=== PATIENT | female | born 1950 | race African-American/Black ===

== ENCOUNTER 2018-05-08 03:41 | Emergency (ER) | payer OTHER ==
[2018-05-08 04:02] LABS: Absolute Lymphocytes (CBC) 1.8 K/uL (0.7-4.9); Absolute Monocytes 0.5 K/uL (0.1-1.3); Absolute Neutrophil 5.2 K/uL (1.8-8.0); Basophils % 0.6 % (0-1.3); Hematocrit 42.3 % (36.0-45.0); Lymphocytes % 23.6 % (15.3-44.8); MCH 28.6 pg (27.0-35.0); MCV 87.6 fL (80-100); MPV 9.1 fL (7.6-11.3); Monocytes % 6.5 % (3.3-12.3); RBC Red Blood Cell Count 4.83 M/uL (3.86-4.86)
[2018-05-08] MEDS ORDERED: NA CHLORIDE 0.9% 1,000 ML ONE ×2 (04:03→06:20)
[2018-05-08 04:05] LABS: Protime INR 0.9
[2018-05-08] MEDS ORDERED: LORazepam 2 MG/ML VIAL ONE (04:23)
[2018-05-08 04:25] LABS: Potassium 3.9 mmol/L (3.5-5.1)
[2018-05-08] MEDS ORDERED: LEVETIRACETAM 500 MG/5 ML VIAL IV ONE (04:34)
[2018-05-08] MEDS ORDERED: NA CHLORIDE 0.9% 100 ML IV ONE ×3 (04:34→04:59)
[2018-05-08] MEDS ORDERED: INSULIN -REGULAR HUMAN 50 UNIT/0.5 ML ML ONE ×2 (04:54→04:59)
--- NOTE | 2018-05-08 04:54 | ER ---
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 Transition of care: patient was not received from another setting of care. Onset of symptoms was May 08, 2018 at 03:00. Risk Assessment: Do you want to hurt yourself or someone else? Unable to obtain. Care prior to arrival: Glucose check: HIGH. 03:40 Method Of Arrival: EMS: [facility] lp1 03:40 Acuity: JODI 2 lp1 03:40 An acute neurological deficit is present. The patients blood glucose was checked prior lp1 to arriving to the hospital and was found to be hyperglycemic. 05:03 Initial Sepsis Screen: Does the patient meet any 2 criteria? No. Patient's initial lp1 sepsis screen is negative. Does the patient have a suspected source of infection? No. Patient's initial sepsis screen is negative. Triage Assessment: 05:11 The onset of the patients symptoms was May 08, 2018 at 03:00. lp1 Stroke Activation: Symptom onset < 3 hours Physician: Stroke Attending; Name: ; Notified At: ; Arrived At: Physician: Chief Stroke Resident; Name: ; Notified At: ; Arrived At: Physician: Stroke Resident; Name: ; Notified At: ; Arrived At: Physician: ED Attending; Name: Dr. Rivera; Notified At: 03:43; Arrived At: 03:43 Physician: ED Resident; Name: ; Notified At: ; Arrived At: Historical: - Allergies: 04:27 No Known Allergies; lp1 - Home Meds: 04:27 metformin 1,000 mg oral tab 2 times per day [Active]; atorvastatin 20 mg oral tab 1 tab lp1 once daily [Active]; metoprolol tartrate 50 mg oral tab 2 times per day [Active]; potassium chloride 10 mEq Oral TbER 1 tab 2 times per day [Active]; clonidine HCl 0.2 mg oral tab 2 times per day [Active]; 04:30 hydrochlorothiazide 25 mg oral tab once daily [Active]; amlodipine 10 mg oral tab once lp1 daily [Active]; aspirin 81 mg Oral TbEC 1 tab once daily [Active]; glipizide 10 mg oral tab 2 times per day [Active]; Invokana 300 mg oral tab 1 tab once daily [Active]; levamir 20 units twice a day [Active]; - PMHx: 04:27 CVA; Deaf; Diabetes - IDDM; Hypertension; lp1 - PSHx: 04:27 Eye surgery; lp1 - Immunization history:: Adult Immunizations unknown. - Social history:: Smoking status: Patient/guardian denies using tobacco. - Ebola Screening: : No symptoms or risks identified at this time. Screenin:30 Abuse screen: Denies threats or abuse. Denies injuries from another. Nutritional lp1 screening: No deficits noted. Tuberculosis screening: No symptoms or risk factors identified. Fall Risk Total Argueta Fall Scale indicates High Risk Score (45 or more points). Fall prevention measures have been instituted. Side Rails Up X 2 Placed Close to Nursing Station Frequent Obs/Assessments Occuring Family Present and informed to notify staff if the need to leave the bedside As available patient and family educated on Fall Prevention Program and Strategies. Assessment: 03:45 General: Appears in no apparent distress. Behavior is listless. Pain: Unable to use aa1 pain scale. FLACC scale score is 0 out of 10. Neuro: Level of Consciousness is awake, listless, Oriented to unable to obtain; pt is deaf/mute. Polish Maker are equal bilaterally Moves all extremities. Pupils are PERRLA. Neuro: Seizure activity reported prior to arrival. Cardiovascular: Heart tones S1 S2 present Rhythm is regular. Respiratory: Airway is patent Respiratory effort is even, unlabored, Respiratory pattern is regular, symmetrical. GI: No signs and/or symptoms were reported involving the gastrointestinal system. : pt urinated \T\ defecated on self. EENT: No signs and/or symptoms were reported regarding the EENT system. Derm: Skin is intact, is healthy with good turgor, Skin is pink, warm \T\ dry. Musculoskeletal: Circulation, motion, and sensation intact. Capillary refill < 3 seconds. 04:15 Patient has been NPO before screening. The patient is not alert and/or unable to follow lp1 commands. Patient is deaf, mute Patient is mute The patient is exhibiting difficulty understanding words. The patient is unable to swallow own secretions without drooling or the need for suction. Bedside swallow screening discontinued. Patient kept NPO until cleared by Speech Therapy or Physician. 04:15 The patient failed the bedside swallow screening. The patient will be kept NPO until lp1 cleared by Speech Therapy or Physician. Provider notified of bedside swallow screening results: Regis Rivera MD. 04:16 Neuro: Seizure activity noted at this time. Seizure lasted approximately 2 minutes. lp1 04:16 Reassessment: MD at bedside while pt seizing. Oral suctioning performed. Pt urinated on aa1 herself. Respiratory: Airway is patent. 04:42 Reassessment: Patient appears in no apparent distress at this time. Patient and/or aa1 family updated on plan of care and expected duration. Pain level reassessed. Reassessment: Pt resting quietly at this time. No additional seizure activity observed. Family at bedside. Respiratory: Airway is patent Respiratory effort is even, unlabored, Respiratory pattern is regular, symmetrical. Derm: Skin is pink, warm \T\ dry. 05:19 Reassessment: Patient appears in no apparent distress at this time. No changes from aa1 previously documented assessment. Patient and/or family updated on plan of care and expected duration. Pain level reassessed. RT at bedside for ABG. 05:35 Reassessment: Report given to Chris Burris RN at [facility]. aa1 06:21 Reassessment: Patient appears in no apparent distress at this time. No changes from aa1 previously documented assessment. Patient and/or family updated on plan of care and expected duration. Pain level reassessed. Family remains at bedside. [facility] present for pt transfer to [facility]. Recheck FSBS taken just prior to transfer. BGL >500 however labs not drawn and sent bc pt is being loaded onto EMS stretcher for transfer. Vital Signs: 03:42 BP 166 / 148; Pulse 131; Resp 32; Temp 97.4(TE); Pulse Ox 94% 2 lpm ; Weight 74.84 kg; lp1 04:04 BP 185 / 127; Pulse 127; Resp 18; Pulse Ox 93% on 2 lpm NC; lp1 04:33 BP 169 / 105; Pulse 119; Resp 18; Pulse Ox 96% on 2 lpm NC; Pain 0/10; aa1 05:30 BP 167 / 108; Pulse 114; Resp 16; Pulse Ox 95% on 2 lpm NC; aa1 06:23 BP 142 / 101; Pulse 116; Resp 18; Pulse Ox 96% on 2 lpm NC; Pain 0/10; aa1 ED Course: 03:43 Patient arrived in ED. am2 03:44 Inserted saline lock: 18 gauge in left antecubital area, using aseptic technique. Blood lp1 collected. By JOHANA Calderon. 03:45 Patient has correct armband on for positive identification. Placed in gown. Bed in low lp1 position. Call light in reach. Side rails up X2. Seizure precautions initiated. monitoring analyst on. Pulse ox on. NIBP on. 03:46 Regis Rivera MD is Attending Physician. gs 04:02 CT Stroke Brain w/o Contrast In Process Unspecified. EDMS 04:14 Triage completed. lp1 04:14 Jomar Lei MD is Private Physician. am2 04:17 Arm band placed on right wrist. lp1 04:33 Yumiko Ponce, JOHANA is Primary Nurse. aa1 04:35 Cleaned of incontinence. Linen changed. aa1 06:00 Stroke CXR 1 View In Process Unspecified. EDMS 06:37 No provider procedures requiring assistance completed. Patient transferred, IV remains aa1 in place. Administered Medications: 04:17 Drug: Ativan 2 mg Route: IVP; Site: left antecubital; lp1 05:11 Follow up: Response: No adverse reaction; Marked relief of symptoms aa1 04:30 Drug: NS 0.9% 1000 ml Route: IV; Rate: 1 bolus; Site: left antecubital; lp1 05:07 Follow up: IV Status: Completed infusion aa1 04:30 Drug: Keppra 1000 mg Route: IV; Rate: calculated rate; Site: left antecubital; lp1 05:00 Follow up: IV Status: Completed infusion aa1 05:00 Drug: Insulin Drip - (Insulin Regular Human 100 units, NS 0.9% 100 ml) {Co-Signature: aa1 carmelo1 (Betty Celis RN).} Route: IV; Rate: calculated rate; Site: left antecubital; 05:45 Follow up: IV Status: Infusion continued upon transfer aa1 06:20 Drug: NS 0.9% 1000 ml Route: IV; Rate: 125 ml/hr; Site: left antecubital; aa1 06:20 Follow up: IV Status: Infusion continued upon transfer aa1 Point of Care Testing: Blood Glucose: 03:44 Blood Glucose: High (>450 mg/dL); lp1 06:23 Blood Glucose: High (>450 mg/dL); aa1 Ranges: Outcome: 04:53 ER care complete, transfer ordered by MD. 06:37 Transferred by ground EMS Transfer form completed. aa1 06:37 Condition: stable 06:37 Discharge instructions given to family, Instructed on the need for transfer, Demonstrated understanding of instructions. 06:38 Patient left the ED. aa1 Signatures: Dispatcher [employer] EDYumiko Zhou RN RN aa1 Betty Celis RN RN [email or web address] Brittany Loaiza Gregory, MD MD Betty Celis RN, lp1 Corrections: (The following items were deleted from the chart) 04:16 04:09 Presenting complaint: EMS states: Per family, heard a loud noise, found patient lp1 on floor seizing; Hx of seizures, mute, deaf, HTN; BP of 228/159, blood glucose reading as HIGH; Patient post ictal on scene, unable to follow commands on arrival to ER [facility] 04:16 04:09 Transition of care: patient was not received from another setting of care. 1 1 04:16 04:09 Onset of symptoms was May 08, 2018 at 03:00 1 1 04:16 04:09 Risk Assessment: Do you want to hurt yourself or someone else? Unable to obtain 1 1 04:16 04:09 Care prior to arrival: Glucose check: HIGH 1 1 04:16 04:09 Method Of Arrival: EMS: [facility] 1 1 04:16 04:09 Acuity: JODI 2 lp1 1 04:31 03:40 Presenting complaint: EMS states: Per family, heard a loud noise, found patient lp1 on floor seizing; Hx of seizures, mute, deaf, HTN; BP of 228/159, blood glucose reading as HIGH; Patient post ictal on scene, unable to follow commands on arrival to ER 1 04:32 03:40 Presenting complaint: EMS states: Per family, heard a loud noise, found patient lp1 on floor seizing; No hx of seizures; Patient is deaf; BP of 228/159, blood glucose reading as HIGH; Patient post ictal on scene, unable to follow commands on arrival to ER [facility] 04:32 04:19 Social history: Smoking status: unknown [place] [id number]
--- NOTE | 2018-05-08 04:54 | EDPHYS ---
Physician Documentation [facility] Name: Génesis Manzano Age: 67 yrs Sex: Female : 1950 Arrival Date: 05/08/2018 Time: 03:43 Bed 3 Private MD: Jomar Lei E ED Physician Regis Rivera HPI: 05/08 04:41 This 67 yrs old Black Female presents to ER via EMS with complaints of Probable Seizure.gs 04:41 The patient presents with a history of multiple seizures, a total of 2. Character of gs seizure(s): Loss of consciousness: the patient experienced loss of consciousness, Motor activity: generalized, Incontinence: incontinent of bladder. Seizure onset: today. Seizure Hx: the patient has no previous seizure history. Associated injury: The patient did not suffer any apparent associated injury. Unable to obtain HPI due to comatose state. The patient has not experienced similar symptoms in the past. Historical: - Allergies: 04:27 No Known Allergies; lp1 - Home Meds: 04:27 metformin 1,000 mg oral tab 2 times per day [Active]; atorvastatin 20 mg oral tab 1 tab lp1 once daily [Active]; metoprolol tartrate 50 mg oral tab 2 times per day [Active]; potassium chloride 10 mEq Oral TbER 1 tab 2 times per day [Active]; clonidine HCl 0.2 mg oral tab 2 times per day [Active]; 04:30 hydrochlorothiazide 25 mg oral tab once daily [Active]; amlodipine 10 mg oral tab once lp1 daily [Active]; aspirin 81 mg Oral TbEC 1 tab once daily [Active]; glipizide 10 mg oral tab 2 times per day [Active]; Invokana 300 mg oral tab 1 tab once daily [Active]; levamir 20 units twice a day [Active]; - PMHx: 04:27 CVA; Deaf; Diabetes - IDDM; Hypertension; lp1 - PSHx: 04:27 Eye surgery; lp1 - Immunization history:: Adult Immunizations unknown. - Social history:: Smoking status: Patient/guardian denies using tobacco. - Ebola Screening: : No symptoms or risks identified at this time. ROS: 04:41 Unable to obtain ROS due to comatose state. gs Exam: 04:41 Head/Face: Normocephalic, atraumatic. Eyes: Pupils equal round and reactive to light, gs extra-ocular motions intact. Lids and lashes normal. Conjunctiva and sclera are non-icteric and not injected. Cornea within normal limits. Periorbital areas with no swelling, redness, or edema. ENT: Nares patent. No nasal discharge, no septal abnormalities noted. Tympanic membranes are normal and external auditory canals are clear. Oropharynx with no redness, swelling, or masses, exudates, or evidence of obstruction, uvula midline. Mucous membranes moist. Neck: Trachea midline, no thyromegaly or masses palpated, and no cervical lymphadenopathy. Supple, full range of motion without nuchal rigidity, or vertebral point tenderness. No Meningismus. Chest/axilla: Normal chest wall appearance and motion. Nontender with no deformity. No lesions are appreciated. 04:41 Respiratory: Lungs have equal breath sounds bilaterally, clear to auscultation and percussion. No rales, rhonchi or wheezes noted. No increased work of breathing, no retractions or nasal flaring. Abdomen/GI: Soft, non-tender, with normal bowel sounds. No distension or tympany. No guarding or rebound. No evidence of tenderness throughout. Back: No spinal tenderness. No costovertebral tenderness. Full range of motion. Skin: Warm, dry with normal turgor. Normal color with no rashes, no lesions, and no evidence of cellulitis. MS/ Extremity: Pulses equal, no cyanosis. Neurovascular intact. Full, normal range of motion. 04:41 Constitutional: The patient appears lethargic. 04:41 Cardiovascular: Rate: tachycardic, Rhythm: regular, Pulses: no pulse deficits are appreciated. 04:41 ECG was reviewed by the Attending Physician. 04:41 Neuro: Motor: moves all fours, strength is 4/5 in the right arm, left arm, right leg gs and left leg, Sensation: withdraws to pain. Vital Signs: 03:42 BP 166 / 148; Pulse 131; Resp 32; Temp 97.4(TE); Pulse Ox 94% 2 lpm ; Weight 74.84 kg; lp1 04:04 BP 185 / 127; Pulse 127; Resp 18; Pulse Ox 93% on 2 lpm NC; lp1 04:33 BP 169 / 105; Pulse 119; Resp 18; Pulse Ox 96% on 2 lpm NC; Pain 0/10; aa1 05:30 BP 167 / 108; Pulse 114; Resp 16; Pulse Ox 95% on 2 lpm NC; aa1 06:23 BP 142 / 101; Pulse 116; Resp 18; Pulse Ox 96% on 2 lpm NC; Pain 0/10; aa1 MDM: 03:52 Patient medically screened. gs 04:41 Differential diagnosis: cerebral vascular accident, cardiac arrhythmia, seizure, dka, gs HONK. Data reviewed: vital signs, nurses notes. Response to treatment: the patient's symptoms have mildly improved after treatment. 05/08 03:47 Order name: Basic Metabolic Panel; Complete Time: 04:34 05/08 03:47 Order name: CBC with Diff; Complete Time: 04:19 05/08 03:47 Order name: Protime (+inr); Complete Time: 04:19 05/08 03:47 Order name: CT Stroke Brain w/o Contrast 05/08 04:25 Order name: Osmolality, Serum; Complete Time: 05:56 05/08 04:28 Order name: ABG; Complete Time: 05:56 05/08 03:47 Order name: Stroke CXR 1 View 05/08 03:47 Order name: EKG; Complete Time: 03:48 05/08 03:47 Order name: Accucheck; Complete Time: 03:52 05/08 03:47 Order name: Cardiac monitoring; Complete Time: 03:51 05/08 03:47 Order name: EKG - Nurse/Tech; Complete Time: 04:36 05/08 03:47 Order name: IV Saline Lock; Complete Time: 03:52 05/08 03:47 Order name: Labs collected and sent; Complete Time: 03:52 05/08 03:47 Order name: NPO; Complete Time: 03:53 05/08 03:47 Order name: O2 Per Protocol; Complete Time: 03:53 05/08 03:47 Order name: O2 Sat Monitoring; Complete Time: 03:54 05/08 03:47 Order name: Stroke Swallow Screen; Complete Time: 05:47 gs EC:41 Rate is 134 beats/min. Rhythm is regular. KS interval is normal. QRS interval is gs prolonged. T waves are Flattened. Clinical impression: NSR w/ Non-specific ST/T Changes and Sinus tachycardia. Interpreted by me. Administered Medications: 04:17 Drug: Ativan 2 mg Route: IVP; Site: left antecubital; lp1 05:11 Follow up: Response: No adverse reaction; Marked relief of symptoms aa1 04:30 Drug: NS 0.9% 1000 ml Route: IV; Rate: 1 bolus; Site: left antecubital; lp1 05:07 Follow up: IV Status: Completed infusion aa1 04:30 Drug: Keppra 1000 mg Route: IV; Rate: calculated rate; Site: left antecubital; lp1 05:00 Follow up: IV Status: Completed infusion aa1 05:00 Drug: Insulin Drip - (Insulin Regular Human 100 units, NS 0.9% 100 ml) {Co-Signature: ruma castellon (Betty Celis RN).} Route: IV; Rate: calculated rate; Site: left antecubital; 05:45 Follow up: IV Status: Infusion continued upon transfer aa1 06:20 Drug: NS 0.9% 1000 ml Route: IV; Rate: 125 ml/hr; Site: left antecubital; aa1 06:20 Follow up: IV Status: Infusion continued upon transfer aa1 Point of Care Testing: Blood Glucose: 03:44 Blood Glucose: High (>450 mg/dL); lp1 06:23 Blood Glucose: High (>450 mg/dL); aa1 Ranges: Critical Glucose Levels:Adult <50 mg/dl or >400 mg/dl <40 mg/dl or >180 mg/dl Disposition: 05/08/18 04:53 Transfer ordered to [facility]. 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 - Reason for transfer: Higher level of care. - Accepting physician is lopez. - Condition is Stable. - Problem is new. - Symptoms have improved. Critical care time excluding procedures: 04:41 Critical care time: Bedside Care: 10 minutes, Consultation: 10 minutes, Family gs Intervention: 10 minutes. Total time: 30 minutes Signatures: Dispatcher [employer] EDYumiko Zhou RN RN aa1 Betty Celis RN RN lp1 Regis Rivera MD MD gs Laura Pena RN lp1 Corrections: (The following items were deleted from the chart) 04:32 04:19 Social history: Smoking status: unknown lp1 lp1 04:50 04:41 Respiratory: Lungs have equal breath sounds bilaterally, clear to auscultation gs and percussion. No rales, rhonchi or wheezes noted. No increased work of breathing, no retractions or nasal flaring. Abdomen/GI: Soft, non-tender, with normal bowel sounds. No distension or tympany. No guarding or rebound. No evidence of tenderness throughout. Back: No spinal tenderness. No costovertebral tenderness. Full range of motion. Skin: Warm, dry with normal turgor. Normal color with no rashes, no lesions, and no evidence of cellulitis. MS/ Extremity: Pulses equal, no cyanosis. Neurovascular intact. Full, normal range of motion. Neuro: Awake and alert, GCS 15, oriented to person, place, time, and situation. Cranial nerves II-XII grossly intact. Motor strength 5/5 in all extremities. Sensory grossly intact. Cerebellar exam normal. Normal gait. 04:54 04:53 05/08/2018 04:53 Transfer ordered to [facility]. 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 Reason for transfer: Higher level of care. Accepting physician is jessica. Condition is Stable. Problem is new. Symptoms have improved. 06:38 04:54 05/08/2018 04:53 Transfer ordered to [facility]. 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 Reason for transfer: Higher level of care. Accepting physician is jessica. Condition is Stable. Problem is new. Symptoms have improved.
[2018-05-08 05:25] LABS: Arterial Blood Carboxyhemoglob 0.8 % (0-1.5); Blood Gas Oxyhemoglobin 75.8 % (94-97); Blood O2 Saturation 77.3 % (92-98.5)
--- NOTE | 2018-05-08 08:02 | RAD REPORT ---
EXAM DESCRIPTION: RAD - Chest Single View - 05/08/2018 6:00 am CLINICAL HISTORY: Stroke protocol chest film COMPARISON: October 01, 2015 TECHNIQUE: AP portable chest image was obtained 0404 hours . FINDINGS: No peripheral mass, consolidation or pulmonary edema. Lung markings are accentuated by sha llow inspiration imaging. No significant failure or volume overload. Heart and vasculature are normal. No measurable pleural effusion and no pneumothorax. No acute bony abnormality seen. No acute aortic findings suspected. IMPRESSION: No acute cardiopulmonary process. No significant change from comparison.
--- NOTE | 2018-05-08 09:35 | RAD REPORT ---
EXAM DESCRIPTION: CT - Ct Stroke Brain Wo Cont - 05/08/2018 9:15 am CLINICAL HISTORY: Acute onset altered mental status, memory loss, transient alteration of awareness, seizure history A preliminary report was provided at the time of the study and reviewed prior to final report. COMPARISON: CT head March 2014 TECHNIQUE: Axial 5 millimeter thick images of the head were obtained without IV contrast. All CT scans are performed using dose optimization technique as appropriate and may include automated exposure control or mA/KV adjustment according to patient size. FINDINGS: No intracranial hemorrhage, mass, or cerebral edema. No acute cortical based infarction. N o cortical edema or sulcal effacement. There is patchy chronic ischemic change scattered in the cereb ral white matter. Subtle diminished attenuation is seen near the right head of the caudate. Patient h as moderate area of encephalomalacia in the medial right parieto-occipital junction. Mariscal matter-whit e matter differentiation is preserved. Visualized portions of the mastoid air cells, paranasal sinuses, and orbits are unremarkable. IMPRESSION: No intracranial hemorrhage and no acute cortical based infarction identified. Atrophy and chronic ischemic changes are present progressive from 2013. There is subtle decreased att enuation near the right head of the caudate that could be a nonhemorrhagic infarction. As clinical findings warrant, followup MR imaging could be performed.
--- NOTE | 2018-05-08 10:02 | EKG ---
Test Date: 2018-05-08 Test Time: 04:22:02 Reporting Specialist: RACQUEL MEASUREMENT RESULTS: Intervals: Rate: 134 NH: 156 QRSD: 100 QT: 284 QTc: 424 [place]: P: 58 NH: 156 QRS: 33 T: 13 INTERPRETIVE STATEMENTS: Sinus tachycardia with occasional premature ventricular complexes Biatrial enlargement Nonspecific ST and T wave abnormality Abnormal ECG Compared to ECG 08/18/2017 13:54:41 Ventricular premature complex(es) now present Atrial abnormality now present ST (T wave) deviation now present Sinus rhythm no longer present T-wave abnormality no longer present Prolonged QT interval no longer present Electronically Signed On 05-08-18 10:01:46 CDT by Pipo Vera
[2018-05-09 14:25] VITALS: BP 142/101; TEMP 97.4; O2SAT 96
== END 2018-05-08 06:38 | disposition short-term general hospital (02) ==
LOC: ER 03:41
DX: E11.00 Type 2 diabetes mellitus with hyperosmolarity without nonketotic hyperglycemic-hyperosmolar coma (NKHHC) (principal); G40.509 Epileptic seizures related to external causes, not intractable, without status epilepticus; I10 Essential (primary) hypertension; Z79.82 Long term (current) use of aspirin; Z79.4 Long term (current) use of insulin; Z86.73 Personal history of transient ischemic attack (TIA), and cerebral infarction without residual deficits
CPT/HCPCS: 36415; 70450; 71045; 80048; 82805; 82962; 83930; 85025; 85610; 93005; 96365; 96367; 96375; 99285; J1953; J7030 ×2

== ENCOUNTER 2018-06-10 14:35 | Emergency (ER) | payer OTHER ==
--- OUTSIDE RECORDS SUMMARY | 2018-06-10 14:37 | XMS REPORT | Clinical Summary ---
:1950 Author Organization [facility] Address [address] [place] [address] Care Team Providers Name Role Phone Unavailable Primary Care Provider Unavailable Allergies No Known Allergies Medications Medication Sig Dispensed Refills Start Date End Date Status amLODIPine (NORVASC) 10 Take 1 tablet 30 tablet 2 05/11/2018 Active MG tablet (10 mg total) 9 by mouth daily for 90 days. apixaban (ELIQUIS) 2.5 mg Take 1 tablet 60 tablet 2 05/10/2018 Active Tab tablet (2.5 mg total) 9 by mouth 2 (two) times daily for 90 days. aspirin 81 MG chewable Take 1 tablet 30 tablet 2 05/11/2018 Active tablet (81 mg total) 9 by mouth daily for 90 days. atorvastatin (LIPITOR) 20 Take 1 tablet 30 tablet 2 05/10/2018 Active MG tablet (20 mg total) 9 by mouth nightly for 90 days. hydroCHLOROthiazide Take 1 tablet 30 tablet 2 05/11/2018 Active (HYDRODIURIL) 25 MG (25 mg total) 9 tablet by mouth daily for 90 days. metoprolol (LOPRESSOR) 50 Take 1 tablet 60 tablet 2 05/10/2018 Active MG tablet (50 mg total) 9 by mouth 2 (two) times daily for 90 days. insulin glargine (LANTUS) 40 units SC 10 mL 2 05/10/2018 Active 100 unit/mL syringe daily AM. 9 glipiZIDE (GLUCOTROL) 10 Take 1 tablet 30 tablet 2 05/10/2018 Active MG tablet (10 mg total) 9 by mouth daily for 90 days. metFORMIN (GLUCOPHAGE) Take 1 tablet 60 tablet 2 05/10/2018 Active 1000 MG tablet (1,000 mg 9 total) by mouth 2 (two) times daily with breakfast and dinner for 90 days. Active Problems Problem Noted Date Acute deep vein thrombosis (DVT) of right lower extremity 05/10/2018 Acute encephalopathy 05/08/2018 Hyperglycemic hyperosmolar nonketotic coma 05/08/2018 Provoked seizure 05/08/2018 Acute Metabolic encephalopathy 05/08/2018 Encounters Date Type Specialty Care Team Description 05/08/2018 - [facility] Internal [facility], Acute encephalopathy (Primary Dx); 05/10/2018 Encounter Medicine Ernestina Provoked seizure (HCC); MD Jaun Hyperglycemic hyperosmolar nonketotic coma (HCC) Tavares Arambula MD after 06/09/2017 Social History Tobacco Use Types Packs/Day Years Used Date Never Smoker Smokeless Tobacco: Never Used Sex Assigned at Date Recorded Not on file Job Start Date Occupation Industry Not on file Not on file Not on file Travel History Travel Start Travel End No recent travel history available. Last Filed Vital Signs Vital Sign Reading Time Taken Blood Pressure 136/78 05/10/2018 3:05 PM CDT Pulse 99 05/10/2018 3:05 PM CDT Temperature 36.6 C (97.8 F) 05/10/2018 3:05 PM CDT Respiratory Rate 17 05/10/2018 3:05 PM CDT Oxygen Saturation 96% 05/10/2018 3:05 PM CDT Inhaled Oxygen Concentration - - Weight 65 kg (143 lb 4.8 oz) 05/09/2018 12:12 AM CDT Height 162.6 cm (5' 4") 05/08/2018 1:00 PM CDT Body Mass Index 24.6 05/09/2018 12:12 AM CDT Plan of Treatment Not on file Procedures Procedure Name Priority Date/Time Associated Comments Diagnosis RHYTHM STRIP - SCAN 05/12/2018 10:41 AM CDT POCT-GLUCOSE METER Routine 05/10/2018 5:07 Results for this PM CDT procedure are in the results section. ISLET CELL AB SCR Routine 05/10/2018 12:30 Results for this PM CDT procedure are in the results section. JOCELYNN-65 Routine 05/10/2018 12:30 Results for this PM CDT procedure are in the results section. POCT-GLUCOSE METER Routine 05/10/2018 11:49 Results for this AM CDT procedure are in the results section. VENOUS DOPPLER LEGS Routine 05/10/2018 8:43 Results for this BILATERAL AM CDT procedure are in the results section. POCT-GLUCOSE METER Routine 05/10/2018 7:58 Results for this AM CDT procedure are in the results section. CBC W/PLT COUNT & AUTO Routine 05/10/2018 4:50 Results for this DIFFERENTIAL AM CDT procedure are in the results section. BASIC METABOLIC PANEL Routine 05/10/2018 4:50 Results for this (7) AM CDT procedure are in the results section. CBC W/PLT COUNT & AUTO Routine 05/10/2018 4:50 Results for this DIFFERENTIAL AM CDT procedure are in the results section. POCT-GLUCOSE METER Routine 05/10/2018 12:20 Results for this AM CDT procedure are in the results section. POCT-GLUCOSE METER Routine 05/09/2018 9:43 Results for this PM CDT procedure are in the results section. POCT-GLUCOSE METER Routine 05/09/2018 5:06 Results for this PM CDT procedure are in the results section. POCT-GLUCOSE METER Routine 05/09/2018 11:13 Results for this AM CDT procedure are in the results section. BASIC METABOLIC PANEL Routine 05/09/2018 9:35 Results for this (7) AM CDT procedure are in the results section. POCT-GLUCOSE METER Routine 05/09/2018 5:58 Results for this AM CDT procedure are in the results section. CBC W/PLT COUNT & AUTO Routine 05/09/2018 3:39 Results for this DIFFERENTIAL AM CDT procedure are in the results section. CBC W/PLT COUNT & AUTO Routine 05/09/2018 3:39 Results for this DIFFERENTIAL AM CDT procedure are in the results section. BASIC METABOLIC PANEL Routine 05/09/2018 12:34 Results for this (7) AM CDT procedure are in the results section. POCT-GLUCOSE METER Routine 05/09/2018 12:04 Results for this AM CDT procedure are in the results section. POCT-GLUCOSE METER Routine 05/08/2018 8:17 Results for this PM CDT procedure are in the results section. PHOSPHORUS Routine 05/08/2018 7:58 Results for this PM CDT procedure are in the results section. BASIC METABOLIC PANEL Routine 05/08/2018 7:58 Results for this (7) PM CDT procedure are in the results section. POCT-GLUCOSE METER Routine 05/08/2018 5:12 Results for this PM CDT procedure are in the results section. XR ABDOMEN 1 VIEW Routine 05/08/2018 2:57 Results for this PM CDT procedure are in the results section. BASIC METABOLIC PANEL Routine 05/08/2018 2:55 Results for this (7) PM CDT procedure are in the results section. POCT-GLUCOSE METER Routine 05/08/2018 2:20 Results for this PM CDT procedure are in the results section. POCT-GLUCOSE METER Routine 05/08/2018 1:13 Results for this PM CDT procedure are in the results section. BASIC METABOLIC PANEL Routine 05/08/2018 12:58 Results for this (7) PM CDT procedure are in the results section. POCT-GLUCOSE METER Routine 05/08/2018 12:12 Results for this PM CDT procedure are in the results section. POCT-GLUCOSE METER Routine 05/08/2018 11:04 Results for this AM CDT procedure are in the results section. BLOOD CULTURE Routine 05/08/2018 10:19 Results for this AM CDT procedure are in the results section. URINALYSIS W/ Routine 05/08/2018 9:43 Results for this MICROSCOPIC AM CDT procedure are in the results section. BLOOD CULTURE Routine 05/08/2018 9:43 Results for this AM CDT procedure are in the results section. LACTIC ACID, VENOUS, Routine 05/08/2018 9:42 Results for this WHOLE BLOOD AM CDT procedure are in the results section. POTASSIUM STAT 05/08/2018 9:42 Results for this AM CDT procedure are in the results section. GLUCOSE STAT 05/08/2018 9:42 Results for this AM CDT procedure are in the results section. CBC (HEMOGRAM ONLY) STAT 05/08/2018 9:42 Results for this AM CDT procedure are in the results section. HEMOGLOBIN A1C Routine 05/08/2018 9:42 Results for this AM CDT procedure are in the results section. PHOSPHORUS Routine 05/08/2018 9:42 Results for this AM CDT procedure are in the results section. MAGNESIUM Routine 05/08/2018 9:42 Results for this AM CDT procedure are in the results section. COMPREHENSIVE Routine 05/08/2018 9:42 Results for this METABOLIC PANEL AM CDT procedure are in the results section. APTT STAT 05/08/2018 9:42 Results for this AM CDT procedure are in the results section. PROTHROMBIN TIME/INR STAT 05/08/2018 9:42 Results for this AM CDT procedure are in the results section. TROPONIN I STAT 05/08/2018 9:42 Results for this AM CDT procedure are in the results section. POCT-GLUCOSE METER Routine 05/08/2018 9:24 Results for this AM CDT procedure are in the results section. POCT-GLUCOSE METER Routine 05/08/2018 8:09 Results for this AM CDT procedure are in the results section. after 06/09/2017 Results RHYTHM STRIP - SCAN (05/12/2018 10:41 AM CDT) Narrative Performed At POC-Glucose meter (05/10/2018 5:07 PM CDT)Only the most recent of17 resultswithin the time period is included. POC-Glucose Meter 184 (H)Comment: TESTED AT 70 - 110 mg/dL [facility] [address] [facility] [address] Specimen Blood Performing Organization Address [facility]/[place] [address] CENTER JOCELYNN-65 (05/10/2018 12:30 PM CDT) JOCELYNN-65 <5 <5 IU/mL [facility] Comment: This test was performed using the GAD65 POLLY method. New method, POLLY, is standardized against the International reference preparation 97/550, is reported in International Units/mL (IU/mL) and a new reference range was implemented. Specimen Blood Narrative Performed At Performing Lab [facility] [employer] [place] [address] [place] [address] Tai Domingo MD, PhD, GENEVIEVE Performing Organization Address City/[facility]/Zipcode Phone [place] [address] [facility] [phone] [facility] Islet Cell AB Screen (05/10/2018 12:30 PM CDT) Islet Cell Ab Profile Refer to individual [facility]let [facility] Cell Ab and/or [facility] Ab Titer results. Specimen Blood Narrative Performed At Performing Organization Address City/State/Zipcode Phone Number MADDI Rider, [place] [address] [facility] [address] [facility] Venous doppler legs bilateral (05/10/2018 8:43 AM CDT) Ejection Fraction [facility] CPACS Impressions Performed At Right Impression [facility] CPACS 1. There is a small partial deep vein thrombosis of the common femoral vein. 2. There is no deep venous obstruction in the profunda femoral, femoral, popliteal, posterior tibial or peroneal veins. 3. There is no superficial venous obstruction in the great saphenous vein. Left Impression 1. There is no deep venous obstruction in the common femoral, profunda femoral, femoral, popliteal, posterior tibial or peroneal veins. 2. There is no superficial venous obstruction in the great saphenous vein. Conclusions Summary Venous duplex imaging and compression of the bilateral lower extremities were performed. The veins were adequately visualized. The right deep venous system was positive with PARTIAL acute thrombus. The right superficial venous system was patent and compressible with no evidence of thrombus. The left deep and superficial venous systems were patent and compressible with no evidence of thrombus. Signature Velocities are measured in cm/s ; Diameters are measured in cm Narrative Performed At PV LAB - Lower Extremities DVT Study [facility] CP[facility] Demographics Patient Name GÉNESIS MANZANO Date of Study 05/10/2018 [id number] Age 67 Visit Number [id number] Female [id number] Date of 1950 [facility] ServicesRoom Number 2263 Geeta Zamorano SonographerGary Gemma Mcbride. RVT,InterpretingJ. ZHENG ErwinAnne-Marie Physician , RPVI Procedure Type of Study: Veins: Lower Extremities DVT Study, VENOUS DOPPLER LEG, BILATERAL. Indications for Study:Evaluate for DVT. Patient Status:Routine. Study Location:Vascular Lab. Technical Quality:Adequate visualization. - Results were reported to:floor nurse notified at 8:32 on 05/10/2018.. Risk Factors History of Disease +---------+----+ + !Diagnosis!Date!Comments ! +---------+----+ + !Other!!Seizues, htn, dm, H/o cva. ! +---------+----+ + Procedure Note Interface, External Ris In - 05/10/2018 11:45 AM CDT PV LAB - Lower Extremities DVT Study Demographics Patient Name GÉNESIS MANZANO Date of Study 05/10/2018 Age 67 Visit Number [id number] Gender Female Date of 1950 Number Referring [facility] Room Number 2263 Physician Ernestina Zamorano Histology Aide Timothy Mcbride. RVT, Interpreting ZHENG BlackmonAnne-Marie Physician , RPVI Procedure Type of Study: Veins: Lower Extremities DVT Study, VENOUS DOPPLER LEG, BILATERAL. Indications for Study:Evaluate for DVT. Patient Status:Routine. Study Location:Vascular Lab. Technical Quality:Adequate visualization. - Results were reported to:floor nurse notified at 8:32 on 05/10/2018.. Risk Factors History of Disease +---------+----+ + !Diagnosis!Date!Comments ! +---------+----+ + !Other ! !Seizues, htn, dm, H/o cva. ! +---------+----+ + Impressions Right Impression 1. There is a small partial deep vein thrombosis of the common femoral vein. 2. There is no deep venous obstruction in the profunda femoral, femoral, popliteal, posterior tibial or peroneal veins. 3. There is no superficial venous obstruction in the great saphenous vein. Left Impression 1. There is no deep venous obstruction in the common femoral, profunda femoral, femoral, popliteal, posterior tibial or peroneal veins. 2. There is no superficial venous obstruction in the great saphenous vein. Conclusions Summary Venous duplex imaging and compression of the bilateral lower extremities were performed. The veins were adequately visualized. The right deep venous system was positive with PARTIAL acute thrombus. The right superficial venous system was patent and compressible with no evidence of thrombus. The left deep and superficial venous systems were patent and compressible with no evidence of thrombus. Signature Velocities are measured in cm/s ; Diameters are measured in cm Performing Organization Address City/State/Zipcode Phone Number [facility] CBC with platelet count + automated diff (05/10/2018 4:50 AM CDT)Only the most recent of2 resultswithin the time period is included. WBC 7.8 3.5 - 10.5 K/L [facility] RBC 4.85 3.93 - 5.22 M/L [facility] Hemoglobin 13.3 11.2 - 15.7 GM/DL [facility] Hematocrit 42.1 34.1 - 44.9 % [facility] MCV 86.8 79.4 - 94.8 fL [facility] MCH 27.4 25.6 - 32.2 pg [facility] MCHC 31.6 (L) 32.2 - 35.5 GM/DL [facility] RDW 13.7 11.7 - 14.4 % [facility] Platelets 221 150 - 450 K/CU MM [facility] MPV 10.2 9.4 - 12.3 fL [facility] nRBC 0 0 - 0 /100 WBC [facility] % Neutros 55 % [facility] % Lymphs 35 % [facility] % Monos 7 % [facility] % Eos 2 % [facility] % Baso 0 % [facility] # Neutros 4.33 1.56 - 6.13 K/L [facility] # Lymphs 2.76 1.18 - 3.74 K/L [facility] # Monos 0.53 (H) 0.24 - 0.36 K/L [facility] # Eos 0.14 0.04 - 0.36 K/L [facility] # Baso 0.03 0.01 - 0.08 K/L [facility] Immature Granulocytes-Relative 0 0 - 1 % [facility] Specimen Blood Performing Organization Address City/State/Zipcode Phone Number [facility] [address] [place] [address] CENTER Basic Metabolic Panel (05/10/2018 4:50 AM CDT)Only the most recent of6 resultswithin the time period is included. Sodium 136 136 - 145 meq/L [facility] Potassium 3.5 3.5 - 5.1 meq/L [facility] Chloride 104 98 - 107 meq/L [facility] CO2 24 22 - 29 meq/L [facility] BUN 18 7 - 21 mg/dL [facility] Creatinine 1.00 0.57 - 1.25 mg/dL [facility] Glucose 107 (H) 70 - 105 mg/dL [facility] Calcium 9.4 8.4 - 10.2 mg/dL [facility] EGFR 67Comment: ESTIMATED GFR IS mL/min/1.73 sq m [facility] NOT ACCURATE [facility] CLEARANCE IN PREDICTING GLOMERULAR FILTRATION RATE. ESTIMATED GFR IS NOT APPLICABLE FOR DIALYSIS PATIENTS. Specimen Blood Performing Organization Address City/State/Zipcode Phone Number [address] [phone] CENTER Phosphorus (05/08/2018 7:58 PM CDT)Only the most recent of2 resultswithin the time period is included. Phosphorus 2.5 2.3 - 4.7 mg/dL [facility] Specimen Blood Performing Organization Address [facility] Phone Number [address] [phone] CENTER XR abdomen / KUB 1 view (05/08/2018 2:57 PM CDT) Narrative Performed At FINAL REPORT [employer] CLINICAL HISTORY: corpak placement TECHNIQUE: Supine abdomen IMPRESSION: The tip of the feeding tube is in the distal duodenum. The partially visualized bowel gas pattern is nonspecific with moderate stool in the visualized colon. Signed: Shana Parekh MD Report Verified Date/Time:05/08/2018 15:38:04 Reading Location: [facility] C0[facility] Consult Reading Room Procedure Note Interface, External Ris In - 05/08/2018 3:40 PM CDT FINAL REPORT CLINICAL HISTORY: corpak placement TECHNIQUE: Supine abdomen IMPRESSION: The tip of the feeding tube is in the distal duodenum. The partially visualized bowel gas pattern is nonspecific with moderate stool in the visualized colon. Signed: Shana Parekh MD Report Verified Date/Time: 05/08/2018 15:38:04 Reading Location: [facility] [id number] Consult Reading Room Performing Organization Address City/[facility] Mex[facility]ode Phone Number GE RIS Blood culture (05/08/2018 10:19 AM CDT)Only the most recent of2 resultswithin the time period is included. Result No growth in 5 days [facility] Specimen Blood - Arm, Right Performing Organization Address [facility]/Zipcode Phone Number [facility] [address] [place] [phone] [place] Urinalysis w/ Microscopic (05/08/2018 9:43 AM CDT) Color, UA Light Yellow [facility] Clarity, UA Clear [facility] Specific Olden, UA 1.025 1.001 - 1.035 [facility] pH, UA 7.0 5.0 - 8.0 [facility] Protein, UA 30 mg/dL (A) Negative [facility] Glucose, UA >1000 mg/dL (A) Negative [facility] Ketones, UA Trace (A) Negative [facility] Bilirubin, UA Negative Negative [facility] Blood, UA Negative Negative [facility] Nitrite, UA Negative Negative [facility] Leukocytes, UA Negative Negative [facility] Urobilinogen, UA 0.2 0.2 - 1.0 mg/dL [facility] RBC, UA <1 /HPF [facility] WBC, UA 0 /HPF [facility] Bacteria, UA Rare [facility] Squam Epithel, UA <1 /HPF [facility] Specimen Source Urine, Jason [facility] Specimen Urine - Urine, Jason Performing Organization Address [facility]/Zipcode Phone Number [address] [address] CENTER Troponin I (05/08/2018 9:42 AM CDT) Troponin I <0.01 0.00 - 0.03 ng/mL [facility] Specimen Blood Narrative Performed At [facility] Troponin I (TnI) levels must be interpreted in the context of the presenting symptoms and the clinical findings. Elevated TnI levels indicate myocardial damage, but are not specific for ischemic heart disease. Elevated TnI levels are seen in patients with other cardiac conditions (including myocarditis and congestive heart failure), and slight TnI elevations occur in patients with other conditions, including sepsis, renal failure, acidosis, acute neurological disease, and persistent tachyarrhythmia. Performing Organization Address [facility] Mexic[facility]ode Phone Number [address] [address] [place] Lactic acid, venous, whole blood (05/08/2018 9:42 AM CDT) Lactate, Venous 3.3 (H)Comment: Specimen 0.5 - 2.2 mmol/L [facility] moderately hemolyzed [facility] Specimen Blood Narrative Performed At [facility] Effective 11/26/2015: Units/Reference Range Change New: 0.5-2.2 mmol/LPrevious: 5-20 mg/dL Performing Organization Address [facility] Mex[facility]oid Phone Number [address] [address] [phone] CENTER aPTT (05/08/2018 9:42 AM CDT) PTT 22.6 22.5 - 36.0 seconds [facility] Specimen Blood Performing Organization Address [facility] Mex[facility]ode Phone Number [address] [address] [phone] CENTER Prothrombin time/INR (05/08/2018 9:42 AM CDT) Protime 13.2 11.7 - 14.7 seconds [facility] INR 1.0 <=5.9 [facility] Specimen Blood Narrative Performed At [facility] RECOMMENDED COUMADIN/WARFARIN INR THERAPY RANGES STANDARD DOSE: 2.0 - 3.0 Includes: PROPHYLAXIS for venous thrombosis, systemic embolization; TREATMENT for venous thrombosis and/or pulmonary embolus. HIGH RISK: Target INR is 2.5-3.5 for patients with mechanical heart valves. Performing Organization Address City/State/[facility] Mexicocode Phone Number [address] [address] CENTER CBC (Hemogram only) (05/08/2018 9:42 AM CDT) WBC 8.6 3.5 - 10.5 K/L [facility] RBC 5.01 3.93 - 5.22 M/L [facility] Hemoglobin 14.1 11.2 - 15.7 GM/DL [facility] Hematocrit 43.3 34.1 - 44.9 % [facility] MCV 86.4 79.4 - 94.8 fL [facility] MCH 28.1 25.6 - 32.2 pg [facility] MCHC 32.6 32.2 - 35.5 GM/DL [facility] RDW 13.1 11.7 - 14.4 % [facility] Platelets 224 150 - 450 K/CU MM [facility] MPV 10.2 9.4 - 12.3 fL [facility] nRBC 0 0 - 0 /100 WBC [facility] Specimen Blood Performing Organization Address City/[facility] Mexicocode Phone Number [address] [address] CENTER Potassium-STAT (05/08/2018 9:42 AM CDT) Potassium 3.7 3.5 - 5.1 meq/L [facility] Specimen Blood Performing Organization Address [facility]/Zipcode Phone Number [address] [address] CENTER Magnesium (05/08/2018 9:42 AM CDT) Magnesium 2.7 (H) 1.6 - 2.6 mg/dL [facility] Specimen Blood Performing Organization Address City/[facility] Mexic[facility]ode Phone Number [address] [address] [place] Hemoglobin A1c (05/08/2018 9:42 AM CDT) Hemoglobin A1C 17.1 (H) 4.3 - 6.1 % [facility] Specimen Blood Performing Organization Address City/[facility] Mexicocode Phone Number [address] [address] [place] Glucose-STAT (05/08/2018 9:42 AM CDT) Glucose 325 (H) 70 - 105 mg/dL [facility] [facility] Specimen Blood Performing Organization Address [facility] Phone Number [address] [address] [place] Comprehensive metabolic panel (05/08/2018 9:42 AM CDT) Protein, Total 9.0 (H) 6.0 - 8.3 gm/dL [facility] Albumin 4.3 3.5 - 5.0 g/dL [facility] Alkaline Phosphatase 90 40 - 150 U/L [facility] Total Bilirubin 0.3 0.2 - 1.2 mg/dL [facility] Sodium 147 (H) 136 - 145 meq/L [facility] Potassium 3.7 3.5 - 5.1 meq/L [facility] Chloride 106 98 - 107 meq/L [facility] CO2 30 (H) 22 - 29 meq/L [facility] BUN 19 7 - 21 mg/dL [facility] Creatinine 1.20 0.57 - 1.25 mg/dL [facility] Glucose 325 (H) 70 - 105 mg/dL [facility] Calcium 10.2 8.4 - 10.2 mg/dL [facility] AST 14 5 - 34 U/L [facility] ALT 11 6 - 55 U/L [facility] EGFR 55Comment: ESTIMATED GFR mL/min/1.73 sq m [facility] IS NOT ACCURATE [facility] CREATININE CLEARANCE IN PREDICTING GLOMERULAR FILTRATION RATE. ESTIMATED GFR IS NOT APPLICABLE FOR DIALYSIS PATIENTS. Specimen Blood Performing Organization Address City/State/Zipcode Phone Number [facility] [address] [place] [address] CENTER after 06/09/2017 Insurance Payer Benefit Plan / Group Subscriber ID Type Phone Address MEDICARE MEDICARE A B xxxxxxxxxx Medicare MEDICAID MEDICAID OF [place] xxxxxxxxx Medicaid
--- OUTSIDE RECORDS SUMMARY | 2018-06-10 14:38 | XMS REPORT ---
:1950 Author Organization [facility] Address [address] [place] [address] Dr. Leigh [address] [place] [id number] Care Team Providers Name Role Phone ROBBIEVICKIE WILDEJOCELYNREYNA RAHMAN Unavailable Unavailable Problems This patient has no known problems. Allergies, Adverse Reactions, Alerts This patient has no known allergies or adverse reactions. Medications This patient has no known medications. Results Test Description Test Time Test Comments Text Results Atomic Results Result Comments ISLET CELL AB SCR 2018-05-15 10:41:00 Test Item Value Reference Range Comments ISLET CELL AB AUTOVERIFICATION (test Refer to individual Islet Cell Ab rzpc=9902) and/or Islet Cell Ab Titer results. BLOOD [id number] 18:00:00 Test Item Value Reference Range Comments CULTURE (BEAKER) (test lqxw=1642) No growth in 5 days BLOOD [id number] 18:00:00 Test Item Value Reference Range Comments CULTURE (BEAKER) (test bhcu=3117) No growth in 5 days POCT-GLUCOSE [id number] 17:18:00 Test Item Value Reference Range Comments POC-GLUCOSE METER (BEAKER) 184 mg/dL 70-110 TESTED AT [address] (test fomc=0127) [facility] [address] POCT-GLUCOSE [id number] 11:53:00 Test Item Value Reference Range Comments POC-GLUCOSE METER (BEAKER) 430 mg/dL 70-110 Notified JOHANA IBRAHIM/TESTED AT [facility] (test awmx=3576) [address] [place] [address] POCT-GLUCOSE [id number] 08:12:00 Test Item Value Reference Range Comments POC-GLUCOSE METER (BEAKER) 125 mg/dL 70-110 TESTED AT [address] (test pjvi=9191) [facility] [address] BASIC METABOLIC [id number] 05:51:00 Test Item Value Reference Range Comments SODIUM (BEAKER) (test 136 meq/L 136-145 typs=169) POTASSIUM (BEAKER) (test 3.5 meq/L 3.5-5.1 qbon=545) CHLORIDE (BEAKER) (test 104 meq/L 98-107 tgea=628) CO2 (BEAKER) (test 24 meq/L 22-29 ocjz=652) BLOOD UREA NITROGEN 18 mg/dL 7-21 (BEAKER) (test qkuy=928) CREATININE (BEAKER) (test 1.00 mg/dL 0.57-1.25 lkmf=361) GLUCOSE RANDOM (BEAKER) 107 mg/dL 70-105 (test cjiz=385) CALCIUM (BEAKER) (test 9.4 mg/dL 8.4-10.2 zogi=943) EGFR (BEAKER) (test 67 mL/min/1.73 sq m ESTIMATED GFR IS NOT ugrq=4483) ACCURATE CREATININE CLEARANCE IN PREDICTING GLOMERULAR FILTRATION RATE. ESTIMATED GFR IS NOT APPLICABLE FOR DIALYSIS PATIENTS. CBC W/PLT COUNT & AUTO [id number] 05:18:00 Test Item Value Reference Range Comments WHITE BLOOD CELL COUNT (BEAKER) (test lnbd=061) 7.8 K/ L 3.5-10.5 RED BLOOD CELL COUNT (BEAKER) (test amzj=752) 4.85 M/ L 3.93-5.22 HEMOGLOBIN (BEAKER) (test zwlt=157) 13.3 GM/DL 11.2-15.7 HEMATOCRIT (BEAKER) (test xzye=494) 42.1 % 34.1-44.9 MEAN CORPUSCULAR VOLUME (BEAKER) (test ffrt=914) 86.8 fL 79.4-94.8 MEAN CORPUSCULAR HEMOGLOBIN (BEAKER) (test 27.4 pg 25.6-32.2 xksq=699) MEAN CORPUSCULAR HEMOGLOBIN CONC (BEAKER) (test 31.6 GM/DL 32.2-35.5 fpfx=104) RED CELL DISTRIBUTION WIDTH (BEAKER) (test 13.7 % 11.7-14.4 dhvp=957) PLATELET COUNT (BEAKER) (test fywq=075) 221 K/CU MM 150-450 MEAN PLATELET VOLUME (BEAKER) (test kckt=909) 10.2 fL 9.4-12.3 NUCLEATED RED BLOOD CELLS (BEAKER) (test 0 /100 WBC 0-0 giqe=869) NEUTROPHILS RELATIVE PERCENT (BEAKER) (test 55 % jtwe=374) LYMPHOCYTES RELATIVE PERCENT (BEAKER) (test 35 % qvrh=636) MONOCYTES RELATIVE PERCENT (BEAKER) (test 7 % otiz=339) EOSINOPHILS RELATIVE PERCENT (BEAKER) (test 2 % vwpc=969) BASOPHILS RELATIVE PERCENT (BEAKER) (test 0 % ousq=181) NEUTROPHILS ABSOLUTE COUNT (BEAKER) (test 4.33 K/ L 1.56-6.13 qjms=069) LYMPHOCYTES ABSOLUTE COUNT (BEAKER) (test 2.76 K/ L 1.18-3.74 yzux=781) MONOCYTES ABSOLUTE COUNT (BEAKER) (test 0.53 K/ L 0.24-0.36 zfvp=091) EOSINOPHILS ABSOLUTE COUNT (BEAKER) (test 0.14 K/ L 0.04-0.36 vgvx=457) BASOPHILS ABSOLUTE COUNT (BEAKER) (test 0.03 K/ L 0.01-0.08 pung=499) IMMATURE GRANULOCYTES-RELATIVE PERCENT (BEAKER) 0 % 0-1 (test iqdf=2740) POCT-GLUCOSE [id number] 00:22:00 Test Item Value Reference Range Comments POC-GLUCOSE METER (BEAKER) 123 mg/dL 70-110 TESTED AT [address] (test yaat=2176) [place] [address] POCT-GLUCOSE [id number] 21:46:00 Test Item Value Reference Range Comments POC-GLUCOSE METER (BEAKER) 107 mg/dL 70-110 TESTED AT [address] (test eijt=4052) [place] [address] POCT-GLUCOSE [id number] 17:12:00 Test Item Value Reference Range Comments POC-GLUCOSE METER (BEAKER) 218 mg/dL 70-110 TESTED AT [address] (test xxks=4507) [place] [address] POCT-GLUCOSE [id number] 11:24:00 Test Item Value Reference Range Comments POC-GLUCOSE METER (BEAKER) 268 mg/dL 70-110 TESTED AT [address] (test geww=7168) [place] [address] BASIC METABOLIC [id number] 10:12:00 Test Item Value Reference Range Comments SODIUM (BEAKER) (test 140 meq/L 136-145 mvcj=030) POTASSIUM (BEAKER) (test 3.4 meq/L 3.5-5.1 ycpk=526) CHLORIDE (BEAKER) (test 108 meq/L 98-107 ubhu=742) CO2 (BEAKER) (test 28 meq/L 22-29 bpkb=058) BLOOD UREA NITROGEN 15 mg/dL 7-21 (BEAKER) (test ljfv=275) CREATININE (BEAKER) (test 0.92 mg/dL 0.57-1.25 glbq=302) GLUCOSE RANDOM (BEAKER) 228 mg/dL 70-105 (test nqyi=966) CALCIUM (BEAKER) (test 9.2 mg/dL 8.4-10.2 oxra=558) EGFR (BEAKER) (test 74 mL/min/1.73 sq m ESTIMATED GFR IS NOT gfpo=1360) ACCURATE CREATININE CLEARANCE IN PREDICTING GLOMERULAR FILTRATION RATE. ESTIMATED GFR IS NOT APPLICABLE FOR DIALYSIS PATIENTS. POCT-GLUCOSE [id number] 06:21:00 Test Item Value Reference Range Comments POC-GLUCOSE METER (BEAKER) 282 mg/dL 70-110 TESTED AT [facility] [address] [facility] (test nwda=9402) [facility] [address] CBC W/PLT COUNT & AUTO [id number] 04:01:00 Test Item Value Reference Range Comments WHITE BLOOD CELL COUNT (BEAKER) (test vnfh=891) 8.1 K/ L 3.5-10.5 RED BLOOD CELL COUNT (BEAKER) (test hpcx=164) 4.41 M/ L 3.93-5.22 HEMOGLOBIN (BEAKER) (test esrm=119) 12.2 GM/DL 11.2-15.7 HEMATOCRIT (BEAKER) (test ouwh=197) 38.7 % 34.1-44.9 MEAN CORPUSCULAR VOLUME (BEAKER) (test jhfz=909) 87.8 fL 79.4-94.8 MEAN CORPUSCULAR HEMOGLOBIN (BEAKER) (test 27.7 pg 25.6-32.2 phof=265) MEAN CORPUSCULAR HEMOGLOBIN CONC (BEAKER) (test 31.5 GM/DL 32.2-35.5 wuvl=288) RED CELL DISTRIBUTION WIDTH (BEAKER) (test 13.4 % 11.7-14.4 dbit=337) PLATELET COUNT (BEAKER) (test zjgk=417) 207 K/CU MM 150-450 MEAN PLATELET VOLUME (BEAKER) (test qmfl=941) 10.2 fL 9.4-12.3 NUCLEATED RED BLOOD CELLS (BEAKER) (test 0 /100 WBC 0-0 wipi=114) NEUTROPHILS RELATIVE PERCENT (BEAKER) (test 68 % wlcb=025) LYMPHOCYTES RELATIVE PERCENT (BEAKER) (test 21 % mxqg=328) MONOCYTES RELATIVE PERCENT (BEAKER) (test 9 % xruu=792) EOSINOPHILS RELATIVE PERCENT (BEAKER) (test 1 % nndh=970) BASOPHILS RELATIVE PERCENT (BEAKER) (test 1 % sbxs=871) NEUTROPHILS ABSOLUTE COUNT (BEAKER) (test 5.56 K/ L 1.56-6.13 avjb=077) LYMPHOCYTES ABSOLUTE COUNT (BEAKER) (test 1.74 K/ L 1.18-3.74 cgvj=478) MONOCYTES ABSOLUTE COUNT (BEAKER) (test 0.71 K/ L 0.24-0.36 lmaq=161) EOSINOPHILS ABSOLUTE COUNT (BEAKER) (test 0.05 K/ L 0.04-0.36 uhtk=019) BASOPHILS ABSOLUTE COUNT (BEAKER) (test 0.04 K/ L 0.01-0.08 ddhw=660) IMMATURE GRANULOCYTES-RELATIVE PERCENT (BEAKER) 0 % 0-1 (test ihcm=8317) BASIC METABOLIC [id number] 01:15:00 Test Item Value Reference Range Comments SODIUM (BEAKER) (test 144 meq/L 136-145 duef=141) POTASSIUM (BEAKER) (test 3.4 meq/L 3.5-5.1 ogjd=886) CHLORIDE (BEAKER) (test 109 meq/L 98-107 dcgj=655) CO2 (BEAKER) (test 28 meq/L 22-29 chnu=798) BLOOD UREA NITROGEN 13 mg/dL 7-21 (BEAKER) (test kojs=469) CREATININE (BEAKER) (test 0.97 mg/dL 0.57-1.25 lscl=162) GLUCOSE RANDOM (BEAKER) 148 mg/dL 70-105 (test kazi=076) CALCIUM (BEAKER) (test 9.3 mg/dL 8.4-10.2 kduw=029) EGFR (BEAKER) (test 70 mL/min/1.73 sq m ESTIMATED GFR IS NOT vcrd=5171) ACCURATE CREATININE CLEARANCE IN PREDICTING GLOMERULAR FILTRATION RATE. ESTIMATED GFR IS NOT APPLICABLE FOR DIALYSIS PATIENTS. POCT-GLUCOSE [id number] 00:17:00 Test Item Value Reference Range Comments POC-GLUCOSE METER (BEAKER) 148 mg/dL 70-110 TESTED AT [facility] [address] [facility] (test fjex=5861) [place] [address] [id number] 20:22:00 Test Item Value Reference Range Comments PHOSPHORUS (BEAKER) (test smkb=105) 2.5 mg/dL 2.3-4.7 BASIC METABOLIC [id number] 20:22:00 Test Item Value Reference Range Comments SODIUM (BEAKER) (test 147 meq/L 136-145 bfxj=740) POTASSIUM (BEAKER) (test 3.8 meq/L 3.5-5.1 jbov=464) CHLORIDE (BEAKER) (test 112 meq/L 98-107 jqhs=222) CO2 (BEAKER) (test 29 meq/L 22-29 jvzp=659) BLOOD UREA NITROGEN 14 mg/dL 7-21 (BEAKER) (test isza=039) CREATININE (BEAKER) (test 0.99 mg/dL 0.57-1.25 ijkt=627) GLUCOSE RANDOM (BEAKER) 184 mg/dL 70-105 (test wajp=325) CALCIUM (BEAKER) (test 9.2 mg/dL 8.4-10.2 hqhk=215) EGFR (BEAKER) (test 68 mL/min/1.73 sq m ESTIMATED GFR IS NOT gpez=4509) ACCURATE CREATININE CLEARANCE IN PREDICTING GLOMERULAR FILTRATION RATE. ESTIMATED GFR IS NOT APPLICABLE FOR DIALYSIS PATIENTS. POCT-GLUCOSE [id number] 20:20:00 Test Item Value Reference Range Comments POC-GLUCOSE METER (BEAKER) 187 mg/dL 70-110 TESTED AT [place] [id number] [facility] (test bxtx=9224) [place] [id number] POCT-GLUCOSE [id number] 17:13:00 Test Item Value Reference Range Comments POC-GLUCOSE METER (BEAKER) 201 mg/dL 70-110 TESTED AT [address] (test acmd=2324) [place] [address] RAD, ABDOMEN/KUB, 1 VIEW [id number] 15:38:00Reason for exam:->corpak placementFINAL REPORT CLINICAL HISTORY: corpak placement TECHNIQUE: Supine abdomen IMPRESSION: The tip of the feeding tube is in the distal duodenum. The partially visualized bowel gas pattern is nonspecific with moderate stool in the visualized colon. Signed: Shana Parekh MDReport Verified Date/Time: 05/08/2018 15:38:04 Reading Location: [address] Consult Reading Room BASI METABOLIC [id number] 15:17:00 Test Item Value Reference Range Comments SODIUM (BEAKER) (test 145 meq/L 136-145 ksll=373) POTASSIUM (BEAKER) (test 3.2 meq/L 3.5-5.1 dogp=617) CHLORIDE (BEAKER) (test 111 meq/L 98-107 vkeo=327) CO2 (BEAKER) (test 25 meq/L 22-29 bhhm=761) BLOOD UREA NITROGEN 19 mg/dL 7-21 (BEAKER) (test baxy=819) CREATININE (BEAKER) (test 0.96 mg/dL 0.57-1.25 zctx=165) GLUCOSE RANDOM (BEAKER) 90 mg/dL 70-105 (test xoup=897) CALCIUM (BEAKER) (test 9.4 mg/dL 8.4-10.2 fxhj=768) EGFR (BEAKER) (test 71 mL/min/1.73 sq m ESTIMATED GFR IS NOT qmds=0709) ACCURATE CREATININE CLEARANCE IN PREDICTING GLOMERULAR FILTRATION RATE. ESTIMATED GFR IS NOT APPLICABLE FOR DIALYSIS PATIENTS. POCT-GLUCOSE [id number] 14:23:00 Test Item Value Reference Range Comments POC-GLUCOSE METER (BEAKER) 86 mg/dL 70-110 TESTED AT [facility] [address] [facility] (test ehuf=8068) [facility] [address] BASIC METABOLIC [id number] 13:23:00 Test Item Value Reference Range Comments SODIUM (BEAKER) (test 145 meq/L 136-145 apvz=315) POTASSIUM (BEAKER) (test 3.7 meq/L 3.5-5.1 Specimen slightly hhiv=583) hemolyzed CHLORIDE (BEAKER) (test 109 meq/L 98-107 vbui=399) CO2 (BEAKER) (test 25 meq/L 22-29 lopw=993) BLOOD UREA NITROGEN 18 mg/dL 7-21 (BEAKER) (test ingf=531) CREATININE (BEAKER) (test 0.97 mg/dL 0.57-1.25 Specimen slightly rkhk=234) hemolyzed GLUCOSE RANDOM (BEAKER) 107 mg/dL 70-105 (test vwlc=637) CALCIUM (BEAKER) (test 9.8 mg/dL 8.4-10.2 owuq=785) EGFR (BEAKER) (test 70 mL/min/1.73 sq m ESTIMATED GFR IS NOT fzmd=3835) ACCURATE CREATININE CLEARANCE IN PREDICTING GLOMERULAR FILTRATION RATE. ESTIMATED GFR IS NOT APPLICABLE FOR DIALYSIS PATIENTS. POCT-GLUCOSE [id number] 13:15:00 Test Item Value Reference Range Comments POC-GLUCOSE METER (BEAKER) 140 mg/dL 70-110 TESTED AT [address] (test oygr=5704) [place] [address] HEMOGLOBIN [id number] 13:13:00 Test Item Value Reference Range Comments HEMOGLOBIN A1C (BEAKER) (test jrqr=641) 17.1 % 4.3-6.1 POCT-GLUCOSE [id number] 12:14:00 Test Item Value Reference Range Comments POC-GLUCOSE METER (BEAKER) 159 mg/dL 70-110 TESTED AT [address] (test hplx=3231) [facility] [address] URINALYSIS W/ [id number] 12:10:00 Test Item Value Reference Range Comments COLOR (BEAKER) (test ucqf=841) Light Yellow CLARITY (BEAKER) (test ziag=463) Clear SPECIFIC GRAVITY UA (BEAKER) (test dtoq=294) 1.025 1.001-1.035 PH UA (BEAKER) (test jsby=544) 7.0 5.0-8.0 PROTEIN UA (BEAKER) (test asry=782) 30 mg/dL Negative GLUCOSE UA (BEAKER) (test nkbk=725) >1000 mg/dL Negative KETONES UA (BEAKER) (test sldx=400) Trace Negative BILIRUBIN UA (BEAKER) (test idmw=306) Negative Negative BLOOD UA (BEAKER) (test hdda=749) Negative Negative NITRITE UA (BEAKER) (test wmzo=467) Negative Negative LEUKOCYTE ESTERASE UA (BEAKER) (test kxvh=009) Negative Negative UROBILINOGEN UA (BEAKER) (test yfjz=203) 0.2 mg/dL 0.2-1.0 RBC UA (BEAKER) (test uiug=968) < /HPF WBC UA (BEAKER) (test qkem=726) 0 /HPF BACTERIA (BEAKER) (test jnoe=746) Rare SQUAMOUS EPITHELIAL (BEAKER) (test ygdu=697) < /HPF SOURCE(BEAKER) (test gjxh=7189) Urine, Gomez TROPONIN [id number] 11:07:00 Test Item Value Reference Range Comments TROPONIN I (BEAKER) (test akgb=601) < ng/mL 0.00-0.03 Troponin I (TnI) levels must be interpreted [...] failure, acidosis, acute neurological disease, and persistent tachyarrhythmia.LACTIC ACID, VENOUS, WHOLE [id number] 11:07:00 Test Item Value Reference Range Comments LACTATE BLOOD VENOUS (2) 3.3 mmol/L 0.5-2.2 Specimen moderately hemolyzed (BEAKER) (test zcdt=7588) Effective 11/26/2015: Units/Reference Range ChangeNew: 0.5-2.2 mmol/L Previous: 5 -20 mg/dLPOCT-GLUCOSE [id number] 11:05:00 Test Item Value Reference Range Comments POC-GLUCOSE METER (BEAKER) 249 mg/dL 70-110 TESTED AT [facility] [address] [facility] (test cidf=4052) [facility] [address] [id number] 11:00:00 Test Item Value Reference Range Comments POTASSIUM (BEAKER) (test liij=709) 3.7 meq/L 3.5-5.1 [id number] 11:00:00 Test Item Value Reference Range Comments MAGNESIUM (BEAKER) (test gozt=211) 2.7 mg/dL 1.6-2.6 [id number] 11:00:00 Test Item Value Reference Range Comments PHOSPHORUS (BEAKER) (test xqzi=246) 1.6 mg/dL 2.3-4.7 [id number] 11:00:00 Test Item Value Reference Range Comments GLUCOSE RANDOM (BEAKER) (test qsqy=217) 325 mg/dL 70-105 COMPREHENSIVE METABOLIC [id number] 11:00:00 Test Item Value Reference Range Comments TOTAL PROTEIN (BEAKER) 9.0 gm/dL 6.0-8.3 (test jrnb=503) ALBUMIN (BEAKER) (test 4.3 g/dL 3.5-5.0 kuit=2414) ALKALINE PHOSPHATASE 90 U/L 40-150 (BEAKER) (test sfgz=277) BILIRUBIN TOTAL (BEAKER) 0.3 mg/dL 0.2-1.2 (test yuij=888) SODIUM (BEAKER) (test 147 meq/L 136-145 poce=614) POTASSIUM (BEAKER) (test 3.7 meq/L 3.5-5.1 phqk=210) CHLORIDE (BEAKER) (test 106 meq/L 98-107 cfwn=227) CO2 (BEAKER) (test 30 meq/L 22-29 scan=707) BLOOD UREA NITROGEN 19 mg/dL 7-21 (BEAKER) (test xwlw=346) CREATININE (BEAKER) (test 1.20 mg/dL 0.57-1.25 oquz=261) GLUCOSE RANDOM (BEAKER) 325 mg/dL 70-105 (test lcrg=106) CALCIUM (BEAKER) (test 10.2 mg/dL 8.4-10.2 vyxh=578) AST (SGOT) (BEAKER) (test 14 U/L 5-34 biva=449) ALT (SGPT) (BEAKER) (test 11 U/L 6-55 kfiv=383) EGFR (BEAKER) (test 55 mL/min/1.73 sq m ESTIMATED GFR IS NOT qlfc=2397) ACCURATE CREATININE CLEARANCE IN PREDICTING GLOMERULAR FILTRATION RATE. ESTIMATED GFR IS NOT APPLICABLE FOR DIALYSIS PATIENTS. [id number] 10:46:00 Test Item Value Reference Range Comments PARTIAL THROMBOPLASTIN TIME (BEAKER) (test 22.6 seconds 22.5-36.0 rfuy=153) PROTHROMBIN [id number] 10:45:00 Test Item Value Reference Range Comments PROTIME (BEAKER) (test rkck=314) 13.2 seconds 11.7-14.7 INR (BEAKER) (test hcpg=552) 1.0 <=5.9 RECOMMENDED COUMADIN/WARFARIN INR THERAPY RANGESSTANDARD DOSE: 2.0 - 3.0 Includes: PROPHYLAXIS forvenous thrombosis, systemic embolization; TREATMENT for venous thrombosis and/or pulmonary embolus.HIGH RISK: Target INR is 2.5-3.5 for patients with mechanical heart valves.CBC (HEMOGRAM ONLY)2018-05-08 10:35:00 Test Item Value Reference Range Comments WHITE BLOOD CELL COUNT (BEAKER) (test nwnp=075) 8.6 K/ L 3.5-10.5 RED BLOOD CELL COUNT (BEAKER) (test hjyq=403) 5.01 M/ L 3.93-5.22 HEMOGLOBIN (BEAKER) (test cpgn=443) 14.1 GM/DL 11.2-15.7 HEMATOCRIT (BEAKER) (test qtuz=303) 43.3 % 34.1-44.9 MEAN CORPUSCULAR VOLUME (BEAKER) (test phaw=627) 86.4 fL 79.4-94.8 MEAN CORPUSCULAR HEMOGLOBIN (BEAKER) (test 28.1 pg 25.6-32.2 jjni=398) MEAN CORPUSCULAR HEMOGLOBIN CONC (BEAKER) (test 32.6 GM/DL 32.2-35.5 lsog=591) RED CELL DISTRIBUTION WIDTH (BEAKER) (test 13.1 % 11.7-14.4 uodm=624) PLATELET COUNT (BEAKER) (test gzaa=122) 224 K/CU MM 150-450 MEAN PLATELET VOLUME (BEAKER) (test qvce=222) 10.2 fL 9.4-12.3 NUCLEATED RED BLOOD CELLS (BEAKER) (test 0 /100 WBC 0-0 jpwy=770) POCT-GLUCOSE [id number] 09:26:00 Test Item Value Reference Range Comments POC-GLUCOSE METER (BEAKER) 389 mg/dL 70-110 Patient on insulin Drip/TESTED (test vjaw=2562) AT [facility] [address] [facility] [address] POCT-GLUCOSE [id number] 08:12:00 Test Item Value Reference Range Comments POC-GLUCOSE METER (BEAKER) 384 mg/dL 70-110 Patient on insulin Drip/TESTED (test eoot=0620) AT [address] [address]
[2018-06-10 15:05] LABS: Absolute Monocytes 0.6 K/uL (0.1-1.3); Absolute Neutrophil 5.6 K/uL (1.8-8.0); Basophils % 0.5 % (0-1.3); Eosinophils % 0.8 % (0-4.4); Hematocrit 38.1 % (36.0-45.0); Lymphocytes % 24.2 % (15.3-44.8); MCH 28.3 pg (27.0-35.0); MPV 7.5 fL (7.6-11.3); RBC Red Blood Cell Count 4.43 M/uL (3.86-4.86)
[2018-06-10 15:24] LABS: ALT/SGPT 15 U/L (12-78); AST/SGOT 18 U/L (15-37); Albumin 3.6 g/dL (3.4-5.0); Alkaline Phosphatase 66 U/L (45-117); BUN Blood Urea Nitrogen 29 mg/dL (7-18); Bicarbonate 28 mmol/L (21-32); Bilirubin Direct < 0.1 mg/dL (0-0.2); Bilirubin Total 0.2 mg/dL (0.2-1.0); Glucose Level 117 mg/dL (74-106); Lipase 274 U/L (73-393); Potassium 3.7 mmol/L (3.5-5.1); Protein, Total 8.7 g/dL (6.4-8.2); Sodium Level 139 mmol/L (136-145)
[2018-06-10] MEDS ORDERED: NA CHLORIDE 0.9% 1,000 ML ONE (15:40)
--- NOTE | 2018-06-10 15:57 | RAD REPORT ---
EXAM DESCRIPTION: CT - Stone Protocol - 06/10/2018 3:49 pm CLINICAL HISTORY: Flank pain. ABD PAIN COMPARISON: Abdomen Pelvis Wo Contrast dated 08/18/2017; Abdomen Pelvis Wo Contrast dated 016; CT ABDOMEN PELVIS WO CONTRAST dated 09/30/2015 TECHNIQUE: Axial images were obtained without oral or IV contrast. Lack of contrast limits solid org an and vascular assessment. The kpuyo-[id number] spans the entirety of the system partially obscuring uppermost abdomen and lung bases. Coronal reformatted images were obtained and reviewed. All CT scans are performed using dose optimization technique as appropriate and may include automated exposure control or mA/KV adjustment according to patient size. FINDINGS: Small juxtapleural nodules are present in both lung bases, likely benign intrapulmonary ly mph nodes. No suspicious lung base finding. Imaged portions of the liver and spleen show no suspicious findings on non-contrast imaging. The panc reas and adrenal glands are normal. No pathologic lymphadenopathy in the abdomen or pelvis. No urinary tract stones or obstructive uropathy. No bowel obstruction, free air, free fluid or abscess. Normal appendix noted. No significant bony abnormality. Calcified uterine fibroids are present. IMPRESSION: No urinary tract stones or obstructive uropathy. Multiple calcified uterine fibroids noted.
[2018-06-10 17:36] LABS: Urine Blood NEGATIVE (NEG); Urine Glucose NEGATIVE (NEG); Urine Protein NEGATIVE (NEG); Urine Specific Gravity 1.015 (1.005-1.030)
[2018-06-10 17:44] LABS: Urine RBC <5 /HPF (NONE SEEN)
[2018-06-10 17:45] LABS: Urine Amorphous Sediment 1+ /HPF (NONE SEEN); Urine Bacteria 20-50 /HPF (<20); Urine Culture Reflex Order REFLEXED
--- NOTE | 2018-06-10 17:56 | EDPHYS ---
Physician Documentation [facility] Name: Génesis Manzano Age: 67 yrs Sex: Female : 1950 Arrival Date: 06/10/2018 Time: 14:39 Bed 5 Private MD: ED Physician Regis Rivera HPI: 06/10 17:52 This 67 yrs old Black Female presents to ER via EMS with complaints of gs Nausea/Vomiting/Diarrhea. 17:52 The patient presents to the emergency department with nausea, vomiting, diarrhea, gs abdominal pain. Onset: The symptoms/episode began/occurred 1 week(s) ago. Possible causes: flare up of bowel problem. The symptoms are aggravated by nothing. The symptoms are alleviated by nothing. Associated signs and symptoms: Pertinent negatives: fever. Severity of symptoms: At their worst the symptoms were moderate in the emergency department the symptoms have improved markedly. The patient has experienced similar episodes in the past, chronically, since 02/08. Historical: - Allergies: 14:49 No Known Allergies; ph - Home Meds: 14:49 clonidine HCl 0.2 mg Oral tab 2 times per day [Active]; metformin 1,000 mg Oral tab 2 ph times per day [Active]; atorvastatin 20 mg Oral tab 1 tab once daily [Active]; potassium chloride 10 mEq Oral TbER 1 tab 2 times per day [Active]; amlodipine 10 mg tab once daily [Active]; metoprolol tartrate 50 mg Oral tab 1 tab 2 times per day [Active]; glipizide 10 mg Oral tab 2 times per day [Active]; aspirin 81 mg Oral TbEC 1 tab once daily [Active]; Invokana 300 mg Oral tab 1 tab once daily [Active]; hydrochlorothiazide 25 mg Oral tab once daily [Active]; levamir 20 units twice a day [Active]; - PMHx: 14:49 CVA; Deaf; Diabetes - IDDM; Hypertension; ph - PSHx: 14:49 Eye surgery; ph - Immunization history:: Flu vaccine status is unknown. - Social history:: Smoking status: unknown. - Ebola Screening: : No symptoms or risks identified at this time. ROS: 17:52 All other systems are negative. gs Exam: 17:52 Head/Face: Normocephalic, atraumatic. Eyes: Pupils equal round and reactive to light, gs extra-ocular motions intact. Lids and lashes normal. Conjunctiva and sclera are non-icteric and not injected. Cornea within normal limits. Periorbital areas with no swelling, redness, or edema. ENT: Nares patent. No nasal discharge, no septal abnormalities noted. Tympanic membranes are normal and external auditory canals are clear. Oropharynx with no redness, swelling, or masses, exudates, or evidence of obstruction, uvula midline. Mucous membranes moist. Neck: Trachea midline, no thyromegaly or masses palpated, and no cervical lymphadenopathy. Supple, full range of motion without nuchal rigidity, or vertebral point tenderness. No Meningismus. Chest/axilla: Normal chest wall appearance and motion. Nontender with no deformity. No lesions are appreciated. Cardiovascular: Regular rate and rhythm with a normal S1 and S2. No gallops, murmurs, or rubs. Normal PMI, no JVD. No pulse deficits. Respiratory: Lungs have equal breath sounds bilaterally, clear to auscultation and percussion. No rales, rhonchi or wheezes noted. No increased work of breathing, no retractions or nasal flaring. Back: No spinal tenderness. No costovertebral tenderness. Full range of motion. Skin: Warm, dry with normal turgor. Normal color with no rashes, no lesions, and no evidence of cellulitis. MS/ Extremity: Pulses equal, no cyanosis. Neurovascular intact. Full, normal range of motion. Neuro: Awake and alert, GCS 15, oriented to person, place, time, and situation. Cranial nerves II-XII grossly intact. Motor strength 5/5 in all extremities. Sensory grossly intact. Cerebellar exam normal. Normal gait. 17:52 Constitutional: The patient appears alert, awake. 17:52 Abdomen/GI: Palpation: mild abdominal tenderness, in the suprapubic area, right lower quadrant and left lower quadrant. Vital Signs: 14:43 BP 108 / 73; Pulse 84; Resp 18; Temp 97.5; Pulse Ox 98% on R/A; ph 15:36 BP 129 / 82; Pulse 79; Resp 18; Pulse Ox 97% on R/A; Pain 3/10; mg2 16:31 BP 130 / 79; Pulse 81; Resp 18; Pulse Ox 97% on R/A; Pain 2/10; mg2 18:06 BP 131 / 80; Pulse 80; Resp 18; Pulse Ox 100% on R/A; Pain 0/10; mg2 MDM: 14:47 Patient medically screened. gs 17:52 Differential diagnosis: Nonspecific abd pain, viral gastroenteritis, uti. Data gs reviewed: vital signs, nurses notes. Counseling: I had a detailed discussion with the patient and/or guardian regarding: the historical points, exam findings, and any diagnostic results supporting the discharge/admit diagnosis, lab results, radiology results, the need for outpatient follow up. Response to treatment: the patient's symptoms have resolved after treatment, and as a result, I will discharge patient. 06/10 14:48 Order name: Basic Metabolic Panel; Complete Time: 15:28 06/10 14:48 Order name: CBC with Diff; Complete Time: 15:28 06/10 14:48 Order name: Hepatic Function; Complete Time: 15:28 06/10 14:48 Order name: Lipase; Complete Time: 15:28 06/10 15:29 Order name: Urine Microscopic Only; Complete Time: 17:51 06/10 17:13 Order name: Urine Dipstick--Ancillary (enter results); Complete Time: 17:51 06/10 14:48 Order name: IV Saline Lock; Complete Time: 15:03 06/10 14:48 Order name: Labs collected and sent; Complete Time: 15:03 06/10 14:48 Order name: CT Stone Protocol; Complete Time: 16:02 06/10 15:29 Order name: Urine Dipstick-Ancillary (obtain specimen); Complete Time: 18:01 06/10 17:46 Order name: Urine Culture EDMS Administered Medications: 15:36 Drug: NS 0.9% 1000 ml Route: IV; Rate: 1 bolus; Site: right antecubital; mg2 18:08 Follow up: Response: No adverse reaction; IV Status: Completed infusion mg2 Point of Care Testing: Blood Glucose: 15:19 Blood Glucose: 122 mg/dL; mg2 Ranges: Critical Glucose Levels:Adult <50 mg/dl or >400 mg/dl <40 mg/dl or >180 mg/dl Disposition: 06/10/18 17:54 Discharged to Home. Impression: Lower abdominal pain, unspecified, Cystitis. - Condition is Stable. - Discharge Instructions: Abdominal Pain, Adult, Urinary Tract Infection, Adult. - Prescriptions for Keflex 500 mg Oral Capsule - take 1 capsule by ORAL route every 12 hours for 7 days; 14 capsule. - Medication Reconciliation Form, Thank You Letter, Antibiotic Education, Prescription Opioid Use form. - Follow up: Private Physician; When: 2 - 3 days; Reason: Re-evaluation by your physician. Follow up: Jomar Soriano MD; When: 2 - 3 days; Reason: Re-evaluation by your physician. Signatures: Dispatcher [employer] [facility] Lu Caldera RN RN ph Regis Rivera MD MD Aravind Delaney RN RN mg2 Corrections: (The following items were deleted from the chart) 17:55 17:54 06/10/2018 17:54 Discharged to Home. Impression: Lower abdominal pain, gs unspecified; Cystitis. Condition is Stable. Forms are Medication Reconciliation Form, Thank You Letter, Antibiotic Education, Prescription Opioid Use. Follow up: Private Physician; When: 2 - 3 days; Reason: Re-evaluation by your physician. 18:08 17:55 06/10/2018 17:54 Discharged to Home. Impression: Lower abdominal pain, mg2 unspecified; Cystitis. Condition is Stable. Discharge Instructions: Abdominal Pain, Adult, Urinary Tract Infection, Adult. Prescriptions for Keflex 500 mg Oral Capsule - take 1 capsule by ORAL route every 12 hours for 7 days; 14 capsule. and Forms are Medication Reconciliation Form, Thank You Letter, Antibiotic Education, Prescription Opioid Use. Follow up: Private Physician; When: 2 - 3 days; Reason: Re-evaluation by your physician. Follow up: Jomar Soriano; When: 2 - 3 days; Reason: Re-evaluation by your physician.
--- NOTE | 2018-06-10 17:56 | ER ---
Nurse's Notes [facility] Name: Génesis Manzano Age: 67 yrs Sex: Female : 1950 Arrival Date: 06/10/2018 Time: 14:39 Bed 5 Private MD: Diagnosis: Lower abdominal pain, unspecified;Cystitis Presentation: 06/10 14:39 Presenting complaint: EMS states: Reports diarrhea x 2-3 days, nausea, and upper ph abdominal pain, family reports that pt became diaphoretic and dizzy when on toilet and had near syncopal episode. Transition of care: patient was not received from another setting of care. Onset of symptoms was June 10, 2018. Risk Assessment: Do you want to hurt yourself or someone else? Patient reports no desire to harm self or others. Initial Sepsis Screen: Does the patient meet any 2 criteria? No. Patient's initial sepsis screen is negative. Does the patient have a suspected source of infection? No. Patient's initial sepsis screen is negative. Care prior to arrival: Glucose check: 153. 14:39 Method Of Arrival: EMS: [facility] ph 14:39 Acuity: JODI 3 ph Historical: - Allergies: 14:49 No Known Allergies; ph - Home Meds: 14:49 clonidine HCl 0.2 mg Oral tab 2 times per day [Active]; metformin 1,000 mg Oral tab 2 ph times per day [Active]; atorvastatin 20 mg Oral tab 1 tab once daily [Active]; potassium chloride 10 mEq Oral TbER 1 tab 2 times per day [Active]; amlodipine 10 mg tab once daily [Active]; metoprolol tartrate 50 mg Oral tab 1 tab 2 times per day [Active]; glipizide 10 mg Oral tab 2 times per day [Active]; aspirin 81 mg Oral TbEC 1 tab once daily [Active]; Invokana 300 mg Oral tab 1 tab once daily [Active]; hydrochlorothiazide 25 mg Oral tab once daily [Active]; levamir 20 units twice a day [Active]; - PMHx: 14:49 CVA; Deaf; Diabetes - IDDM; Hypertension; ph - PSHx: 14:49 Eye surgery; ph - Immunization history:: Flu vaccine status is unknown. - Social history:: Smoking status: unknown. - Ebola Screening: : No symptoms or risks identified at this time. Screenin:00 Abuse screen: Denies threats or abuse. Denies injuries from another. Nutritional mg2 screening: No deficits noted. Tuberculosis screening: No symptoms or risk factors identified. Fall Risk IV access (20 points). Assessment: 15:01 General: Appears in no apparent distress. comfortable, Behavior is calm, cooperative. mg2 Pain: Denies pain. Neuro: Level of Consciousness is awake, alert, obeys commands, Oriented to person, place, time, situation. Cardiovascular: Capillary refill < 3 seconds Patient's skin is warm and dry. Respiratory: Airway is patent Respiratory effort is even, unlabored, Respiratory pattern is regular, symmetrical. GI: Abdomen is flat, non-distended, Reports diarrhea, nausea. : Reports pain in suprapubic area. EENT: No signs and/or symptoms were reported regarding the EENT system. Derm: Skin is intact, is healthy with good turgor, Skin is pink, warm \T\ dry. normal. Musculoskeletal: No signs and/or symptoms reported regarding the musculoskeletal system. 16:31 Reassessment: patient still on iv fluid. no complaints noted. still waiting for her to mg2 give urine sample. Vital Signs: 14:43 BP 108 / 73; Pulse 84; Resp 18; Temp 97.5; Pulse Ox 98% on R/A; ph 15:36 BP 129 / 82; Pulse 79; Resp 18; Pulse Ox 97% on R/A; Pain 3/10; mg2 16:31 BP 130 / 79; Pulse 81; Resp 18; Pulse Ox 97% on R/A; Pain 2/10; mg2 18:06 BP 131 / 80; Pulse 80; Resp 18; Pulse Ox 100% on R/A; Pain 0/10; mg2 ED Course: 14:39 Patient arrived in ED. ph 14:39 Regis Rivera MD is Attending Physician. gs 14:43 Triage completed. ph 14:51 Aravind Delaney RN is Primary Nurse. mg2 14:59 No provider procedures requiring assistance completed. Inserted saline lock: 20 gauge mg2 in right antecubital area, using aseptic technique. Blood collected. 15:00 Patient has correct armband on for positive identification. Pulse ox on. NIBP on. Door mg2 closed. Warm blanket given. 15:03 Arm band placed on. mg2 15:49 CT completed. Patient tolerated procedure well. Patient moved back from CT. vr 15:49 CT Stone Protocol In Process Unspecified. EDMS 17:55 Jomar Soriano MD is Referral Physician. gs 18:07 IV discontinued, intact, bleeding controlled, No redness/swelling at site. Pressure mg2 dressing applied. Administered Medications: 15:36 Drug: NS 0.9% 1000 ml Route: IV; Rate: 1 bolus; Site: right antecubital; mg2 18:08 Follow up: Response: No adverse reaction; IV Status: Completed infusion mg2 Point of Care Testing: Blood Glucose: 15:19 Blood Glucose: 122 mg/dL; mg2 Ranges: Outcome: 17:54 Discharge ordered by MD. gs 18:07 Discharged to home ambulatory, with family. mg2 18:07 Condition: good 18:07 Discharge instructions given to patient, family, Instructed on discharge instructions, follow up and referral plans. medication usage, Demonstrated understanding of instructions, follow-up care, medications, Prescriptions given X 1. 18:08 Patient left the ED. mg2 Signatures: Dispatcher [employer] Cheyenne Berger Lu Caldera RN RN Regis Rivera MD MD Aravind Delaney RN RN mg2
[2018-06-10 18:30] VITALS: TEMP 97.5
[2018-06-10 18:34] VITALS: BP 131/80; O2SAT 100
== END 2018-06-10 18:08 | disposition home or self-care (01) ==
LOC: ER 14:35
DX: N30.90 Cystitis, unspecified without hematuria (principal); I10 Essential (primary) hypertension; E11.9 Type 2 diabetes mellitus without complications; Z79.82 Long term (current) use of aspirin; Z86.73 Personal history of transient ischemic attack (TIA), and cerebral infarction without residual deficits
CPT/HCPCS: 36415; 74176; 76377; 80048; 80076; 82962; 83690; 85025; 87086; 87088; 96360; 96361; 99285; J7030; 81003; 81015

== ENCOUNTER 2018-08-14 21:57 | Emergency (ER) | payer OTHER ==
--- OUTSIDE RECORDS SUMMARY | 2018-08-14 22:00 | XMS REPORT ---
:1950 Author Organization [facility] Address [address] [place] [address] Dr. Leigh [address] [place] [id number] Care Team Providers Name Role Phone ROBBIEVICKIE [...] (test Refer to individual Islet Cell Ab okfw=8500) and/or Islet Cell Ab Titer results. BLOOD [id number] 18:00:00 Test Item Value Reference Range Comments CULTURE (BEAKER) (test rggl=2887) No growth in 5 days BLOOD [id number] 18:00:00 Test Item Value Reference Range Comments CULTURE (BEAKER) (test lhlq=5338) No growth in 5 days POCT-GLUCOSE [id number] 17:18:00 Test Item Value Reference Range Comments POC-GLUCOSE METER (BEAKER) 184 mg/dL 70-110 TESTED AT [address] (test ymfp=5654) [facility] [address] POCT-GLUCOSE [id number] 11:53:00 Test Item Value Reference Range Comments POC-GLUCOSE METER (BEAKER) 430 mg/dL 70-110 Notified JOHANA IBRAHIM/TESTED AT [facility] (test gfrt=9273) [address] [place] [address] POCT-GLUCOSE [id number] 08:12:00 Test Item Value Reference Range Comments POC-GLUCOSE METER (BEAKER) 125 mg/dL 70-110 TESTED AT [address] (test vqit=9932) [facility] [address] BASIC METABOLIC [id number] 05:51:00 Test Item Value Reference Range Comments SODIUM (BEAKER) (test 136 meq/L 136-145 ugpb=808) POTASSIUM (BEAKER) (test 3.5 meq/L 3.5-5.1 zoyn=845) CHLORIDE (BEAKER) (test 104 meq/L 98-107 kpif=866) CO2 (BEAKER) (test 24 meq/L 22-29 rfoj=261) BLOOD UREA NITROGEN 18 mg/dL 7-21 (BEAKER) (test iaoj=303) CREATININE (BEAKER) (test 1.00 mg/dL 0.57-1.25 icla=818) GLUCOSE RANDOM (BEAKER) 107 mg/dL 70-105 (test rxcm=543) CALCIUM (BEAKER) (test 9.4 mg/dL 8.4-10.2 xmmq=530) EGFR (BEAKER) (test 67 mL/min/1.73 sq m ESTIMATED GFR IS NOT edtx=9826) ACCURATE CREATININE CLEARANCE IN PREDICTING GLOMERULAR FILTRATION RATE. ESTIMATED GFR IS NOT APPLICABLE FOR DIALYSIS PATIENTS. CBC W/PLT COUNT & AUTO [id number] 05:18:00 Test Item Value Reference Range Comments WHITE BLOOD CELL COUNT (BEAKER) (test apes=766) 7.8 K/ L 3.5-10.5 RED BLOOD CELL COUNT (BEAKER) (test txbi=238) 4.85 M/ L 3.93-5.22 HEMOGLOBIN (BEAKER) (test wqpe=012) 13.3 GM/DL 11.2-15.7 HEMATOCRIT (BEAKER) (test hbvg=027) 42.1 % 34.1-44.9 MEAN CORPUSCULAR VOLUME (BEAKER) (test bwdp=121) 86.8 fL 79.4-94.8 MEAN CORPUSCULAR HEMOGLOBIN (BEAKER) (test 27.4 pg 25.6-32.2 cyum=659) MEAN CORPUSCULAR HEMOGLOBIN CONC (BEAKER) (test 31.6 GM/DL 32.2-35.5 aesa=399) RED CELL DISTRIBUTION WIDTH (BEAKER) (test 13.7 % 11.7-14.4 ycxb=543) PLATELET COUNT (BEAKER) (test lyvl=646) 221 K/CU MM 150-450 MEAN PLATELET VOLUME (BEAKER) (test wpzy=236) 10.2 fL 9.4-12.3 NUCLEATED RED BLOOD CELLS (BEAKER) (test 0 /100 WBC 0-0 gesd=095) NEUTROPHILS RELATIVE PERCENT (BEAKER) (test 55 % zswp=015) LYMPHOCYTES RELATIVE PERCENT (BEAKER) (test 35 % efil=964) MONOCYTES RELATIVE PERCENT (BEAKER) (test 7 % qani=717) EOSINOPHILS RELATIVE PERCENT (BEAKER) (test 2 % biww=606) BASOPHILS RELATIVE PERCENT (BEAKER) (test 0 % cfke=089) NEUTROPHILS ABSOLUTE COUNT (BEAKER) (test 4.33 K/ L 1.56-6.13 dgbm=494) LYMPHOCYTES ABSOLUTE COUNT (BEAKER) (test 2.76 K/ L 1.18-3.74 qmzk=106) MONOCYTES ABSOLUTE COUNT (BEAKER) (test 0.53 K/ L 0.24-0.36 ersm=350) EOSINOPHILS ABSOLUTE COUNT (BEAKER) (test 0.14 K/ L 0.04-0.36 ddid=768) BASOPHILS ABSOLUTE COUNT (BEAKER) (test 0.03 K/ L 0.01-0.08 neor=729) IMMATURE GRANULOCYTES-RELATIVE PERCENT (BEAKER) 0 % 0-1 (test vhio=2117) POCT-GLUCOSE [id number] 00:22:00 Test Item Value Reference Range Comments POC-GLUCOSE METER (BEAKER) 123 mg/dL 70-110 TESTED AT [address] (test ihhl=9525) [place] [address] POCT-GLUCOSE [id number] 21:46:00 Test Item Value Reference Range Comments POC-GLUCOSE METER (BEAKER) 107 mg/dL 70-110 TESTED AT [address] (test udly=2132) [place] [address] POCT-GLUCOSE [id number] 17:12:00 Test Item Value Reference Range Comments POC-GLUCOSE METER (BEAKER) 218 mg/dL 70-110 TESTED AT [address] (test aloy=9088) [place] [address] POCT-GLUCOSE [id number] 11:24:00 Test Item Value Reference Range Comments POC-GLUCOSE METER (BEAKER) 268 mg/dL 70-110 TESTED AT [address] (test tcap=0459) [place] [address] BASIC METABOLIC [id number] 10:12:00 Test Item Value Reference Range Comments SODIUM (BEAKER) (test 140 meq/L 136-145 milx=696) POTASSIUM (BEAKER) (test 3.4 meq/L 3.5-5.1 djrq=753) CHLORIDE (BEAKER) (test 108 meq/L 98-107 rumc=221) CO2 (BEAKER) (test 28 meq/L 22-29 tejt=627) BLOOD UREA NITROGEN 15 mg/dL 7-21 (BEAKER) (test obfu=958) CREATININE (BEAKER) (test 0.92 mg/dL 0.57-1.25 mtpi=869) GLUCOSE RANDOM (BEAKER) 228 mg/dL 70-105 (test nknu=208) CALCIUM (BEAKER) (test 9.2 mg/dL 8.4-10.2 qnfe=981) EGFR (BEAKER) (test 74 mL/min/1.73 sq m ESTIMATED GFR IS NOT yemz=7067) ACCURATE CREATININE CLEARANCE IN PREDICTING GLOMERULAR FILTRATION RATE. ESTIMATED GFR IS NOT APPLICABLE FOR DIALYSIS PATIENTS. POCT-GLUCOSE [id number] 06:21:00 Test Item Value Reference Range Comments POC-GLUCOSE METER (BEAKER) 282 mg/dL 70-[address] [facility] [address] [facility] (test luxx=6524) [facility] [address] CBC W/PLT COUNT & AUTO [id number] 04:01:00 Test Item Value Reference Range Comments WHITE BLOOD CELL COUNT (BEAKER) (test ilwk=976) 8.1 K/ L 3.5-10.5 RED BLOOD CELL COUNT (BEAKER) (test apge=527) 4.41 M/ L 3.93-5.22 HEMOGLOBIN (BEAKER) (test upxu=747) 12.2 GM/DL 11.2-15.7 HEMATOCRIT (BEAKER) (test xdkw=694) 38.7 % 34.1-44.9 MEAN CORPUSCULAR VOLUME (BEAKER) (test mlyz=201) 87.8 fL 79.4-94.8 MEAN CORPUSCULAR HEMOGLOBIN (BEAKER) (test 27.7 pg 25.6-32.2 okme=361) MEAN CORPUSCULAR HEMOGLOBIN CONC (BEAKER) (test 31.5 GM/DL 32.2-35.5 jekm=823) RED CELL DISTRIBUTION WIDTH (BEAKER) (test 13.4 % 11.7-14.4 lmgh=092) PLATELET COUNT (BEAKER) (test ruff=249) 207 K/CU MM 150-450 MEAN PLATELET VOLUME (BEAKER) (test qyyl=280) 10.2 fL 9.4-12.3 NUCLEATED RED BLOOD CELLS (BEAKER) (test 0 /100 WBC 0-0 gevs=899) NEUTROPHILS RELATIVE PERCENT (BEAKER) (test 68 % gndn=290) LYMPHOCYTES RELATIVE PERCENT (BEAKER) (test 21 % lmyn=074) MONOCYTES RELATIVE PERCENT (BEAKER) (test 9 % vtnt=534) EOSINOPHILS RELATIVE PERCENT (BEAKER) (test 1 % wqmt=115) BASOPHILS RELATIVE PERCENT (BEAKER) (test 1 % xezl=884) NEUTROPHILS ABSOLUTE COUNT (BEAKER) (test 5.56 K/ L 1.56-6.13 odkw=388) LYMPHOCYTES ABSOLUTE COUNT (BEAKER) (test 1.74 K/ L 1.18-3.74 ypvu=482) MONOCYTES ABSOLUTE COUNT (BEAKER) (test 0.71 K/ L 0.24-0.36 jiyo=845) EOSINOPHILS ABSOLUTE COUNT (BEAKER) (test 0.05 K/ L 0.04-0.36 csys=100) BASOPHILS ABSOLUTE COUNT (BEAKER) (test 0.04 K/ L 0.01-0.08 uojp=029) IMMATURE GRANULOCYTES-RELATIVE PERCENT (BEAKER) 0 % 0-1 (test mftf=0710) BASIC METABOLIC [id number] 01:15:00 Test Item Value Reference Range Comments SODIUM (BEAKER) (test 144 meq/L 136-145 vsii=480) POTASSIUM (BEAKER) (test 3.4 meq/L 3.5-5.1 apeh=360) CHLORIDE (BEAKER) (test 109 meq/L 98-107 qjls=291) CO2 (BEAKER) (test 28 meq/L 22-29 xkaw=163) BLOOD UREA NITROGEN 13 mg/dL 7-21 (BEAKER) (test nfxk=228) CREATININE (BEAKER) (test 0.97 mg/dL 0.57-1.25 deda=977) GLUCOSE RANDOM (BEAKER) 148 mg/dL 70-105 (test dqbg=410) CALCIUM (BEAKER) (test 9.3 mg/dL 8.4-10.2 jecg=732) EGFR (BEAKER) (test 70 mL/min/1.73 sq m ESTIMATED GFR IS NOT dulw=0458) ACCURATE CREATININE CLEARANCE IN PREDICTING GLOMERULAR FILTRATION RATE. ESTIMATED GFR IS NOT APPLICABLE FOR DIALYSIS PATIENTS. POCT-GLUCOSE [id number] 00:17:00 Test Item Value Reference Range Comments POC-GLUCOSE METER (BEAKER) 148 mg/dL 70-[address] [facility] [address] [facility] (test jsop=9326) [place] [address] [id number] 20:22:00 Test Item Value Reference Range Comments PHOSPHORUS (BEAKER) (test sypb=631) 2.5 mg/dL 2.3-4.7 BASIC METABOLIC [id number] 20:22:00 Test Item Value Reference Range Comments SODIUM (BEAKER) (test 147 meq/L 136-145 hvql=909) POTASSIUM (BEAKER) (test 3.8 meq/L 3.5-5.1 qeno=814) CHLORIDE (BEAKER) (test 112 meq/L 98-107 phfk=728) CO2 (BEAKER) (test 29 meq/L 22-29 eywj=039) BLOOD UREA NITROGEN 14 mg/dL 7-21 (BEAKER) (test osec=348) CREATININE (BEAKER) (test 0.99 mg/dL 0.57-1.25 yuhc=370) GLUCOSE RANDOM (BEAKER) 184 mg/dL 70-105 (test letg=781) CALCIUM (BEAKER) (test 9.2 mg/dL 8.4-10.2 aaht=925) EGFR (BEAKER) (test 68 mL/min/1.73 sq m ESTIMATED GFR IS NOT stxe=7460) ACCURATE CREATININE CLEARANCE IN PREDICTING GLOMERULAR FILTRATION RATE. ESTIMATED GFR IS NOT APPLICABLE FOR DIALYSIS PATIENTS. POCT-GLUCOSE [id number] 20:20:00 Test Item Value Reference Range Comments POC-GLUCOSE METER (BEAKER) 187 mg/dL 70-110 TESTED AT [place] [id number] [facility] (test lamb=0972) [place] [id number] POCT-GLUCOSE [id number] 17:13:00 Test Item Value Reference Range Comments POC-GLUCOSE METER (BEAKER) 201 mg/dL 70-110 TESTED AT [address] (test uinu=6016) [place] [address] RAD, ABDOMEN/KUB, 1 VIEW [id number] 15:38:00Reason for exam:->corpak placementFINAL REPORT CLINICAL HISTORY: corpak placement TECHNIQUE: Supine abdomen IMPRESSION: The tip of the feeding tube is in the distal duodenum. The partially visualized bowel gas pattern is nonspecific with moderate stool in the visualized colon. Signed: Shana Parekh MDReport Verified Date/Time: 05/08/2018 15:38:04 Reading Location: [address] Consult Reading Room BASI METABOLIC [id number] 15:17:00 Test Item Value Reference Range Comments SODIUM (BEAKER) (test 145 meq/L 136-145 dsor=245) POTASSIUM (BEAKER) (test 3.2 meq/L 3.5-5.1 jtci=261) CHLORIDE (BEAKER) (test 111 meq/L 98-107 egjk=575) CO2 (BEAKER) (test 25 meq/L 22-29 eiww=225) BLOOD UREA NITROGEN 19 mg/dL 7-21 (BEAKER) (test kipo=636) CREATININE (BEAKER) (test 0.96 mg/dL 0.57-1.25 bjaq=591) GLUCOSE RANDOM (BEAKER) 90 mg/dL 70-105 (test wbwg=150) CALCIUM (BEAKER) (test 9.4 mg/dL 8.4-10.2 ythi=110) EGFR (BEAKER) (test 71 mL/min/1.73 sq m ESTIMATED GFR IS NOT brmg=3056) ACCURATE CREATININE CLEARANCE IN PREDICTING GLOMERULAR FILTRATION RATE. ESTIMATED GFR IS NOT APPLICABLE FOR DIALYSIS PATIENTS. POCT-GLUCOSE [id number] 14:23:00 Test Item Value Reference Range Comments POC-GLUCOSE METER (BEAKER) 86 mg/dL 70-[address] [facility] [address] [facility] (test aotf=4125) [facility] [address] BASIC METABOLIC [id number] 13:23:00 Test Item Value Reference Range Comments SODIUM (BEAKER) (test 145 meq/L 136-145 pnch=902) POTASSIUM (BEAKER) (test 3.7 meq/L 3.5-5.1 Specimen slightly cgfb=108) hemolyzed CHLORIDE (BEAKER) (test 109 meq/L 98-107 xtdg=028) CO2 (BEAKER) (test 25 meq/L 22-29 twhi=225) BLOOD UREA NITROGEN 18 mg/dL 7-21 (BEAKER) (test rgku=747) CREATININE (BEAKER) (test 0.97 mg/dL 0.57-1.25 Specimen slightly wktd=067) hemolyzed GLUCOSE RANDOM (BEAKER) 107 mg/dL 70-105 (test zaes=153) CALCIUM (BEAKER) (test 9.8 mg/dL 8.4-10.2 vdod=827) EGFR (BEAKER) (test 70 mL/min/1.73 sq m ESTIMATED GFR IS NOT qycw=3387) ACCURATE CREATININE CLEARANCE IN PREDICTING GLOMERULAR FILTRATION RATE. ESTIMATED GFR IS NOT APPLICABLE FOR DIALYSIS PATIENTS. POCT-GLUCOSE [id number] 13:15:00 Test Item Value Reference Range Comments POC-GLUCOSE METER (BEAKER) 140 mg/dL 70-110 TESTED AT [address] (test ujop=3755) [place] [address] HEMOGLOBIN [id number] 13:13:00 Test Item Value Reference Range Comments HEMOGLOBIN A1C (BEAKER) (test egvz=097) 17.1 % 4.3-6.1 POCT-GLUCOSE [id number] 12:14:00 Test Item Value Reference Range Comments POC-GLUCOSE METER (BEAKER) 159 mg/dL 70-110 TESTED AT [address] (test hsop=3324) [facility] [address] URINALYSIS W/ [id number] 12:10:00 Test Item Value Reference Range Comments COLOR (BEAKER) (test holc=886) Light Yellow CLARITY (BEAKER) (test kijm=561) Clear SPECIFIC GRAVITY UA (BEAKER) (test tczk=067) 1.025 1.001-1.035 PH UA (BEAKER) (test gkzf=354) 7.0 5.0-8.0 PROTEIN UA (BEAKER) (test epnt=489) 30 mg/dL Negative GLUCOSE UA (BEAKER) (test nfka=443) >1000 mg/dL Negative KETONES UA (BEAKER) (test smll=579) Trace Negative BILIRUBIN UA (BEAKER) (test svsg=676) Negative Negative BLOOD UA (BEAKER) (test ruhz=582) Negative Negative NITRITE UA (BEAKER) (test uobc=706) Negative Negative LEUKOCYTE ESTERASE UA (BEAKER) (test bire=988) Negative Negative UROBILINOGEN UA (BEAKER) (test wyxn=561) 0.2 mg/dL 0.2-1.0 RBC UA (BEAKER) (test zzrg=071) < /HPF WBC UA (BEAKER) (test sbch=389) 0 /HPF BACTERIA (BEAKER) (test xbgk=520) Rare SQUAMOUS EPITHELIAL (BEAKER) (test xexl=917) < /HPF SOURCE(BEAKER) (test ouxf=8649) Urine, Gomez TROPONIN [id number] 11:07:00 Test Item Value Reference Range Comments TROPONIN I (BEAKER) (test dtyj=295) < ng/mL 0.00-0.03 Troponin I (TnI) levels [...] disease, and persistent tachyarrhythmia.LACTIC ACID, VENOUS, WHOLE [id number] 11:07:00 Test Item Value Reference Range Comments LACTATE BLOOD VENOUS (2) 3.3 mmol/L 0.5-2.2 Specimen moderately hemolyzed (BEAKER) (test agrm=0646) Effective 11/26/2015: Units/Reference Range ChangeNew: 0.5-2.2 mmol/L Previous: 5 -20 mg/dLPOCT-GLUCOSE [id number] 11:05:00 Test Item Value Reference Range Comments POC-GLUCOSE METER (BEAKER) 249 mg/dL 70-[address] [facility] [address] [facility] (test ktwl=9679) [facility] [address] [id number] 11:00:00 Test Item Value Reference Range Comments POTASSIUM (BEAKER) (test tjms=057) 3.7 meq/L 3.5-5.1 [id number] 11:00:00 Test Item Value Reference Range Comments MAGNESIUM (BEAKER) (test nwgn=820) 2.7 mg/dL 1.6-2.6 [id number] 11:00:00 Test Item Value Reference Range Comments PHOSPHORUS (BEAKER) (test blzw=124) 1.6 mg/dL 2.3-4.7 [id number] 11:00:00 Test Item Value Reference Range Comments GLUCOSE RANDOM (BEAKER) (test gpfv=478) 325 mg/dL 70-105 COMPREHENSIVE METABOLIC [id number] 11:00:00 Test Item Value Reference Range Comments TOTAL PROTEIN (BEAKER) 9.0 gm/dL 6.0-8.3 (test emno=922) ALBUMIN (BEAKER) (test 4.3 g/dL 3.5-5.0 bqrw=7733) ALKALINE PHOSPHATASE 90 U/L 40-150 (BEAKER) (test bhxg=316) BILIRUBIN TOTAL (BEAKER) 0.3 mg/dL 0.2-1.2 (test gafp=722) SODIUM (BEAKER) (test 147 meq/L 136-145 iiyd=597) POTASSIUM (BEAKER) (test 3.7 meq/L 3.5-5.1 sgev=347) CHLORIDE (BEAKER) (test 106 meq/L 98-107 zecz=658) CO2 (BEAKER) (test 30 meq/L 22-29 gpzm=151) BLOOD UREA NITROGEN 19 mg/dL 7-21 (BEAKER) (test lumi=722) CREATININE (BEAKER) (test 1.20 mg/dL 0.57-1.25 uxxw=058) GLUCOSE RANDOM (BEAKER) 325 mg/dL 70-105 (test olmw=309) CALCIUM (BEAKER) (test 10.2 mg/dL 8.4-10.2 nxve=023) AST (SGOT) (BEAKER) (test 14 U/L 5-34 iqxd=785) ALT (SGPT) (BEAKER) (test 11 U/L 6-55 ahaj=339) EGFR (BEAKER) (test 55 mL/min/1.73 sq m ESTIMATED GFR IS NOT bqpn=8097) ACCURATE CREATININE CLEARANCE IN PREDICTING GLOMERULAR FILTRATION RATE. ESTIMATED GFR IS NOT APPLICABLE FOR DIALYSIS PATIENTS. [id number] 10:46:00 Test Item Value Reference Range Comments PARTIAL THROMBOPLASTIN TIME (BEAKER) (test 22.6 seconds 22.5-36.0 hcdz=303) PROTHROMBIN [id number] 10:45:00 Test Item Value Reference Range Comments PROTIME (BEAKER) (test jmif=070) 13.2 seconds 11.7-14.7 INR (BEAKER) (test nmpt=566) 1.0 <=5.9 RECOMMENDED COUMADIN/WARFARIN INR THERAPY RANGESSTANDARD DOSE: 2.0 - 3.0 Includes: PROPHYLAXIS forvenous thrombosis, systemic embolization; TREATMENT for venous thrombosis and/or pulmonary embolus.HIGH RISK: Target INR is 2.5-3.5 for patients with mechanical heart valves.CBC (HEMOGRAM ONLY)2018-05-08 10:35:00 Test Item Value Reference Range Comments WHITE BLOOD CELL COUNT (BEAKER) (test edmh=845) 8.6 K/ L 3.5-10.5 RED BLOOD CELL COUNT (BEAKER) (test tzey=934) 5.01 M/ L 3.93-5.22 HEMOGLOBIN (BEAKER) (test jrtu=949) 14.1 GM/DL 11.2-15.7 HEMATOCRIT (BEAKER) (test geae=527) 43.3 % 34.1-44.9 MEAN CORPUSCULAR VOLUME (BEAKER) (test aaxj=240) 86.4 fL 79.4-94.8 MEAN CORPUSCULAR HEMOGLOBIN (BEAKER) (test 28.1 pg 25.6-32.2 hvnu=389) MEAN CORPUSCULAR HEMOGLOBIN CONC (BEAKER) (test 32.6 GM/DL 32.2-35.5 ogja=633) RED CELL DISTRIBUTION WIDTH (BEAKER) (test 13.1 % 11.7-14.4 xeen=407) PLATELET COUNT (BEAKER) (test itvs=332) 224 K/CU MM 150-450 MEAN PLATELET VOLUME (BEAKER) (test fvfl=462) 10.2 fL 9.4-12.3 NUCLEATED RED BLOOD CELLS (BEAKER) (test 0 /100 WBC 0-0 ipzn=108) POCT-GLUCOSE [id number] 09:26:00 Test Item Value Reference Range Comments POC-GLUCOSE METER (BEAKER) 389 mg/dL 70-110 Patient on insulin Drip/TESTED (test aljm=9979) AT [facility] [address] [facility] [address] POCT-GLUCOSE [id number] 08:12:00 Test Item Value Reference Range Comments POC-GLUCOSE METER (BEAKER) 384 mg/dL 70-110 Patient on insulin Drip/TESTED (test smab=8839) AT [address] [address]
--- OUTSIDE RECORDS SUMMARY | 2018-08-14 22:00 | XMS REPORT | Clinical Summary ---
:[address] [facility] Address [address] [place] [address] Care Team Providers Name Role Phone Unavailable Primary Care Provider Unavailable Allergies No Known Allergies Medications Medication Sig Dispensed Refills Start Date End Date Status insulin glargine (LANTUS) 40 units SC 10 mL 2 05/10/2018 Active 100 unit/mL syringe daily AM. 9 amLODIPine (NORVASC) 10 Take 1 tablet 30 tablet 2 05/11/2018 MG tablet (10 mg total) 9 by mouth daily for 90 days. apixaban (ELIQUIS) 2.5 mg Take 1 tablet 60 tablet 2 05/10/2018 Tab tablet (2.5 mg total) 9 by mouth 2 (two) times daily for 90 days. aspirin 81 MG chewable Take 1 tablet 30 tablet 2 05/11/2018 tablet (81 mg total) 9 by mouth daily for 90 days. atorvastatin (LIPITOR) 20 Take 1 tablet 30 tablet 2 05/10/2018 MG tablet (20 mg total) 9 by mouth nightly for 90 days. hydroCHLOROthiazide Take 1 tablet 30 tablet 2 05/11/2018 (HYDRODIURIL) 25 MG (25 mg total) 9 tablet by mouth daily for 90 days. metoprolol (LOPRESSOR) 50 Take 1 tablet 60 tablet 2 05/10/2018 MG tablet (50 mg total) 9 by mouth 2 (two) times daily for 90 days. glipiZIDE (GLUCOTROL) 10 Take 1 tablet 30 tablet 2 05/10/2018 MG tablet (10 mg total) 9 by mouth daily for 90 days. metFORMIN (GLUCOPHAGE) Take 1 tablet 60 tablet 2 05/10/2018 1000 MG tablet (1,000 mg 9 total) by mouth 2 (two) times daily with breakfast and dinner for 90 days. Active Problems Problem Noted Date Acute deep vein thrombosis (DVT) of right lower extremity 05/10/2018 Acute encephalopathy 05/08/2018 Hyperglycemic hyperosmolar nonketotic coma 05/08/2018 Provoked seizure 05/08/2018 Acute Metabolic encephalopathy 05/08/2018 Encounters Date Type Specialty Care Team Description 05/08/2018 - [facility] Internal [facility], Acute encephalopathy (Primary Dx); 05/10/2018 Encounter Medicine Ernestina Provoked seizure (HCC); MD Jaun Hyperglycemic hyperosmolar nonketotic coma (HCC) Tavares Arambula MD after 08/13/2017 Social History Tobacco Use Types Packs/Day Years [...] procedure are in the results section. after 08/13/2017 Results RHYTHM STRIP - SCAN (05/12/2018 10:41 AM CDT) Narrative Performed At POC-Glucose meter (05/10/2018 5:07 PM CDT)Only the most recent of17 resultswithin the time period is included. POC-Glucose Meter 184 (H)Comment: TESTED AT 70 - 110 mg/dL [facility] [address] [facility] [address] Specimen Blood Performing Organization Address [facility] Phone Number [facility] [address] [place] [address] [phone] CENTER JOCELYNN-65 (05/10/2018 12:30 PM CDT) JOCELYNN-65 <5 <5 IU/mL [facility] Comment: This test was performed using the GAD65 POLLY method. New method, POLLY, is standardized against the International reference preparation 97/550, is reported in International Units/mL (IU/mL) and a new reference range was implemented. Specimen Blood Narrative Performed At Performing Lab [facility] [place] [address] [place] [address] Tai Domingo MD, PhD, GENEVIEVE Performing Organization Address City/[facility]/Zipcode [place] [address] INCORPORATED [id number] [facility] Islet Cell AB Screen (05/10/2018 12:30 PM CDT) Islet Cell Ab Profile Refer to individual Islet [facility] Cell Ab and/or [facility] Ab Titer results. Specimen Blood Narrative Performed At Performing Organization Address City/State/Zipcode Phone Number [facility], [place] [address] INCORPORATED [id number] [facility] Venous doppler legs bilateral (05/10/2018 8:43 AM CDT) Ejection Fraction [facility] CPACS Impressions Performed At Right Impression [facility] CP[facility] 1. There is [...] PV LAB - Lower Extremities DVT Study [facility] Demographics Patient Name GÉNESIS MANZANO Date of Study 05/10/2018 [id number] Age 67 Visit Number [id number] Female [id number] Date of 1950 Number [facility] CenterRoom [facility] 9323 Geeta Zamorano SonographBen Mcbride. RVT,InterpretingJ. 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 RVT, Interpreting TAMANNA Blackmon Physician , EDITH Procedure Type of Study: Veins: Lower Extremities [...] included. WBC 7.8 3.5 - 10.5 K/L [facility] RBC 4.85 3.93 - 5.22 M/L [facility] Hemoglobin 13.3 11.2 - 15.7 GM/DL [facility] Hematocrit 42.1 34.1 - 44.9 % [facility] MCV 86.8 79.4 - 94.8 fL [facility] MCH 27.4 25.6 - 32.2 pg [facility] MCHC 31.6 (L) 32.2 - 35.5 GM/DL [facility] RDW 13.7 11.7 - 14.4 % [facility] Platelets 221 150 - 450 K/CU MM [facility] MPV 10.2 9.4 - 12.3 fL [facility] nRBC 0 0 - 0 /100 WBC [facility] % Neutros 55 % [facility] % Lymphs 35 % [facility] % Monos 7 % [facility] % Eos 2 % [facility] % Baso 0 % [facility] # Neutros 4.33 1.56 - 6.13 K/L [facility] # Lymphs 2.76 1.18 - 3.74 K/L [facility] # Monos 0.53 (H) 0.24 - 0.36 K/L [facility] # Eos 0.14 0.04 - 0.36 K/L [facility] # Baso 0.03 0.01 - 0.08 K/L [facility] Immature Granulocytes-Relative 0 0 - 1 % [facility] Specimen Blood Performing Organization Address City/State/Zipcode Phone Number [facility] [address] [place] [address] CENTER Basic Metabolic Panel (05/10/2018 4:50 AM CDT)Only the most recent of6 resultswithin the time period is included. Sodium 136 136 - 145 meq/L [facility] Potassium 3.5 3.5 - 5.1 meq/L [facility] Chloride 104 98 - 107 meq/L [facility] CO2 24 22 - 29 meq/L [facility] BUN 18 7 - 21 mg/dL [facility] Creatinine 1.00 0.57 - 1.25 mg/dL [facility] Glucose 107 (H) 70 - 105 mg/dL [facility] Calcium 9.4 8.4 - 10.2 mg/dL [facility] EGFR 67Comment: ESTIMATED GFR IS mL/min/1.73 sq m [facility] NOT ACCURATE CREATININE [facility] CLEARANCE IN PREDICTING GLOMERULAR FILTRATION RATE. ESTIMATED GFR IS NOT APPLICABLE FOR DIALYSIS PATIENTS. Specimen Blood Performing Organization Address City/[facility]/Zipcode Phone Number [address] [address] [phone] CENTER Phosphorus (05/08/2018 7:58 PM CDT)Only the most recent of2 resultswithin the time period is included. Phosphorus 2.5 2.3 - 4.7 mg/dL [facility] Specimen Blood Performing Organization Address [facility] Hospitalcond Phone Number [address] [address] [phone] CENTER XR abdomen / KUB 1 view (05/08/2018 2:57 PM CDT) Narrative Performed At FINAL REPORT [facility] CLINICAL HISTORY: corpak placement TECHNIQUE: Supine abdomen IMPRESSION: The tip of the feeding tube is in the distal duodenum. The partially visualized bowel gas pattern is nonspecific with moderate stool in the visualized colon. Signed: Shana Parekh MD Report Verified Date/Time:05/08/2018 15:38:04 Reading Location: [facility] Consult Reading Room Procedure Note Interface, External Ris In - 05/08/2018 3:40 PM CDT FINAL REPORT CLINICAL HISTORY: corpak placement TECHNIQUE: Supine abdomen IMPRESSION: The tip of the feeding tube is in the distal duodenum. The partially visualized bowel gas pattern is nonspecific with moderate stool in the visualized colon. Signed: Shana Parekh MD Report Verified Date/Time: 05/08/2018 15:38:04 Reading Location: [facility] C013 Consult Reading Room Performing Organization Address City/[facility] Phone Number GE RIS Blood culture (05/08/2018 10:19 AM CDT)Only the most recent of2 resultswithin the time period is included. Result No growth in 5 days [facility] Specimen Blood - Arm, Right Performing Organization Address [facility]/Zipcode Phone Number [facility] [address] [place] [phone] [place] Urinalysis w/ Microscopic (05/08/2018 9:43 AM CDT) Color, UA Light Yellow [facility] Clarity, UA Clear [facility] Specific [place], UA 1.025 1.001 - 1.035 [facility] pH, UA 7.0 5.0 - 8.0 [facility] Protein, UA 30 mg/dL (A) Negative [facility] Glucose, UA >1000 mg/dL (A) Negative [facility] Ketones, UA Trace (A) Negative [facility] Bilirubin, UA Negative Negative [facility] Blood, UA Negative Negative [facility] Nitrite, UA Negative Negative [facility] Leukocytes, UA Negative Negative [facility] Urobilinogen, UA 0.2 0.2 - 1.0 mg/dL [facility] RBC, UA <1 /HPF [facility] WBC, UA 0 /HPF [facility] Bacteria, UA Rare [facility] Squam Epithel, UA <1 /HPF [facility] Specimen Source Urine, Jason [facility] Specimen Urine - Urine, Jason Performing Organization Address [facility]/Zipcode Phone Number [facility] [address] [place] [phone] CENTER Troponin I (05/08/2018 9:42 AM CDT) Troponin I <0.01 0.00 - 0.03 ng/mL [facility] Specimen Blood Narrative Performed At [facility] Troponin I (TnI) levels must be interpreted [...] disease, and persistent tachyarrhythmia. Performing Organization Address [facility] Phone Number [address] [address] [place] Lactic acid, venous, whole blood (05/08/2018 9:42 AM CDT) Lactate, Venous 3.3 (H)Comment: Specimen 0.5 - 2.2 mmol/L [facility] moderately hemolyzed [facility] Specimen Blood Narrative Performed At [facility] Effective 11/26/2015: Units/Reference Range Change New: 0.5-2.2 mmol/LPrevious: 5-20 mg/dL Performing Organization Address [facility] Phone Number [address] [address] CENTER aPTT (05/08/2018 9:42 AM CDT) PTT 22.6 22.5 - 36.0 seconds [facility] Specimen Blood Performing Organization Address [facility] Phone Number [address] [address] CENTER Prothrombin time/INR (05/08/2018 9:42 AM CDT) Protime 13.2 11.7 - 14.7 seconds [facility] INR 1.0 <=5.9 [facility] Specimen Blood Narrative Performed At [facility] RECOMMENDED COUMADIN/WARFARIN INR THERAPY RANGES STANDARD DOSE: 2.0 - 3.0 Includes: PROPHYLAXIS for venous thrombosis, systemic embolization; TREATMENT for venous thrombosis and/or pulmonary embolus. HIGH RISK: Target INR is 2.5-3.5 for patients with mechanical heart valves. Performing Organization Address City/[facility]code Phone Number [address] [address] CENTER CBC (Hemogram only) (05/08/2018 9:42 AM CDT) WBC 8.6 3.5 - 10.5 K/L [facility] RBC 5.01 3.93 - 5.22 M/L [facility] Hemoglobin 14.1 11.2 - 15.7 GM/DL [facility] Hematocrit 43.3 34.1 - 44.9 % [facility] MCV 86.4 79.4 - 94.8 fL [facility] MCH 28.1 25.6 - 32.2 pg [facility] MCHC 32.6 32.2 - 35.5 GM/DL [facility] RDW 13.1 11.7 - 14.4 % [facility] Platelets 224 150 - 450 K/CU MM [facility] MPV 10.2 9.4 - 12.3 fL [facility] nRBC 0 0 - 0 /100 WBC [facility] Specimen Blood Performing Organization Address City/[facility] Phone Number [address] [address] CENTER Potassium-STAT (05/08/2018 9:42 AM CDT) Potassium 3.7 3.5 - 5.1 meq/L [facility] Specimen Blood Performing Organization Address [facility]/Zipcode Phone Number [address] [address] CENTER Magnesium (05/08/2018 9:42 AM CDT) Magnesium 2.7 (H) 1.6 - 2.6 mg/dL [facility] Specimen Blood Performing Organization Address City/[facility]/Zipcode Phone Number [address] [address] [phone] [place] Hemoglobin A1c (05/08/2018 9:42 AM CDT) Hemoglobin A1C 17.1 (H) 4.3 - 6.1 % [facility] Specimen Blood Performing Organization Address City/[facility]/Zipcode Phone Number [address] [address] [place] Glucose-STAT (05/08/2018 9:42 AM CDT) Glucose 325 (H) 70 - 105 mg/dL [facility] Specimen Blood Performing Organization Address City/[facility]code Phone Number [address] [address] [phone] [place] Comprehensive metabolic panel (05/08/2018 9:42 AM CDT) Protein, Total 9.0 (H) 6.0 - 8.3 gm/dL [facility] Albumin 4.3 3.5 - 5.0 g/dL [facility] Alkaline Phosphatase 90 40 - 150 U/L [facility] Total Bilirubin 0.3 0.2 - 1.2 mg/dL [facility] Sodium 147 (H) 136 - 145 meq/L [facility] Potassium 3.7 3.5 - 5.1 meq/L [facility] Chloride 106 98 - 107 meq/L [facility] CO2 30 (H) 22 - 29 meq/L [facility] BUN 19 7 - 21 mg/dL [facility] Creatinine 1.20 0.57 - 1.25 mg/dL [facility] Glucose 325 (H) 70 - 105 mg/dL [facility] Calcium 10.2 8.4 - 10.2 mg/dL [facility] AST 14 5 - 34 U/L [facility] ALT 11 6 - 55 U/L [facility] EGFR 55Comment: ESTIMATED GFR mL/min/1.73 sq m [facility] IS NOT ACCURATE [facility] CREATININE CLEARANCE IN PREDICTING GLOMERULAR FILTRATION RATE. ESTIMATED GFR IS NOT APPLICABLE FOR DIALYSIS PATIENTS. Specimen Blood Performing Organization Address City/State/Zipcode Phone Number [facility] [address] [place] [address] CENTER after 08/13/2017 Insurance Payer Benefit Plan / Group Subscriber ID Type Phone Address MEDICARE MEDICARE A B xxxxxxxxxxx Medicare [place] xxxxxxxxx Medicaid
[2018-08-14 23:15] LABS: Absolute Lymphocytes (CBC) 1.3 K/uL (0.7-4.9); Absolute Monocytes 0.5 K/uL (0.1-1.3); Absolute Neutrophil 5.3 K/uL (1.8-8.0); Basophils % 0.5 % (0-1.3); Eosinophils % 1.4 % (0-4.4); Hematocrit 37.1 % (36.0-45.0); Lymphocytes % 17.9 % (15.3-44.8); MPV 8.5 fL (7.6-11.3); RBC Red Blood Cell Count 4.34 M/uL (3.86-4.86)
[2018-08-14 23:40] LABS: Potassium 3.8 mmol/L (3.5-5.1)
[2018-08-15] MEDS ORDERED: NA CHLORIDE 0.9% 1,000 ML ONE (01:16)
--- NOTE | 2018-08-15 04:19 | EDPHYS ---
Physician Documentation [facility] Name: Génesis Manzano Age: 68 yrs Sex: Female : 1950 Arrival Date: 08/14/2018 Time: 21:59 Bed 7 Private MD: ED Physician Jason Valdes HPI: 08/15 03:29 This 68 yrs old Black Female presents to ER via EMS with complaints of abdominla pain tw4 and vaginal bleeding . 03:29 The patient presents with abdominal pain that is diffuse. Onset: The symptoms/episode tw4 began/occurred today. The symptoms do not radiate. The symptoms are described as dull. Modifying factors: Pertinent positives: vaginal bleeding, The symptoms are alleviated by nothing, the symptoms are aggravated by nothing. Severity of pain: At its worst the pain was moderate in the emergency department the pain has improved. The patient has not experienced similar symptoms in the past. Historical: - Allergies: 08/14 22:29 No Known Allergies; lp1 - Home Meds: 22:29 aspirin 81 mg Oral TbEC 1 tab once daily [Active]; metformin 1,000 mg Oral tab 2 times lp1 per day [Active]; clonidine HCl 0.2 mg Oral tab 2 times per day [Active]; rosuvastatin 20 mg oral tab 1 tab once daily [Active]; glipizide 10 mg Oral tab 1 tab 2 times per day [Active]; hydrochlorothiazide 25 mg Oral tab once daily [Active]; metoprolol tartrate 50 mg Oral tab 1 tab 2 times per day [Active]; amlodipine 10 mg tab once daily [Active]; potassium chloride 10 mEq Oral TbER 1 tab once daily [Active]; Levemir 100 unit/mL subcutaneous soln 40 unit twice a day [Active]; - PMHx: 22:29 CVA; Deaf; Diabetes - IDDM; Hypertension; Hyperlipidemia; lp1 - PSHx: 22:29 cataracts; lp1 23:38 Hysterectomy; jd3 - Immunization history:: Adult Immunizations up to date. - Social history:: Smoking status: Patient/guardian denies using tobacco. - Ebola Screening: : No symptoms or risks identified at this time. ROS: 08/15 03:29 Constitutional: Negative for fever, chills, and weight loss, Eyes: Negative for injury, tw4 pain, redness, and discharge, Cardiovascular: Negative for chest pain, palpitations, and edema, Respiratory: Negative for shortness of breath, cough, wheezing, and pleuritic chest pain. Back: Negative for injury and pain, MS/Extremity: Negative for injury and deformity, Skin: Negative for injury, rash, and discoloration, Neuro: Negative for headache, weakness, numbness, tingling, and seizure. Abdomen/GI: Positive for abdominal pain. Exam: 03:29 Constitutional: This is a well developed, well nourished patient who is awake, alert, tw4 and in no acute distress. Head/Face: Normocephalic, atraumatic. Chest/axilla: Normal chest wall appearance and motion. Nontender with no deformity. No lesions are appreciated. Cardiovascular: Regular rate and rhythm with a normal S1 and S2. No gallops, murmurs, or rubs. Normal PMI, no JVD. No pulse deficits. Respiratory: Lungs have equal breath sounds bilaterally, clear to auscultation and percussion. No rales, rhonchi or wheezes noted. No increased work of breathing, no retractions or nasal flaring. Back: No spinal tenderness. No costovertebral tenderness. Full range of motion. MS/ Extremity: Pulses equal, no cyanosis. Neurovascular intact. Full, normal range of motion. Neuro: Awake and alert, GCS 15, oriented to person, place, time, and situation. Cranial nerves II-XII grossly intact. Motor strength 5/5 in all extremities. Sensory grossly intact. Cerebellar exam normal. Normal gait. Psych: Awake, alert, with orientation to person, place and time. Behavior, mood, and affect are within normal limits. 03:29 Abdomen/GI: Inspection: abdomen appears normal, Palpation: mild abdominal tenderness, in the suprapubic area, right lower quadrant and left lower quadrant. Vital Signs: 08/14 22:00 BP 105 / 77; Pulse 78; Resp 16; Temp 97.8(O); Pulse Ox 98% on R/A; Weight 79.38 kg (R); lp1 23:05 BP 124 / 76; Pulse 76; Resp 17 S; Pulse Ox 99% on R/A; lp1 08/15 00:11 BP 95 / 62; Pulse 64; Resp 17 S; Pulse Ox 95% on R/A; jd3 01:03 BP 105 / 56; Pulse 66; Resp 17 S; Pulse Ox 96% on R/A; jd3 02:03 BP 119 / 56; Pulse 71; Resp 16 S; Pulse Ox 96% on R/A; jd3 03:05 BP 105 / 56; Pulse 65; Resp 17 S; Pulse Ox 96% on R/A; jd3 04:19 BP 128 / 86; Pulse 86; Resp 16 S; Pulse Ox 100% on R/A; jd3 MDM: 08/14 22:01 Patient medically screened. tw4 08/15 03:32 Data reviewed: vital signs, nurses notes. Data interpreted: Pulse oximetry: tw4 Interpretation: normal. Counseling: I had a detailed discussion with the patient and/or guardian regarding: the historical points, exam findings, and any diagnostic results supporting the discharge/admit diagnosis. 08/14 22:02 Order name: Abo/rh Typing [facility] 08/14 22:02 Order name: Basic Metabolic Panel [facility] 08/14 22:02 Order name: CBC with Diff; Complete Time: 23:43 [facility] 08/14 23:43 Interpretation: Normal except: HGB 11.9. [facility] 08/14 22:26 Order name: Glucose, Ancillary Testing; Complete Time: 23:43 [facility] 08/14 23:43 Interpretation: Normal except: GLUC,ANCIL 175. [facility] 08/15 03:56 Order name: Urine Dipstick--Ancillary (enter results) [facility] 08/15 04:31 Order name: Urine Dipstick-Ancillary [facility] 08/14 22:02 Order name: IV Saline Lock; Complete Time: 23:06 [facility] 08/14 22:02 Order name: Labs collected and sent; Complete Time: 23:05 [facility] 08/14 22:02 Order name: US Pelvis Complete [facility] 08/15 01:03 Order name: CT Abd/Pelvis - W/Contrast [facility] 08/15 04:33 Order name: ABO/RH no charge [facility] 08/15 04:35 Order name: Abdomen EDIL 08/14 22:02 Order name: NPO; Complete Time: 22:49 [facility] 08/14 22:02 Order name: Urine Dipstick-Ancillary (obtain specimen); Complete Time: 03:58 4 Administered Medications: 01:45 Drug: NS 0.9% 1000 ml Route: IV; Rate: 1 bolus; Site: left forearm; jd3 03:36 Follow up: Response: No adverse reaction; IV Status: Completed infusion jd3 04:19 Drug: Rocephin 1 grams Route: IV; Rate: calculated rate; Site: left forearm; jd3 04:23 Follow up: Response: No adverse reaction; IV Status: Completed infusion jd3 Point of Care Testing: Blood Glucose: 08/14 22:21 Blood Glucose: 175 mg/dL; oe Ranges: Critical Glucose Levels:Adult <50 mg/dl or >400 mg/dl <40 mg/dl or >180 mg/dl Disposition: 08/15/18 04:13 Discharged to Home. Impression: Urinary tract infection, site not specified, Leiomyoma of uterus, unspecified. - Condition is Stable. - Discharge Instructions: Urinary Tract Infection, Adult, Uterine Fibroids, [id number]. - Prescriptions for Pyridium 200 mg Oral Tablet - take 1 tablet by ORAL route every 8 hours for 3 days; 9 tablet. Macrobid 100 mg Oral Capsule - take 1 capsule by ORAL route every 12 hours for 10 days; 20 capsule. Tramadol 50 mg Oral Tablet - take 1 tablet by ORAL route every 8 hours as needed; 12 tablet. - Medication Reconciliation Form, Thank You Letter, Antibiotic Education, Prescription Opioid Use form. - Follow up: Private Physician; When: Upon discharge from the Emergency Department; Reason: Recheck today's complaints, Continuance of care. - Problem is new. - Symptoms have improved. Signatures: Dispatcher [employer] EDBetty Ugarte RN RN lp1 Nehemias Porter RN RN jd3 Jason Valdes MD MD tw4 Corrections: (The following items were deleted from the chart) 08/15 01:03 01:01 08/15/2018 01:01 Discharged to Home. Impression: Other and unspecified ovarian tw4 cysts; Adnexal mass right. Condition is Stable. Forms are Medication Reconciliation Form, Thank You Letter, Antibiotic Education, Prescription Opioid Use. Follow up: Private Physician; When: Upon discharge from the Emergency Department; Reason: Recheck today's complaints, Continuance of care. Problem is new. Symptoms have improved. tw4 04:41 04:13 08/15/2018 04:13 Discharged to Home. Impression: Urinary tract infection, site jd3 not specified; Leiomyoma of uterus, unspecified. Condition is Stable. Forms are Medication Reconciliation Form, Thank You Letter, Antibiotic Education, Prescription Opioid Use. Follow up: Private Physician; When: Upon discharge from the Emergency Department; Reason: Recheck today's complaints, Continuance of care. Problem is new. Symptoms have improved. tw4
--- NOTE | 2018-08-15 04:19 | ER ---
Nurse's Notes [facility] Name: Génesis Manzano Age: 68 yrs Sex: Female : 1950 Arrival Date: 08/14/2018 Time: 21:59 Bed 7 Private MD: Diagnosis: Urinary tract infection, site not specified;Leiomyoma of uterus, unspecified Presentation: 08/14 22:00 Presenting complaint: EMS states: Patient complaint of abdominal pain, vaginal bleeding lp1 since Tuesday; Bleeding stopped at this time but pain continued; Denies any diarrhea, nausea, fever. 22:00 Transition of care: patient was not received from another setting of care. Onset of lp1 symptoms was August 14, 2018. Risk Assessment: Do you want to hurt yourself or someone else? Patient reports no desire to harm self or others. Initial Sepsis Screen: Does the patient meet any 2 criteria? No. Patient's initial sepsis screen is negative. Does the patient have a suspected source of infection? No. Patient's initial sepsis screen is negative. Care prior to arrival: None. 22:00 Method Of Arrival: EMS: [facility] lp1 22:00 Acuity: JODI 3 lp1 Historical: - Allergies: 22:29 No Known Allergies; lp1 - Home Meds: 22:29 aspirin 81 mg Oral TbEC 1 tab once daily [Active]; metformin 1,000 mg Oral tab 2 times lp1 per day [Active]; clonidine HCl 0.2 mg Oral tab 2 times per day [Active]; rosuvastatin 20 mg oral tab 1 tab once daily [Active]; glipizide 10 mg Oral tab 1 tab 2 times per day [Active]; hydrochlorothiazide 25 mg Oral tab once daily [Active]; metoprolol tartrate 50 mg Oral tab 1 tab 2 times per day [Active]; amlodipine 10 mg tab once daily [Active]; potassium chloride 10 mEq Oral TbER 1 tab once daily [Active]; Levemir 100 unit/mL subcutaneous soln 40 unit twice a day [Active]; - PMHx: 22:29 CVA; Deaf; Diabetes - IDDM; Hypertension; Hyperlipidemia; lp1 - PSHx: 22:29 cataracts; lp1 23:38 Hysterectomy; jd3 - Immunization history:: Adult Immunizations up to date. - Social history:: Smoking status: Patient/guardian denies using tobacco. - Ebola Screening: : No symptoms or risks identified at this time. Screenin:10 Abuse screen: Denies threats or abuse. Nutritional screening: No deficits noted. jd3 Tuberculosis screening: No symptoms or risk factors identified. Fall Risk Ambulatory Aid- None/Bed Rest/Nurse Assist (0 pts). Gait- Normal/Bed Rest/Wheelchair (0 pts) Mental Status- Oriented to own ability (0 pts). Total [place] Fall Scale indicates No Risk (0-24 pts). Assessment: 22:08 General: Appears in no apparent distress. uncomfortable, Behavior is calm, cooperative, jd3 appropriate for age. Pain: Complains of pain in right lower quadrant and left lower quadrant Quality of pain is described as aching. Neuro: Level of Consciousness is awake, alert, obeys commands, Oriented to person, place, time, situation, Appropriate for age pt reports deafness.. Cardiovascular: Capillary refill < 3 seconds Patient's skin is warm and dry. Respiratory: Airway is patent Respiratory effort is even, unlabored, Respiratory pattern is regular, symmetrical. GI: Abdomen is round non-distended, Bowel sounds present X 4 quads. Reports lower abdominal pain. : Reports vaginal bleeding that is. EENT: No signs and/or symptoms were reported regarding the EENT system. Derm: Skin is intact, Skin is dry, Skin is normal, Skin temperature is warm. Musculoskeletal: Circulation, motion, and sensation intact. Range of motion: intact in all extremities. 23:04 Reassessment: Patient appears in no apparent distress at this time. No changes from lp1 previously documented assessment. Patient and/or family updated on plan of care and expected duration. Pain level reassessed. Patient is alert, oriented x 3, equal unlabored respirations, skin warm/dry/pink. 08/15 00:11 Reassessment: Patient appears in no apparent distress at this time. No changes from jd3 previously documented assessment. Patient and/or family updated on plan of care and expected duration. Pain level reassessed. Patient is alert, oriented x 3, equal unlabored respirations, skin warm/dry/pink. 01:03 Reassessment: Patient appears in no apparent distress at this time. Patient and/or jd3 family updated on plan of care and expected duration. Pain level reassessed. Patient is alert, oriented x 3, equal unlabored respirations, skin warm/dry/pink. 02:00 Reassessment: Patient appears in no apparent distress at this time. Patient and/or jd3 family updated on plan of care and expected duration. Pain level reassessed. Patient is alert, oriented x 3, equal unlabored respirations, skin warm/dry/pink. resting in bed with eyes closed, even and unlabored respirations, no distress noted at this time. 03:08 Reassessment: Patient appears in no apparent distress at this time. Patient and/or jd3 family updated on plan of care and expected duration. Pain level reassessed. Patient is alert, oriented x 3, equal unlabored respirations, skin warm/dry/pink. 04:08 Reassessment: Patient appears in no apparent distress at this time. No changes from jd3 previously documented assessment. Patient and/or family updated on plan of care and expected duration. Pain level reassessed. Patient is alert, oriented x 3, equal unlabored respirations, skin warm/dry/pink. 04:37 Reassessment: Patient appears in no apparent distress at this time. Patient and/or jd3 family updated on plan of care and expected duration. Pain level reassessed. Patient is alert, oriented x 3, equal unlabored respirations, skin warm/dry/pink. Vital Signs: 08/14 22:00 BP 105 / 77; Pulse 78; Resp 16; Temp 97.8(O); Pulse Ox 98% on R/A; Weight 79.38 kg (R); lp1 23:05 BP 124 / 76; Pulse 76; Resp 17 S; Pulse Ox 99% on R/A; lp1 08/15 00:11 BP 95 / 62; Pulse 64; Resp 17 S; Pulse Ox 95% on R/A; jd3 01:03 BP 105 / 56; Pulse 66; Resp 17 S; Pulse Ox 96% on R/A; jd3 02:03 BP 119 / 56; Pulse 71; Resp 16 S; Pulse Ox 96% on R/A; jd3 03:05 BP 105 / 56; Pulse 65; Resp 17 S; Pulse Ox 96% on R/A; jd3 04:19 BP 128 / 86; Pulse 86; Resp 16 S; Pulse Ox 100% on R/A; jd3 ED Course: 08/14 21:59 Patient arrived in ED. al2 22:01 Jason Valdes MD is Attending Physician. tw4 22:08 Nehemias Porter RN is Primary Nurse. jd3 22:10 Patient has correct armband on for positive identification. Placed in gown. Bed in low jd3 position. Call light in reach. Side rails up X 1. 22:23 Triage completed. lp1 22:30 Arm band placed on right wrist. lp1 22:46 US Pelvis Complete In Process Unspecified. EDMS 23:04 Inserted saline lock: 20 gauge in left antecubital area, using aseptic technique. Blood lp1 collected. placed by [facility]. 08/15 01:04 No provider procedures requiring assistance completed. jd3 01:45 Inserted saline lock: 22 gauge in left forearm, using aseptic technique. placed by edison Hernández RN. 03:[address] via stretcher. kw1 03:22 CT completed. Patient is deaf. Unable to hear breathing instructions during exam. kw1 Patient moved back from CT. 04:35 Abdomen In Process Unspecified. EDMS 04:40 IV discontinued, intact, bleeding controlled, No redness/swelling at site. Pressure jd3 dressing applied. Administered Medications: 01:45 Drug: NS 0.9% 1000 ml Route: IV; Rate: 1 bolus; Site: left forearm; jd3 03:36 Follow up: Response: No adverse reaction; IV Status: Completed infusion jd3 04:19 Drug: Rocephin 1 grams Route: IV; Rate: calculated rate; Site: left forearm; jd3 04:23 Follow up: Response: No adverse reaction; IV Status: Completed infusion jd3 Point of Care Testing: Blood Glucose: 08/14 22:21 Blood Glucose: 175 mg/dL; oe Ranges: Outcome: 08/15 01:01 Discharge ordered by . tw4 04:13 Discharge ordered by . tw4 04:38 Discharged to home ambulatory, with family. jd3 04:38 Condition: stable 04:38 Discharge instructions given to patient, family, Instructed on discharge instructions, follow up and referral plans. medication usage, Demonstrated understanding of instructions, follow-up care, medications, Prescriptions given X 3. 04:41 Patient left the ED. jd3 Signatures: Dispatcher [employer] EDMS Betty Celis, RN RN lp1 Saucedo, LachoNehemias Monroe, JOHANA RN jd3 Roberta Guevara1 Cristiana Christianson al2 Jason Valdes MD MD tw4
[2018-08-15] MEDS ORDERED: CEFTRIAXONE/SWI 1gm 1 GM/10 ML SYR ONE (04:24)
[2018-08-15 04:30] LABS: Urine Blood 1+ (NEG); Urine Glucose NEGATIVE (NEG); Urine Protein TRACE (NEG); Urine Specific Gravity 1.015 (1.005-1.030)
[2018-08-15 04:53] VITALS: TEMP 97.8
[2018-08-15 05:00] VITALS: BP 128/86; O2SAT 100
--- NOTE | 2018-08-15 08:30 | RAD REPORT ---
EXAM DESCRIPTION: CTAbdomen Pelvis W Contrast - 08/15/2018 6:57 am CLINICAL HISTORY: Abdominal pain. IV only COMPARISON: [facility] Protocol dated 06/10/2018; Abdomen Pelvis Wo Contrast dated 06/04/2016; Abdomen Pelvis Wo Contrast dated 08/18/2017; CT ABDOMEN PELVIS WO CONTRAST dated 09/30/2015 TECHNIQUE: Biphasic CT imaging of the abdomen and pelvis was performed with 100 ml non-ionic IV cont rast. All CT scans are performed using dose optimization technique as appropriate and may include automated exposure control or mA/KV adjustment according to patient size. FINDINGS: The lung bases are clear. The liver, pancreas, adrenal glands and kidneys are within normal limits. Small low-density lesions a re seen scattered throughout the spleen. No bowel obstruction, free air, free fluid or abscess. The appendix is normal. No evidence of signi ficant lymphadenopathy. Multiple calcified uterine fibroids are present. Moderate lumbosacral degenerative changes. IMPRESSION: Numerous calcified uterine fibroids are present. Multiple small low-density splenic lesions are nonspecific. Follow-up splenic sonography may be consi dered in 3-6 months for surveillance purposes.
--- NOTE | 2018-08-15 08:30 | RAD REPORT ---
EXAM DESCRIPTION: US - Pelvis Complete - 08/14/2018 10:46 pm CLINICAL HISTORY: VAGINAL BLEEDING Pelvic pain. COMPARISON: No comparisons FINDINGS: Innumerable calcified uterine fibroids are suspected. One large fibroid is seen extending into the right adnexa measuring 5 cm. The uterus itself is thus poorly visualized due to anatomic dis tortion. Endometrial stripe is not seen. Neither ovary is well identified and largely obscured by bow el gas. No pelvic ascites. IMPRESSION: Extensive calcified uterine fibroids.
== END 2018-08-15 04:41 | disposition home or self-care (01) ==
LOC: ER 21:57
DX: D25.9 Leiomyoma of uterus, unspecified (principal); N39.0 Urinary tract infection, site not specified; E11.9 Type 2 diabetes mellitus without complications; E78.5 Hyperlipidemia, unspecified; I10 Essential (primary) hypertension; Z79.82 Long term (current) use of aspirin; Z79.4 Long term (current) use of insulin; Z79.899 Other long term (current) drug therapy
CPT/HCPCS: 36415; 74177; 76856; 80048; 81003; 82962; 85025; 86900; 86901; 96361; 96374; 99284; J0696; J7030; Q9967

== ENCOUNTER 2018-09-13 14:45 | Emergency (ER) | payer OTHER ==
--- OUTSIDE RECORDS SUMMARY | 2018-09-13 14:50 | XMS REPORT | Clinical Summary ---
:1950 Author Organization [facility] Address [address] [place] [address] Care Team Providers Name Role Phone Unavailable [...] Type Specialty Care Team Description 05/08/2018 - [facility] Internal [facility], Acute encephalopathy (Primary Dx); 05/10/2018 Encounter Medicine Ernestina Provoked seizure (HCC); MD Jaun Hyperglycemic hyperosmolar nonketotic coma (HCC) Tavares Arambula MD after 09/12/2017 Social History Tobacco Use Types Packs/Day Years [...] procedure are in the results section. after 09/12/2017 Results RHYTHM STRIP - SCAN (05/12/2018 10:41 AM CDT) Narrative Performed At POC-Glucose meter (05/10/2018 5:07 PM CDT)Only the most recent of17 resultswithin the time period is included. POC-Glucose Meter 184 (H)Comment: TESTED AT 70 - 110 mg/dL [facility] [address] [facility] [address] Specimen Blood Performing Organization Address [facility] Centercode Phone Number [facility] [address] [place] [address] [id number] [phone] CENTER JOCELYNN-65 (05/10/2018 12:30 PM CDT) JOCELYNN-65 <5 <5 IU/mL [facility] Comment: This test was performed using the GAD65 POLLY method. New method, POLLY, is standardized against the International reference preparation 97/550, is reported in International Units/mL (IU/mL) and a new reference range was implemented. Specimen Blood Narrative Performed At Performing Lab [facility] [employer] [employer] [place] [address] [place] [address] Tai Domingo MD, PhD, GENEVIEVE Performing Organization Address City/[facility]/Zipcode Phone [place] [address] [facility] Islet Cell AB Screen (05/10/2018 12:30 PM CDT) Islet Cell Ab Profile Refer to individual Islet [facility] Cell Ab and/or [facility] Ab Titer results. Specimen Blood Narrative Performed At Performing Organization Address City/State/Zipcode Phone Number [facility], [place] [address] [address] [facility] Venous doppler legs bilateral (05/10/2018 8:43 AM CDT) Ejection Fraction [facility] Impressions Performed At Right Impression [facility] 1. There [...] PV LAB - Lower Extremities DVT Study [facility] Demographics Patient Name GÉNESIS MANZANO Date of Study 05/10/2018 [id number] Age 67 Visit Number [id number] Female [id number] Date of 1950 [facility] Hollywood[facility] HospitalRoom Number [id number] Geeta Zamorano SonographBen Mcbride. RVT,InterpretingJ. TAMANNA Erwin [...] of Study 05/10/2018 Age 67 Visit Number [id number] Gender Female Date of 1950 Number Referring [facility] Room Number 0228 Physician Ernestina Zamorano Redye Hand Timothy Mcbride. RVT, Interpreting TAMANNA Blackmon Physician [...] included. WBC 7.8 3.5 - 10.5 K/L [facility] RBC 4.85 3.93 - 5.22 M/L [facility] Hemoglobin 13.3 11.2 - 15.7 GM/DL [facility] Hematocrit 42.1 34.1 - 44.9 % [facility] MCV 86.8 79.4 - 94.8 fL [facility] MCH 27.4 25.6 - 32.2 pg [facility] MCHC 31.6 (L) 32.2 - 35.5 GM/DL [facility] RDW 13.7 11.7 - 14.4 % [facility] Platelets 221 150 - 450 K/CU MM [facility] MPV 10.2 9.4 - 12.3 fL [facility] nRBC 0 0 - 0 /100 WBC [facility] % Neutros 55 % [facility] % Lymphs 35 % [facility] % Monos 7 % [facility] % Eos 2 % [facility] % Baso 0 % [facility] # Neutros 4.33 1.56 - 6.13 K/L [facility] # Lymphs 2.76 1.18 - 3.74 K/L [facility] # Monos 0.53 (H) 0.24 - 0.36 K/L [facility] # Eos 0.14 0.04 - 0.36 K/L [facility] # Baso 0.03 0.01 - 0.08 K/L [facility] Immature Granulocytes-Relative 0 0 - 1 % [facility] Specimen Blood Performing Organization Address City/State/Zipcode Phone Number [facility] [address] [place] [address] [phone] CENTER Basic Metabolic Panel (05/10/2018 4:50 AM CDT)Only the most recent of6 resultswithin the time period is included. Sodium 136 136 - 145 meq/L [facility] Potassium 3.5 3.5 - 5.1 meq/L [facility] Chloride 104 98 - 107 meq/L [facility] CO2 24 22 - 29 meq/L [facility] BUN 18 7 - 21 mg/dL [facility] Creatinine 1.00 0.57 - 1.25 mg/dL [facility] Glucose 107 (H) 70 - 105 mg/dL [facility] Calcium 9.4 8.4 - 10.2 mg/dL [facility] EGFR 67Comment: ESTIMATED GFR IS mL/min/1.73 sq m [facility] NOT ACCURATE CREATININE [facility] CENTER CLEARANCE IN PREDICTING GLOMERULAR FILTRATION RATE. ESTIMATED GFR IS NOT APPLICABLE FOR DIALYSIS PATIENTS. Specimen Blood Performing Organization Address City/[facility]/Zipcode Phone Number [address] [address] CENTER Phosphorus (05/08/2018 7:58 PM CDT)Only the most recent of2 resultswithin the time period is included. Phosphorus 2.5 2.3 - 4.7 mg/dL [facility] Specimen Blood Performing Organization Address [facility] Centercoct Phone Number [address] [address] CENTER XR abdomen / KUB 1 view (05/08/2018 2:57 PM CDT) Narrative Performed At FINAL REPORT [facility] CLINICAL HISTORY: corpak placement TECHNIQUE: Supine abdomen IMPRESSION: The tip of the feeding tube is in the distal duodenum. The partially visualized bowel gas pattern is nonspecific with moderate stool in the visualized colon. Signed: Shana Parekh MD Report Verified Date/Time:05/08/2018 15:38:04 Reading Location: [facility] C0[facility] Consult Reading Room Procedure Note Interface, External Ris In - 05/08/2018 3:40 PM CDT FINAL REPORT CLINICAL HISTORY: corpak placement TECHNIQUE: Supine abdomen IMPRESSION: The tip of the feeding tube is in the distal duodenum. The partially visualized bowel gas pattern is nonspecific with moderate stool in the visualized colon. Signed: Shana Parekh MD Report Verified Date/Time: 05/08/2018 15:38:04 Reading Location: [facility] C013 Consult Reading Room Performing Organization Address City/[facility] Centercode Phone Number GE RIS Blood culture (05/08/2018 10:19 AM CDT)Only the most recent of2 resultswithin the time period is included. Result No growth in 5 days [facility] Specimen Blood - Arm, Right Performing Organization Address [facility]/Zipcode Phone Number [facility] [address] [place] [phone] [place] Urinalysis w/ Microscopic (05/08/2018 9:43 AM CDT) Color, UA Light Yellow [facility] Clarity, UA Clear [facility] Specific [place], UA 1.025 1.001 - 1.035 [facility] pH, UA 7.0 5.0 - 8.0 [facility] Protein, UA 30 mg/dL (A) Negative [facility] Glucose, UA >1000 mg/dL (A) Negative [facility] Ketones, UA Trace (A) Negative [facility] Bilirubin, UA Negative Negative [facility] Blood, UA Negative Negative [facility] Nitrite, UA Negative Negative [facility] Leukocytes, UA Negative Negative [facility] Urobilinogen, UA 0.2 0.2 - 1.0 mg/dL [facility] RBC, UA <1 /HPF [facility] WBC, UA 0 /HPF [facility] Bacteria, UA Rare [facility] Squam Epithel, UA <1 /HPF [facility] Specimen Source Urine, Jason [facility] Specimen Urine - Urine, Jason Performing Organization Address [facility]/Zipcode Phone Number [facility] [address] [place] [address] CENTER Troponin I (05/08/2018 9:42 AM CDT) Troponin I <0.01 0.00 - 0.03 ng/mL [facility] Specimen Blood Narrative Performed At [facility] Troponin I (TnI) levels must be interpreted [...] disease, and persistent tachyarrhythmia. Performing Organization Address [facility] Cancer Centercode Phone Number [address] [address] [place] Lactic acid, venous, whole blood (05/08/2018 9:42 AM CDT) Lactate, Venous 3.3 (H)Comment: Specimen 0.5 - 2.2 mmol/L [facility] moderately hemolyzed [facility] Specimen Blood Narrative Performed At [facility] Effective 11/26/2015: Units/Reference Range Change New: 0.5-2.2 mmol/LPrevious: 5-20 mg/dL Performing Organization Address [facility] Centercoct Phone Number [address] [address] CENTER aPTT (05/08/2018 9:42 AM CDT) PTT 22.6 22.5 - 36.0 seconds [facility] Specimen Blood Performing Organization Address [facility] Cancer Centercode Phone Number [address] [address] CENTER Prothrombin time/INR (05/08/2018 9:42 AM CDT) Protime 13.2 11.7 - 14.7 seconds [facility] INR 1.0 <=5.9 [facility] Specimen Blood Narrative Performed At [facility] RECOMMENDED COUMADIN/WARFARIN INR THERAPY RANGES STANDARD DOSE: 2.0 - 3.0 Includes: PROPHYLAXIS for venous thrombosis, systemic embolization; TREATMENT for venous thrombosis and/or pulmonary embolus. HIGH RISK: Target INR is 2.5-3.5 for patients with mechanical heart valves. Performing Organization Address City/[facility] Cancer Centercode Phone Number [address] [address] CENTER CBC (Hemogram only) (05/08/2018 9:42 AM CDT) WBC 8.6 3.5 - 10.5 K/L [facility] RBC 5.01 3.93 - 5.22 M/L [facility] Hemoglobin 14.1 11.2 - 15.7 GM/DL [facility] Hematocrit 43.3 34.1 - 44.9 % [facility] MCV 86.4 79.4 - 94.8 fL [facility] MCH 28.1 25.6 - 32.2 pg [facility] MCHC 32.6 32.2 - 35.5 GM/DL [facility] RDW 13.1 11.7 - 14.4 % [facility] Platelets 224 150 - 450 K/CU MM [facility] MPV 10.2 9.4 - 12.3 fL [facility] nRBC 0 0 - 0 /100 WBC [facility] Specimen Blood Performing Organization Address City/[facility] Centercode Phone Number [address] [address] CENTER Potassium-STAT (05/08/2018 9:42 AM CDT) Potassium 3.7 3.5 - 5.1 meq/L [facility] Specimen Blood Performing Organization Address [facility]/Zipcode Phone Number [address] [address] [phone] CENTER Magnesium (05/08/2018 9:42 AM CDT) Magnesium 2.7 (H) 1.6 - 2.6 mg/dL [facility] Specimen Blood Performing Organization Address City/[facility]/Zipcode Phone Number [address] [address] [phone] [place] Hemoglobin A1c (05/08/2018 9:42 AM CDT) Hemoglobin A1C 17.1 (H) 4.3 - 6.1 % [facility] Specimen Blood Performing Organization Address City/[facility]/Zipcode Phone Number [address] [address] [place] Glucose-STAT (05/08/2018 9:42 AM CDT) Glucose 325 (H) 70 - 105 mg/dL [facility] Specimen Blood Performing Organization Address City/[facility] Centercode Phone Number [address] [address] [phone] [place] Comprehensive metabolic panel (05/08/2018 9:42 AM CDT) Protein, Total 9.0 (H) 6.0 - 8.3 gm/dL [facility] Albumin 4.3 3.5 - 5.0 g/dL [facility] Alkaline Phosphatase 90 40 - 150 U/L [facility] Total Bilirubin 0.3 0.2 - 1.2 mg/dL [facility] Sodium 147 (H) 136 - 145 meq/L [facility] Potassium 3.7 3.5 - 5.1 meq/L [facility] Chloride 106 98 - 107 meq/L [facility] CO2 30 (H) 22 - 29 meq/L [facility] BUN 19 7 - 21 mg/dL [facility] Creatinine 1.20 0.57 - 1.25 mg/dL [facility] Glucose 325 (H) 70 - 105 mg/dL [facility] Calcium 10.2 8.4 - 10.2 mg/dL [facility] AST 14 5 - 34 U/L [facility] ALT 11 6 - 55 U/L [facility] EGFR 55Comment: ESTIMATED GFR mL/min/1.73 sq m [facility] IS NOT ACCURATE [facility] CREATININE CLEARANCE IN PREDICTING GLOMERULAR FILTRATION RATE. ESTIMATED GFR IS NOT APPLICABLE FOR DIALYSIS PATIENTS. Specimen Blood Performing Organization Address City/State/Zipcode Phone Number [facility] [address] [place] [address] CENTER after 09/12/2017 Insurance Payer Benefit Plan / Group Subscriber ID Type Phone Address MEDICARE MEDICARE A B xxxxxxxxxxx Medicare MEDICAID MEDICAID OF [place] xxxxxxxxx Medicaid
--- OUTSIDE RECORDS SUMMARY | 2018-09-13 14:50 | XMS REPORT ---
:1950 Author Organization [facility] Address [address] [place] [address] Dr. Leigh [address] [place] [id number] Care Team Providers Name Role Phone ROBBIEVICKIE [...] (test Refer to individual Islet Cell Ab krra=1237) and/or Islet Cell Ab Titer results. BLOOD [id number] 18:00:00 Test Item Value Reference Range Comments CULTURE (BEAKER) (test irix=8391) No growth in 5 days BLOOD [id number] 18:00:00 Test Item Value Reference Range Comments CULTURE (BEAKER) (test qdye=3899) No growth in 5 days POCT-GLUCOSE [id number] 17:18:00 Test Item Value Reference Range Comments POC-GLUCOSE METER (BEAKER) 184 mg/dL 70-110 TESTED AT [address] (test ssri=2124) [facility] [address] POCT-GLUCOSE [id number] 11:53:00 Test Item Value Reference Range Comments POC-GLUCOSE METER (BEAKER) 430 mg/dL 70-110 Notified JOHANA IBRAHIM/TESTED AT [facility] (test yzob=4599) [address] [place] [address] POCT-GLUCOSE [id number] 08:12:00 Test Item Value Reference Range Comments POC-GLUCOSE METER (BEAKER) 125 mg/dL 70-110 TESTED AT [address] (test kdwr=9074) [facility] [address] BASIC METABOLIC [id number] 05:51:00 Test Item Value Reference Range Comments SODIUM (BEAKER) (test 136 meq/L 136-145 kzed=774) POTASSIUM (BEAKER) (test 3.5 meq/L 3.5-5.1 btbv=899) CHLORIDE (BEAKER) (test 104 meq/L 98-107 qzrn=298) CO2 (BEAKER) (test 24 meq/L 22-29 pzco=609) BLOOD UREA NITROGEN 18 mg/dL 7-21 (BEAKER) (test upsk=701) CREATININE (BEAKER) (test 1.00 mg/dL 0.57-1.25 kauv=724) GLUCOSE RANDOM (BEAKER) 107 mg/dL 70-105 (test hbax=855) CALCIUM (BEAKER) (test 9.4 mg/dL 8.4-10.2 tdrx=444) EGFR (BEAKER) (test 67 mL/min/1.73 sq m ESTIMATED GFR IS NOT ajdg=9370) ACCURATE CREATININE CLEARANCE IN PREDICTING GLOMERULAR FILTRATION RATE. ESTIMATED GFR IS NOT APPLICABLE FOR DIALYSIS PATIENTS. CBC W/PLT COUNT & AUTO [id number] 05:18:00 Test Item Value Reference Range Comments WHITE BLOOD CELL COUNT (BEAKER) (test sziu=930) 7.8 K/ L 3.5-10.5 RED BLOOD CELL COUNT (BEAKER) (test tror=283) 4.85 M/ L 3.93-5.22 HEMOGLOBIN (BEAKER) (test rngj=919) 13.3 GM/DL 11.2-15.7 HEMATOCRIT (BEAKER) (test vunc=529) 42.1 % 34.1-44.9 MEAN CORPUSCULAR VOLUME (BEAKER) (test nvhk=247) 86.8 fL 79.4-94.8 MEAN CORPUSCULAR HEMOGLOBIN (BEAKER) (test 27.4 pg 25.6-32.2 fqqe=822) MEAN CORPUSCULAR HEMOGLOBIN CONC (BEAKER) (test 31.6 GM/DL 32.2-35.5 tcmp=153) RED CELL DISTRIBUTION WIDTH (BEAKER) (test 13.7 % 11.7-14.4 ucsr=919) PLATELET COUNT (BEAKER) (test opvn=494) 221 K/CU MM 150-450 MEAN PLATELET VOLUME (BEAKER) (test ujzj=255) 10.2 fL 9.4-12.3 NUCLEATED RED BLOOD CELLS (BEAKER) (test 0 /100 WBC 0-0 tnyo=590) NEUTROPHILS RELATIVE PERCENT (BEAKER) (test 55 % atnl=071) LYMPHOCYTES RELATIVE PERCENT (BEAKER) (test 35 % lwfj=657) MONOCYTES RELATIVE PERCENT (BEAKER) (test 7 % hdpe=449) EOSINOPHILS RELATIVE PERCENT (BEAKER) (test 2 % vhki=643) BASOPHILS RELATIVE PERCENT (BEAKER) (test 0 % inob=340) NEUTROPHILS ABSOLUTE COUNT (BEAKER) (test 4.33 K/ L 1.56-6.13 snds=097) LYMPHOCYTES ABSOLUTE COUNT (BEAKER) (test 2.76 K/ L 1.18-3.74 djsk=087) MONOCYTES ABSOLUTE COUNT (BEAKER) (test 0.53 K/ L 0.24-0.36 vxhr=010) EOSINOPHILS ABSOLUTE COUNT (BEAKER) (test 0.14 K/ L 0.04-0.36 sbkq=398) BASOPHILS ABSOLUTE COUNT (BEAKER) (test 0.03 K/ L 0.01-0.08 jfuq=380) IMMATURE GRANULOCYTES-RELATIVE PERCENT (BEAKER) 0 % 0-1 (test gqjx=2373) POCT-GLUCOSE [id number] 00:22:00 Test Item Value Reference Range Comments POC-GLUCOSE METER (BEAKER) 123 mg/dL 70-110 TESTED AT [address] (test pqrl=3531) [place] [address] POCT-GLUCOSE [id number] 21:46:00 Test Item Value Reference Range Comments POC-GLUCOSE METER (BEAKER) 107 mg/dL 70-110 TESTED AT [address] (test nuvk=4248) [place] [address] POCT-GLUCOSE [id number] 17:12:00 Test Item Value Reference Range Comments POC-GLUCOSE METER (BEAKER) 218 mg/dL 70-110 TESTED AT [address] (test wrbf=6652) [place] [address] POCT-GLUCOSE [id number] 11:24:00 Test Item Value Reference Range Comments POC-GLUCOSE METER (BEAKER) 268 mg/dL 70-110 TESTED AT [address] (test cveg=0420) [place] [address] BASIC METABOLIC [id number] 10:12:00 Test Item Value Reference Range Comments SODIUM (BEAKER) (test 140 meq/L 136-145 qqwl=113) POTASSIUM (BEAKER) (test 3.4 meq/L 3.5-5.1 cwtw=204) CHLORIDE (BEAKER) (test 108 meq/L 98-107 ekgq=965) CO2 (BEAKER) (test 28 meq/L 22-29 uwwu=691) BLOOD UREA NITROGEN 15 mg/dL 7-21 (BEAKER) (test xchg=683) CREATININE (BEAKER) (test 0.92 mg/dL 0.57-1.25 tezk=320) GLUCOSE RANDOM (BEAKER) 228 mg/dL 70-105 (test gtya=746) CALCIUM (BEAKER) (test 9.2 mg/dL 8.4-10.2 vbah=455) EGFR (BEAKER) (test 74 mL/min/1.73 sq m ESTIMATED GFR IS NOT zzbc=1068) ACCURATE CREATININE CLEARANCE IN PREDICTING GLOMERULAR FILTRATION RATE. ESTIMATED GFR IS NOT APPLICABLE FOR DIALYSIS PATIENTS. POCT-GLUCOSE [id number] 06:21:00 Test Item Value Reference Range Comments POC-GLUCOSE METER (BEAKER) 282 mg/dL 70-110 TESTED AT [facility] [address] [facility] (test cjih=4116) [facility] [address] CBC W/PLT COUNT & AUTO [id number] 04:01:00 Test Item Value Reference Range Comments WHITE BLOOD CELL COUNT (BEAKER) (test znoe=574) 8.1 K/ L 3.5-10.5 RED BLOOD CELL COUNT (BEAKER) (test tsun=408) 4.41 M/ L 3.93-5.22 HEMOGLOBIN (BEAKER) (test xqzi=840) 12.2 GM/DL 11.2-15.7 HEMATOCRIT (BEAKER) (test tixy=745) 38.7 % 34.1-44.9 MEAN CORPUSCULAR VOLUME (BEAKER) (test cdfi=657) 87.8 fL 79.4-94.8 MEAN CORPUSCULAR HEMOGLOBIN (BEAKER) (test 27.7 pg 25.6-32.2 opno=738) MEAN CORPUSCULAR HEMOGLOBIN CONC (BEAKER) (test 31.5 GM/DL 32.2-35.5 ntcw=670) RED CELL DISTRIBUTION WIDTH (BEAKER) (test 13.4 % 11.7-14.4 ekmu=145) PLATELET COUNT (BEAKER) (test cdma=806) 207 K/CU MM 150-450 MEAN PLATELET VOLUME (BEAKER) (test aprc=758) 10.2 fL 9.4-12.3 NUCLEATED RED BLOOD CELLS (BEAKER) (test 0 /100 WBC 0-0 lzij=666) NEUTROPHILS RELATIVE PERCENT (BEAKER) (test 68 % fcpe=576) LYMPHOCYTES RELATIVE PERCENT (BEAKER) (test 21 % iymb=679) MONOCYTES RELATIVE PERCENT (BEAKER) (test 9 % cgmi=417) EOSINOPHILS RELATIVE PERCENT (BEAKER) (test 1 % mngg=160) BASOPHILS RELATIVE PERCENT (BEAKER) (test 1 % trvo=657) NEUTROPHILS ABSOLUTE COUNT (BEAKER) (test 5.56 K/ L 1.56-6.13 xxfl=116) LYMPHOCYTES ABSOLUTE COUNT (BEAKER) (test 1.74 K/ L 1.18-3.74 hzbo=541) MONOCYTES ABSOLUTE COUNT (BEAKER) (test 0.71 K/ L 0.24-0.36 zklm=839) EOSINOPHILS ABSOLUTE COUNT (BEAKER) (test 0.05 K/ L 0.04-0.36 ejpn=097) BASOPHILS ABSOLUTE COUNT (BEAKER) (test 0.04 K/ L 0.01-0.08 zphy=167) IMMATURE GRANULOCYTES-RELATIVE PERCENT (BEAKER) 0 % 0-1 (test cgzz=2341) BASIC METABOLIC [id number] 01:15:00 Test Item Value Reference Range Comments SODIUM (BEAKER) (test 144 meq/L 136-145 gvkm=272) POTASSIUM (BEAKER) (test 3.4 meq/L 3.5-5.1 wclz=012) CHLORIDE (BEAKER) (test 109 meq/L 98-107 glct=169) CO2 (BEAKER) (test 28 meq/L 22-29 fxqt=447) BLOOD UREA NITROGEN 13 mg/dL 7-21 (BEAKER) (test pxwm=958) CREATININE (BEAKER) (test 0.97 mg/dL 0.57-1.25 qnnk=038) GLUCOSE RANDOM (BEAKER) 148 mg/dL 70-105 (test olcj=870) CALCIUM (BEAKER) (test 9.3 mg/dL 8.4-10.2 xzct=505) EGFR (BEAKER) (test 70 mL/min/1.73 sq m ESTIMATED GFR IS NOT iczs=1901) ACCURATE CREATININE CLEARANCE IN PREDICTING GLOMERULAR FILTRATION RATE. ESTIMATED GFR IS NOT APPLICABLE FOR DIALYSIS PATIENTS. POCT-GLUCOSE [id number] 00:17:00 Test Item Value Reference Range Comments POC-GLUCOSE METER (BEAKER) 148 mg/dL 70-110 TESTED AT [facility] [address] [facility] (test xynu=1168) [place] [address] [id number] 20:22:00 Test Item Value Reference Range Comments PHOSPHORUS (BEAKER) (test diet=967) 2.5 mg/dL 2.3-4.7 BASIC METABOLIC [id number] 20:22:00 Test Item Value Reference Range Comments SODIUM (BEAKER) (test 147 meq/L 136-145 ylft=004) POTASSIUM (BEAKER) (test 3.8 meq/L 3.5-5.1 bfui=340) CHLORIDE (BEAKER) (test 112 meq/L 98-107 lnji=065) CO2 (BEAKER) (test 29 meq/L 22-29 wvlo=212) BLOOD UREA NITROGEN 14 mg/dL 7-21 (BEAKER) (test pknv=899) CREATININE (BEAKER) (test 0.99 mg/dL 0.57-1.25 mkxu=686) GLUCOSE RANDOM (BEAKER) 184 mg/dL 70-105 (test nmrq=251) CALCIUM (BEAKER) (test 9.2 mg/dL 8.4-10.2 uatd=519) EGFR (BEAKER) (test 68 mL/min/1.73 sq m ESTIMATED GFR IS NOT jtvi=2675) ACCURATE CREATININE CLEARANCE IN PREDICTING GLOMERULAR FILTRATION RATE. ESTIMATED GFR IS NOT APPLICABLE FOR DIALYSIS PATIENTS. POCT-GLUCOSE [id number] 20:20:00 Test Item Value Reference Range Comments POC-GLUCOSE METER (BEAKER) 187 mg/dL 70-110 TESTED AT [place] [id number] [facility] (test gulm=3782) [place] [id number] POCT-GLUCOSE [id number] 17:13:00 Test Item Value Reference Range Comments POC-GLUCOSE METER (BEAKER) 201 mg/dL 70-110 TESTED AT [place] [id number] [facility] (test bjll=5628) [place] [id number] RAD, ABDOMEN/KUB, 1 VIEW [id number] 15:38:00Reason for exam:->corpak placementFINAL REPORT CLINICAL HISTORY: corpak placement TECHNIQUE: Supine abdomen IMPRESSION: The tip of the feeding tube is in the distal duodenum. The partially visualized bowel gas pattern is nonspecific with moderate stool in the visualized colon. Signed: Shana Parekh MDReport Verified Date/Time: 05/08/2018 15:38:04 Reading Location: [address] Consult Reading Room [facility] METABOLIC [id number] 15:17:00 Test Item Value Reference Range Comments SODIUM (BEAKER) (test 145 meq/L 136-145 xcqc=842) POTASSIUM (BEAKER) (test 3.2 meq/L 3.5-5.1 ybrr=695) CHLORIDE (BEAKER) (test 111 meq/L 98-107 uwje=823) CO2 (BEAKER) (test 25 meq/L 22-29 glht=752) BLOOD UREA NITROGEN 19 mg/dL 7-21 (BEAKER) (test nise=014) CREATININE (BEAKER) (test 0.96 mg/dL 0.57-1.25 yind=384) GLUCOSE RANDOM (BEAKER) 90 mg/dL 70-105 (test ktxa=196) CALCIUM (BEAKER) (test 9.4 mg/dL 8.4-10.2 wbtk=178) EGFR (BEAKER) (test 71 mL/min/1.73 sq m ESTIMATED GFR IS NOT wkdp=3284) ACCURATE CREATININE CLEARANCE IN PREDICTING GLOMERULAR FILTRATION RATE. ESTIMATED GFR IS NOT APPLICABLE FOR DIALYSIS PATIENTS. POCT-GLUCOSE [id number] 14:23:00 Test Item Value Reference Range Comments POC-GLUCOSE METER (BEAKER) 86 mg/dL 70-110 TESTED AT [facility] [address] [facility] (test esat=4921) [facility] [address] BASIC METABOLIC [id number] 13:23:00 Test Item Value Reference Range Comments SODIUM (BEAKER) (test 145 meq/L 136-145 rcab=907) POTASSIUM (BEAKER) (test 3.7 meq/L 3.5-5.1 Specimen slightly esed=972) hemolyzed CHLORIDE (BEAKER) (test 109 meq/L 98-107 avrk=288) CO2 (BEAKER) (test 25 meq/L 22-29 ithg=000) BLOOD UREA NITROGEN 18 mg/dL 7-21 (BEAKER) (test kwrt=990) CREATININE (BEAKER) (test 0.97 mg/dL 0.57-1.25 Specimen slightly layn=765) hemolyzed GLUCOSE RANDOM (BEAKER) 107 mg/dL 70-105 (test baxw=629) CALCIUM (BEAKER) (test 9.8 mg/dL 8.4-10.2 olsj=159) EGFR (BEAKER) (test 70 mL/min/1.73 sq m ESTIMATED GFR IS NOT ncec=5788) ACCURATE CREATININE CLEARANCE IN PREDICTING GLOMERULAR FILTRATION RATE. ESTIMATED GFR IS NOT APPLICABLE FOR DIALYSIS PATIENTS. POCT-GLUCOSE [id number] 13:15:00 Test Item Value Reference Range Comments POC-GLUCOSE METER (BEAKER) 140 mg/dL 70-110 TESTED AT [address] (test aggl=3376) [place] [address] HEMOGLOBIN [id number] 13:13:00 Test Item Value Reference Range Comments HEMOGLOBIN A1C (BEAKER) (test ssyp=806) 17.1 % 4.3-6.1 POCT-GLUCOSE [id number] 12:14:00 Test Item Value Reference Range Comments POC-GLUCOSE METER (BEAKER) 159 mg/dL 70-110 TESTED AT [address] (test fnie=9824) [facility] [address] URINALYSIS W/ [id number] 12:10:00 Test Item Value Reference Range Comments COLOR (BEAKER) (test fdrr=973) Light Yellow CLARITY (BEAKER) (test qcjk=641) Clear SPECIFIC GRAVITY UA (BEAKER) (test quwf=059) 1.025 1.001-1.035 PH UA (BEAKER) (test khcd=047) 7.0 5.0-8.0 PROTEIN UA (BEAKER) (test rtyz=801) 30 mg/dL Negative GLUCOSE UA (BEAKER) (test qawr=865) >1000 mg/dL Negative KETONES UA (BEAKER) (test isdf=032) Trace Negative BILIRUBIN UA (BEAKER) (test zpoz=284) Negative Negative BLOOD UA (BEAKER) (test wulb=772) Negative Negative NITRITE UA (BEAKER) (test cztq=428) Negative Negative LEUKOCYTE ESTERASE UA (BEAKER) (test wlck=277) Negative Negative UROBILINOGEN UA (BEAKER) (test kqhw=470) 0.2 mg/dL 0.2-1.0 RBC UA (BEAKER) (test uiks=023) < /HPF WBC UA (BEAKER) (test pqfx=980) 0 /HPF BACTERIA (BEAKER) (test jhkq=653) Rare SQUAMOUS EPITHELIAL (BEAKER) (test ktke=446) < /HPF SOURCE(BEAKER) (test wttb=3926) Urine, Gomez TROPONIN [id number] 11:07:00 Test Item Value Reference Range Comments TROPONIN I (BEAKER) (test nygc=813) < ng/mL 0.00-0.03 Troponin I (TnI) levels [...] disease, and persistent tachyarrhythmia.LACTIC ACID, VENOUS, WHOLE [id number] 11:07:00 Test Item Value Reference Range Comments LACTATE BLOOD VENOUS (2) 3.3 mmol/L 0.5-2.2 Specimen moderately hemolyzed (BEAKER) (test uazs=4340) Effective 11/26/2015: Units/Reference Range ChangeNew: 0.5-2.2 mmol/L Previous: 5 -20 mg/dLPOCT-GLUCOSE [id number] 11:05:00 Test Item Value Reference Range Comments POC-GLUCOSE METER (BEAKER) 249 mg/dL 70-110 TESTED AT [facility] [address] [facility] (test jsis=2114) [facility] [address] [id number] 11:00:00 Test Item Value Reference Range Comments POTASSIUM (BEAKER) (test kmxj=825) 3.7 meq/L 3.5-5.1 [id number] 11:00:00 Test Item Value Reference Range Comments MAGNESIUM (BEAKER) (test cidz=676) 2.7 mg/dL 1.6-2.6 [id number] 11:00:00 Test Item Value Reference Range Comments PHOSPHORUS (BEAKER) (test gcrp=620) 1.6 mg/dL 2.3-4.7 [id number] 11:00:00 Test Item Value Reference Range Comments GLUCOSE RANDOM (BEAKER) (test zguh=105) 325 mg/dL 70-105 COMPREHENSIVE METABOLIC [id number] 11:00:00 Test Item Value Reference Range Comments TOTAL PROTEIN (BEAKER) 9.0 gm/dL 6.0-8.3 (test obvp=840) ALBUMIN (BEAKER) (test 4.3 g/dL 3.5-5.0 afge=6353) ALKALINE PHOSPHATASE 90 U/L 40-150 (BEAKER) (test yors=530) BILIRUBIN TOTAL (BEAKER) 0.3 mg/dL 0.2-1.2 (test klds=168) SODIUM (BEAKER) (test 147 meq/L 136-145 pltl=786) POTASSIUM (BEAKER) (test 3.7 meq/L 3.5-5.1 byve=129) CHLORIDE (BEAKER) (test 106 meq/L 98-107 jihi=655) CO2 (BEAKER) (test 30 meq/L 22-29 zabd=991) BLOOD UREA NITROGEN 19 mg/dL 7-21 (BEAKER) (test xith=272) CREATININE (BEAKER) (test 1.20 mg/dL 0.57-1.25 zrif=921) GLUCOSE RANDOM (BEAKER) 325 mg/dL 70-105 (test nibe=278) CALCIUM (BEAKER) (test 10.2 mg/dL 8.4-10.2 epym=687) AST (SGOT) (BEAKER) (test 14 U/L 5-34 nylp=506) ALT (SGPT) (BEAKER) (test 11 U/L 6-55 vujz=996) EGFR (BEAKER) (test 55 mL/min/1.73 sq m ESTIMATED GFR IS NOT lnae=2995) ACCURATE CREATININE CLEARANCE IN PREDICTING GLOMERULAR FILTRATION RATE. ESTIMATED GFR IS NOT APPLICABLE FOR DIALYSIS PATIENTS. [id number] 10:46:00 Test Item Value Reference Range Comments PARTIAL THROMBOPLASTIN TIME (BEAKER) (test 22.6 seconds 22.5-36.0 ljku=308) PROTHROMBIN [id number] 10:45:00 Test Item Value Reference Range Comments PROTIME (BEAKER) (test upzl=538) 13.2 seconds 11.7-14.7 INR (BEAKER) (test wxyz=431) 1.0 <=5.9 RECOMMENDED COUMADIN/WARFARIN INR THERAPY RANGESSTANDARD DOSE: 2.0 - 3.0 Includes: PROPHYLAXIS forvenous thrombosis, systemic embolization; TREATMENT for venous thrombosis and/or pulmonary embolus.HIGH RISK: Target INR is 2.5-3.5 for patients with mechanical heart valves.CBC (HEMOGRAM ONLY)2018-05-08 10:35:00 Test Item Value Reference Range Comments WHITE BLOOD CELL COUNT (BEAKER) (test ucyc=494) 8.6 K/ L 3.5-10.5 RED BLOOD CELL COUNT (BEAKER) (test unqh=139) 5.01 M/ L 3.93-5.22 HEMOGLOBIN (BEAKER) (test igbv=202) 14.1 GM/DL 11.2-15.7 HEMATOCRIT (BEAKER) (test breq=216) 43.3 % 34.1-44.9 MEAN CORPUSCULAR VOLUME (BEAKER) (test ccsh=422) 86.4 fL 79.4-94.8 MEAN CORPUSCULAR HEMOGLOBIN (BEAKER) (test 28.1 pg 25.6-32.2 rwoz=574) MEAN CORPUSCULAR HEMOGLOBIN CONC (BEAKER) (test 32.6 GM/DL 32.2-35.5 wauz=747) RED CELL DISTRIBUTION WIDTH (BEAKER) (test 13.1 % 11.7-14.4 dwiw=136) PLATELET COUNT (BEAKER) (test fums=128) 224 K/CU MM 150-450 MEAN PLATELET VOLUME (BEAKER) (test xvus=364) 10.2 fL 9.4-12.3 NUCLEATED RED BLOOD CELLS (BEAKER) (test 0 /100 WBC 0-0 jjyt=808) POCT-GLUCOSE [id number] 09:26:00 Test Item Value Reference Range Comments POC-GLUCOSE METER (BEAKER) 389 mg/dL 70-110 Patient on insulin Drip/TESTED (test ghzd=8833) AT [facility] [address] [facility] [address] POCT-GLUCOSE [id number] 08:12:00 Test Item Value Reference Range Comments POC-GLUCOSE METER (DAMIAN) 384 mg/dL 70-110 Patient on insulin Drip/TESTED (test lmbs=8580) AT [address] [address]
--- NOTE | 2018-09-13 16:23 | RAD REPORT ---
EXAM DESCRIPTION: RAD - Chest Single View - 09/13/2018 4:14 pm CLINICAL HISTORY: hypertension Chest pain. COMPARISON: Chest Single View dated 05/08/2018; CHEST SINGLE VIEW dated 10/01/2015; CHEST SINGLE VIEW dated 09/30/2015; CHEST SINGLE VIEW dated 04/19/2014 FINDINGS: Portable technique limits examination quality. The lungs are grossly clear. The heart is normal in size. No displaced fractures. IMPRESSION: No acute intrathoracic process suspected.
[2018-09-13 16:57] LABS: Absolute Lymphocytes (CBC) 1.6 K/uL (0.7-4.9); Absolute Monocytes 0.5 K/uL (0.1-1.3); Absolute Neutrophil 5.8 K/uL (1.8-8.0); Basophils % 0.7 % (0-1.3); Eosinophils % 0.6 % (0-4.4); Hematocrit 40.8 % (36.0-45.0); Lymphocytes % 20.4 % (15.3-44.8); MPV 8.2 fL (7.6-11.3); Monocytes % 6.3 % (3.3-12.3); RBC Red Blood Cell Count 4.93 M/uL (3.86-4.86)
[2018-09-13 17:33] LABS: ALT/SGPT 17 U/L (12-78); AST/SGOT 19 U/L (15-37); Albumin 3.8 g/dL (3.4-5.0); Alkaline Phosphatase 79 U/L (45-117); BUN Blood Urea Nitrogen 13 mg/dL (7-18); Bicarbonate 27 mmol/L (21-32); Bilirubin Direct 0.2 mg/dL (0-0.2); Bilirubin Total 0.5 mg/dL (0.2-1.0); Glucose Level 211 mg/dL (74-106); Magnesium 1.9 mg/dL (1.8-2.4); NT PRO-BNP 117 pg/mL (<125); Protein, Total 8.7 g/dL (6.4-8.2); Sodium Level 135 mmol/L (136-145); Troponin (Emerg Dept Use Only) < 0.02 ng/mL (0.0-0.045)
[2018-09-13 17:35] LABS: Potassium 2.9 mmol/L (3.5-5.1)
[2018-09-13] MEDS ORDERED: NA CHLORIDE 0.9% 1,000 ML ONE (17:39)
[2018-09-13 18:27] LABS: Urine Blood TRACE (NEG); Urine Glucose 1+ (NEG); Urine Protein NEGATIVE (NEG); Urine Specific Gravity <1.005 (1.005-1.030); Urine pH 5.5 (5.0-7.0)
[2018-09-13] MEDS ORDERED: POTASSIUM 25 MEQ EFFERV TAB ONE (18:34)
[2018-09-13] MEDS ORDERED: KCL 20 MEQ/100 mL IVPB 20 MEQ/100 ML BAG IV ONE (18:34)
[2018-09-13 19:11] LABS: Urine Bacteria <20 /HPF (<20); Urine Culture Reflex Order REFLEXED; Urine Mucus 1+ /HPF (NONE SEEN); Urine RBC <5 /HPF (NONE SEEN)
--- NOTE | 2018-09-13 21:47 | ER ---
Nurse's Notes [facility] Name: Génesis Manzano Age: 68 yrs Sex: Female : 1950 Arrival Date: 09/13/2018 Time: 14:49 Bed 5 Private MD: Jomar Lei E Diagnosis: Hypertensive heart disease;Hypokalemia Presentation: 09/13 14:51 Presenting complaint: this is my aunt, we went to her auditing specialist appt and it was high tw2 so they told us to come to here. Transition of care: patient was not received from another setting of care. Onset of symptoms was September 13, 2018. Risk Assessment: Do you want to hurt yourself or someone else? Patient reports no desire to harm self or others. Initial Sepsis Screen: Does the patient meet any 2 criteria? No. Patient's initial sepsis screen is negative. Does the patient have a suspected source of infection? No. Patient's initial sepsis screen is negative. Care prior to arrival: None. 14:51 Method Of Arrival: Ambulatory tw2 14:51 Acuity: JODI 3 tw2 14:53 Presenting complaint: she says she is coughing and has congested and runny nose. tw2 Triage Assessment: 14:55 General: Appears in no apparent distress. Behavior is calm, cooperative, appropriate tw2 for age. Pain: Denies pain. Historical: - Allergies: 14:55 No Known Allergies; tw2 - Home Meds: 14:55 aspirin 81 mg Oral TbEC 1 tab once daily [Active]; amlodipine 10 mg tab once daily tw2 [Active]; clonidine HCl 0.2 mg Oral tab 2 times per day [Active]; metformin 1,000 mg Oral tab 2 times per day [Active]; glipizide 10 mg Oral tab 1 tab 2 times per day [Active]; hydrochlorothiazide 25 mg Oral tab once daily [Active]; Levemir 100 unit/mL subcutaneous soln 40 unit twice a day [Active]; metoprolol tartrate 50 mg Oral tab 1 tab 2 times per day [Active]; potassium chloride 10 mEq Oral TbER 1 tab once daily [Active]; rosuvastatin 20 mg Oral tab 1 tab once daily [Active]; - PMHx: 14:55 CVA; Deaf; Diabetes - IDDM; Hyperlipidemia; Hypertension; tw2 - PSHx: 14:55 cataracts; Hysterectomy; tw2 - Immunization history:: Adult Immunizations. - Social history:: Smoking status: . - Ebola Screening: : Patient denies travel to an Ebola-affected area in the 21 days before illness onset. Screenin:15 Abuse screen: Denies threats or abuse. Denies injuries from another. Nutritional aj1 screening: No deficits noted. Tuberculosis screening: No symptoms or risk factors identified. 22:32 Fall Risk None identified. ak1 Assessment: 15:15 General: Appears in no apparent distress. comfortable, Behavior is calm, cooperative, aj1 appropriate for age. Pain: Denies pain. Neuro: Level of Consciousness is awake, alert, obeys commands. Cardiovascular: Patient's skin is warm and dry. Rhythm is sinus rhythm. Respiratory: Airway is patent Respiratory effort is even, unlabored, Respiratory pattern is regular, symmetrical. GI: No signs and/or symptoms were reported involving the gastrointestinal system. : No signs and/or symptoms were reported regarding the genitourinary system. EENT: No signs and/or symptoms were reported regarding the EENT system. Derm: No signs and/or symptoms reported regarding the dermatologic system. Skin is pink, warm \T\ dry. normal. Musculoskeletal: No signs and/or symptoms reported regarding the musculoskeletal system. Circulation, motion, and sensation intact. 16:30 Reassessment: Patient appears in no apparent distress at this time. No changes from aj1 previously documented assessment. Patient and/or family updated on plan of care and expected duration. Pain level reassessed. Patient is alert, oriented x 3, equal unlabored respirations, skin warm/dry/pink. 17:30 Reassessment: Patient appears in no apparent distress at this time. No changes from aj1 previously documented assessment. Patient and/or family updated on plan of care and expected duration. Pain level reassessed. Patient is alert, oriented x 3, equal unlabored respirations, skin warm/dry/pink. 18:33 Reassessment: Patient and/or family updated on plan of care and expected duration. Pain aj1 level reassessed. General: Appears in no apparent distress. comfortable, Behavior is calm, cooperative, appropriate for age. Neuro: Level of Consciousness is awake, alert, obeys commands. Cardiovascular: Patient's skin is warm and dry. Rhythm is sinus rhythm. Respiratory: Airway is patent Respiratory effort is even, unlabored, Respiratory pattern is regular, symmetrical. Derm: No signs and/or symptoms reported regarding the dermatologic system. Skin is pink, warm \T\ dry. normal. Musculoskeletal: No signs and/or symptoms reported regarding the musculoskeletal system. Circulation, motion, and sensation intact. 18:50 Reassessment: unable to recollect PT-INR, Maxwell Page notified, verbal order given to iw cancel lab order, cancelled in [place]. 19:30 Reassessment: Patient appears in no apparent distress at this time. No changes from aj1 previously documented assessment. Patient and/or family updated on plan of care and expected duration. Pain level reassessed. Patient is alert, oriented x 3, equal unlabored respirations, skin warm/dry/pink. 20:18 Reassessment: Patient appears in no apparent distress at this time. No changes from aj1 previously documented assessment. Patient and/or family updated on plan of care and expected duration. Pain level reassessed. Patient is alert, oriented x 3, equal unlabored respirations, skin warm/dry/pink. 21:24 Reassessment: Patient appears in no apparent distress at this time. No changes from aj1 previously documented assessment. Patient and/or family updated on plan of care and expected duration. Pain level reassessed. Patient is alert, oriented x 3, equal unlabored respirations, skin warm/dry/pink. Vital Signs: 14:52 BP 165 / 114; Pulse 115; Resp 19; Temp 98(O); Pulse Ox 100% on R/A; Weight 74.84 kg tw2 (R); Pain 0/10; 15:15 BP 155 / 98; Pulse 100; Resp 18; Pulse Ox 95% on R/A; aj1 16:30 BP 175 / 108; Pulse 100; Resp 18; Pulse Ox 97% ; aj1 17:30 BP 174 / 95; Pulse 96; Resp 18; Pulse Ox 97% on R/A; aj1 18:34 BP 161 / 99; Pulse 92; Resp 18; Pulse Ox 97% on R/A; aj1 19:30 BP 153 / 96; Pulse 98; Resp 18; Pulse Ox 97% on R/A; aj1 20:17 BP 166 / 93; Pulse 91; Resp 18; Pulse Ox 98% on R/A; aj1 21:25 BP 175 / 99; Pulse 93; Resp 18; Pulse Ox 95% on R/A; aj1 ED Course: 14:49 Patient arrived in ED. mr 14:49 Jomar Lei MD is Private Physician. mr 14:52 Triage completed. tw2 14:52 Arm band placed on. tw2 15:02 Poornima Mead, RN is Primary Nurse. aj1 15:15 Patient has correct armband on for positive identification. Bed in low position. Call aj1 light in reach. Side rails up X 1. school lunch monitor on. Pulse ox on. NIBP on. 15:15 No provider procedures requiring assistance completed. aj1 15:33 Maxwell Owens PA is PHCP. cp 15:33 Sarkis Shukla MD is Attending Physician. cp 16:00 EKG done, by biometric fingerprinting technician. reviewed by Maxwell SALAZAR. 3 16:14 Missed attempt(s): 24 gauge in left hand. Bleeding controlled, band aid applied, dh3 catheter tip intact. 16:15 XRAY Chest (1 view) In Process Unspecified. EDMS 17:36 Inserted saline lock: 24 gauge in left antecubital area, using aseptic technique. Blood iw collected. 21:46 Jomar Lei MD is Referral Physician. cp 22:33 IV discontinued, intact, bleeding controlled, No redness/swelling at site. Pressure ak1 dressing applied. Administered Medications: 16:06 CANCELLED (Physician Discretion): Lisinopril 20 mg PO once cp 16:06 CANCELLED (Physician Discretion): Metoprolol 50 mg PO once cp 16:28 CANCELLED (Physician Discretion): NS 0.9% 500 ml IV at bolus once cp 17:37 Drug: NS 0.9% 1000 ml Route: IV; Rate: 1 bolus; Site: right antecubital; aj1 18:35 Drug: Potassium Chloride 20 mEq Route: IV; Rate: calculated rate; Site: right aj1 antecubital; 18:35 Drug: Potassium Effervescent Tablet 50 mEq Route: PO; aj1 Point of Care Testing: Blood Glucose: 16:24 Blood Glucose: 198 mg/dL; dh3 Ranges: Outcome: 21:46 Discharge ordered by . cp 22:32 Discharged to home ambulatory, with family. ak1 22:32 Condition: good 22:32 Discharge instructions given to family, Instructed on discharge instructions, follow up and referral plans. no drinking with medication, no driving heavy equipment, medication usage, Demonstrated understanding of instructions, follow-up care, medications, Prescriptions given X 1. 22:33 Patient left the ED. ak1 Signatures: Dispatcher [employer] EDMS Poornima Mead, RN RN aj1 Kat Mahajan mr Eve Roman RN JOHANA iw Apoorva Ortiz RN RN ak1 Maxwell Owens PA PA cp Wise, Tara, RN RN 2 Sydnee Mcdaniel 3 Vivien Allan 3
--- NOTE | 2018-09-13 21:47 | EDPHYS ---
Physician Documentation [facility] Name: Génesis Manzano Age: 68 yrs Sex: Female : 1950 Arrival Date: 09/13/2018 Time: 14:49 Bed 5 Private MD: Jomar Lei E ED Physician Sarkis Shukla HPI: 09/13 15:39 This 68 yrs old Black Female presents to ER via Ambulatory with complaints of High cp Blood Pressure. 15:39 The patient has elevated blood pressure and discovered this at a physician's office, cp and sent to the emergency department for evaluation. 15:39 Onset: The symptoms/episode began/occurred today. cp 15:39 Associated signs and symptoms: Pertinent negatives: chest pain, dizziness, headache, cp lightheadedness, visual changes, weakness. Severity of symptoms: in the emergency department the blood pressure is systolic pressure of 175. Historical: - Allergies: 14:55 No Known Allergies; tw2 - Home Meds: 14:55 aspirin 81 mg Oral TbEC 1 tab once daily [Active]; amlodipine 10 mg tab once daily tw2 [Active]; clonidine HCl 0.2 mg Oral tab 2 times per day [Active]; metformin 1,000 mg Oral tab 2 times per day [Active]; glipizide 10 mg Oral tab 1 tab 2 times per day [Active]; hydrochlorothiazide 25 mg Oral tab once daily [Active]; Levemir 100 unit/mL subcutaneous soln 40 unit twice a day [Active]; metoprolol tartrate 50 mg Oral tab 1 tab 2 times per day [Active]; potassium chloride 10 mEq Oral TbER 1 tab once daily [Active]; rosuvastatin 20 mg Oral tab 1 tab once daily [Active]; - PMHx: 14:55 CVA; Deaf; Diabetes - IDDM; Hyperlipidemia; Hypertension; tw2 - PSHx: 14:55 cataracts; Hysterectomy; tw2 - Immunization history:: Adult Immunizations. - Social history:: Smoking status: . - Ebola Screening: : Patient denies travel to an Ebola-affected area in the 21 days before illness onset. ROS: 15:45 Cardiovascular: Positive for hypertension, Negative for chest pain, edema, palpitations.cp 15:45 Constitutional: Negative for body aches, chills, fever, poor PO intake. cp 15:45 Respiratory: Negative for cough, shortness of breath, wheezing. 15:45 Abdomen/GI: Negative for abdominal pain, nausea, vomiting, and diarrhea. 15:45 Neuro: Negative for altered mental status, headache, weakness. 15:45 All other systems are negative. Exam: 15:50 Constitutional: The patient appears in no acute distress, alert, awake, cp non-diaphoretic, non-toxic, well developed, well nourished. 15:50 Head/Face: Normocephalic, atraumatic. cp 15:50 Eyes: Periorbital structures: appear normal, Pupils: equal, round, and reactive to light and accomodation, Extraocular movements: intact throughout, Conjunctiva: normal, no exudate, no injection, Sclera: no appreciated abnormality, Lids and lashes: appear normal, bilaterally. 15:50 ENT: External ear(s): are unremarkable, Ear canal(s): are normal, clear, TM's: bulging, is not appreciated, bilaterally, dullness, bilaterally, erythema, is not appreciated, bilaterally, Nose: is normal, Mouth: Lips: moist, Oral mucosa: pink and intact, moist, Posterior pharynx: is normal, airway is patent, no erythema, no exudate. 15:50 Neck: ROM/movement: is normal, is supple, without pain, no range of motions limitations, no nuchal rigidity. 15:50 Chest/axilla: Inspection: normal, Palpation: is normal, no crepitus, no tenderness. 15:50 Cardiovascular: Rate: tachycardic, Rhythm: regular, Heart sounds: murmur, not appreciated, Edema: is not appreciated, JVD: is not appreciated. 15:50 Respiratory: the patient does not display signs of respiratory distress, Respirations: normal, no use of accessory muscles, no retractions, no splinting, no tachypnea, labored breathing, is not present, Breath sounds: are clear throughout, no decreased breath sounds, no stridor, no wheezing. 15:50 Abdomen/GI: Inspection: abdomen appears normal, Bowel sounds: active, all quadrants, Palpation: abdomen is soft and non-tender, in all quadrants. 15:50 Back: pain, is absent, ROM is normal. 15:50 Skin: cellulitis, is not appreciated, no rash present. 15:50 Neuro: Orientation: to person, place \T\ time. Mentation: is normal, Cerebellar function: is grossly normal, Motor: moves all fours, strength is normal, Sensation: is normal, Gait: is steady. 15:55 ECG was reviewed by the Attending Physician. cp 21:25 ECG was reviewed by the Attending Physician. Vital Signs: 14:52 BP 165 / 114; Pulse 115; Resp 19; Temp 98(O); Pulse Ox 100% on R/A; Weight 74.84 kg tw2 (R); Pain 0/10; 15:15 BP 155 / 98; Pulse 100; Resp 18; Pulse Ox 95% on R/A; aj1 16:30 BP 175 / 108; Pulse 100; Resp 18; Pulse Ox 97% ; aj1 17:30 BP 174 / 95; Pulse 96; Resp 18; Pulse Ox 97% on R/A; aj1 18:34 BP 161 / 99; Pulse 92; Resp 18; Pulse Ox 97% on R/A; aj1 19:30 BP 153 / 96; Pulse 98; Resp 18; Pulse Ox 97% on R/A; aj1 20:17 BP 166 / 93; Pulse 91; Resp 18; Pulse Ox 98% on R/A; aj1 21:25 BP 175 / 99; Pulse 93; Resp 18; Pulse Ox 95% on R/A; aj1 MDM: 15:33 Patient medically screened. 21:44 Data reviewed: vital signs, nurses notes, lab test result(s), EKG, radiologic studies, cp plain films, and as a result, I will discharge patient. 21:44 Counseling: I had a detailed discussion with the patient and/or guardian regarding: the cp historical points, exam findings, and any diagnostic results supporting the discharge/admit diagnosis, the presence of at least one elevated blood pressure reading (>120/80) during this emergency department visit, lab results, radiology results, the need for outpatient follow up, a family practitioner, to return to the emergency department if symptoms worsen or persist or if there are any questions or concerns that arise at home. Response to treatment: the patient's symptoms have markedly improved after treatment, and as a result, I will discharge patient. ED course: VSS. Blood pressure improved and patient with no complaints. Will discharge to home for continued monitoring. 09/13 15:45 Order name: Basic Metabolic Panel; Complete Time: 18:20 cp 09/13 18:20 Interpretation: Normal except: NA 135; K 2.9; CL 96; GLUC 211; GFR 81. cp 09/13 15:45 Order name: CBC with Diff; Complete Time: 17:17 cp / 17:17 Interpretation: Normal except: RBC 4.93. cp 09/13 15:45 Order name: LFT's; Complete Time: 18:20 cp 09/13 18:43 Interpretation: Normal except: TP 8.7; GLOB 4.9; A/G 0.8. cp 09/13 15:45 Order name: Magnesium; Complete Time: 18:20 cp 09/13 15:45 Order name: NT PRO-BNP; Complete Time: 18:20 cp 09/13 15:45 Order name: Troponin (emerg Dept Use Only); Complete Time: 18:20 cp 09/13 15:45 Order name: XRAY Chest (1 view); Complete Time: 16:27 cp 09/13 15:45 Order name: Urine Microscopic Only; Complete Time: 21:18 cp 09/13 21:18 Interpretation: UWBC 5-10; SQEPI 10-20. cp 09/13 17:05 Order name: Urine Dipstick--Ancillary (enter results); Complete Time: 18:42 bd 09/13 18:43 Interpretation: Normal except: UGLUC 1+; UKET 1+; UBLD TRACE. cp 09/13 19:14 Order name: Urine Culture EDMS 09/13 19:54 Order name: Potassium: repeat after IV potassium finishes; Complete Time: 21:41 cp 09/13 21:42 Interpretation: Within normal limits: K 3.6. cp 09/13 21:19 Order name: Glucose, Ancillary Testing; Complete Time: 21:41 EDMS 09/13 21:41 Interpretation: GLUC,ANCIL 198; Reviewed. cp 09/13 15:45 Order name: EKG; Complete Time: 15:46 cp 09/13 15:45 Order name: Cardiac monitoring; Complete Time: 16:27 cp 09/13 15:45 Order name: EKG - Nurse/Tech; Complete Time: 16:25 cp 09/13 15:45 Order name: IV Saline Lock; Complete Time: 16:28 cp 09/13 15:45 Order name: Labs collected and sent; Complete Time: 17:54 cp 09/13 15:45 Order name: O2 Per Protocol; Complete Time: 16:28 09/13 15:45 Order name: O2 Sat Monitoring; Complete Time: 16:28 09/13 15:45 Order name: Urine Dipstick-Ancillary (obtain specimen); Complete Time: 17:54 09/13 15:45 Order name: Accucheck Blood Glucose; Complete Time: 16:25 09/13 19:54 Order name: EKG - Nurse/Tech: repeat after IV potassium is finished; Complete Time: cp 21:23 EC:55 Rate is 102 beats/min. Rhythm is regular. QRS interval is normal. QT interval is cp prolonged at 518 msec. Interpreted by me. Reviewed by me. 21:25 Rate is 88 beats/min. Rhythm is regular. WI interval is normal at 170 msec. QRS cp interval is normal at 86 msec. QT interval is prolonged at 418 msec. Interpreted by me. Reviewed by me. Administered Medications: 16:06 CANCELLED (Physician Discretion): Lisinopril 20 mg PO once cp 16:06 CANCELLED (Physician Discretion): Metoprolol 50 mg PO once cp 16:28 CANCELLED (Physician Discretion): NS 0.9% 500 ml IV at bolus once cp 17:37 Drug: NS 0.9% 1000 ml Route: IV; Rate: 1 bolus; Site: right antecubital; aj1 18:35 Drug: Potassium Chloride 20 mEq Route: IV; Rate: calculated rate; Site: right aj1 antecubital; 18:35 Drug: Potassium Effervescent Tablet 50 mEq Route: PO; aj1 Point of Care Testing: Blood Glucose: 16:24 Blood Glucose: 198 mg/dL; dh3 Ranges: Critical Glucose Levels:Adult <50 mg/dl or >400 mg/dl <40 mg/dl or >180 mg/dl Disposition: 22:45 Chart complete. 09/14 07:22 Co-signature as Attending Physician, Sarkis Shukla MD Available for consultation at ps1 all times. . Disposition: 09/13/18 21:46 Discharged to Home. Impression: Hypertensive heart disease, Hypokalemia. - Condition is Stable. - Discharge Instructions: Basic Carbohydrate Counting for Diabetes Mellitus, Potassium Content of Foods, Hypertension, Diabetes Mellitus and Food, Hypokalemia, Managing Your Hypertension. - Prescriptions for Potassium Chloride 20 meq Oral Packet - take 1 packet by ORAL route once daily for 5 days 1 packet in 6 (six) ounces of water or juice; Take after meal; 5 packet. - Medication Reconciliation Form, Thank You Letter, Antibiotic Education, Prescription Opioid Use form. - Follow up: Jomar Lei MD; When: 2 - 3 days; Reason: Recheck today's complaints. - Problem is new. - Symptoms have improved. Signatures: Dispatcher [employer] EDOK KitMiriam hancock bd Poornima Mead RN RN aj1 Apoorva Ortiz RN RN ak1 Maxwell Owens PA PA cp Edith Head, RN RN tw2 Sarkis Shukla MD MD ps1 Corrections: (The following items were deleted from the chart) 09/13 16:06 15:45 Lisinopril 20 mg PO once ordered. cp cp 16:06 15:45 Metoprolol 50 mg PO once ordered. cp cp 16:28 15:45 NS 0.9% 500 ml IV at bolus once ordered. cp cp 18:49 18:15 Labs - recollect needed ordered. bd iw 18:50 15:46 PROTIME (+INR)+COAG.LAB.BRZ ordered. EDOK EDMS 22:33 21:46 09/13/2018 21:46 Discharged to Home. Impression: Hypertensive heart disease; ak1 Hypokalemia. Condition is Stable. Forms are Medication Reconciliation Form, Thank You Letter, Antibiotic Education, Prescription Opioid Use. Follow up: Jomar Lei; When: 2 - 3 days; Reason: Recheck today's complaints. Problem is new. Symptoms have improved. cp
[2018-09-13 22:45] VITALS: TEMP 98
[2018-09-13 22:53] VITALS: BP 175/99; O2SAT 95
--- NOTE | 2018-09-14 07:03 | EKG ---
Test Date: 2018-09-13 Test Time: 15:51:49 Corner Trimmer Operator: JAZMYNE MEASUREMENT RESULTS: Intervals: Rate: 102 LA: QRSD: 96 QT: 518 QTc: 675 [place]: P: LA: QRS: 62 T: 24 INTERPRETIVE STATEMENTS: Sinus tachycardia Abnormal ECG Compared to ECG 05/08/2018 04:22:02 Ventricular premature complex(es) no longer present Atrial abnormality no longer present ST (T wave) deviation no longer present Electronically Signed On 09-14-18 07:02:40 MANAGER INSTRUMENTATION by Pipo Vera
--- NOTE | 2018-09-14 08:44 | EKG ---
Test Date: 2018-09-13 Test Time: 21:19:23 Bag Shaker: VICTORINA MEASUREMENT RESULTS: Intervals: Rate: 88 AL: 170 QRSD: 86 QT: 418 QTc: 505 [place]: P: 48 AL: 170 QRS: 24 T: 43 INTERPRETIVE STATEMENTS: Normal sinus rhythm Possible Left atrial enlargement Nonspecific T wave abnormality Prolonged QT Abnormal ECG Compared to ECG 09/13/2018 15:51:49 T-wave abnormality now present Prolonged QT interval now present Sinus tachycardia no longer present Electronically Signed On 09-14-18 08:43:22 REWINDER by Albaro Holley
== END 2018-09-13 22:33 | disposition home or self-care (01) ==
LOC: ER 14:45
DX: I11.9 Hypertensive heart disease without heart failure (principal); E87.6 Hypokalemia; E11.9 Type 2 diabetes mellitus without complications; E78.5 Hyperlipidemia, unspecified; Z79.4 Long term (current) use of insulin; Z79.82 Long term (current) use of aspirin; Z86.73 Personal history of transient ischemic attack (TIA), and cerebral infarction without residual deficits
CPT/HCPCS: 36415; 71045; 80048; 80076; 82962; 83735; 83880; 84132; 84484; 85025; 87086; 87088; 93005 ×2; 96374; 99285; J7030; 81003; 81015

== ENCOUNTER 2019-03-20 11:39 | Emergency (ER) | payer OTHER ==
--- OUTSIDE RECORDS SUMMARY | 2019-03-20 12:20 | XMS REPORT | Clinical Summary ---
:1950 Author Organization [facility] Address [address] [place] [address] Care Team Providers Name Role Phone Unavailable [...] Type Specialty Care Team Description 05/08/2018 - [facility] Internal [facility], Acute encephalopathy (Primary Dx); 05/10/2018 Encounter Medicine Ernestina Provoked seizure (HCC); MD Jaun Hyperglycemic hyperosmolar nonketotic coma (HCC) Tavares Arambula MD after 03/19/2018 Social History Tobacco Use Types Packs/Day Years [...] are in the results section. LACTIC ACID, VENOUS Routine 05/08/2018 9:42 Results for this AM [...] procedure are in the results section. after 03/19/2018 Results RHYTHM STRIP - SCAN (05/12/2018 10:41 AM CDT) Narrative Performed At POC-Glucose meter (05/10/2018 5:07 PM CDT)Only the most recent of17 resultswithin the time period is included. POC-Glucose Meter 184 (H)Comment: TESTED AT 70 - 110 mg/dL [facility] [address] [facility] [address] Specimen Blood Performing Organization Address [facility] Phone Number [facility] MEDICAL [address] [place] [address] [phone] CENTER JOCELYNN-65 (05/10/2018 12:30 PM CDT) JOCELYNN-65 <5 <5 IU/mL [facility] Comment: This test was performed using the GAD65 POLLY method. New method, POLLY, is standardized against the International reference preparation 97/550, is reported in International Units/mL (IU/mL) and a new reference range was implemented. Specimen Blood Narrative Performed At Performing Lab [email or web address] [address] [place] [address] [place] [address] Tai Domingo MD, PhD, GENEVIEVE Performing Organization Address City/[facility]/Zipcode Phone Number [phone] [address] [facility]OR[facility] [address] [facility] Islet Cell AB Screen (05/10/2018 12:30 PM CDT) Islet Cell Ab Profile Refer to individual Islet [facility] Cell Ab and/or [facility] Ab Titer results. Specimen Blood Narrative Performed At Performing Organization Address City/State/Zipcode Phone Number [facility], [place] [address] [facility] [address] [facility] Venous doppler legs bilateral (05/10/2018 8:43 AM CDT) Ejection Fraction [facility] MKCKESSON CPACS Specimen Impressions Performed At Right Impression [facility] CPACS 1. There [...] PV LAB - Lower Extremities DVT Study [facility] MorningstarCK[facility] Demographics Patient Name GÉNESIS MANZANO Date of Study 05/10/2018 [id number] Age 67 Visit Number [id number] Female [id number] Date of 1950 Number Referring[facility] Hospitaljared [facility] 2263 Geeta Zamorano SonographerGgail Mcbride. RVT,InterpretingJ. TAMANNA Erwin Physician , RPVI [...] of Study 05/10/2018 Age 67 Visit Number [id number] Gender Female Date of 1950 Number Referring [facility] Room Number 2263 Physician Ernestina Zamorano Box Sealing Machine Catcher Timothy Mcbride. RVT, Interpreting TAMANNA Blackmon Physician , RPVI Procedure Type of Study: [...] cm Performing Organization Address City/State/Zipcode Phone Number [facility] KngrooON CPACS CBC with platelet count + automated diff (05/10/2018 4:50 AM CDT)Only the most recent of2 resultswithin the time period is included. WBC 7.8 3.5 - 10.5 K/L [facility] RBC 4.85 3.93 - 5.22 M/L [facility] Hemoglobin 13.3 11.2 - 15.7 GM/DL [facility] Hematocrit 42.1 34.1 - 44.9 % [facility] MCV 86.8 79.4 - 94.8 fL [facility] MCH 27.4 25.6 - 32.2 pg [facility] MCHC 31.6 (L) 32.2 - 35.5 GM/DL [facility] RDW 13.7 11.7 - 14.4 % [facility] Platelets 221 150 - 450 K/CU MM [facility] MPV 10.2 9.4 - 12.3 fL [facility] nRBC 0 0 - 0 /100 WBC [facility] % Neutros 55 % [facility] % Lymphs 35 % [facility] % Monos 7 % [facility] % Eos 2 % [facility] % Baso 0 % [facility] # Neutros 4.33 1.56 - 6.13 K/L [facility] # Lymphs 2.76 1.18 - 3.74 K/L [facility] # Monos 0.53 (H) 0.24 - 0.36 K/L [facility] # Eos 0.14 0.04 - 0.36 K/L [facility] # Baso 0.03 0.01 - 0.08 K/L [facility] Immature Granulocytes-Relative 0 0 - 1 % [facility] Specimen Blood Performing Organization Address City/State/Zipcode Phone Number [facility] [address] [place] [address] CENTER Basic Metabolic Panel (05/10/2018 4:50 AM CDT)Only the most recent of6 resultswithin the time period is included. Sodium 136 136 - 145 meq/L [facility] Potassium 3.5 3.5 - 5.1 meq/L [facility] Chloride 104 98 - 107 meq/L [facility] CO2 24 22 - 29 meq/L [facility] BUN 18 7 - 21 mg/dL [facility] Creatinine 1.00 0.57 - 1.25 mg/dL [facility] Glucose 107 (H) 70 - 105 mg/dL [facility] Calcium 9.4 8.4 - 10.2 mg/dL [facility] EGFR 67Comment: ESTIMATED GFR IS mL/min/1.73 sq m [facility] NOT ACCURATE [facility] CLEARANCE IN PREDICTING GLOMERULAR FILTRATION RATE. ESTIMATED GFR IS NOT APPLICABLE FOR DIALYSIS PATIENTS. Specimen Blood Performing Organization Address City/[facility]/Zipcode Phone Number [address] [address] [phone] CENTER Phosphorus (05/08/2018 7:58 PM CDT)Only the most recent of2 resultswithin the time period is included. Phosphorus 2.5 2.3 - 4.7 mg/dL [facility] Specimen Blood Performing Organization Address [facility] Hospitalcowv Phone Number [address] [phone] CENTER XR abdomen / KUB 1 view (05/08/2018 2:57 PM CDT) Specimen Narrative Performed At FINAL REPORT [facility] CLINICAL HISTORY: corpak placement TECHNIQUE: Supine abdomen IMPRESSION: The tip of the feeding tube is in the distal duodenum. The partially visualized bowel gas pattern is nonspecific with moderate stool in the visualized colon. Signed: Shana Parekh MD Report Verified Date/Time:05/08/2018 15:38:04 Reading Location: [facility] C0[facility] Consult Reading Room Procedure Note Interface, External Ris In - 05/08/2018 3:40 PM CDT FINAL REPORT CLINICAL HISTORY: corpak placement TECHNIQUE: Supine abdomen IMPRESSION: The tip of the feeding tube is in the distal duodenum. The partially visualized bowel gas pattern is nonspecific with moderate stool in the visualized colon. Signed: Shana Parekh MD Report Verified Date/Time: 05/08/2018 15:38:04 Reading Location: [facility] C013 Consult Reading Room Performing Organization Address City/[facility]code Phone Number [facility] Blood culture (05/08/2018 10:19 AM CDT)Only the most recent of2 resultswithin the time period is included. Result No growth in 5 days [facility] Specimen Blood Performing Organization Address City/[facility]/Zipcode Phone Number [facility] [address] [place] [address] [place] Urinalysis w/ Microscopic (05/08/2018 9:43 AM CDT) Color, UA Light Yellow [facility] Clarity, UA Clear [facility] Specific [place], UA 1.025 1.001 - 1.035 [facility] pH, UA 7.0 5.0 - 8.0 [facility] Protein, UA 30 mg/dL (A) Negative [facility] Glucose, UA >1000 mg/dL (A) Negative [facility] Ketones, UA Trace (A) Negative [facility] Bilirubin, UA Negative Negative [facility] Blood, UA Negative Negative [facility] Nitrite, UA Negative Negative [facility] Leukocytes, UA Negative Negative [facility] Urobilinogen, UA 0.2 0.2 - 1.0 mg/dL [facility] RBC, UA <1 /HPF [facility] WBC, UA 0 /HPF [facility] Bacteria, UA Rare [facility] Squam Epithel, UA <1 /HPF [facility] Specimen Source Urine, Gomez [facility] Specimen Urine Performing Organization Address City/[facility]/Zipcode Phone Number [address] [address] CENTER Troponin I (05/08/2018 9:42 AM CDT) Troponin I <0.01 0.00 - 0.03 ng/mL [facility] Specimen Blood Narrative Performed At [facility] Troponin I (TnI) levels must be interpreted [...] disease, and persistent tachyarrhythmia. Performing Organization Address [facility]code Phone Number [address] [address] [phone] [place] Lactic acid, venous, whole blood (05/08/2018 9:42 AM CDT) Lactate, Venous 3.3 (H)Comment: Specimen 0.5 - 2.2 mmol/L [facility] moderately hemolyzed [facility] Specimen Blood Narrative Performed At [facility] Effective 11/26/2015: Units/Reference Range Change New: 0.5-2.2 mmol/LPrevious: 5-20 mg/dL Performing Organization Address [facility] Hospitalcowv Phone Number [address] [address] CENTER aPTT (05/08/2018 9:42 AM CDT) PTT 22.6 22.5 - 36.0 seconds [facility] Specimen Blood Performing Organization Address City/[facility] Phone Number [address] [address] CENTER Prothrombin time/INR (05/08/2018 9:42 AM CDT) Protime 13.2 11.7 - 14.7 seconds [facility] INR 1.0 <=5.9 [facility] Specimen Blood Narrative Performed At [facility] RECOMMENDED COUMADIN/WARFARIN INR THERAPY RANGES STANDARD DOSE: 2.0 - 3.0 Includes: PROPHYLAXIS for venous thrombosis, systemic embolization; TREATMENT for venous thrombosis and/or pulmonary embolus. HIGH RISK: Target INR is 2.5-3.5 for patients with mechanical heart valves. Performing Organization Address City/[facility]/Zipcode Phone Number [address] [address] CENTER CBC (Hemogram only) (05/08/2018 9:42 AM CDT) WBC 8.6 3.5 - 10.5 K/L [facility] RBC 5.01 3.93 - 5.22 M/L [facility] Hemoglobin 14.1 11.2 - 15.7 GM/DL [facility] Hematocrit 43.3 34.1 - 44.9 % [facility] MCV 86.4 79.4 - 94.8 fL [facility] MCH 28.1 25.6 - 32.2 pg [facility] MCHC 32.6 32.2 - 35.5 GM/DL [facility] RDW 13.1 11.7 - 14.4 % [facility] Platelets 224 150 - 450 K/CU MM [facility] MPV 10.2 9.4 - 12.3 fL [facility] nRBC 0 0 - 0 /100 WBC [facility] Specimen Blood Performing Organization Address City/[facility] Phone Number [address] [address] CENTER Potassium-STAT (05/08/2018 9:42 AM CDT) Potassium 3.7 3.5 - 5.1 meq/L [facility] Specimen Blood Performing Organization Address [facility]/Zipcode Phone Number [address] [address] CENTER Magnesium (05/08/2018 9:42 AM CDT) Magnesium 2.7 (H) 1.6 - 2.6 mg/dL [facility] Specimen Blood Performing Organization Address City/[facility]code Phone Number [address] [address] [place] Hemoglobin A1c (05/08/2018 9:42 AM CDT) Hemoglobin A1C 17.1 (H) 4.3 - 6.1 % [facility] Specimen Blood Performing Organization Address City/[facility] Phone Number [address] [address] [phone] [place] Glucose-STAT (05/08/2018 9:42 AM CDT) Glucose 325 (H) 70 - 105 mg/dL [facility] Specimen Blood Performing Organization Address City/[facility] Phone Number [address] [address] [place] Comprehensive metabolic panel (05/08/2018 9:42 AM CDT) Protein, Total 9.0 (H) 6.0 - 8.3 gm/dL [facility] Albumin 4.3 3.5 - 5.0 g/dL [facility] Alkaline Phosphatase 90 40 - 150 U/L [facility] Total Bilirubin 0.3 0.2 - 1.2 mg/dL [facility] Sodium 147 (H) 136 - 145 meq/L [facility] Potassium 3.7 3.5 - 5.1 meq/L [facility] Chloride 106 98 - 107 meq/L [facility] CO2 30 (H) 22 - 29 meq/L [facility] BUN 19 7 - 21 mg/dL [facility] Creatinine 1.20 0.57 - 1.25 mg/dL [facility] Glucose 325 (H) 70 - 105 mg/dL [facility] Calcium 10.2 8.4 - 10.2 mg/dL [facility] AST 14 5 - 34 U/L [facility] ALT 11 6 - 55 U/L [facility] EGFR 55Comment: ESTIMATED GFR mL/min/1.[address] [facility] IS NOT ACCURATE [facility] CREATININE CLEARANCE IN PREDICTING GLOMERULAR FILTRATION RATE. ESTIMATED GFR IS NOT APPLICABLE FOR DIALYSIS PATIENTS. Specimen Blood Performing Organization Address City/State/Zipcode Phone Number [facility] [address] [place] [address] [phone] CENTER after 03/19/2018 Insurance Payer Benefit Plan / Group Subscriber ID Type Phone Address MEDICARE MEDICARE A B xxxxxxxxxxx Medicare MEDICAID MEDICAID [place] xxxxxxxxx Medicaid
--- OUTSIDE RECORDS SUMMARY | 2019-03-20 12:21 | XMS REPORT ---
:1950 [facility] Address [address] [place] [address] [address]. [address] [place] [address] Care Team Providers Name Role Phone KINGSTONCESARALPA WILDE JOCELYNREYNA RAHMAN Unavailable Unavailable Problems This patient has [...] (test Refer to individual Islet Cell Ab lqof=0262) and/or Islet Cell Ab Titer results. BLOOD [id number] 18:00:00 Test Item Value Reference Range Comments CULTURE (BEAKER) (test stkc=9650) No growth in 5 days BLOOD [id number] 18:00:00 Test Item Value Reference Range Comments CULTURE (BEAKER) (test kzqq=9474) No growth in 5 days POCT-GLUCOSE [id number] 17:18:00 Test Item Value Reference Range Comments POC-GLUCOSE METER (BEAKER) 184 mg/dL 70-110 TESTED AT [address] (test rhpq=8334) [facility] [address] POCT-GLUCOSE [id number] 11:53:00 Test Item Value Reference Range Comments POC-GLUCOSE METER (BEAKER) 430 mg/dL 70-110 Notified JOHANA IBRAHIM/TESTED AT [facility] (test otwv=6412) [address] [place] [address] POCT-GLUCOSE [id number] 08:12:00 Test Item Value Reference Range Comments POC-GLUCOSE METER (BEAKER) 125 mg/dL 70-110 TESTED AT [address] (test ylyk=8833) [facility] [address] BASIC METABOLIC [id number] 05:51:00 Test Item Value Reference Range Comments SODIUM (BEAKER) (test 136 meq/L 136-145 axkz=349) POTASSIUM (BEAKER) (test 3.5 meq/L 3.5-5.1 tkeq=670) CHLORIDE (BEAKER) (test 104 meq/L 98-107 exun=311) CO2 (BEAKER) (test 24 meq/L 22-29 tqyq=574) BLOOD UREA NITROGEN 18 mg/dL 7-21 (BEAKER) (test ubum=332) CREATININE (BEAKER) (test 1.00 mg/dL 0.57-1.25 atxh=389) GLUCOSE RANDOM (BEAKER) 107 mg/dL 70-105 (test ncrb=592) CALCIUM (BEAKER) (test 9.4 mg/dL 8.4-10.2 tlyo=108) EGFR (BEAKER) (test 67 mL/min/1.73 sq m ESTIMATED GFR IS NOT bojf=6586) ACCURATE CREATININE CLEARANCE IN PREDICTING GLOMERULAR FILTRATION RATE. ESTIMATED GFR IS NOT APPLICABLE FOR DIALYSIS PATIENTS. CBC W/PLT COUNT & AUTO [id number] 05:18:00 Test Item Value Reference Range Comments WHITE BLOOD CELL COUNT (BEAKER) (test qxcl=428) 7.8 K/ L 3.5-10.5 RED BLOOD CELL COUNT (BEAKER) (test hauz=008) 4.85 M/ L 3.93-5.22 HEMOGLOBIN (BEAKER) (test tgfr=115) 13.3 GM/DL 11.2-15.7 HEMATOCRIT (BEAKER) (test qtbr=146) 42.1 % 34.1-44.9 MEAN CORPUSCULAR VOLUME (BEAKER) (test kkfs=354) 86.8 fL 79.4-94.8 MEAN CORPUSCULAR HEMOGLOBIN (BEAKER) (test 27.4 pg 25.6-32.2 qwrq=017) MEAN CORPUSCULAR HEMOGLOBIN CONC (BEAKER) (test 31.6 GM/DL 32.2-35.5 zjpd=043) RED CELL DISTRIBUTION WIDTH (BEAKER) (test 13.7 % 11.7-14.4 syhz=225) PLATELET COUNT (BEAKER) (test siix=015) 221 K/CU MM 150-450 MEAN PLATELET VOLUME (BEAKER) (test mtke=823) 10.2 fL 9.4-12.3 NUCLEATED RED BLOOD CELLS (BEAKER) (test 0 /100 WBC 0-0 mnyg=328) NEUTROPHILS RELATIVE PERCENT (BEAKER) (test 55 % ckqc=884) LYMPHOCYTES RELATIVE PERCENT (BEAKER) (test 35 % fjfx=635) MONOCYTES RELATIVE PERCENT (BEAKER) (test 7 % jpdr=819) EOSINOPHILS RELATIVE PERCENT (BEAKER) (test 2 % iaaz=327) BASOPHILS RELATIVE PERCENT (BEAKER) (test 0 % mops=955) NEUTROPHILS ABSOLUTE COUNT (BEAKER) (test 4.33 K/ L 1.56-6.13 vwhm=170) LYMPHOCYTES ABSOLUTE COUNT (BEAKER) (test 2.76 K/ L 1.18-3.74 ddvl=520) MONOCYTES ABSOLUTE COUNT (BEAKER) (test 0.53 K/ L 0.24-0.36 cxiw=362) EOSINOPHILS ABSOLUTE COUNT (BEAKER) (test 0.14 K/ L 0.04-0.36 crnm=310) BASOPHILS ABSOLUTE COUNT (BEAKER) (test 0.03 K/ L 0.01-0.08 viab=470) IMMATURE GRANULOCYTES-RELATIVE PERCENT (BEAKER) 0 % 0-1 (test blng=3042) POCT-GLUCOSE [id number] 00:22:00 Test Item Value Reference Range Comments POC-GLUCOSE METER (BEAKER) 123 mg/dL 70-110 TESTED AT [address] (test wabm=7447) [place] [address] POCT-GLUCOSE [id number] 21:46:00 Test Item Value Reference Range Comments POC-GLUCOSE METER (BEAKER) 107 mg/dL 70-110 TESTED AT [address] (test fofa=4980) [place] [address] POCT-GLUCOSE [id number] 17:12:00 Test Item Value Reference Range Comments POC-GLUCOSE METER (BEAKER) 218 mg/dL 70-110 TESTED AT [address] (test bgjq=5635) [place] [address] POCT-GLUCOSE [id number] 11:24:00 Test Item Value Reference Range Comments POC-GLUCOSE METER (BEAKER) 268 mg/dL 70-110 TESTED AT [address] (test kodp=2782) [place] [address] BASIC METABOLIC [id number] 10:12:00 Test Item Value Reference Range Comments SODIUM (BEAKER) (test 140 meq/L 136-145 jpwr=164) POTASSIUM (BEAKER) (test 3.4 meq/L 3.5-5.1 shaj=289) CHLORIDE (BEAKER) (test 108 meq/L 98-107 bqxr=162) CO2 (BEAKER) (test 28 meq/L 22-29 ehte=516) BLOOD UREA NITROGEN 15 mg/dL 7-21 (BEAKER) (test kbwv=393) CREATININE (BEAKER) (test 0.92 mg/dL 0.57-1.25 psit=899) GLUCOSE RANDOM (BEAKER) 228 mg/dL 70-105 (test kmxm=550) CALCIUM (BEAKER) (test 9.2 mg/dL 8.4-10.2 pomx=436) EGFR (BEAKER) (test 74 mL/min/1.73 sq m ESTIMATED GFR IS NOT dvxw=0075) ACCURATE CREATININE CLEARANCE IN PREDICTING GLOMERULAR FILTRATION RATE. ESTIMATED GFR IS NOT APPLICABLE FOR DIALYSIS PATIENTS. POCT-GLUCOSE [id number] 06:21:00 Test Item Value Reference Range Comments POC-GLUCOSE METER (BEAKER) 282 mg/dL 70-[address] [facility] [address] [facility] (test jcli=7095) [facility] [address] CBC W/PLT COUNT & AUTO [id number] 04:01:00 Test Item Value Reference Range Comments WHITE BLOOD CELL COUNT (BEAKER) (test bhcl=141) 8.1 K/ L 3.5-10.5 RED BLOOD CELL COUNT (BEAKER) (test rdsg=680) 4.41 M/ L 3.93-5.22 HEMOGLOBIN (BEAKER) (test jduq=727) 12.2 GM/DL 11.2-15.7 HEMATOCRIT (BEAKER) (test vsru=827) 38.7 % 34.1-44.9 MEAN CORPUSCULAR VOLUME (BEAKER) (test msed=776) 87.8 fL 79.4-94.8 MEAN CORPUSCULAR HEMOGLOBIN (BEAKER) (test 27.7 pg 25.6-32.2 pfgl=230) MEAN CORPUSCULAR HEMOGLOBIN CONC (BEAKER) (test 31.5 GM/DL 32.2-35.5 osdr=047) RED CELL DISTRIBUTION WIDTH (BEAKER) (test 13.4 % 11.7-14.4 wjez=185) PLATELET COUNT (BEAKER) (test moqq=840) 207 K/CU MM 150-450 MEAN PLATELET VOLUME (BEAKER) (test sgwy=092) 10.2 fL 9.4-12.3 NUCLEATED RED BLOOD CELLS (BEAKER) (test 0 /100 WBC 0-0 mpiw=201) NEUTROPHILS RELATIVE PERCENT (BEAKER) (test 68 % eqwx=304) LYMPHOCYTES RELATIVE PERCENT (BEAKER) (test 21 % hayz=453) MONOCYTES RELATIVE PERCENT (BEAKER) (test 9 % mcjh=617) EOSINOPHILS RELATIVE PERCENT (BEAKER) (test 1 % iziu=357) BASOPHILS RELATIVE PERCENT (BEAKER) (test 1 % azci=192) NEUTROPHILS ABSOLUTE COUNT (BEAKER) (test 5.56 K/ L 1.56-6.13 ghcw=443) LYMPHOCYTES ABSOLUTE COUNT (BEAKER) (test 1.74 K/ L 1.18-3.74 fzlv=307) MONOCYTES ABSOLUTE COUNT (BEAKER) (test 0.71 K/ L 0.24-0.36 iaib=578) EOSINOPHILS ABSOLUTE COUNT (BEAKER) (test 0.05 K/ L 0.04-0.36 vydx=559) BASOPHILS ABSOLUTE COUNT (BEAKER) (test 0.04 K/ L 0.01-0.08 xedu=036) IMMATURE GRANULOCYTES-RELATIVE PERCENT (BEAKER) 0 % 0-1 (test xomm=0847) BASIC METABOLIC [id number] 01:15:00 Test Item Value Reference Range Comments SODIUM (BEAKER) (test 144 meq/L 136-145 xbag=834) POTASSIUM (BEAKER) (test 3.4 meq/L 3.5-5.1 lffg=636) CHLORIDE (BEAKER) (test 109 meq/L 98-107 iadm=104) CO2 (BEAKER) (test 28 meq/L 22-29 blan=473) BLOOD UREA NITROGEN 13 mg/dL 7-21 (BEAKER) (test oggj=493) CREATININE (BEAKER) (test 0.97 mg/dL 0.57-1.25 aton=427) GLUCOSE RANDOM (BEAKER) 148 mg/dL 70-105 (test tpjs=542) CALCIUM (BEAKER) (test 9.3 mg/dL 8.4-10.2 noim=597) EGFR (BEAKER) (test 70 mL/min/1.73 sq m ESTIMATED GFR IS NOT pnao=1963) ACCURATE CREATININE CLEARANCE IN PREDICTING GLOMERULAR FILTRATION RATE. ESTIMATED GFR IS NOT APPLICABLE FOR DIALYSIS PATIENTS. POCT-GLUCOSE [id number] 00:17:00 Test Item Value Reference Range Comments POC-GLUCOSE METER (BEAKER) 148 mg/dL 70-[address] [facility] [address] [facility] (test tuan=2656) [place] [address] [id number] 20:22:00 Test Item Value Reference Range Comments PHOSPHORUS (BEAKER) (test gbkn=493) 2.5 mg/dL 2.3-4.7 BASIC METABOLIC [id number] 20:22:00 Test Item Value Reference Range Comments SODIUM (BEAKER) (test 147 meq/L 136-145 mmdj=213) POTASSIUM (BEAKER) (test 3.8 meq/L 3.5-5.1 qnyy=585) CHLORIDE (BEAKER) (test 112 meq/L 98-107 juwn=246) CO2 (BEAKER) (test 29 meq/L 22-29 mkza=782) BLOOD UREA NITROGEN 14 mg/dL 7-21 (BEAKER) (test uvil=163) CREATININE (BEAKER) (test 0.99 mg/dL 0.57-1.25 nxye=738) GLUCOSE RANDOM (BEAKER) 184 mg/dL 70-105 (test scwm=867) CALCIUM (BEAKER) (test 9.2 mg/dL 8.4-10.2 udop=748) EGFR (BEAKER) (test 68 mL/min/1.73 sq m ESTIMATED GFR IS NOT bsji=0300) ACCURATE CREATININE CLEARANCE IN PREDICTING GLOMERULAR FILTRATION RATE. ESTIMATED GFR IS NOT APPLICABLE FOR DIALYSIS PATIENTS. POCT-GLUCOSE [id number] 20:20:00 Test Item Value Reference Range Comments POC-GLUCOSE METER (BEAKER) 187 mg/dL 70-110 TESTED AT [place] [id number] [facility] (test fjdq=4466) [place] [id number] POCT-GLUCOSE [id number] 17:13:00 Test Item Value Reference Range Comments POC-GLUCOSE METER (BEAKER) 201 mg/dL 70-110 TESTED AT [address] (test mtrx=9265) [place] [address] RAD, ABDOMEN/KUB, 1 VIEW [id number] 15:38:00Reason for exam:->corpak placementFINAL REPORT CLINICAL HISTORY: corpak placement TECHNIQUE: Supine abdomen IMPRESSION: The tip of the feeding tube is in the distal duodenum. The partially visualized bowel gas pattern is nonspecific with moderate stool in the visualized colon. Signed: Shana Parekh MDReport Verified Date/Time: 05/08/2018 15:38:04 Reading Location: [address] Consult Reading Room BASI METABOLIC [id number] 15:17:00 Test Item Value Reference Range Comments SODIUM (BEAKER) (test 145 meq/L 136-145 fvww=644) POTASSIUM (BEAKER) (test 3.2 meq/L 3.5-5.1 gtgq=122) CHLORIDE (BEAKER) (test 111 meq/L 98-107 mroc=603) CO2 (BEAKER) (test 25 meq/L 22-29 dhax=167) BLOOD UREA NITROGEN 19 mg/dL 7-21 (BEAKER) (test gemv=550) CREATININE (BEAKER) (test 0.96 mg/dL 0.57-1.25 hzxv=535) GLUCOSE RANDOM (BEAKER) 90 mg/dL 70-105 (test xzce=413) CALCIUM (BEAKER) (test 9.4 mg/dL 8.4-10.2 caap=344) EGFR (BEAKER) (test 71 mL/min/1.73 sq m ESTIMATED GFR IS NOT celv=2213) ACCURATE CREATININE CLEARANCE IN PREDICTING GLOMERULAR FILTRATION RATE. ESTIMATED GFR IS NOT APPLICABLE FOR DIALYSIS PATIENTS. POCT-GLUCOSE [id number] 14:23:00 Test Item Value Reference Range Comments POC-GLUCOSE METER (BEAKER) 86 mg/dL 70-[address] [facility] [address] [facility] (test cxha=0791) [facility] [address] BASIC METABOLIC [id number] 13:23:00 Test Item Value Reference Range Comments SODIUM (BEAKER) (test 145 meq/L 136-145 iedm=518) POTASSIUM (BEAKER) (test 3.7 meq/L 3.5-5.1 Specimen slightly dadx=710) hemolyzed CHLORIDE (BEAKER) (test 109 meq/L 98-107 ffbb=755) CO2 (BEAKER) (test 25 meq/L 22-29 vupg=481) BLOOD UREA NITROGEN 18 mg/dL 7-21 (BEAKER) (test vovg=423) CREATININE (BEAKER) (test 0.97 mg/dL 0.57-1.25 Specimen slightly pocg=399) hemolyzed GLUCOSE RANDOM (BEAKER) 107 mg/dL 70-105 (test cmad=662) CALCIUM (BEAKER) (test 9.8 mg/dL 8.4-10.2 lrxm=577) EGFR (BEAKER) (test 70 mL/min/1.73 sq m ESTIMATED GFR IS NOT ffoy=0411) ACCURATE CREATININE CLEARANCE IN PREDICTING GLOMERULAR FILTRATION RATE. ESTIMATED GFR IS NOT APPLICABLE FOR DIALYSIS PATIENTS. POCT-GLUCOSE [id number] 13:15:00 Test Item Value Reference Range Comments POC-GLUCOSE METER (BEAKER) 140 mg/dL 70-110 TESTED AT [address] (test mwkv=4329) [place] [address] HEMOGLOBIN [id number] 13:13:00 Test Item Value Reference Range Comments HEMOGLOBIN A1C (BEAKER) (test xtcf=540) 17.1 % 4.3-6.1 POCT-GLUCOSE [id number] 12:14:00 Test Item Value Reference Range Comments POC-GLUCOSE METER (BEAKER) 159 mg/dL 70-110 TESTED AT [address] (test ligc=6725) [facility] [address] URINALYSIS W/ [id number] 12:10:00 Test Item Value Reference Range Comments COLOR (BEAKER) (test kxmf=431) Light Yellow CLARITY (BEAKER) (test bseb=772) Clear SPECIFIC GRAVITY UA (BEAKER) (test ytqd=515) 1.025 1.001-1.035 PH UA (BEAKER) (test xzdf=499) 7.0 5.0-8.0 PROTEIN UA (BEAKER) (test cygm=023) 30 mg/dL Negative GLUCOSE UA (BEAKER) (test bnbv=574) >1000 mg/dL Negative KETONES UA (BEAKER) (test yepy=554) Trace Negative BILIRUBIN UA (BEAKER) (test pqhs=461) Negative Negative BLOOD UA (BEAKER) (test xxdd=129) Negative Negative NITRITE UA (BEAKER) (test geig=621) Negative Negative LEUKOCYTE ESTERASE UA (BEAKER) (test ykkw=731) Negative Negative UROBILINOGEN UA (BEAKER) (test jsza=215) 0.2 mg/dL 0.2-1.0 RBC UA (BEAKER) (test byxf=932) < /HPF WBC UA (BEAKER) (test bsbc=430) 0 /HPF BACTERIA (BEAKER) (test chff=243) Rare SQUAMOUS EPITHELIAL (BEAKER) (test hkth=880) < /HPF SOURCE(BEAKER) (test nfye=0964) Urine, Gomez TROPONIN [id number] 11:07:00 Test Item Value Reference Range Comments TROPONIN I (BEAKER) (test wcik=606) < ng/mL 0.00-0.03 Troponin I (TnI) levels [...] disease, and persistent tachyarrhythmia.LACTIC ACID, VENOUS, WHOLE [id number] 11:07:00 Test Item Value Reference Range Comments LACTATE BLOOD VENOUS (2) 3.3 mmol/L 0.5-2.2 Specimen moderately hemolyzed (BEAKER) (test huqi=4341) Effective 11/26/2015: Units/Reference Range ChangeNew: 0.5-2.2 mmol/L Previous: 5 -20 mg/dLPOCT-GLUCOSE [id number] 11:05:00 Test Item Value Reference Range Comments POC-GLUCOSE METER (BEAKER) 249 mg/dL 70-[address] [facility] [address] [facility] (test ofsq=4961) [facility] [address] [id number] 11:00:00 Test Item Value Reference Range Comments POTASSIUM (BEAKER) (test xdzo=785) 3.7 meq/L 3.5-5.1 [id number] 11:00:00 Test Item Value Reference Range Comments MAGNESIUM (BEAKER) (test uwyr=003) 2.7 mg/dL 1.6-2.6 [id number] 11:00:00 Test Item Value Reference Range Comments PHOSPHORUS (BEAKER) (test vgfn=072) 1.6 mg/dL 2.3-4.7 [id number] 11:00:00 Test Item Value Reference Range Comments GLUCOSE RANDOM (BEAKER) (test lrug=884) 325 mg/dL 70-105 COMPREHENSIVE METABOLIC [id number] 11:00:00 Test Item Value Reference Range Comments TOTAL PROTEIN (BEAKER) 9.0 gm/dL 6.0-8.3 (test jhtu=624) ALBUMIN (BEAKER) (test 4.3 g/dL 3.5-5.0 hdtn=8205) ALKALINE PHOSPHATASE 90 U/L 40-150 (BEAKER) (test ylob=668) BILIRUBIN TOTAL (BEAKER) 0.3 mg/dL 0.2-1.2 (test qvra=838) SODIUM (BEAKER) (test 147 meq/L 136-145 snet=708) POTASSIUM (BEAKER) (test 3.7 meq/L 3.5-5.1 iyom=727) CHLORIDE (BEAKER) (test 106 meq/L 98-107 rlov=435) CO2 (BEAKER) (test 30 meq/L 22-29 eazt=040) BLOOD UREA NITROGEN 19 mg/dL 7-21 (BEAKER) (test hhcc=262) CREATININE (BEAKER) (test 1.20 mg/dL 0.57-1.25 ixby=263) GLUCOSE RANDOM (BEAKER) 325 mg/dL 70-105 (test izdw=425) CALCIUM (BEAKER) (test 10.2 mg/dL 8.4-10.2 ywre=676) AST (SGOT) (BEAKER) (test 14 U/L 5-34 wcpf=687) ALT (SGPT) (BEAKER) (test 11 U/L 6-55 iwhy=603) EGFR (BEAKER) (test 55 mL/min/1.73 sq m ESTIMATED GFR IS NOT dtdg=3275) ACCURATE CREATININE CLEARANCE IN PREDICTING GLOMERULAR FILTRATION RATE. ESTIMATED GFR IS NOT APPLICABLE FOR DIALYSIS PATIENTS. [id number] 10:46:00 Test Item Value Reference Range Comments PARTIAL THROMBOPLASTIN TIME (BEAKER) (test 22.6 seconds 22.5-36.0 islr=022) PROTHROMBIN [id number] 10:45:00 Test Item Value Reference Range Comments PROTIME (BEAKER) (test gitl=238) 13.2 seconds 11.7-14.7 INR (BEAKER) (test deqc=366) 1.0 <=5.9 RECOMMENDED COUMADIN/WARFARIN INR THERAPY RANGESSTANDARD DOSE: 2.0 - 3.0 Includes: PROPHYLAXIS forvenous thrombosis, systemic embolization; TREATMENT for venous thrombosis and/or pulmonary embolus.HIGH RISK: Target INR is 2.5-3.5 for patients with mechanical heart valves.CBC (HEMOGRAM ONLY)2018-05-08 10:35:00 Test Item Value Reference Range Comments WHITE BLOOD CELL COUNT (BEAKER) (test qvtx=596) 8.6 K/ L 3.5-10.5 RED BLOOD CELL COUNT (BEAKER) (test qbys=084) 5.01 M/ L 3.93-5.22 HEMOGLOBIN (BEAKER) (test igkx=768) 14.1 GM/DL 11.2-15.7 HEMATOCRIT (BEAKER) (test drqq=388) 43.3 % 34.1-44.9 MEAN CORPUSCULAR VOLUME (BEAKER) (test hybh=258) 86.4 fL 79.4-94.8 MEAN CORPUSCULAR HEMOGLOBIN (BEAKER) (test 28.1 pg 25.6-32.2 xykq=289) MEAN CORPUSCULAR HEMOGLOBIN CONC (BEAKER) (test 32.6 GM/DL 32.2-35.5 znav=745) RED CELL DISTRIBUTION WIDTH (BEAKER) (test 13.1 % 11.7-14.4 rnhe=535) PLATELET COUNT (BEAKER) (test fmfn=665) 224 K/CU MM 150-450 MEAN PLATELET VOLUME (BEAKER) (test hmoj=653) 10.2 fL 9.4-12.3 NUCLEATED RED BLOOD CELLS (BEAKER) (test 0 /100 WBC 0-0 ftwh=958) POCT-GLUCOSE [id number] 09:26:00 Test Item Value Reference Range Comments POC-GLUCOSE METER (BEAKER) 389 mg/dL 70-110 Patient on insulin Drip/TESTED (test igcs=4045) AT [facility] [address] [facility] [address] POCT-GLUCOSE [id number] 08:12:00 Test Item Value Reference Range Comments POC-GLUCOSE METER (BEAKER) 384 mg/dL 70-110 Patient on insulin Drip/TESTED (test tukn=3910) AT [address] [address]
[2019-03-20 13:24] LABS: Absolute Lymphocytes (CBC) 1.4 K/uL (0.7-4.9); Basophils % 0.5 % (0-1.3); Hematocrit 39.5 % (36.0-45.0); Lymphocytes % 23.4 % (15.3-44.8); RBC Red Blood Cell Count 4.57 M/uL (3.86-4.86)
--- NOTE | 2019-03-20 13:29 | RAD REPORT ---
EXAM DESCRIPTION: RAD - Chest Single View - 03/20/2019 1:20 pm CLINICAL HISTORY: Cough, hypertension COMPARISON: August 2018 TECHNIQUE: AP portable chest image was obtained 1246 hour . FINDINGS: Lung volumes are low. Hazy opacification retrocardiac left base is not clearly different f rom the prior study when adjusting for inspiratory effort and film technique. Posterior gutter pneumo foreign on the left is unlikely unless there are strong supporting clinical findings. Lung cueva are otherwise clear. No failure or volume overload. Heart and vasculature are normal. No measurable pleural effusion and no pneumothorax. No acute bony abnormality seen. No acute aortic findings suspected. IMPRESSION: Limited shallow inspiration film not substantially different from August comparison. Film technique and shallow inspiration limit retrocardiac base assessment. Acute pneumonia in the lef t base is doubtful without strong supporting clinical findings.
[2019-03-20 13:44] LABS: ALT/SGPT 17 U/L (12-78); AST/SGOT 15 U/L (15-37); Albumin 3.9 g/dL (3.4-5.0); Alkaline Phosphatase 70 U/L (45-117); BUN Blood Urea Nitrogen 20 mg/dL (7-18); Bicarbonate 27 mmol/L (21-32); Bilirubin Direct < 0.1 mg/dL (0-0.2); Bilirubin Total 0.2 mg/dL (0.2-1.0); Glucose Level 98 mg/dL (74-106); Magnesium 1.8 mg/dL (1.8-2.4); NT PRO-BNP 85 pg/mL (<125); Potassium 3.6 mmol/L (3.5-5.1); Protein, Total 9.1 g/dL (6.4-8.2); Sodium Level 141 mmol/L (136-145); Troponin (Emerg Dept Use Only) < 0.02 ng/mL (0.0-0.045)
--- NOTE | 2019-03-20 14:02 | ER ---
Nurse's Notes [facility] Name: Génesis Manzano Age: 68 yrs Sex: Female : 1950 Arrival Date: 03/20/2019 Time: 11:43 Bed 13 Private MD: Sha Sawant Diagnosis: Essential (primary) hypertension;Urinary tract infection, site not specified Presentation: 03/20 11:50 Presenting complaint: Child states: Her BP has been running high for a while. la1 Transition of care: patient was not received from another setting of care. Onset of symptoms was March 20, 2019. Risk Assessment: Do you want to hurt yourself or someone else? Patient reports no desire to harm self or others. Initial Sepsis Screen: Does the patient meet any 2 criteria? No. Patient's initial sepsis screen is negative. Does the patient have a suspected source of infection? No. Patient's initial sepsis screen is negative. Care prior to arrival: None. 11:50 Method Of Arrival: Ambulatory la1 11:50 Acuity: JODI 3 la1 Triage Assessment: 11:56 General: Appears in no apparent distress. uncomfortable, Behavior is calm, cooperative, hj appropriate for age. Pain: Denies pain. Historical: - Allergies: 11:50 No Known Allergies; la1 - Home Meds: 12:00 amlodipine 10 mg tab once daily [Active]; aspirin 81 mg Oral tab 1 tab once daily hj [Active]; clonidine HCl 0.2 mg Oral tab 2 times per day [Active]; glipizide 10 mg Oral tab 1 tab 2 times per day [Active]; hydrochlorothiazide 25 mg Oral tab once daily [Active]; Levemir 100 unit/mL subcutaneous soln 40 unit twice a day [Active]; metformin 1,000 mg Oral tab 2 times per day [Active]; metoprolol tartrate 50 mg Oral tab 1 tab 2 times per day [Active]; potassium chloride 10 mEq Oral cpER 1 tab once daily [Active]; rosuvastatin 20 mg Oral tab 1 tab once daily [Active]; - PMHx: 11:50 CVA; Deaf; Diabetes - IDDM; Hyperlipidemia; Hypertension; la1 - PSHx: 12:00 cataracts; Hysterectomy; hj - Immunization history:: Adult Immunizations up to date. - Social history:: Smoking status: Patient/guardian denies using tobacco. - Ebola Screening: : No symptoms or risks identified at this time. - Family history:: not pertinent. Screenin:56 Abuse screen: Denies threats or abuse. Denies injuries from another. Nutritional hj screening: No deficits noted. Tuberculosis screening: No symptoms or risk factors identified. Fall Risk None identified. Assessment: 11:49 General: Appears in no apparent distress. uncomfortable, Behavior is calm, cooperative, hj appropriate for age, deaf. Pain: Denies pain. Neuro: Level of Consciousness is awake, alert, obeys commands, Oriented to person, place, time, situation, Appropriate for age Speech deaf. Cardiovascular: Capillary refill < 3 seconds Patient's skin is warm and dry. Respiratory: Airway is patent Respiratory effort is even, unlabored, Respiratory pattern is regular, symmetrical. GI: No signs and/or symptoms were reported involving the gastrointestinal system. : No signs and/or symptoms were reported regarding the genitourinary system. EENT: No signs and/or symptoms were reported regarding the EENT system. Derm: No signs and/or symptoms reported regarding the dermatologic system. Musculoskeletal: No signs and/or symptoms reported regarding the musculoskeletal system. 12:50 Reassessment: Patient and/or family updated on plan of care and expected duration. Pain hj level reassessed. Patient is alert, oriented x 3, equal unlabored respirations, skin warm/dry/pink. 13:10 Reassessment: pending blood works and IV';. hj Vital Signs: 11:50 BP 185 / 98; Pulse 90; Resp 16; Temp 99.0(TE); Pulse Ox 99% on R/A; la1 13:11 BP 175 / 95; Pulse 89; Resp 18; Pulse Ox 100% on R/A; hj 14:04 BP 162 / 91; Pulse 88; Resp 18; Pulse Ox 100% on R/A; hj ED Course: 11:43 Patient arrived in ED. mr 11:43 Sha Sawant MD is Private Physician. mr 11:49 Arm band placed on left wrist. la1 11:51 Triage completed. la1 11:55 Feliciano Potter, RN is Primary Nurse. hj 11:57 Patient has correct armband on for positive identification. Placed in gown. Bed in low hj position. Call light in reach. Side rails up X 1. Adult w/ patient. 11:59 Maxwell Mcbride MD is Attending Physician. [facility] 12:18 EKG done, by cardiac technologist. reviewed by Maxwell Mcbride MD. [facility] 13:18 Initial lab(s) drawn, by ca, sent to lab. Inserted saline lock: 22 gauge in right iw antecubital area, using aseptic technique. Blood collected. 13:21 XRAY Chest (1 view) In Process Unspecified. EDIN 14:01 Sha Sawant MD is Referral Physician. [facility] 14:01 Pipo Vera MD is Referral Physician. [facility] 14:14 Urine Culture Sent. [email or web address] Administered Medications: 14:19 Drug: Spironolactone 50 mg Route: PO; 14:19 Follow up: Response: No adverse reaction 14:32 Drug: Rocephin 1 grams Route: IV; Rate: per protocol; Site: right antecubital; hj 14:37 Follow up: IV Status: Completed infusion; IV Intake: 10ml hj Intake: 14:37 IV: 10ml; Total: 10ml. Outcome: 14:01 Discharge ordered by . [facility] 14:41 Patient left the ED. Signatures: Dispatcher [employer] EDIN Maxwell Mcbride MD MD cha Rivera, Mary mr Eve Roman, RN Vladimir Allen RN RN idFeliciano Julio, RN Vivien Enamorado 3 Herminia Devries [email or web address] Corrections: (The following items were deleted from the chart) 14:06 14:04 BP 178 / 92; Pulse 88bpm; Resp 18bpm; Pulse Ox 100% RA; hj hj
--- NOTE | 2019-03-20 14:03 | EDPHYS ---
Physician Documentation [facility] Name: Génesis Manzano Age: 68 yrs Sex: Female : 1950 Arrival Date: 03/20/2019 Time: 11:43 Bed 13 Private MD: Sha Sawant ED Physician Maxwell Mcbride HPI: 03/20 13:29 This 68 yrs old Black Female presents to ER via Ambulatory with complaints of High conrado Blood Pressure. 13:29 The patient has elevated blood pressure and discovered this at home, with a home conrado device. Onset: The symptoms/episode began/occurred 2 day(s) ago. Modifying factors: The symptoms are aggravated by activity, The symptoms are alleviated by remaining still. Associated signs and symptoms: The patient has no apparent associated signs or symptoms. Severity of symptoms: At its worst the blood pressure was mild, moderate, in the emergency department the blood pressure is unchanged. The patient has not experienced similar symptoms in the past. Historical: - Allergies: 11:50 No Known Allergies; la1 - Home Meds: 12:00 amlodipine 10 mg tab once daily [Active]; aspirin 81 mg Oral tab 1 tab once daily [Active]; clonidine HCl 0.2 mg Oral tab 2 times per day [Active]; glipizide 10 mg Oral tab 1 tab 2 times per day [Active]; hydrochlorothiazide 25 mg Oral tab once daily [Active]; Levemir 100 unit/mL subcutaneous soln 40 unit twice a day [Active]; metformin 1,000 mg Oral tab 2 times per day [Active]; metoprolol tartrate 50 mg Oral tab 1 tab 2 times per day [Active]; potassium chloride 10 mEq Oral cpER 1 tab once daily [Active]; rosuvastatin 20 mg Oral tab 1 tab once daily [Active]; - PMHx: 11:50 CVA; Deaf; Diabetes - IDDM; Hyperlipidemia; Hypertension; la1 - PSHx: 12:00 cataracts; Hysterectomy; hj - Immunization history:: Adult Immunizations up to date. - Social history:: Smoking status: Patient/guardian denies using tobacco. - Ebola Screening: : No symptoms or risks identified at this time. - Family history:: not pertinent. ROS: 13:29 Constitutional: Negative for fever, chills, and weight loss, Eyes: Negative for injury, conrado pain, redness, and discharge, ENT: Negative for injury, pain, and discharge, Neck: Negative for injury, pain, and swelling, Cardiovascular: Negative for chest pain, palpitations, and edema, Respiratory: Negative for shortness of breath, cough, wheezing, and pleuritic chest pain, Abdomen/GI: Negative for abdominal pain, nausea, vomiting, diarrhea, and constipation, Back: Negative for injury and pain, : Negative for injury, bleeding, discharge, and swelling, MS/Extremity: Negative for injury and deformity, Skin: Negative for injury, rash, and discoloration, Neuro: Negative for headache, weakness, numbness, tingling, and seizure, Psych: Negative for depression, anxiety, suicide ideation, homicidal ideation, and hallucinations, Allergy/Immunology: Negative for hives, rash, and allergies, Endocrine: Negative for neck swelling, polydipsia, polyuria, polyphagia, and marked weight changes, Hematologic/Lymphatic: Negative for swollen nodes, abnormal bleeding, and unusual bruising. Exam: 13:34 Constitutional: This is a well developed, well nourished patient who is awake, alert, conrado and in no acute distress. Head/Face: Normocephalic, atraumatic. Eyes: Pupils equal round and reactive to light, extra-ocular motions intact. Lids and lashes normal. Conjunctiva and sclera are non-icteric and not injected. Cornea within normal limits. Periorbital areas with no swelling, redness, or edema. ENT: Nares patent. No nasal discharge, no septal abnormalities noted. Tympanic membranes are normal and external auditory canals are clear. Oropharynx with no redness, swelling, or masses, exudates, or evidence of obstruction, uvula midline. Mucous membranes moist. Neck: Trachea midline, no thyromegaly or masses palpated, and no cervical lymphadenopathy. Supple, full range of motion without nuchal rigidity, or vertebral point tenderness. No Meningismus. Chest/axilla: Normal chest wall appearance and motion. Nontender with no deformity. No lesions are appreciated. Cardiovascular: Regular rate and rhythm with a normal S1 and S2. No gallops, murmurs, or rubs. Normal PMI, no JVD. No pulse deficits. Respiratory: Lungs have equal breath sounds bilaterally, clear to auscultation and percussion. No rales, rhonchi or wheezes noted. No increased work of breathing, no retractions or nasal flaring. Abdomen/GI: Soft, non-tender, with normal bowel sounds. No distension or tympany. No guarding or rebound. No evidence of tenderness throughout. Back: No spinal tenderness. No costovertebral tenderness. Full range of motion. Female : Normal external genitalia. Skin: Warm, dry with normal turgor. Normal color with no rashes, no lesions, and no evidence of cellulitis. MS/ Extremity: Pulses equal, no cyanosis. Neurovascular intact. Full, normal range of motion. Neuro: Awake and alert, GCS 15, oriented to person, place, time, and situation. Cranial nerves II-XII grossly intact. Motor strength 5/5 in all extremities. Sensory grossly intact. Cerebellar exam normal. Normal gait. Psych: Awake, alert, with orientation to person, place and time. Behavior, mood, and affect are within normal limits. Vital Signs: 11:50 BP 185 / 98; Pulse 90; Resp 16; Temp 99.0(TE); Pulse Ox 99% on R/A; la1 13:11 BP 175 / 95; Pulse 89; Resp 18; Pulse Ox 100% on R/A; hj 14:04 BP 162 / 91; Pulse 88; Resp 18; Pulse Ox 100% on R/A; hj MDM: 11:59 Patient medically screened. [facility] 13:35 Data reviewed: vital signs, nurses notes, lab test result(s), EKG, radiologic studies, conrado plain films. 03/20 12:00 Order name: Basic Metabolic Panel; Complete Time: 13:57 [facility] 03/20 12:00 Order name: CBC with Diff; Complete Time: 13:27 [facility] 03/20 12:00 Order name: LFT's; Complete Time: 13:57 [facility] 03/20 12:00 Order name: Magnesium; Complete Time: 13:57 [facility] 03/20 12:00 Order name: NT PRO-BNP; Complete Time: 13:57 [facility] 03/20 12:00 Order name: PT-INR; Complete Time: 13:57 [facility] 03/20 12:00 Order name: Troponin (emerg Dept Use Only); Complete Time: 13:57 [facility] 03/20 12:00 Order name: XRAY Chest (1 view); Complete Time: 13:57 [facility] 03/20 12:00 Order name: EKG; Complete Time: 12:02 [facility] 03/20 12:00 Order name: Cardiac monitoring; Complete Time: 12:00 [facility] 03/20 12:00 Order name: Urine Culture [facility] 03/20 14:17 Order name: Urine Dipstick--Ancillary (enter results) 03/20 12:00 Order name: EKG - Nurse/Tech; Complete Time: 14: [facility] 03/20 12:00 Order name: IV Saline Lock; Complete Time: 13: [facility] 03/20 12:00 Order name: Labs collected and sent; Complete Time: 13: [facility] 03/20 12:00 Order name: O2 Per Protocol; Complete Time: 12: [facility] 03/20 12:00 Order name: O2 Sat Monitoring; Complete Time: 12: [facility] 03/20 12:00 Order name: Urine Dipstick-Ancillary (obtain specimen); Complete Time: 14: [facility] 03/20 14:00 Order name: Vital Signs; Complete Time: 14:03 [facility] Administered Medications: 14:19 Drug: Spironolactone 50 mg Route: PO; 14:19 Follow up: Response: No adverse reaction 14:32 Drug: Rocephin 1 grams Route: IV; Rate: per protocol; Site: right antecubital; 14:37 Follow up: IV Status: Completed infusion; IV Intake: 10ml Disposition: 03/20/19 14:01 Discharged to Home. Impression: Essential (primary) hypertension, Urinary tract infection, site not specified. - Condition is Stable. - Discharge Instructions: Hypertension, Urinary Tract Infection, Adult, Sxyh-[id number], Hypertension, Csxw-ah-[id number], How to Take Your Blood Pressure, Qzyb-qk-Qzim, Managing Your Hypertension. - Prescriptions for spironolactone 100 mg Oral tablet - take 1 tablet by ORAL route once daily; 20 tablet. Cipro 250 mg Oral Tablet - take 1 tablet by ORAL route every 12 hours; 14 tablet. - Medication Reconciliation Form, Thank You Letter, Antibiotic Education, Prescription Opioid Use form. - Follow up: Sha Sawant; When: 2 - 3 days; Reason: Recheck today's complaints, Continuance of care, Re-evaluation by your physician. Follow up: Pipo Vera MD; When: 2 - 3 days; Reason: Recheck today's complaints, Re-evaluation by your physician. - Problem is new. - Symptoms have improved. Signatures: Dispatcher [employer] EDCT Maxwell Mcbride MD MD cha Attema, Lee RN RN la1 Feliciano Potter RN RN hj Corrections: (The following items were deleted from the chart) 14:32 14:01 03/20/2019 14:01 Discharged to Home. Impression: Essential (primary) conrado hypertension. Condition is Stable. Discharge Instructions: Hypertension, Hypertension, Rklg-bl-Hvsw, How to Take Your Blood Pressure, Vkdd-rh-Xpkv, Managing Your Hypertension. Prescriptions for spironolactone 100 mg Oral tablet - take 1 tablet by ORAL route once daily; 20 tablet. and Forms are Medication Reconciliation Form, Thank You Letter, Antibiotic Education, Prescription Opioid Use. Follow up: Sha Sawant; When: 2 - 3 days; Reason: Recheck today's complaints, Continuance of care, Re-evaluation by your physician. Follow up: Pipo Vera; When: 2 - 3 days; Reason: Recheck today's complaints, Re-evaluation by your physician. Problem is new. Symptoms have improved. [facility] 14:41 14:32 03/20/2019 14:01 Discharged to Home. Impression: Essential (primary) hj hypertension; Urinary tract infection, site not specified. Condition is Stable. Discharge Instructions: Hypertension, Hypertension, Yrew-ta-Hiwx, How to Take Your Blood Pressure, Weww-wj-Ggxb, Managing Your Hypertension. Prescriptions for spironolactone 100 mg Oral tablet - take 1 tablet by ORAL route once daily; 20 tablet. and Forms are Medication Reconciliation Form, Thank You Letter, Antibiotic Education, Prescription Opioid Use. Follow up: Sha Sawant; When: 2 - 3 days; Reason: Recheck today's complaints, Continuance of care, Re-evaluation by your physician. Follow up: Pipo Vera; When: 2 - 3 days; Reason: Recheck today's complaints, Re-evaluation by your physician. Problem is new. Symptoms have improved. conrado
[2019-03-20] MEDS ORDERED: CEFTRIAXONE/SWI 1gm 1 GM/10 ML SYR ONE (14:34)
[2019-03-20] MEDS ORDERED: SPIRONOLACTONE 25 MG TABLET PO ONE (15:00)
[2019-03-20 16:11] LABS: Urine Glucose TRACE (NEG)
[2019-03-20 16:12] LABS: Urine Blood NEGATIVE (NEG); Urine Protein NEGATIVE (NEG)
[2019-03-20 16:22] VITALS: TEMP 99
[2019-03-20 16:29] VITALS: O2SAT 100
[2019-03-20 16:30] VITALS: BP 162/91
--- NOTE | 2019-03-20 18:26 | EKG ---
Test Date: 2019-03-20 Test Time: 12:12:51 Pellet Post Inspector: JAZMYNE MEASUREMENT RESULTS: Intervals: Rate: 87 DC: 180 QRSD: 88 QT: 366 QTc: 440 [place]: P: 39 DC: 180 QRS: 11 T: 21 INTERPRETIVE STATEMENTS: Normal sinus rhythm Minimal voltage criteria for LVH, may be normal variant Cannot rule out Anterior infarct, age undetermined Abnormal ECG Compared to ECG 09/13/2018 21:19:23 Left ventricular hypertrophy now present Myocardial infarct finding now present T-wave abnormality no longer present Prolonged QT interval no longer present Electronically Signed On 03-20-19 18:23:48 CDT by Albaro Holley
== END 2019-03-20 14:41 | disposition home or self-care (01) ==
LOC: ER 11:39
DX: N39.0 Urinary tract infection, site not specified (principal); E78.5 Hyperlipidemia, unspecified; E11.9 Type 2 diabetes mellitus without complications; Z79.4 Long term (current) use of insulin; Z79.82 Long term (current) use of aspirin; Z86.73 Personal history of transient ischemic attack (TIA), and cerebral infarction without residual deficits
CPT/HCPCS: 93005; 87088; 85025; 87086; 80048; 36415; 83735; 85610; 80076; 81003; 84484; 83880; 71045; J0696; 96374; 99284

== ENCOUNTER 2019-05-21 09:59 | Emergency (ER) | payer OTHER ==
[2019-05-21] MEDS ORDERED: ONDANSETRON 4 MG (ODT) TAB ONE (10:33)
[2019-05-21] MEDS ORDERED: CODEINE 30MG/APAP 300MG TAB ONE (10:33)
--- NOTE | 2019-05-21 10:45 | RAD REPORT ---
EXAM DESCRIPTION: RAD - Ankle Left 3 View -05/21/2019 10:36 am CLINICAL HISTORY: Left ankle pain status post injury FINDINGS: No fracture or dislocation is seen. Soft tissue swelling. . Moderate plantar calcaneal spur
--- NOTE | 2019-05-21 11:49 | EDPHYS ---
Physician Documentation [facility] Name: Génesis Manzano Age: 68 yrs Sex: Female : 1950 Arrival Date: 05/21/2019 Time: 10:02 Bed 14 Private MD: Sha Sawant ED Physician Best Helton HPI: 05/21 10:59 This 68 yrs old Black Female presents to ER via Wheelchair with complaints of Left pm1 Ankle Injury. 10:59 The patient presents with pain, that is acute, swelling. The complaints affect the left pm1 ankle. Onset: The symptoms/episode began/occurred last night. Context: The problem was sustained at home, resulted from rolled ankle, The patient can fully bear weight on the affected extremity. the patient is able to ambulate, with mild difficulty. Associated signs and symptoms: Pertinent positives: swelling, Pertinent negatives: calf tenderness, numbness, tingling. Modifying factors: The symptoms are alleviated by elevation of extremity, the symptoms are aggravated by weight bearing. Severity of symptoms: in the emergency department the symptoms are unchanged. Historical: - Allergies: 10:11 No Known Allergies; tw2 - Home Meds: 10:11 amlodipine 10 mg tab once daily [Active]; aspirin 81 mg Oral tab 1 tab once daily tw2 [Active]; clonidine HCl 0.2 mg Oral tab 2 times per day [Active]; glipizide 10 mg Oral tab 1 tab 2 times per day [Active]; hydrochlorothiazide 25 mg Oral tab once daily [Active]; Levemir 100 unit/mL subcutaneous soln 40 unit twice a day [Active]; metformin 1,000 mg Oral tab 2 times per day [Active]; metoprolol tartrate 50 mg Oral tab 1 tab 2 times per day [Active]; potassium chloride 10 mEq Oral cpER 1 tab once daily [Active]; rosuvastatin 20 mg Oral tab 1 tab once daily [Active]; - PMHx: 10:11 CVA; Deaf; Diabetes - IDDM; Hyperlipidemia; Hypertension; tw2 - PSHx: 10:11 cataracts; Hysterectomy; tw2 - Immunization history:: Adult Immunizations. - Social history:: Smoking status: . - Ebola Screening: : Patient denies travel to an Ebola-affected area in the 21 days before illness onset. ROS: 10:59 Constitutional: Negative for fever, chills, and weight loss, Eyes: Negative for injury, pm1 pain, redness, and discharge, ENT: Negative for injury, pain, and discharge, Neck: Negative for injury, pain, and swelling, Cardiovascular: Negative for chest pain, palpitations, and edema, Respiratory: Negative for shortness of breath, cough, wheezing, and pleuritic chest pain, Abdomen/GI: Negative for abdominal pain, nausea, vomiting, diarrhea, and constipation, Back: Negative for injury and pain. 10:59 Skin: Negative for injury, rash, and discoloration, Neuro: Negative for headache, weakness, numbness, tingling, and seizure. 10:59 MS/extremity: Positive for pain, swelling, of the left lateral ankle, Negative for decreased range of motion, deformity. Exam: 10:59 Constitutional: This is a well developed, well nourished patient who is awake, alert, pm1 and in no acute distress. Head/Face: Normocephalic, atraumatic. Neck: Trachea midline, no thyromegaly or masses palpated, and no cervical lymphadenopathy. Supple, full range of motion without nuchal rigidity, or vertebral point tenderness. No Meningismus. Chest/axilla: Normal chest wall appearance and motion. Nontender with no deformity. No lesions are appreciated. Cardiovascular: Regular rate and rhythm with a normal S1 and S2. No gallops, murmurs, or rubs. Normal PMI, no JVD. No pulse deficits. Respiratory: Lungs have equal breath sounds bilaterally, clear to auscultation and percussion. No rales, rhonchi or wheezes noted. No increased work of breathing, no retractions or nasal flaring. Abdomen/GI: Soft, non-tender, with normal bowel sounds. No distension or tympany. No guarding or rebound. No evidence of tenderness throughout. Back: No spinal tenderness. No costovertebral tenderness. Full range of motion. Skin: Warm, dry with normal turgor. Normal color with no rashes, no lesions, and no evidence of cellulitis. 10:59 Musculoskeletal/extremity: Extremities: grossly normal except: noted in the left lateral ankle: swelling, tenderness, There is no evidence of decreased ROM, deformity. Vital Signs: 10:09 BP 153 / 93; Pulse 108; Resp 18; Temp 99.2(TE); Pulse Ox 99% on R/A; Weight 90.72 kg tw2 (R); Height 5 ft. 4 in. (162.56 cm); Pain 5/10; 12:27 BP 141 / 87; Pulse 87; Resp 18; Temp 98.1; Pulse Ox 99% on R/A; ph 10:09 Body Mass Index 34.33 (90.72 kg, 162.56 cm) tw2 MDM: 10:14 Patient medically screened. pm1 11:46 Data reviewed: vital signs. Data interpreted: Pulse oximetry: on room air is 99 %. pm1 Interpretation: normal. Counseling: I had a detailed discussion with the patient and/or guardian regarding: the historical points, exam findings, and any diagnostic results supporting the discharge/admit diagnosis, radiology results, the need for outpatient follow up, for definitive care, a orthopedic surgeon, to return to the emergency department if symptoms worsen or persist or if there are any questions or concerns that arise at home. 05/21 10:14 Order name: Ankle Left 3 View XRAY; Complete Time: 11:17 pm1 05/21 11:46 Order name: Splint - Ankle: Aircast; Complete Time: 12:03 pm1 05/21 12:15 Order name: Misc. Order: walker; Complete Time: 12:26 pm1 Administered Medications: 10:38 Drug: Zofran 4 mg Route: PO; ph 12:26 Follow up: Response: No adverse reaction ph 10:39 Drug: Tylenol #3 (300 mg-30 mg) 1 tablet Route: PO; ph 12:26 Follow up: Response: No adverse reaction; Pain is decreased; RASS: Alert and Calm (0) ph Disposition: 15:52 Co-signature as Attending Physician, Best Helton MD. rn Disposition: 05/21/19 11:48 Discharged to Home. Impression: Pain in left ankle and joints of left foot. - Condition is Stable. - Discharge Instructions: Cast or Splint Care, Adult, How to Use a Walker, Ankle Pain. - Prescriptions for Tramadol 50 mg Oral Tablet - take 1 tablet by ORAL route every 8 hours as needed; 12 tablet. - Medication Reconciliation Form, Thank You Letter, Antibiotic Education, Prescription Opioid Use form. - Follow up: Emergency Department; When: As needed; Reason: Worsening of condition. Follow up: Private Physician; When: 2 - 3 days; Reason: Recheck today's complaints, Continuance of care, Re-evaluation by your physician. - Problem is new. - Symptoms have improved. Signatures: Dispatcher [employer] EDBest Soler MD MD rn Hall, Patricia RN RN WhitleyZach, ANIMAL SHELTER MANAGER ANIMAL SHELTER MANAGER pm1 Edith Head RN RN tw2 Corrections: (The following items were deleted from the chart) 12:39 11:48 05/21/2019 11:48 Discharged to Home. Impression: Pain in left ankle and joints of ph left foot. Condition is Stable. Forms are Medication Reconciliation Form, Thank You Letter, Antibiotic Education, Prescription Opioid Use. Follow up: Emergency Department; When: As needed; Reason: Worsening of condition. Follow up: Private Physician; When: 2 - 3 days; Reason: Recheck today's complaints, Continuance of care, Re-evaluation by your physician. Problem is new. Symptoms have improved. pm1
--- NOTE | 2019-05-21 11:49 | ER ---
Nurse's Notes [facility] Name: Génesis Manzano Age: 68 yrs Sex: Female : 1950 Arrival Date: 05/21/2019 Time: 10:02 Bed 14 Private MD: Sha Sawant Diagnosis: Pain in left ankle and joints of left foot Presentation: 05/21 10:08 Presenting complaint: Child states: she fell last night and her LEFT ankle is hurting tw2 her, some swelling is there. Transition of care: patient was not received from another setting of care. Onset of symptoms was May 21, 2019. Risk Assessment: Do you want to hurt yourself or someone else? Patient reports no desire to harm self or others. Initial Sepsis Screen: Does the patient meet any 2 criteria? No. Patient's initial sepsis screen is negative. Does the patient have a suspected source of infection? No. Patient's initial sepsis screen is negative. Care prior to arrival: None. 10:08 Method Of Arrival: Wheelchair tw2 10:08 Acuity: JODI 4 tw2 10:10 Presenting complaint: Child states: she is not able to put weight on it. tw2 Triage Assessment: 10:09 General: Appears in no apparent distress. Behavior is calm, cooperative, appropriate tw2 for age. Pain: Complains of pain in LEFT ankle. Historical: - Allergies: 10:11 No Known Allergies; tw2 - Home Meds: 10:11 amlodipine 10 mg tab once daily [Active]; aspirin 81 mg Oral tab 1 tab once daily tw2 [Active]; clonidine HCl 0.2 mg Oral tab 2 times per day [Active]; glipizide 10 mg Oral tab 1 tab 2 times per day [Active]; hydrochlorothiazide 25 mg Oral tab once daily [Active]; Levemir 100 unit/mL subcutaneous soln 40 unit twice a day [Active]; metformin 1,000 mg Oral tab 2 times per day [Active]; metoprolol tartrate 50 mg Oral tab 1 tab 2 times per day [Active]; potassium chloride 10 mEq Oral cpER 1 tab once daily [Active]; rosuvastatin 20 mg Oral tab 1 tab once daily [Active]; - PMHx: 10:11 CVA; Deaf; Diabetes - IDDM; Hyperlipidemia; Hypertension; tw2 - PSHx: 10:11 cataracts; Hysterectomy; tw2 - Immunization history:: Adult Immunizations. - Social history:: Smoking status: . - Ebola Screening: : Patient denies travel to an Ebola-affected area in the 21 days before illness onset. Screenin:50 Abuse screen: Denies threats or abuse. Denies injuries from another. Nutritional ph screening: No deficits noted. Tuberculosis screening: No symptoms or risk factors identified. Fall Risk None identified. Assessment: 10:49 General: Appears in no apparent distress. comfortable, well groomed, Behavior is calm, ph cooperative, appropriate for age. Pain: Complains of pain in left lateral ankle. Neuro: Level of Consciousness is awake, alert, obeys commands, Oriented to person, place, time, situation. Cardiovascular: Capillary refill < 3 seconds in bilateral fingers Patient's skin is warm and dry. Pulses are 2+ in right dorsalis pedis artery and left dorsalis pedis artery. Respiratory: Airway is patent Respiratory effort is even, unlabored, Respiratory pattern is regular, symmetrical. GI: No signs and/or symptoms were reported involving the gastrointestinal system. Derm: Skin is intact, is healthy with good turgor, Skin is pink, warm \T\ dry. Musculoskeletal: Circulation, motion, and sensation intact. Range of motion: intact in all extremities. 12:26 Reassessment: Patient appears in no apparent distress at this time. Patient and/or ph family updated on plan of care and expected duration. Pain level reassessed. Patient is alert, oriented x 3, equal unlabored respirations, skin warm/dry/pink. Vital Signs: 10:09 BP 153 / 93; Pulse 108; Resp 18; Temp 99.2(TE); Pulse Ox 99% on R/A; Weight 90.72 kg tw2 (R); Height 5 ft. 4 in. (162.56 cm); Pain 5/10; 12:27 BP 141 / 87; Pulse 87; Resp 18; Temp 98.1; Pulse Ox 99% on R/A; ph 10:09 Body Mass Index 34.33 (90.72 kg, 162.56 cm) tw2 ED Course: 10:02 Patient arrived in ED. mr 10:02 Sha Sawant MD is Private Physician. mr 10:09 Triage completed. tw2 10:09 Arm band placed on. tw2 10:13 Caldera, Lu, RN is Primary Nurse. ph 10:14 Zach Arreaga NP is PHCP. pm1 10:14 Best Helton MD is Attending Physician. pm1 10:37 Ankle Left 3 View XRAY In Process Unspecified. EDMS 10:51 Patient has correct armband on for positive identification. Bed in low position. Call ph light in reach. Side rails up X 1. Pulse ox on. NIBP on. Door closed. Noise minimized. 10:51 No provider procedures requiring assistance completed. Patient did not have IV access ph during this emergency room visit. 11:42 Seth wrap to left ankle Air stirrup applied to left ankle. dh3 12:38 pt provided w/ walker upon d/c, d/c home w/ family. ph Administered Medications: 10:38 Drug: Zofran 4 mg Route: PO; ph 12:26 Follow up: Response: No adverse reaction ph 10:39 Drug: Tylenol #3 (300 mg-30 mg) 1 tablet Route: PO; ph 12:26 Follow up: Response: No adverse reaction; Pain is decreased; RASS: Alert and Calm (0) ph Outcome: 11:48 Discharge ordered by MD. pm1 12:38 Discharged to home ambulatory, with family. ph 12:38 Condition: good 12:38 Discharge instructions given to patient, family, Instructed on discharge instructions, follow up and referral plans. medication usage, Demonstrated understanding of instructions, follow-up care, medications, Prescriptions given X 1. 12:39 Patient left the ED. ph Signatures: Dispatcher [employer] EDAK Kat Mahajan mr Lu Caldera RN RN Zach Arreaga, ADAM SALESPERSON NECKTIES pm1 Edith Head RN RN 2 Sydnee Mcdaniel 3
[2019-05-21 13:15] VITALS: O2SAT 99
[2019-05-21 13:17] VITALS: BP 141/87; TEMP 98.1
== END 2019-05-21 12:39 | disposition home or self-care (01) ==
LOC: ER 09:59
DX: E78.5 Hyperlipidemia, unspecified (principal); I10 Essential (primary) hypertension; H91.90 Unspecified hearing loss, unspecified ear; Z86.73 Personal history of transient ischemic attack (TIA), and cerebral infarction without residual deficits
CPT/HCPCS: 99284

== ENCOUNTER 2022-08-29 15:46 | Inpatient (IN) | payer OTHER ==
--- OUTSIDE RECORDS SUMMARY | 2022-08-29 15:48 | XMS REPORT | Continuity of Care Document ---
:1950 Author Organization [facility] t Address [address] [place] [address] Care Team Providers Name Role Phone MASOUD NOBLE Attending Clinician Unavailable MASOUD NOBLE Admitting Clinician Unavailable Problems Condition Condition Condition Status Onset Resolution Last Treating Co mments Source Name Details Category Date Date Treatment Clinician Date Acute deep Acute deep Disease Active 2017-[address] [facility]17 [facility] thrombosis [facility]: Me dical (DVT) of (DVT) of 00 Center right right lower lower extremity extremity Acute Acute Disease Active 2017-[address] [facility] encephalop encephalop 0-15 Anya kes athy athy 00:00: Medical 00 [place] Hyperglyce Hyperglyce Disease Active 2017-[address] wanda wanda 0-15 [facility] hyperosmol hyperosmol 00:00: Me dical ar ar 00 Center nonketotic nonketotic coma coma Provoked Provoked Disease Active 2017[facility] Acute Acute Disease Active 2017-[address] Metabolic Metabolic 0-15 [facility] encephalop encephalop 00:00: Me dical athy athy 00 Center Allergies, Adverse Reactions, Alerts Allergy Allergy Status Severity Reaction(s) Onset Inactive Treating Comm ents Source Name Type Date Date Clinician NO KNOWN Allergy Active [facility] Social History Social Habit Start Date Stop Date Quantity Comments Source Tobacco use and 2018-05-08 2018-05-[address] [facility] [address] Anya kes exposure 00:00:00 00:00:00 [facility] Center Sex Assigned At [birth year] DENNIS James 00:00:00 00:00:00 [facility] Center Smoking Status Start Date Stop Date Source Never smoker [facility] Medications This patient has no known medications. Procedures This patient has no known procedures. Results Test Description Test Time Test Comments Results Result Comments Source ISLET CELL AB SCR 2018-05-15 10:41:00 Test Item Value Reference Range Interpretation Comme nts ISLET CELL AB AUTOVERIFICATION (test code = Refer to individual Isl et Cell Ab 2556) and/or Islet Cell Ab Titer results. BLOOD [id number] 18:00:00 Test Item Value Reference Range Interpretation Comments CULTURE (BEAKER) (test No growth in 5 days code = 1095) BLOOD [id number] 18:00:00 Test Item Value Reference Range Interpretation Comments CULTURE (BEAKER) (test No growth in 5 days code = 1095) POCT-GLUCOSE [id number] 17:18:00 Test Item Value Reference Range Interpretation Comments POC-GLUCOSE METER 184 mg/dL 70-110 H TESTED AT [facility] 6720 (BEAKER) (test code = TONO Schultz [place] [id number]) [address] POCT-GLUCOSE [id number] 11:53:00 Test Item Value Reference Range Interpretation Comments POC-GLUCOSE METER 430 mg/dL 70-110 HH Notified R Brenna IBRAHIM/TESTED (BEAKER) (test code = AT [facility] [address] 1538) [facility] 7703 0 POCT-GLUCOSE [id number] 08:12:00 Test Item Value Reference Range Interpretation Comments POC-GLUCOSE METER 125 mg/dL 70-110 H TESTED AT [facility] 6720 (BEAKER) (test code = TONO Schultz [facility] 1538) [address] BASIC METABOLIC [id number] 05:51:00 Test Item Value Reference Range Interpretation Comments SODIUM (BEAKER) 136 meq/L 136-145 (test code = 381) POTASSIUM (BEAKER) 3.5 meq/L 3.5-5.1 (test code = 379) CHLORIDE (BEAKER) 104 meq/L 98-107 (test code = 382) CO2 (BEAKER) (test 24 meq/L 22-29 code = 355) BLOOD UREA NITROGEN 18 mg/dL 7-21 (BEAKER) (test code = 354) CREATININE (BEAKER) 1.00 mg/dL 0.57-1.25 (test code = 358) GLUCOSE RANDOM 107 mg/dL 70-105 H (BEAKER) (test code = 652) CALCIUM (BEAKER) 9.4 mg/dL 8.4-10.2 (test code = 697) EGFR (BEAKER) (test 67 mL/min/1.73 ESTIMA SHERYL GFR IS code = 1092) sq m NOT ACCURATE CREATININE CLEARANCE IN PREDICTING GLOMERULAR FILTRATION RATE . ESTIMATED GFR I S NOT APPLICABLE FOR DIALYSIS PATIEN TS. CBC W/PLT COUNT & AUTO [id number] 05:18:00 Test Item Value Reference Range Interpretation Comments WHITE BLOOD CELL COUNT (BEAKER) 7.8 K/ L 3.5-10.5 (test code = 775) RED BLOOD CELL COUNT (BEAKER) 4.85 M/ L 3.93-5.22 (test code = 761) HEMOGLOBIN (BEAKER) (test code = 13.3 GM/DL 11.2-15.7 410) HEMATOCRIT (BEAKER) (test code = 42.1 % 34.1-44.9 411) MEAN CORPUSCULAR VOLUME (BEAKER) 86.8 fL 79.4-94.8 (test code = 753) MEAN CORPUSCULAR HEMOGLOBIN 27.4 pg 25.6-32.2 (BEAKER) (test code = 751) MEAN CORPUSCULAR HEMOGLOBIN CONC 31.6 GM/DL 32.2-35.5 L (BEAKER) (test code = 752) RED CELL DISTRIBUTION WIDTH 13.7 % 11.7-14.4 (BEAKER) (test code = 412) PLATELET COUNT (BEAKER) (test 221 K/CU MM 150-450 code = 756) MEAN PLATELET VOLUME (BEAKER) 10.2 fL 9.4-12.3 (test code = 754) NUCLEATED RED BLOOD CELLS 0 /100 WBC 0-0 (BEAKER) (test code = 413) NEUTROPHILS RELATIVE PERCENT 55 % (BEAKER) (test code = 429) LYMPHOCYTES RELATIVE PERCENT 35 % (BEAKER) (test code = 430) MONOCYTES RELATIVE PERCENT 7 % (BEAKER) (test code = 431) EOSINOPHILS RELATIVE PERCENT 2 % (BEAKER) (test code = 432) BASOPHILS RELATIVE PERCENT 0 % (BEAKER) (test code = 437) NEUTROPHILS ABSOLUTE COUNT 4.33 K/ L 1.56-6.13 (BEAKER) (test code = 670) LYMPHOCYTES ABSOLUTE COUNT 2.76 K/ L 1.18-3.74 (BEAKER) (test code = 414) MONOCYTES ABSOLUTE COUNT (BEAKER) 0.53 K/ L 0.24-0.36 H (test code = 415) EOSINOPHILS ABSOLUTE COUNT 0.14 K/ L 0.04-0.36 (BEAKER) (test code = 416) BASOPHILS ABSOLUTE COUNT (BEAKER) 0.03 K/ L 0.01-0.08 (test code = 417) IMMATURE GRANULOCYTES-RELATIVE 0 % 0-1 PERCENT (BEAKER) (test code = 2801) POCT-GLUCOSE [id number] 00:22:00 Test Item Value Reference Range Interpretation Comments POC-GLUCOSE METER 123 mg/dL 70-110 H TESTED AT [place] [address] ([facility]) (test code = TONO Schultz [facility] 1538) [address] POCT-GLUCOSE [id number] 21:46:00 Test Item Value Reference Range Interpretation Comments POC-GLUCOSE METER 107 mg/dL 70-110 TESTED AT [place] [address] ([facility]) ([facility] = [facility] 1538) [address] POCT-GLUCOSE [id number] 17:12:00 Test Item Value Reference Range Interpretation Comments POC-GLUCOSE METER 218 mg/dL 70-110 H TESTED AT [place] [address] ([facility]) (test code = TONO Schultz [facility] 1538) [address] POCT-GLUCOSE [id number] 11:24:00 Test Item Value Reference Range Interpretation Comments POC-GLUCOSE METER 268 mg/dL 70-110 H TESTED AT [place] [address] ([facility]) (test code = [facility] Antoine [facility] 1538) [address] BASIC METABOLIC [id number] 10:12:00 Test Item Value Reference Range Interpretation Comments SODIUM (BEAKER) 140 meq/L 136-145 (test code = 381) POTASSIUM (BEAKER) 3.4 meq/L 3.5-5.1 L (test code = 379) CHLORIDE (BEAKER) 108 meq/L 98-107 H (test code = 382) CO2 (BEAKER) (test 28 meq/L 22-29 code = 355) BLOOD UREA NITROGEN 15 mg/dL 7-21 (BEAKER) (test code = 354) CREATININE (BEAKER) 0.92 mg/dL 0.57-1.25 (test code = 358) GLUCOSE RANDOM 228 mg/dL 70-105 H (BEAKER) (test code = 652) CALCIUM (BEAKER) 9.2 mg/dL 8.4-10.2 (test code = 697) EGFR (BEAKER) (test 74 mL/min/1.73 ESTIMA SHERYL GFR IS code = 1092) sq m NOT ACCURATE CREATININE CLEARANCE IN PREDICTING GLOMERULAR FILTRATION RATE . ESTIMATED GFR I S NOT APPLICABLE FOR DIALYSIS PATIEN TS. POCT-GLUCOSE [id number] 06:21:00 Test Item Value Reference Range Interpretation Comments POC-GLUCOSE METER 282 mg/dL 70-110 H TESTED AT [facility] 6720 (BEAKER) (test code = INDER[place]IT[place]ANCIA [place] 1538) [address] CBC W/PLT COUNT & AUTO [id number] 04:01:00 Test Item Value Reference Range Interpretation Comments WHITE BLOOD CELL COUNT (BEAKER) 8.1 K/ L 3.5-10.5 (test code = 775) RED BLOOD CELL COUNT (BEAKER) 4.41 M/ L 3.93-5.22 (test code = 761) HEMOGLOBIN (BEAKER) (test code = 12.2 GM/DL 11.2-15.7 410) HEMATOCRIT (BEAKER) (test code = 38.7 % 34.1-44.9 411) MEAN CORPUSCULAR VOLUME (BEAKER) 87.8 fL 79.4-94.8 (test code = 753) MEAN CORPUSCULAR HEMOGLOBIN 27.7 pg 25.6-32.2 (BEAKER) (test code = 751) MEAN CORPUSCULAR HEMOGLOBIN CONC 31.5 GM/DL 32.2-35.5 L (BEAKER) (test code = 752) RED CELL DISTRIBUTION WIDTH 13.4 % 11.7-14.4 (BEAKER) (test code = 412) PLATELET COUNT (BEAKER) (test 207 K/CU MM 150-450 code = 756) MEAN PLATELET VOLUME (BEAKER) 10.2 fL 9.4-12.3 (test code = 754) NUCLEATED RED BLOOD CELLS 0 /100 WBC 0-0 (BEAKER) (test code = 413) NEUTROPHILS RELATIVE PERCENT 68 % (BEAKER) (test code = 429) LYMPHOCYTES RELATIVE PERCENT 21 % (BEAKER) (test code = 430) MONOCYTES RELATIVE PERCENT 9 % (BEAKER) (test code = 431) EOSINOPHILS RELATIVE PERCENT 1 % (BEAKER) (test code = 432) BASOPHILS RELATIVE PERCENT 1 % (BEAKER) (test code = 437) NEUTROPHILS ABSOLUTE COUNT 5.56 K/ L 1.56-6.13 (BEAKER) (test code = 670) LYMPHOCYTES ABSOLUTE COUNT 1.74 K/ L 1.18-3.74 (BEAKER) (test code = 414) MONOCYTES ABSOLUTE COUNT (BEAKER) 0.71 K/ L 0.24-0.36 H (test code = 415) EOSINOPHILS ABSOLUTE COUNT 0.05 K/ L 0.04-0.36 (BEAKER) (test code = 416) BASOPHILS ABSOLUTE COUNT (BEAKER) 0.04 K/ L 0.01-0.08 (test code = 417) IMMATURE GRANULOCYTES-RELATIVE 0 % 0-1 PERCENT (BEAKER) (test code = 2801) BASIC METABOLIC [id number] 01:15:00 Test Item Value Reference Range Interpretation Comments SODIUM (BEAKER) 144 meq/L 136-145 (test code = 381) POTASSIUM (BEAKER) 3.4 meq/L 3.5-5.1 L (test code = 379) CHLORIDE (BEAKER) 109 meq/L 98-107 H (test code = 382) CO2 (BEAKER) (test 28 meq/L 22-29 code = 355) BLOOD UREA NITROGEN 13 mg/dL 7-21 (BEAKER) (test code = 354) CREATININE (BEAKER) 0.97 mg/dL 0.57-1.25 (test code = 358) GLUCOSE RANDOM 148 mg/dL 70-105 H (BEAKER) (test code = 652) CALCIUM (BEAKER) 9.3 mg/dL 8.4-10.2 (test code = 697) EGFR (BEAKER) (test 70 mL/min/1.73 ESTIMA SHERYL GFR IS code = 1092) sq m NOT ACCURATE CREATININE CLEARANCE IN PREDICTING GLOMERULAR FILTRATION RATE . ESTIMATED GFR I S NOT APPLICABLE FOR DIALYSIS PATIEN TS. POCT-GLUCOSE [id number] 00:17:00 Test Item Value Reference Range Interpretation Comments POC-GLUCOSE METER 148 mg/dL 70-110 H TESTED AT [facility] 67[address] ([facility]) (test code = TONO Schultz [place] 1538) [address] [id number] 20:22:00 Test Item Value Reference Range Interpretation Comments PHOSPHORUS (BEAKER) (test code = 2.5 mg/dL 2.3-4.7 604) BASIC METABOLIC [id number] 20:22:00 Test Item Value Reference Range Interpretation Comments SODIUM (BEAKER) 147 meq/L 136-145 H (test code = 381) POTASSIUM (BEAKER) 3.8 meq/L 3.5-5.1 (test code = 379) CHLORIDE (BEAKER) 112 meq/L 98-107 H (test code = 382) CO2 (BEAKER) (test 29 meq/L 22-29 code = 355) BLOOD UREA NITROGEN 14 mg/dL 7-21 (BEAKER) (test code = 354) CREATININE (BEAKER) 0.99 mg/dL 0.57-1.25 (test code = 358) GLUCOSE RANDOM 184 mg/dL 70-105 H (BEAKER) (test code = 652) CALCIUM (BEAKER) 9.2 mg/dL 8.4-10.2 (test code = 697) EGFR (BEAKER) (test 68 mL/min/1.73 ESTIMA SHERYL GFR IS code = 1092) sq m NOT ACCURATE CREATININE CLEARANCE IN PREDICTING GLOMERULAR FILTRATION RATE . ESTIMATED GFR I S NOT APPLICABLE FOR DIALYSIS PATIEN TS. POCT-GLUCOSE [id number] 20:20:00 Test Item Value Reference Range Interpretation Comments POC-GLUCOSE METER 187 mg/dL 70-110 H TESTED AT [facility] 67[address] ([facility]) (test code = TONO Schultz [place] 1538) [address] POCT-GLUCOSE [id number] 17:13:00 Test Item Value Reference Range Interpretation Comments POC-GLUCOSE METER 201 mg/dL 70-110 H TESTED AT [facility] 6720 ([facility]) (test code = INDERJITWA Antoine [place] 1538) [address] RAD, ABDOMEN/KUB, 1 VIEW [id number] 15:38:00Reason for exam:->corpak placementFINAL REPORT CLINICAL HISTORY: corpak placement TECHNIQUE: Supine abdomen IMPRESSION: The tip of the feeding tube is in the distal duodenum. The partially visualized bowel gas pattern is nonspecific with moderate stool in the visualized colon. Signed: Shana Parekh MDReport Verified Date/Time: 05/08/2018 15:38:04 Reading Location: [address] Consult Reading Room BASIC METABOLIC [id number] 15:17:00 Test Item Value Reference Range Interpretation Comments SODIUM (BEAKER) 145 meq/L 136-145 (test code = 381) POTASSIUM (BEAKER) 3.2 meq/L 3.5-5.1 L (test code = 379) CHLORIDE (BEAKER) 111 meq/L 98-107 H (test code = 382) CO2 (BEAKER) (test 25 meq/L 22-29 code = 355) BLOOD UREA NITROGEN 19 mg/dL 7-21 (BEAKER) (test code = 354) CREATININE (BEAKER) 0.96 mg/dL 0.57-1.25 (test code = 358) GLUCOSE RANDOM 90 mg/dL 70-105 (BEAKER) (test code = 652) CALCIUM (BEAKER) 9.4 mg/dL 8.4-10.2 (test code = 697) EGFR (BEAKER) (test 71 mL/min/1.73 ESTIMA SHERYL GFR IS code = 1092) sq m NOT ACCURATE CREATININE CLEARANCE IN PREDICTING GLOMERULAR FILTRATION RATE . ESTIMATED GFR I S NOT APPLICABLE FOR DIALYSIS PATIEN TS. POCT-GLUCOSE [id number] 14:23:00 Test Item Value Reference Range Interpretation Comments POC-GLUCOSE METER 86 mg/dL 70-110 TESTED AT [facility] 6720 (BEAKER) (test code = TONO Schultz [facility] [address]38) BASIC METABOLIC [id number] 13:23:00 Test Item Value Reference Range Interpretation Comments SODIUM (BEAKER) 145 meq/L 136-145 (test code = 381) POTASSIUM (BEAKER) 3.7 meq/L 3.5-5.1 Specimen slightly (test code = 379) hemolyzed CHLORIDE (BEAKER) 109 meq/L 98-107 H (test code = 382) CO2 (BEAKER) (test 25 meq/L 22-29 code = 355) BLOOD UREA NITROGEN 18 mg/dL 7-21 (BEAKER) (test code = 354) CREATININE (BEAKER) 0.97 mg/dL 0.57-1.25 Specimen slightly (test code = 358) hemolyzed GLUCOSE RANDOM 107 mg/dL 70-105 H (BEAKER) (test code = 652) CALCIUM (BEAKER) 9.8 mg/dL 8.4-10.2 (test code = 697) EGFR (BEAKER) (test 70 mL/min/1.73 ESTIMA SHERYL GFR IS code = 1092) sq m NOT ACCURATE CREATININE CLEARANCE IN PREDICTING GLOMERULAR FILTRATION RATE . ESTIMATED GFR I S NOT APPLICABLE FOR DIALYSIS PATIEN TS. POCT-GLUCOSE [id number] 13:15:00 Test Item Value Reference Range Interpretation Comments POC-GLUCOSE METER 140 mg/dL 70-110 H TESTED AT [place] [address] (BEAKER) (test code = TONO [place] 1538) [address] HEMOGLOBIN [id number] 13:13:00 Test Item Value Reference Range Interpretation Comments HEMOGLOBIN A1C (BEAKER) (test code = 17.1 % 4.3-6.1 H 368) POCT-GLUCOSE [id number] 12:14:00 Test Item Value Reference Range Interpretation Comments POC-GLUCOSE METER 159 mg/dL 70-110 H TESTED AT [place] [address] ([facility]) (test code = INDERJITFRANCIA Antoine [place] 1538) [address] URINALYSIS W/ [id number] 12:10:00 Test Item Value Reference Range Interpretation Comments COLOR (BEAKER) (test code = 470) Light Yellow CLARITY (BEAKER) (test code = Clear 469) SPECIFIC GRAVITY UA (BEAKER) 1.025 1.001-1.035 (test code = 468) PH UA (BEAKER) (test code = 467) 7.0 5.0-8.0 PROTEIN UA (BEAKER) (test code = 30 mg/dL Negative A 464) GLUCOSE UA (BEAKER) (test code = >1000 mg/dL Negative A 365) KETONES UA (BEAKER) (test code = Trace Negative A 371) BILIRUBIN UA (BEAKER) (test code Negative Negative = 462) BLOOD UA (BEAKER) (test code = Negative Negative 461) NITRITE UA (BEAKER) (test code = Negative Negative 465) LEUKOCYTE ESTERASE UA (BEAKER) Negative Negative (test code = 466) UROBILINOGEN UA (BEAKER) (test 0.2 mg/dL 0.2-1.0 code = 463) RBC UA (BEAKER) (test code = < /HPF 519) WBC UA (BEAKER) (test code = 0 /HPF 520) BACTERIA (BEAKER) (test code = Rare 517) SQUAMOUS EPITHELIAL (BEAKER) < /HPF (test code = 516) SOURCE(BEAKER) (test code = Urine, Gomez 1827) TROPONIN [id number] 11:07:00 Test Item Value Reference Range Interpretation Comments TROPONIN I (BEAKER) (test code = 397) < ng/mL 0.00-0.03 Troponin I (TnI) levels [...] disease, and persistent tachyarrhythmia.LACTIC ACID, VENOUS, WHOLE BLOOD 2018-05-08 11:07:00 Test Item Value Reference Range Interpretation Comments LACTATE BLOOD VENOUS 3.3 mmol/L 0.5-2.2 H Specime n moderately (2) (BEAKER) (test hemolyzed code = 2872) Effective 11/26/2015: Units/Reference Range ChangeNew: 0.5-2.2 mmol/L Previous: 5- 20 mg/dLPOCT-GLUCOSE [id number] 11:05:00 Test Item Value Reference Range Interpretation Comments POC-GLUCOSE METER 249 mg/dL 70-110 H TESTED AT [facility] 6720 (BEAKER) (test code = INDERJITFRANCIA [place] 1538) [address] [id number] 11:00:00 Test Item Value Reference Range Interpretation Comments MAGNESIUM (BEAKER) (test code = 2.7 mg/dL 1.6-2.6 H 627) [id number] 11:00:00 Test Item Value Reference Range Interpretation Comments PHOSPHORUS (BEAKER) (test code = 1.6 mg/dL 2.3-4.7 L 604) [id number] 11:00:00 Test Item Value Reference Range Interpretation Comments GLUCOSE RANDOM (BEAKER) (test code 325 mg/dL 70-105 H = 652) COMPREHENSIVE METABOLIC [id number] 11:00:00 Test Item Value Reference Range Interpretation Comments TOTAL PROTEIN 9.0 gm/dL 6.0-8.3 H (BEAKER) (test code = 770) ALBUMIN (BEAKER) 4.3 g/dL 3.5-5.0 (test code = 1145) ALKALINE PHOSPHATASE 90 U/L 40-150 (BEAKER) (test code = 346) BILIRUBIN TOTAL 0.3 mg/dL 0.2-1.2 (BEAKER) (test code = 377) SODIUM (BEAKER) (test 147 meq/L 136-145 H code = 381) POTASSIUM (BEAKER) 3.7 meq/L 3.5-5.1 (test code = 379) CHLORIDE (BEAKER) 106 meq/L 98-107 (test code = 382) CO2 (BEAKER) (test 30 meq/L 22-29 H code = 355) BLOOD UREA NITROGEN 19 mg/dL 7-21 (BEAKER) (test code = 354) CREATININE (BEAKER) 1.20 mg/dL 0.57-1.25 (test code = 358) GLUCOSE RANDOM 325 mg/dL 70-105 H (BEAKER) (test code = 652) CALCIUM (BEAKER) 10.2 mg/dL 8.4-10.2 (test code = 697) AST (SGOT) (BEAKER) 14 U/L 5-34 (test code = 353) ALT (SGPT) (BEAKER) 11 U/L 6-55 (test code = 347) EGFR (BEAKER) (test 55 mL/min/1.73 ESTIMA SHERYL GFR IS code = 1092) sq m NOT ACCURATE CREATININE CLEARANCE IN PREDICTING GLOMERULAR FILTRATION RATE . ESTIMATED GFR I S NOT APPLICABLE FOR DIALYSIS PATIEN TS. [id number] 11:00:00 Test Item Value Reference Range Interpretation Comments POTASSIUM (BEAKER) (test code = 3.7 meq/L 3.5-5.1 379) [id number] 10:46:00 Test Item Value Reference Range Interpretation Comments PARTIAL THROMBOPLASTIN TIME 22.6 seconds 22.5-36.0 (BEAKER) (test code = 760) PROTHROMBIN [id number] 10:45:00 Test Item Value Reference Range Interpretation Comments PROTIME (BEAKER) (test code = 13.2 seconds 11.7-14.7 759) INR (BEAKER) (test code = 370) 1.0 <=5.9 RECOMMENDED COUMADIN/WARFARIN INR THERAPY RANGESSTANDARD DOSE: 2.0 - 3.0 Includes: PROPHYLAXIS for venous thrombosis, systemic embolization; TREATMENT for venous thrombosis and/or pulmonary embolus.HIGH RISK: Target INR is 2.5-3.5 for patients with mechanical heart valves.CBC (HEMOGRAM ONLY)2018-05-08 10:35:00 Test Item Value Reference Range Interpretation Comments WHITE BLOOD CELL COUNT (BEAKER) 8.6 K/ L 3.5-10.5 (test code = 775) RED BLOOD CELL COUNT (BEAKER) 5.01 M/ L 3.93-5.22 (test code = 761) HEMOGLOBIN (BEAKER) (test code = 14.1 GM/DL 11.2-15.7 410) HEMATOCRIT (BEAKER) (test code = 43.3 % 34.1-44.9 411) MEAN CORPUSCULAR VOLUME (BEAKER) 86.4 fL 79.4-94.8 (test code = 753) MEAN CORPUSCULAR HEMOGLOBIN 28.1 pg 25.6-32.2 (BEAKER) (test code = 751) MEAN CORPUSCULAR HEMOGLOBIN CONC 32.6 GM/DL 32.2-35.5 (BEAKER) (test code = 752) RED CELL DISTRIBUTION WIDTH 13.1 % 11.7-14.4 (BEAKER) (test code = 412) PLATELET COUNT (BEAKER) (test 224 K/CU MM 150-450 code = 756) MEAN PLATELET VOLUME (BEAKER) 10.2 fL 9.4-12.3 (test code = 754) NUCLEATED RED BLOOD CELLS 0 /100 WBC 0-0 (BEAKER) (test code = 413) POCT-GLUCOSE [id number] 09:26:00 Test Item Value Reference Range Interpretation Comments POC-GLUCOSE METER 389 mg/dL 70-110 H Patient on insulin (BEAKER) (test code = Drip/T ESTED AT [facility] 1538) [address] [facility] [address] POCT-GLUCOSE [id number] 08:12:00 Test Item Value Reference Range Interpretation Comments POC-GLUCOSE METER 384 mg/dL 70-110 H Patient on insulin (BEAKER) (test code = Drip/T ESTED AT [facility] 1538) [address] [facility] [address]
[2022-08-29 16:20] LABS: Absolute Lymphocytes (CBC) 1.6 K/uL (0.7-4.9); Lymphocytes % 16.4 % (15.3-44.8); MPV 7.8 fL (7.6-11.3); RBC Red Blood Cell Count 5.42 M/uL (3.86-4.86)
[2022-08-29] MEDS ORDERED: ONDANSETRON 4 MG/2 ML VIAL ONE (16:38)
[2022-08-29] MEDS ORDERED: ASPIRIN 81 MG CHEWABLE TABLET ONE (16:38)
[2022-08-29] MEDS ORDERED: METOPROLOL TARTRATE 5 MG/5 ML INJ IV ONE (16:39)
[2022-08-29 16:40] LABS: Albumin 3.7 g/dL (3.4-5.0); Bilirubin Direct 0.2 mg/dL (0-0.2); Bilirubin Total 0.5 mg/dL (0.2-1.0); Protein, Total 8.6 g/dL (6.4-8.2); Troponin High Sensitivity 10.7 pg/mL (<58.9)
[2022-08-29 18:03] LABS: Urine Blood Negative (Negative); Urine Glucose 2+ (Negative); Urine Protein 1+ (Negative)
[2022-08-29 18:16] LABS: Arterial Blood Carboxyhemoglob 0.9 % (0-1.5); Blood Gas Oxyhemoglobin 75.2 % (94-97)
--- NOTE | 2022-08-29 18:30 | RAD REPORT ---
EXAM DESCRIPTION: Matilde Single View08/29/2022 6:11 pm CLINICAL HISTORY: Chest pain COMPARISON: 2018 FINDINGS: The lungs appear clear of acute infiltrate. The heart is normal size IMPRESSION: No acute abnormalities displayed
--- NOTE | 2022-08-29 18:32 | ER ---
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 Coronavirus screen: Client ll1 denies travel out of the [place] in the last 14 days. At this time, the client does not indicate any symptoms associated with coronavirus-19. Ebola Screen: Patient denies travel to an Ebola-affected area in the 21 days before illness onset. Initial Sepsis Screen: Does the patient meet any 2 criteria? HR > 90 bpm. No. Patient's initial sepsis screen is negative. Does the patient have a suspected source of infection? No. Patient's initial sepsis screen is negative. Risk Assessment: Do you want to hurt yourself or someone else? Patient reports no desire to harm self or others. Onset of symptoms was August 29, 2022. 15:52 Method Of Arrival: Ambulatory ll1 15:52 Acuity: JODI 2 ll1 Triage Assessment: 16:00 General: Appears distressed, uncomfortable, Behavior is calm, appropriate for age, bp anxious. Pain: Complains of pain in chest. EENT: PT DEAF AT BASELINE. Neuro: No deficits noted. Cardiovascular: Reports chest pain. Respiratory: Reports shortness of breath. GI: No signs and/or symptoms were reported involving the gastrointestinal system. : No signs and/or symptoms were reported regarding the genitourinary system. Derm: No deficits noted. Musculoskeletal: No deficits noted. Historical: - Allergies: 15:53 No Known Allergies; ll1 - PMHx: 15:53 Diabetes - IDDM; Hyperlipidemia; CVA; Deaf; Hypertension; ll1 - Immunization history:: Client reports receiving the 2nd dose of the Covid vaccine. - Social history:: Smoking status: Patient denies any tobacco usage or history of. Screenin:00 [facility] ED Fall Risk Assessment (Adult) History of falling in the last 3 months, bp including since admission No falls in past 3 months (0 pts). Abuse screen: Denies threats or abuse. Denies injuries from another. Nutritional screening: No deficits noted. Tuberculosis screening: No symptoms or risk factors identified. Assessment: 16:00 General: SEE TRIAGE NOTE. bp 17:00 Reassessment: No changes from previously documented assessment. Patient and/or family bp updated on plan of care and expected duration. Pain level reassessed. 23:09 Pain: Pain began. ke1 Vital Signs: 15:52 BP 208 / 131; Pulse 130; Resp 20; Temp 97.7; Pulse Ox 97% ; Pain 10/10; ll1 16:25 BP 222 / 135; Pulse 123; Resp 20; Pulse Ox 97% ; bp 17:00 BP 182 / 92; Pulse 95; Resp 21; Pulse Ox 94% ; bp 17:30 BP 177 / 108; Pulse 97; Resp 19; Pulse Ox 93% ; bp 19:16 BP 172 / 101; Pulse 101; Resp 15; Temp 97.8; Pulse Ox 95% ; ke1 ED Course: 15:47 Patient arrived in ED. as 15:53 Triage completed. ll1 15:54 Arm band placed on. ll1 16:04 Michelet Ruano MD is Attending Physician. kdr 16:15 Initial lab(s) drawn, by me, sent to lab. EKG done, by ED staff, reviewed by Michelet kjViktor Ruano MD. Inserted saline lock: 20 gauge in right forearm, using aseptic technique. Blood collected. 16:20 You Hermosillo, RN is Primary Nurse. bp 17:00 Patient has correct armband on for positive identification. Bed in low position. Call bp light in reach. Side rails up X2. Adult w/ patient. Client placed on continuous cardiac and pulse oximetry monitoring. NIBP monitoring applied. 18:13 XRAY Chest (1 view) In Process Unspecified. EDMS 18:29 Darío Easton MD is Hospitalizing Provider. kdr 23:09 No provider procedures requiring assistance completed. Patient admitted, IV remains in ke1 place. Patient maintains SpO2 saturation greater than 95% on room air. Administered Medications: 05:30 Drug: Lopressor (metoprolol) 5 mg Route: IVP; Site: right antecubital; bp 16:41 Drug: Lopressor (metoprolol) 5 mg Route: IVP; Site: right antecubital; bp 16:41 Drug: Aspirin 81 mg Route: PO; bp 16:47 Follow up: Response: No adverse reaction bp 16:42 Drug: Zofran (Ondansetron) 4 mg Route: IVP; Site: right antecubital; bp 16:48 Follow up: Response: No adverse reaction bp 18:15 Drug: Potassium Effervescent Tablet 50 mEq Route: PO; bp 18:15 Drug: NS 0.9% 1000 ml Route: IV; Rate: 1 bolus; Site: right antecubital; bp Medication: 17:00 VIS not applicable for this client. bp Outcome: 18:31 Decision to Hospitalize by Provider. jayson 23:09 Admitted to ICU accompanied by tech. cesilia 23:09 Condition: good 23:09 Discharge instructions given to patient. 23:09 Patient left the ED. keViktor Signatures: Dispatcher [employer] EDMS Michelet Ruano MD MD kdr Martinez, Amelia as Peltier, Brian, RN RN Herminia Dickey1 Shannon Cosby RN RN 1 Izzy Stephenson RN RN ke1
--- NOTE | 2022-08-29 18:32 | EDPHYS ---
Physician Documentation [facility] Name: Génesis Manzano Age: 72 yrs Sex: Female : 1950 Arrival Date: 08/29/2022 Time: 15:47 Bed 16 Private MD: ED Physician Michelet Ruano HPI: 08/29 18:31 This 72 yrs old Black Female presents to ER via Ambulatory with complaints of Chest kdr Pain. 18:32 Patient presents complaining of chest pain starting earlier today but worse in the last kdr hour prior to arrival. She denies any other symptoms. Communication was through her daughter who was using sign language. Patient did not appear in any acute distress did not appear to be acidotic or Kussmaul breathing. She had no other focal complaint at the time of initial presentation.. Onset: The symptoms/episode began/occurred today. Severity of symptoms: At their worst the symptoms were mild moderate in the emergency department the symptoms are unchanged. It is unknown whether or not the patient has had similar symptoms in the past. The patient has been recently seen by a physician: the patient's primary care provider, 1 week(s) ago. Historical: - Allergies: 15:53 No Known Allergies; ll1 - PMHx: 15:53 Diabetes - IDDM; Hyperlipidemia; CVA; Deaf; Hypertension; ll1 - Immunization history:: Client reports receiving the 2nd dose of the Covid vaccine. - Social history:: Smoking status: Patient denies any tobacco usage or history of. ROS: 18:32 Constitutional: Negative for fever, chills, and weight loss, Eyes: Negative for injury, kdr pain, redness, and discharge, ENT: Negative for injury, pain, and discharge, Neck: Negative for injury, pain, and swelling, Respiratory: Negative for shortness of breath, cough, wheezing, and pleuritic chest pain, Abdomen/GI: Negative for abdominal pain, nausea, vomiting, diarrhea, and constipation, Back: Negative for injury and pain, : Negative for injury, bleeding, discharge, and swelling, MS/Extremity: Negative for injury and deformity, Skin: Negative for injury, rash, and discoloration, Neuro: Negative for headache, weakness, numbness, tingling, and seizure activity. Psych: Negative for depression, anxiety, suicide ideation, homicidal ideation, and hallucinations, Allergy/Immunology: Negative for hives, rash, and allergies, Endocrine: Negative for neck swelling, polydipsia, polyuria, polyphagia, and marked weight changes, Hematologic/Lymphatic: Negative for swollen nodes, abnormal bleeding, and unusual bruising. 18:32 Cardiovascular: Positive for chest pain, Negative for edema, orthopnea, palpitations, paroxysmal nocturnal dyspnea. Exam: 16:05 ECG was reviewed by the Attending Physician. kdr 18:32 Constitutional: This is a well developed, well nourished patient who is awake, alert, kdr and in no acute distress. Head/Face: Normocephalic, atraumatic. Eyes: Pupils equal round and reactive to light, extra-ocular motions intact. Lids and lashes normal. Conjunctiva and sclera are non-icteric and not injected. Cornea within normal limits. Periorbital areas with no swelling, redness, or edema. Neck: Trachea midline, no thyromegaly or masses palpated, and no cervical lymphadenopathy. Supple, full range of motion without nuchal rigidity, or vertebral point tenderness. No Meningismus. Chest/axilla: Normal chest wall appearance and motion. Nontender with no deformity. No lesions are appreciated. Respiratory: Lungs have equal breath sounds bilaterally, clear to auscultation and percussion. No rales, rhonchi or wheezes noted. No increased work of breathing, no retractions or nasal flaring. Abdomen/GI: Soft, non-tender, with normal bowel sounds. No distension or tympany. No guarding or rebound. No evidence of tenderness throughout. Back: No spinal tenderness. No costovertebral tenderness. Full range of motion. Skin: Warm, dry with normal turgor. Normal color with no rashes, no lesions, and no evidence of cellulitis. MS/ Extremity: Pulses equal, no cyanosis. Neurovascular intact. Full, normal range of motion. Neuro: Awake and alert, GCS 15, oriented to person, place, time, and situation. Cranial nerves II-XII grossly intact. Motor strength 5/5 in all extremities. Sensory grossly intact. Cerebellar exam normal. Normal gait. Psych: Awake, alert, with orientation to person, place and time. Behavior, mood, and affect are within normal limits. 18:32 Cardiovascular: Rate: tachycardic, Rhythm: regular, Edema: 1+ edema to level of left midcalf, left ankle, right midcalf, right ankle and right foot, pedal edema. Vital Signs: 15:52 BP 208 / 131; Pulse 130; Resp 20; Temp 97.7; Pulse Ox 97% ; Pain 10/10; ll1 16:25 BP 222 / 135; Pulse 123; Resp 20; Pulse Ox 97% ; bp 17:00 BP 182 / 92; Pulse 95; Resp 21; Pulse Ox 94% ; bp 17:30 BP 177 / 108; Pulse 97; Resp 19; Pulse Ox 93% ; bp 19:16 BP 172 / 101; Pulse 101; Resp 15; Temp 97.8; Pulse Ox 95% ; ke1 MDM: 18:31 Patient medically screened. kdr 18:34 Data reviewed: vital signs, nurses notes, lab test result(s), radiologic studies. kdr Management of patient was discussed with the following: Primary Care Provider: Dr. Easton. I considered the following discharge prescriptions or medication management in the emergency department Medications were administered in the Emergency Department. See SEP. 08/29 16:05 Order name: Basic Metabolic Panel; Complete Time: 18:19 kdr 08/29 16:05 Order name: CBC with Diff; Complete Time: 18:19 kdr 08/29 16:05 Order name: LFT's; Complete Time: 18:19 kdr 08/29 16:05 Order name: Magnesium; Complete Time: 18:19 kdr 08/29 16:05 Order name: NT PRO-BNP; Complete Time: 18:19 kdr 08/29 16:05 Order name: Troponin HS; Complete Time: 18:19 kdr 08/29 17:57 Order name: ABG: OK for VBG la1 08/29 17:57 Order name: Ketone, Serum la1 08/29 18:03 Order name: Urine Dipstick-Ancillary; Complete Time: 18:08 EDMS 08/29 18:46 Order name: Basic Metabolic Panel EDMS 08/29 18:46 Order name: Basic Metabolic Panel EDMS 08/29 18:46 Order name: CBC with Automated Diff EDMS 08/29 18:46 Order name: CBC with Automated Diff EDMS 08/29 19:13 Order name: Glucose, Ancillary Testing EDMS 08/29 16:05 Order name: XRAY Chest (1 view) kdr 08/29 16:05 Order name: EKG; Complete Time: 16:06 kdr 08/29 18:46 Order name: CONS Physician Consult EDGA 08/29 18:46 Order name: 60g Consistent Carbohydrate (ADA 1800/2000) EDMS 08/29 18:46 Order name: EKG Electrocardiogram EDGA 08/29 18:46 Order name: EKG Electrocardiogram EDGA 08/29 18:46 Order name: EKG Electrocardiogram EDGA 08/29 18:46 Order name: EKG Electrocardiogram EDGA 08/29 19:23 Order name: SARS RAPID bb 08/29 19:50 Order name: SARS-COV-2 Antigen Rapid EDGA 08/29 21:38 Order name: Glucose, Ancillary Testing EDGA 08/29 16:05 Order name: Cardiac monitoring; Complete Time: 16:23 kdr 08/29 16:05 Order name: EKG - Nurse/Tech; Complete Time: 16:23 kdr 08/29 16:05 Order name: IV Saline Lock; Complete Time: 16:23 kdr 08/29 16:05 Order name: Labs collected and sent; Complete Time: 16:23 kdr 08/29 16:05 Order name: O2 Per Protocol; Complete Time: 16:23 kdr 08/29 16:05 Order name: O2 Sat Monitoring; Complete Time: 16:23 kdr 08/29 17:57 Order name: Urine Dipstick-Ancillary (obtain specimen); Complete Time: 18:04 la1 08/29 18:08 Order name: Accucheck; Complete Time: 18:59 la1 EC:05 Rate is 120 beats/min. Rhythm is regular, Sinus tachycardia with No ectopy. QRS [place] is kdr Normal. [place] interval is normal. QRS interval is normal. QT interval is normal. Clinical impression: NSR w/ Non-specific ST/T Changes and Sinus tachycardia. Administered Medications: 05:30 Drug: Lopressor (metoprolol) 5 mg Route: IVP; Site: right antecubital; bp 16:41 Drug: Lopressor (metoprolol) 5 mg Route: IVP; Site: right antecubital; bp 16:41 Drug: Aspirin 81 mg Route: PO; bp 16:47 Follow up: Response: No adverse reaction bp 16:42 Drug: Zofran (Ondansetron) 4 mg Route: IVP; Site: right antecubital; bp 16:48 Follow up: Response: No adverse reaction bp 18:15 Drug: Potassium Effervescent Tablet 50 mEq Route: PO; bp 18:15 Drug: NS 0.9% 1000 ml Route: IV; Rate: 1 bolus; Site: right antecubital; bp Disposition Summary: 08/29/22 18:31 Hospitalization Ordered Hospitalization Status: Inpatient Admission kdr Provider: Darío Easton Location: Intensive Care Unit kdr Condition: Fair kdr Problem: an acute exacerbation kdr Symptoms: have improved kdr Bed/Room Type: Standard kdr Room Assignment: 3-(08/29/22 22:45) cg Diagnosis - Diabetic ketoacidosis kdr - Hypertensive heart disease without heart failure kdr - Chest pain, unspecified kdr Forms: - Medication Reconciliation Form kdr - SBAR form kdr Signatures: Dispatcher [employer] EDMS Michelet Ruano MD MD kdr Vladimir Garcia, RIVER CAPTAIN-[facility] CAP[facility] Thelma Ross RN RN cg You Hermosillo RN RN bp Shannon Cosby RN RN ll1 Corrections: (The following items were deleted from the chart) :45 18:31 kdr cg
[2022-08-29] MEDS ORDERED: D50W 25 GM/50 ML SYRINGE IV PRN ×2 (18:39→19:33)
[2022-08-29] MEDS ORDERED: MORPHINE 2 MG/ML SYR IV PRN (18:39)
[2022-08-29] MEDS ORDERED: ONDANSETRON 4 MG/2 ML VIAL IV PRN ×2 (18:39→19:48)
[2022-08-29] MEDS ORDERED: GLUCAGON 1 MG/VIAL IM PRN ×2 (18:39→19:33)
[2022-08-29] MEDS ORDERED: ACETAMINOPHEN 500 MG TAB PO PRN (18:39)
[2022-08-29] MEDS ORDERED: NA CHLORIDE 0.9% 1,000 ML ONE (18:42)
[2022-08-29] MEDS ORDERED: POTASSIUM 25 MEQ EFFERV TAB ONE (18:42)
[2022-08-29] MEDS ORDERED: D10W 125 ML IV PRN (19:28)
[2022-08-29] MEDS ORDERED: HYDRALAZINE HCL 20 MG/ML VIAL IV PRN (19:34)
[2022-08-29] MEDS ORDERED: INSULIN -REGULAR HUMAN 100 UNIT in NA CHLORIDE 0.9% 100 ML IV SCH (19:45)
[2022-08-29 19:50] LABS: SARS-CoV-2 Antigen Rapid Res Negative (Negative)
--- NOTE | 2022-08-29 19:55 | P.HP ---
Certification for Inpatient Patient admitted to: Inpatient With expected LOS: >2 Midnights Patient will require the following post-hospital care: Home Health Services Practitioner: I am a practitioner with admitting privileges, knowledge of patient current condition, hospital course, and medical plan of care. Services: Services provided to patient in accordance with Admission requirements found in Title 42 Section 412.3 of the Code of Federal Regulations Patient History Date of Service: 08/29/22 Primary Care Provider: Jemma Reason for admission: dka, chest pain, tachycardia. History of Present Illness: Patient recently came back to office after nearly a year away. She has had her medications from another source. She was restarted on her medications then. She started having a squeezing substernal chest pain this morning. Also complaints of dizziness when she sat up. Her daughters checked her pulse. Found she was tachycardic and brought her to the er. She was found to be tachycardic and in DKA with an anion gap of 20. Her sugars were not elevated however with a glucose of 185. Will admit her to the icu on an insulin drip. Allergies No Known Allergies Allergy (Verified 08/18/17 22:03) Home Medications: Aspirin [Raquel Chewable Aspirin] 1 tab PO DAILY 09/30/15 Metformin HCl [Glucophage*] 1,000 mg PO BID 09/30/15 Rosuvastatin [Crestor*] 20 mg PO BEDTIME 06/04/16 Glipizide [Glipizide ER] 10 mg PO BID 04/01/17 Amlodipine [Norvasc*] 10 mg PO DAILY 05/12/17 cloNIDine HCL [Catapres*] 0.2 mg PO BID 05/12/17 Insulin Detemir [Levemir] 20 units SQ BID 08/18/17 Metoprolol Tartrate [Lopressor*] 50 mg PO BID 08/18/17 Potassium Chloride [Klor-Con 10] 10 meq PO DAILY 08/18/17 hydroCHLOROthiazide [Hydrochlorothiazide] 25 mg PO DAILY 08/18/17 - Past Medical/Surgical History Diabetic: Yes -: NIDDM -: HTN -: High Cholesterol -: CVA -: cataracts -: UTI -: Cataract Surgery - Family History Mother -: Hypertension, Diabetes Father -: Hypertension, Diabetes - Social History Alcohol use: No CD- Drugs: No Caffeine use: No Review of Systems 10-point ROS is otherwise unremarkable Cardiovascular: Palpitations Gastrointestinal: Nausea Physical Examination - Physical Exam General: Alert, In no apparent distress HEENT: Atraumatic, PERRLA, Mucous membr. moist/pink, EOMI, Sclerae nonicteric Neck: Supple, 2+ carotid pulse no bruit, No LAD, Without JVD or thyroid abnormality Respiratory: Clear to auscultation bilaterally, Normal air movement Cardiovascular: Normal S1 S2, Irregular heart rate/rhythm (tachycardia ) Gastrointestinal: Normal bowel sounds, No tenderness Musculoskeletal: No tenderness Integumentary: No rashes Neurological: Normal gait, Normal speech, Normal strength at 5/5 x4 extr, Normal tone, Normal affect Lymphatics: No axilla or inguinal lymphadenopathy - Studies Laboratory Data (last 24 hrs) 08/29/22 16:09: WBC 9.50, Hgb 14.6, Hct 45.0, Plt Count 203 08/29/22 16:09: Sodium 134 L, Potassium 3.0 L, BUN 23 H, Creatinine 1.07 H, Glucose 184 H, Magnesium 2.0, Total Bilirubin 0.5, AST 16, ALT 19, Alkaline Phosphatase 86 Assessment and Plan - Problems (Diagnosis) (1) Diabetic ketoacidosis Onset Date: 10/06/15 Current Visit: No Status: Acute Plan: admit to the icu. Will need to start an insulin drip and a d5 drip to her gap closes. 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 family report angiodema with lisinopril. However she has been on benzapril recently. Will consult Dr. Beckwith she also complains of some reflux. Will start her on protonix Qualifiers: Ischemic chest pain type: stable angina pectoris (3) Tachycardia Current Visit: Yes Status: Acute Plan: restart her metoprolol. Will adjust as necessary (4) Deaf Current Visit: Yes Status: Chronic Plan: Her daughters are able to translate for her Qualifiers: Laterality: bilateral Qualified Code(s): H91.93 - Unspecified hearing loss, bilateral (5) Hypertension Onset Date: 08/19/17 Current Visit: No Status: Acute Plan: restart metoprolol and amlodipine. Will give prn hydralazine. May start an ARB or restart the regular hydralazine she is on Qualifiers: Hypertension type: primary hypertension Qualified Code(s): I10 - Essential (primary) hypertension Discharge Plan: Home Plan to discharge in: Greater than 2 days - Advance Directives Does patient have a Living Will: No Does patient have a Durable POA for Healthcare: No - Code Status/Comfort Care Code Status Assessed: Yes Code Status: Full Code Physician Review: Patient Assessed, Agree with Above Assessment and Plan Critical Care: Yes Time Spent Managing Pts Care (In Minutes): 45
[2022-08-29] MEDS ORDERED: D5 0.45 NS 1,000 ML IV SCH (20:00)
[2022-08-29] MEDS: INSULIN -REGULAR HUMAN 50 UNIT/0.5 ML ML SQ SCH (21:00)
[2022-08-29] MEDS ORDERED: METOPROLOL TAR 50 MG TAB PO SCH (21:00)
[2022-08-29] MEDS: METOPROLOL XL 25 MG TAB PO SCH (21:18)
[2022-08-29] MEDS: D5 0.45 NS 1,000 ML IV SCH (21:18)
[2022-08-29] MEDS ORDERED: D5 0.45 NS 1,000 ML IV ONE (21:35)
[2022-08-29] MEDS ORDERED: HYDRALAZINE HCL 20 MG/ML VIAL ONE (21:35)
[2022-08-29] MEDS ORDERED: METOPROLOL XL 50 MG TAB PO ONE (21:35)
[2022-08-29] MEDS: HYDRALAZINE HCL 20 MG/ML VIAL IV PRN (21:44)
[2022-08-29] MEDS: ROSUVASTATIN 10 MG TAB PO SCH (23:47)
[2022-08-30 01:09] VITALS: BMI 28.3
[2022-08-30 05:08] LABS: Absolute Lymphocytes (CBC) 1.8 K/uL (0.7-4.9); Lymphocytes % 24.2 % (15.3-44.8); MCV 82.8 fL (80-100); MPV 8.1 fL (7.6-11.3); RBC Red Blood Cell Count 4.59 M/uL (3.86-4.86)
[2022-08-30 05:28] LABS: Albumin 2.9 g/dL (3.4-5.0); Bilirubin Total 0.4 mg/dL (0.2-1.0); Protein, Total 6.6 g/dL (6.4-8.2); Thyroid Stimulating Hormone 0.83 uIU/mL (0.358-3.740)
[2022-08-30] MEDS: D5 0.45 NS 1,000 ML IV SCH (05:52)
[2022-08-30] MEDS ORDERED: PANTOPRAZOLE 40MG TABLET PO SCH (06:30)
--- NOTE | 2022-08-30 08:03 | P.PN ---
Subjective Date of Service: 08/30/22 Primary Care Provider: Jemma Chief Complaint: dka, chest pain, tachycardia. Subjective: Improving (no chest pain, nausea or dizziness) Review of Systems 10-point ROS is otherwise unremarkable (as best as I can tell) Physical Examination - Vital Signs Temperature: 97.8 F Blood Pressure: 161/81 Pulse: 76 Respirations: 13 Pulse Ox (%): 99 - Physical Exam General: Alert, In no apparent distress HEENT: Atraumatic, PERRLA, EOMI Neck: Supple, JVD not distended Respiratory: Clear to auscultation bilaterally, Normal air movement Cardiovascular: Regular rate/rhythm, Normal S1 S2 Gastrointestinal: Normal bowel sounds, No tenderness Musculoskeletal: No tenderness Integumentary: No rashes Neurological: Normal speech, Normal tone, Normal affect Lymphatics: No axilla or inguinal lymphadenopathy - Studies Laboratory Data (last 24 hrs) 08/29/22 16:09: WBC 9.50, Hgb 14.6, Hct 45.0, Plt Count 203 08/29/22 16:09: Sodium 134 L, Potassium 3.0 L, BUN 23 H, Creatinine 1.07 H, Glucose 184 H, Magnesium 2.0, Total Bilirubin 0.5, AST 16, ALT 19, Alkaline Phosphatase 86 Assessment And Plan - Current Problems (Diagnosis) (1) Diabetic ketoacidosis Onset Date: 10/06/15 Current Visit: No Status: Acute Plan: admit to the icu. Will need to start an insulin drip and a d5 drip to her gap closes. She is currently at an ag of 20 2/6/ will need to get her labs and check her anion gap. In the meantime will continue to feed her and start sliding scale. 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 family report angiodema with lisinopril. However she has been on benzapril recently. Will consult Dr. Beckwith she also complains of some reflux. Will start her on protonix Qualifiers: Ischemic chest pain type: stable angina pectoris (3) Tachycardia Current Visit: Yes Status: Acute Plan: restart her metoprolol. Will adjust as necessary (4) Deaf Current Visit: Yes Status: Chronic Plan: Her daughters are able to translate for her Qualifiers: Laterality: bilateral Qualified Code(s): H91.93 - Unspecified hearing loss, bilateral (5) Hypertension Onset Date: 08/19/17 Current Visit: No Status: Acute Plan: restart metoprolol and amlodipine. Will give prn hydralazine. May start an ARB or restart the regular hydralazine she is on Qualifiers: Hypertension type: primary hypertension Qualified Code(s): I10 - Essential (primary) hypertension Discharge Plan: Home Plan to discharge in: 48 Hours - Code Status/Comfort Care Code Status Assessed: No Physician Review: Patient Assessed, Agree with Above Assessment and Plan Critical Care: Yes Time Spent Managing PTS Care (In Minutes): 20
[2022-08-30] MEDS: POTASSIUM CL SA 10 MEQ TAB PO SCH (09:00)
[2022-08-30] MEDS ORDERED: AMLODIPINE 5 MG TAB PO SCH (09:00)
[2022-08-30] MEDS ORDERED: POTASSIUM CL SA 10 MEQ TAB PO ONE (09:00)
[2022-08-30] MEDS: AMLODIPINE 10 MG TAB PO SCH (09:17)
[2022-08-30] MEDS: INSULIN -REGULAR HUMAN 50 UNIT/0.5 ML ML SQ SCH ×4 (09:17→21:00)
[2022-08-30] MEDS: HYDRALAZINE HCL 25 MG TABLET PO SCH ×2 (09:17→21:11)
[2022-08-30] MEDS: ASPIRIN EC 81 MG TAB PO SCH (09:17)
[2022-08-30] MEDS: INSULIN GLARGINE 100 UNIT/ML SQ SCH (09:19)
[2022-08-30] MEDS: HYDRALAZINE HCL 20 MG/ML VIAL IV PRN (16:57)
[2022-08-30] MEDS: ENOXAPARIN 40 MG/0.4 ML SQ SCH (16:57)
[2022-08-30] MEDS ORDERED: ENOXAPARIN 40 MG/0.4 ML SQ SCH (17:00)
[2022-08-30] MEDS: ROSUVASTATIN 10 MG TAB PO SCH (21:10)
[2022-08-30] MEDS: METOPROLOL XL 25 MG TAB PO SCH (21:11)
[2022-08-31] MEDS: HYDRALAZINE HCL 20 MG/ML VIAL IV PRN (00:16)
[2022-08-31 06:45] LABS: Absolute Lymphocytes (CBC) 1.2 K/uL (0.7-4.9); Hematocrit 41.1 % (36.0-45.0); Lymphocytes % 13.2 % (15.3-44.8); MCV 82.2 fL (80-100); MPV 8.1 fL (7.6-11.3)
[2022-08-31 07:01] LABS: Albumin 3.1 g/dL (3.4-5.0); Bilirubin Total 0.3 mg/dL (0.2-1.0); Potassium 3.5 mmol/L (3.5-5.1); Protein, Total 7.4 g/dL (6.4-8.2)
[2022-08-31] MEDS: INSULIN GLARGINE 100 UNIT/ML SQ SCH (08:25)
[2022-08-31] MEDS: AMLODIPINE 10 MG TAB PO SCH (08:26)
[2022-08-31] MEDS: INSULIN -REGULAR HUMAN 50 UNIT/0.5 ML ML SQ SCH ×4 (08:26→20:53)
[2022-08-31] MEDS: HYDRALAZINE HCL 25 MG TABLET PO SCH ×2 (08:26→20:50)
[2022-08-31] MEDS: ASPIRIN EC 81 MG TAB PO SCH (08:26)
[2022-08-31] MEDS: POTASSIUM CL SA 10 MEQ TAB PO SCH (08:27)
[2022-08-31] MEDS ORDERED: POTASSIUM CL SA 10 MEQ TAB PO ONE (09:00)
--- NOTE | 2022-08-31 10:54 | P.PN ---
Subjective Date of Service: 08/31/22 Primary Care Provider: Jemma Chief Complaint: dka, chest pain, tachycardia. Subjective: No new changes Review of Systems 10-point ROS is otherwise unremarkable Physical Examination - Vital Signs Temperature: 98 F Blood Pressure: 188/79 Pulse: 90 Respirations: 18 Pulse Ox (%): 97 - Physical Exam General: Alert, In no apparent distress HEENT: Atraumatic, PERRLA, EOMI Neck: Supple, JVD not distended Respiratory: Clear to auscultation bilaterally, Normal air movement Cardiovascular: Regular rate/rhythm, Normal S1 S2 Gastrointestinal: Normal bowel sounds, No tenderness Musculoskeletal: No tenderness Integumentary: No rashes Neurological: Normal speech, Normal tone, Normal affect Lymphatics: No axilla or inguinal lymphadenopathy Assessment And Plan - Current Problems (Diagnosis) (1) Chest pain Current Visit: Yes Status: Acute Plan: will start her on metoprolol. family report angiodema with lisinopril. However she has been on benzapril recently. Will consult Dr. Beckwith she also complains of some reflux. Will start her on protonix 08/31 order an echo on the patient. Will discuss her with Dr. Beckwith Qualifiers: Ischemic chest pain type: stable angina pectoris (2) Tachycardia Current Visit: Yes Status: Acute Plan: restart her metoprolol. Will adjust as necessary (3) Deaf Current Visit: Yes Status: Chronic Plan: Her daughters are able to translate for her Qualifiers: Laterality: bilateral Qualified Code(s): H91.93 - Unspecified hearing loss, bilateral (4) Hypertension Onset Date: 08/19/17 Current Visit: No Status: Acute Plan: restart metoprolol and amlodipine. Will give prn hydralazine. May start an ARB or restart the regular hydralazine she is on Qualifiers: Hypertension type: primary hypertension Qualified Code(s): I10 - Essential (primary) hypertension (5) Diabetes mellitus Onset Date: 10/06/15 Current Visit: No Status: Chronic Plan: will continue current insulin. Would like to start her on a glp1 as an outpatient Qualifiers: Diabetes mellitus type: due to underlying condition Diabetes mellitus correction insulin use: with rat exterminator use Diabetes mellitus complication status: with hyperosmolarity Diabetes mellitus complication detail: without coma Qualified Code(s): E08.00 - Diabetes mellitus due to underlying condition with hyperosmolarity without nonketotic hyperglycemic-hyperosmolar coma ([facility]); Z79.4 - intermission coordinator (current) use of insulin Discharge Plan: Home Plan to discharge in: 24 Hours - Code Status/Comfort Care Code Status Assessed: No Physician Review: Patient Assessed, Agree with Above Assessment and Plan Critical Care: No Time Spent Managing PTS Care (In Minutes): 20
[2022-08-31] MEDS: ENOXAPARIN 40 MG/0.4 ML SQ SCH (17:31)
--- NOTE | 2022-08-31 19:23 | CON ---
Date of Consultation: 08/31/2022 Reason For Consultation: Chest pain. History Of Present Illness: This is a 72-year-old female with past medical history diabetes, hyperte nsion, high cholesterol, CVA in the past. Presented to the emergency room having squeezing substerna l chest pain, no radiation or related to exertion. Heart rate was slightly high initially, so she wa s sent to the emergency room, was found to be tachycardiac and mild DKA. After proper hydration, sug ars improved and the patient has no complaints. Past Medical History: As outlined above in HPI. Medications: Refer to reconciliation sheet for detailed list. Allergies: NO KNOWN DRUG ALLERGIES. Family History: No premature coronary artery disease or cancer. Social History: Does not smoke or drink. Does not use any drugs. Review of Systems: All systems reviewed and they were negative except what mentioned in HPI. Physical Examination: Vital Signs: Reviewed. Head and Neck: Pupils are equal, reactive to light. Intact eye movements. No JVD. No cervical lym phadenopathy. Neck is supple. Thyroid is not enlarged. Lungs: Clear to auscultation bilaterally. No rhonchi, wheezing, or crackles. No accessory muscle u se. Heart: Regular rate and rhythm. No extra sounds. Abdomen: Soft, nontender. Bowel sounds positive. No organomegaly. No masses or hernia. No rigidi ty or rebound. Extremities: No edema, clubbing, or cyanosis. Intact pulses. Skin: No rash. Neurologic: Alert, awake, oriented x3. No new acute focal deficits appreciated. Investigations: BUN 16, creatinine 0.94. One troponin was done and was negative. Assessment And Recommendation: 1.Chest pain. First troponin is negative, order another 1 now. If this is negative, then [facility]ogram. 2.Hypertension. Blood pressure is controlled. Continue current medications. SR/MODL Voice ID: [id number] Report ID: [id number]
[2022-08-31] MEDS: METOPROLOL XL 25 MG TAB PO SCH (20:50)
[2022-08-31] MEDS: ROSUVASTATIN 10 MG TAB PO SCH (20:50)
[2022-09-01 00:34] VITALS: O2SAT 98
[2022-09-01 06:04] LABS: Absolute Lymphocytes (CBC) 1.2 K/uL (0.7-4.9); Lymphocytes % 15.7 % (15.3-44.8); MCV 82.4 fL (80-100); MPV 7.8 fL (7.6-11.3); RBC Red Blood Cell Count 4.85 M/uL (3.86-4.86)
[2022-09-01 06:21] LABS: Albumin 3.1 g/dL (3.4-5.0); Bilirubin Total 0.2 mg/dL (0.2-1.0); Protein, Total 7.1 g/dL (6.4-8.2)
[2022-09-01] MEDS: INSULIN -REGULAR HUMAN 50 UNIT/0.5 ML ML SQ SCH ×2 (07:30→11:30)
[2022-09-01] MEDS: HYDRALAZINE HCL 25 MG TABLET PO SCH (08:57)
[2022-09-01] MEDS: ASPIRIN EC 81 MG TAB PO SCH (08:57)
[2022-09-01] MEDS: POTASSIUM CL SA 10 MEQ TAB PO SCH (09:00)
[2022-09-01] MEDS ORDERED: POTASSIUM CL SA 10 MEQ TAB PO ONE (09:00)
[2022-09-01] MEDS: INSULIN GLARGINE 100 UNIT/ML SQ SCH (09:01)
[2022-09-01] MEDS: AMLODIPINE 10 MG TAB PO SCH (09:01)
[2022-09-01 12:22] VITALS: BP 158/96; TEMP 98
--- NOTE | 2022-09-01 12:52 | P.DS ---
Admission Date: 08/29/22 Discharge Date: 09/01/22 Primary Care Provider: Jemma Disposition: ROUTINE DISCHARGE Discharge Condition: GOOD Reason for Admission: dka, chest pain, tachycardia. - Problems (1) Chest pain Current Visit: Yes Status: Acute Qualifiers: Ischemic chest pain type: stable angina pectoris (2) Tachycardia Current Visit: Yes Status: Acute (3) Deaf Current Visit: Yes Status: Chronic Qualifiers: Laterality: bilateral Qualified Code(s): H91.93 - Unspecified hearing loss, bilateral (4) Hypertension Onset Date: 08/19/17 Current Visit: No Status: Acute Qualifiers: Hypertension type: primary hypertension Qualified Code(s): I10 - Essential (primary) hypertension (5) Diabetes mellitus Onset Date: 10/06/15 Current Visit: No Status: Chronic Qualifiers: Diabetes mellitus type: due to underlying condition Diabetes mellitus correction insulin use: with terminal gauger use Diabetes mellitus complication status: with hyperosmolarity Diabetes mellitus complication detail: without coma Qualified Code(s): E08.00 - Diabetes mellitus due to underlying condition with hyperosmolarity without nonketotic hyperglycemic-hyperosmolar coma (NKHHC); 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 She has had her medications from another source. She was restarted on her medications then. She started having a squeezing substernal chest pain this morning. Also complaints of dizziness when she sat up. Her daughters checked her pulse. Found she was tachycardic and brought her to the er. She was found to be tachycardic and in DKA with an anion gap of 20. Her sugars were not elevated however with a glucose of 185. Will admit her to the icu on an insulin drip. Hospital Course: Patient was admitted for dka. She had some chest pain. The patients gap closed. Plan is for outpatient echocardiogram and stress test with Dr. Beckwith. Thank you for allowing me to take part in her care. Vital Signs/Physical Exam: Temp Pulse Resp BP Pulse Ox 98.0 F 97 H 14 158/96 H 98 09/01/22 12:00 09/01/22 12:00 09/01/22 12:00 09/01/22 12:00 09/01/22 12:00 General: Alert, In no apparent distress HEENT: Atraumatic, PERRLA, EOMI Neck: Supple, JVD not distended Respiratory: Clear to auscultation bilaterally, Normal air movement Cardiovascular: Regular rate/rhythm, Normal S1 S2 Gastrointestinal: Normal bowel sounds, No tenderness Musculoskeletal: No tenderness Integumentary: No rashes Neurological: Normal speech, Normal tone, Normal affect Lymphatics: No axilla or inguinal lymphadenopathy Laboratory Data at Discharge: WBC 7.90 K/uL (4.3-10.9) 09/01/22 05:43 Hgb 13.2 g/dL (12.0-15.0) 09/01/22 05:43 Hct 40.0 % (36.0-45.0) 09/01/22 05:43 Plt Count 172 K/uL (152-406) 09/01/22 05:43 Sodium 136 mmol/L (136-145) 09/01/22 05:43 Potassium 3.0 mmol/L (3.5-5.1) L D 09/01/22 05:43 BUN 16 mg/dL (7-18) 09/01/22 05:43 Creatinine 0.88 mg/dL (0.55-1.02) 09/01/22 05:43 Glucose 86 mg/dL (74-106) 09/01/22 05:43 Magnesium 2.0 mg/dL (1.6-2.4) 08/29/22 16:09 Total Bilirubin 0.2 mg/dL (0.2-1.0) 09/01/22 05:43 AST 15 U/L (15-37) 09/01/22 05:43 ALT 15 U/L (13-56) 09/01/22 05:43 Alkaline Phosphatase 62 U/L (45-117) 09/01/22 05:43 Triglycerides Cancelled 08/30/22 05:00 Cholesterol Cancelled 08/30/22 05:00 HDL Cholesterol Cancelled 08/30/22 05:00 Cholesterol/HDL Ratio Cancelled 08/30/22 05:00 Home Medications: Aspirin [Raquel Chewable Aspirin] 1 tab PO DAILY 09/30/15 Metformin HCl [Glucophage*] 1,000 mg PO BID 09/30/15 Rosuvastatin [Crestor*] 20 mg PO BEDTIME 06/04/16 Glipizide [Glipizide ER] 10 mg PO BID 04/01/17 Amlodipine [Norvasc*] 10 mg PO DAILY 05/12/17 cloNIDine HCL [Catapres*] 0.2 mg PO BID 05/12/17 Insulin Detemir [Levemir] 20 units SQ BID 08/18/17 Metoprolol Tartrate [Lopressor*] 50 mg PO BID 08/18/17 Potassium Chloride [Klor-Con 10] 10 meq PO DAILY 08/18/17 hydroCHLOROthiazide [Hydrochlorothiazide] 25 mg PO DAILY 08/18/17 Diet: ADA Activity: Ad oneal Followup: Darío Easton MD [ACTIVE - CAN ADMIT] - 1 Week Rajendra Beckwith MD [ACTIVE - CAN ADMIT] - 1 Week Physician Review: Patient Assessed, Agree with Above Assessment and Plan Time spent managing pt's care (in minutes): 30
--- NOTE | 2022-09-02 08:38 | ECHO ---
HEIGHT: 5 ft 3 in WEIGHT: 160 lb 3.2 oz DATE OF STUDY: 09/01/[address]: Darío Easton MD 2-DIMENSIONAL: YES M.MODE: YES DOPPLER: YES COLOR FLOW: YES TDS: PORTABLE: YES DEFINITY: BUBBLE STUDY: DIAGNOSIS: CHEST PAIN CARDIAC HISTORY: CATHERIZATION: SURGERY: PROSTHETIC VALVE: PACEMAKER: MEASUREMENTS (cm) DIASTOLIC (NORMALS) SYSTOLIC (NORMALS) IVSd 1.1 (0.6-1.2) LA Diam 2.8 (1.9-4.0) LVEF 79% LVIDd 3.5 (3.5-5.7) LVIDs 1.9 (2.0-3.5) %FS 46% LVPWd 4.5 (0.6-1.2) Ao Diam 2.5 (2.0-3.7) 2 DIMENSIONAL ASSESSMENT: RIGHT ATRIUM: NORMAL LEFT ATRIUM: NORMAL RIGHT VENTRICLE: NORMAL LEFT VENTRICLE: NORMAL TRICUSPID VALVE: NORMAL MITRAL VALVE: NORMAL PULMONIC VALVE: NORMAL AORTIC VALVE: NORMAL PERICARDIAL EFFUSION: NONE AORTIC ROOT: NORMAL LEFT VENTRICULAR WALL MOTION: NORMAL DOPPLER/COLOR FLOW: SEE BELOW COMMENTS: 1. NORMAL LEFT VENTRICULAR EJECTION FRACTION GREATER THAN 65% 2. NORMAL WALL MOTION (HYPERDYNAMIC LEFT VENTRICLE) 3. MILD DIASTOLIC DYSFUNCTION TECHNOLOGIST: STEPHAN POOL
--- NOTE | 2022-09-07 17:38 | EKG ---
Test Date: 2022-08-29 Test Time: 16:02:11 Glue Spreader: MINE MEASUREMENT RESULTS: Intervals: Rate: 120 UT: 196 QRSD: 92 QT: 300 QTc: 424 [place]: P: 76 UT: 196 QRS: 38 T: -57 INTERPRETIVE STATEMENTS: Sinus tachycardia Right atrial enlargement ST & T wave abnormality, consider inferior ischemia Abnormal ECG Compared to ECG 03/20/2019 12:12:51 Atrial abnormality now present ST (T wave) deviation now present Possible ischemia now present Sinus rhythm no longer present Left ventricular hypertrophy no longer present Myocardial infarct finding no longer present Electronically Signed On 09-07-22 17:23:12 WAITER/WAITRESS COUNTER by Rajendra Beckwith
== END 2022-09-01 14:10 | disposition home or self-care (01) | DRG 639 ==
LOC: ER 15:46 → ERHOLD 18:44 → 3RD-ICU 22:50 → 4TH 08-30 08:27
PROVIDERS: ADMIT Internal Medicine; ATTEND Internal Medicine
DX: E11.10 Type 2 diabetes mellitus with ketoacidosis without coma (principal); I20.8 Other forms of angina pectoris; E78.5 Hyperlipidemia, unspecified; I11.9 Hypertensive heart disease without heart failure; H91.93 Unspecified hearing loss, bilateral; R00.0 Tachycardia, unspecified; Z79.4 Long term (current) use of insulin; Z79.84 Long term (current) use of oral hypoglycemic drugs; Z86.73 Personal history of transient ischemic attack (TIA), and cerebral infarction without residual deficits; Z79.82 Long term (current) use of aspirin; Z79.899 Other long term (current) drug therapy; Z20.822 Contact with and (suspected) exposure to COVID-19
CPT/HCPCS: 36415; 71045; 80048; 80053; 80061; 80076; 81003; 82010; 82805; 82947; 83036; 83735; 83880; 84132; 84443; 84484; 85025; 87811; 93005; 93306; 96374; 96375; 99285; J0360; J1650; J1815; J2405; J7030; J7799

== ENCOUNTER 2023-03-11 11:40 | Emergency (ER) | payer OTHER ==
--- OUTSIDE RECORDS SUMMARY | 2023-03-11 11:49 | XMS REPORT | Continuity of Care Document ---
:1950 Author Organization [facility] t Address [address] [place] [address] Care Team Providers Name Role Phone MASOUD [...] Anya kes athy athy 00:00: Medical 00 [place] Hyperglyce Hyperglyce Disease Active 2017-07 C HI [...] NO KNOWN Allergy Active [facility] Social History Social Habit Start Date Stop Date Quantity Comments Source Tobacco use and 2018-05-08 2018-05-[address] [facility] Anya kes exposure 00:00:00 00:00:00 [facility] Sex Assigned At [birth year] DENNIS James 00:00:00 00:00:00 [facility] Smoking Status Start Date Stop Date Source Never smoker [facility] Medications This patient has no known medications. Procedures This patient has no known procedures. Results Test Description Test Time Test Comments Results Result Comments Source ISLET CELL AB SCR 2018-05-15 10:41:00 Test Item Value Reference Range Interpretation Comme nts ISLET CELL AB AUTOVERIFICATION (test code = Refer to individual Isl et Cell Ab 2556) and/or Islet Cell Ab Titer results. BLOOD [id number] 18:00:00 Test Item Value Reference Range Interpretation Comments CULTURE (BEAKER) (test No growth in 5 days code = 1095) BLOOD [id number] 18:00:00 Test Item Value Reference Range Interpretation Comments CULTURE (BEAKER) (test No growth in 5 days code = 1095) POCT-GLUCOSE [id number] 17:18:00 Test Item Value Reference Range Interpretation Comments POC-GLUCOSE METER 184 mg/dL 70-110 H TESTED AT [facility] 6720 (BEAKER) (test code = TONO Schultz [place] 114828) [address] POCT-GLUCOSE [id number] 11:53:00 Test Item Value Reference Range Interpretation Comments POC-GLUCOSE METER 430 mg/dL 70-110 HH Notified R Brenna IBRAHIM/TESTED (BEAKER) (test code = AT [facility] [address] 1538) [facility] 7703 0 POCT-GLUCOSE [id number] 08:12:00 Test Item Value Reference Range Interpretation Comments POC-GLUCOSE METER 125 mg/dL 70-110 H TESTED AT [facility] 6720 (BEAKER) (test code = TONO Schultz [facility] 1538) [address] BASIC METABOLIC [id number] 05:51:00 Test Item Value Reference Range Interpretation [...] PATIEN TS. CBC W/PLT COUNT & AUTO [id number] 05:18:00 Test Item Value Reference Range Interpretation [...] PERCENT (BEAKER) (test code = 2801) POCT-GLUCOSE [id number] 00:22:00 Test Item Value Reference Range Interpretation Comments POC-GLUCOSE METER 123 mg/dL 70-110 H TESTED AT [place] [address] [facility] (test code = TONO Schultz [facility] 1538) [address] POCT-GLUCOSE [id number] 21:46:00 Test Item Value Reference Range Interpretation Comments POC-GLUCOSE METER 107 mg/dL 70-110 TESTED AT [place] [address] ([facility] (test code = [facility]ultz [facility] 1538) [address] POCT-GLUCOSE [id number] 17:12:00 Test Item Value Reference Range Interpretation Comments POC-GLUCOSE METER 218 mg/dL 70-110 H TESTED AT [place] [address] ([facility] (test code = TONO Schultz [facility] 1538) [address] POCT-GLUCOSE [id number] 11:24:00 Test Item Value Reference Range Interpretation Comments POC-GLUCOSE METER 268 mg/dL 70-110 H TESTED AT [place] [address] ([facility]) (test code = [facility] Antoine [facility] 1538) [address] BASIC METABOLIC [id number] 10:12:00 Test Item Value Reference Range Interpretation [...] NOT APPLICABLE FOR DIALYSIS PATIEN TS. POCT-GLUCOSE [id number] 06:21:00 Test Item Value Reference Range Interpretation Comments POC-GLUCOSE METER 282 mg/dL 70-110 H TESTED AT [facility] 6720 (BEAKER) (test code = INDERJITFRANCIA [place] 1538) [address] CBC W/PLT COUNT & AUTO [id number] 04:01:00 Test Item Value Reference Range Interpretation [...] (BEAKER) (test code = 2801) BASIC METABOLIC [id number] 01:15:00 Test Item Value Reference Range Interpretation [...] NOT APPLICABLE FOR DIALYSIS PATIEN TS. POCT-GLUCOSE [id number] 00:17:00 Test Item Value Reference Range Interpretation Comments POC-GLUCOSE METER 148 mg/dL 70-110 H TESTED AT [facility] [address] ([facility] (test code = TONO Schultz [place] 1538) [address] [id number] 20:22:00 Test Item Value Reference Range Interpretation Comments PHOSPHORUS (BEAKER) (test code = 2.5 mg/dL 2.3-4.7 604) BASIC METABOLIC [id number] 20:22:00 Test Item Value Reference Range Interpretation [...] NOT APPLICABLE FOR DIALYSIS PATIEN TS. POCT-GLUCOSE [id number] 20:20:00 Test Item Value Reference Range Interpretation Comments POC-GLUCOSE METER 187 mg/dL 70-110 H TESTED AT [facility] 67[address] ([facility] (test code = TONO Schultz [place] 1538) [address] POCT-GLUCOSE [id number] 17:13:00 Test Item Value Reference Range Interpretation Comments POC-GLUCOSE METER 201 mg/dL 70-110 H TESTED AT [facility] 67[address] ([facility] (test code = INDERJITAL Antoine [place] 1538) [address] RAD, ABDOMEN/KUB, 1 VIEW [id number] 15:38:00Reason for exam:->corpak placementFINAL REPORT CLINICAL HISTORY: corpak placement TECHNIQUE: Supine abdomen IMPRESSION: The tip of the feeding tube is in the distal duodenum. The partially visualized bowel gas pattern is nonspecific with moderate stool in the visualized colon. Signed: Shana Parekh MDReport Verified Date/Time: 05/08/2018 15:38:04 Reading Location: [address] Consult Reading Room BASIC METABOLIC [id number] 15:17:00 Test Item Value Reference Range Interpretation [...] NOT APPLICABLE FOR DIALYSIS PATIEN TS. POCT-GLUCOSE [id number] 14:23:00 Test Item Value Reference Range Interpretation Comments POC-GLUCOSE METER 86 mg/dL 70-110 TESTED AT [facility] 6720 (BEAKER) (test code = TONO Schultz [facility] [address]38) BASIC METABOLIC [id number] 13:23:00 Test Item Value Reference Range Interpretation [...] NOT APPLICABLE FOR DIALYSIS PATIEN TS. POCT-GLUCOSE [id number] 13:15:00 Test Item Value Reference Range Interpretation Comments POC-GLUCOSE METER 140 mg/dL 70-110 H TESTED AT [place] [address] (BEAKER) (test code = TONO [place] 1538) [address] HEMOGLOBIN [id number] 13:13:00 Test Item Value Reference Range Interpretation Comments HEMOGLOBIN A1C (BEAKER) (test code = 17.1 % 4.3-6.1 H 368) POCT-GLUCOSE [id number] 12:14:00 Test Item Value Reference Range Interpretation Comments POC-GLUCOSE METER 159 mg/dL 70-110 H TESTED AT [place] [address] ([facility] (test code = INDERJITFRANCIA Antoine [place] 1538) [address] URINALYSIS W/ [id number] 12:10:00 Test Item Value Reference Range Interpretation [...] 516) SOURCE(BEAKER) (test code = Urine, [place] 0847) TROPONIN [id number] 11:07:00 Test Item Value Reference Range Interpretation [...] ChangeNew: 0.5-2.2 mmol/L Previous: 5- 20 mg/dLPOCT-GLUCOSE [id number] 11:05:00 Test Item Value Reference Range Interpretation Comments POC-GLUCOSE METER 249 mg/dL 70-110 H TESTED AT [facility] 6720 (BEAKER) (test code = INDERJITFRANCIA [place] 1538) [address] [id number] 11:00:00 Test Item Value Reference Range Interpretation Comments MAGNESIUM (BEAKER) (test code = 2.7 mg/dL 1.6-2.6 H 627) [id number] 11:00:00 Test Item Value Reference Range Interpretation Comments PHOSPHORUS (BEAKER) (test code = 1.6 mg/dL 2.3-4.7 L 604) [id number] 11:00:00 Test Item Value Reference Range Interpretation Comments GLUCOSE RANDOM (BEAKER) (test code 325 mg/dL 70-105 H = 652) COMPREHENSIVE METABOLIC [id number] 11:00:00 Test Item Value Reference Range Interpretation [...] S NOT APPLICABLE FOR DIALYSIS PATIEN TS. [id number] 11:00:00 Test Item Value Reference Range Interpretation Comments POTASSIUM (BEAKER) (test code = 3.7 meq/L 3.5-5.1 379) [id number] 10:46:00 Test Item Value Reference Range Interpretation Comments PARTIAL THROMBOPLASTIN TIME 22.6 seconds 22.5-36.0 (BEAKER) (test code = 760) PROTHROMBIN [id number] 10:45:00 Test Item Value Reference Range Interpretation [...] 0-0 (BEAKER) (test code = 413) POCT-GLUCOSE [id number] 09:26:00 Test Item Value Reference Range Interpretation Comments POC-GLUCOSE METER 389 mg/dL 70-110 H Patient on insulin (BEAKER) (test code = Drip/T ESTED AT [facility] 1538) [address] [facility] [address] POCT-GLUCOSE [id number] 08:12:00 Test Item Value Reference Range Interpretation Comments POC-GLUCOSE METER 384 mg/dL 70-110 H Patient on insulin (BEAKER) (test code = Drip/T ESTED AT [facility] 1538) [address] [facility] [address]
--- NOTE | 2023-03-11 12:07 | ER ---
Nurse's Notes [facility] Name: Génesis Manzano Age: 72 yrs Sex: Female : 1950 Arrival Date: 03/11/2023 Time: 11:40 Bed 4 Private MD: Diagnosis: Cerebral infarction, unspecified-greater than 4.5 hours;Altered mental status, unspecified;Type 1 diabetes mellitus with hyperglycemia;Other acute kidney failure Presentation: 03/11 11:41 Chief complaint: Patient's son or daughter states: "I noticed this morning that her L ss eye seemed a little droopy. She woke up at 10 or 11 this morning. She also couldn't remember anything this morning." Last known well was at 1700 yesterday evening. VAN negative. Coronavirus screen: Client denies travel out of the [place] in the last 14 days. Ebola Screen: Patient denies exposure to infectious person. Patient denies travel to an Ebola-affected area in the 21 days before illness onset. Initial Sepsis Screen: Does the patient meet any 2 criteria? No. Patient's initial sepsis screen is negative. Does the patient have a suspected source of infection? No. Patient's initial sepsis screen is negative. Risk Assessment: Do you want to hurt yourself or someone else? Patient reports no desire to harm self or others. Onset of symptoms is unknown. 11:41 Method Of Arrival: Ambulatory ss 11:41 Acuity: JODI 2 ss Historical: - Allergies: 11:54 No Known Allergies; ss - Home Meds: 11:58 amlodipine 10 mg tab once daily [Active]; aspirin 81 mg Oral tab 1 tab once daily hb [Active]; Entresto 24-26 mg oral tablet 2 times per day [Active]; Trijardy XR oral [Active]; Protonix Oral [Active]; - PMHx: 11:54 CVA; Deaf; Hyperlipidemia; Diabetes - IDDM; Hypertension; ss - Immunization history:: Adult Immunizations up to date. - Social history:: Smoking status: Patient denies any tobacco usage or history of. - Family history:: not pertinent. Screenin:56 [facility] ED Fall Risk Assessment (Adult) History of falling in the last 3 months, ld1 including since admission No falls in past 3 months (0 pts). Abuse screen: Denies threats or abuse. Denies injuries from another. Nutritional screening: No deficits noted. Tuberculosis screening: No symptoms or risk factors identified. Assessment: 11:50 General: Code Stroke called.. ss 11:51 Reassessment: Pt to CT with Мария VAUGHN. hb 12:30 General: Appears in no apparent distress. comfortable, Behavior is calm, cooperative, ld1 appropriate for age. Pain: Denies pain. Neuro: Level of Consciousness is awake, alert, obeys commands, Oriented to person, place, time, situation. Cardiovascular: Capillary refill < 3 seconds Patient's skin is warm and dry. Respiratory: Airway is patent Respiratory effort is even, unlabored. GI: Abdomen is round non-distended. : No signs and/or symptoms were reported regarding the genitourinary system. EENT: No signs and/or symptoms were reported regarding the EENT system. Derm: No signs and/or symptoms reported regarding the dermatologic system. Musculoskeletal: No signs and/or symptoms reported regarding the musculoskeletal system. 12:56 Reassessment: Pt in MRI at this time. ld1 14:46 Reassessment: Patient appears in no apparent distress at this time. No changes from ld1 previously documented assessment. Patient and/or family updated on plan of care and expected duration. Pain level reassessed. Patient denies pain at this time. Vital Signs: 11:41 BP 186 / 102; Pulse 99; Resp 17; Temp 99(O); Pulse Ox 100% on R/A; Pain 0/10; ss 13:00 BP 175 / 102; Pulse 100; Resp 18; Pulse Ox 100% on R/A; ld1 13:30 BP 180 / 119; Pulse 94; Resp 16; Pulse Ox 100% on R/A; ld1 14:00 BP 185 / 118; Pulse 98; Resp 20; Pulse Ox 100% on R/A; ld1 14:45 BP 174 / 96; Pulse 97; Resp 16; Pulse Ox 100% on R/A; ld1 11:41 Pain Scale: Adult ss NIH Stroke Scale Scores: 11:52 NIHSS Score: 1 [facility] ED Course: 11:41 Patient arrived in ED. im 11:41 Maxwell Mcbride MD is Attending Physician. [facility] 11:50 Мария Rasheed RN is Primary Nurse. ld1 11:54 Triage completed. ss 11:54 Arm band placed on right wrist. ss 12:01 Patient has correct armband on for positive identification. Placed in gown. Bed in low mm9 position. Call light in reach. Side rails up X2. Adult w/ patient. Warm blanket given. Pillow given. Client placed on continuous cardiac and pulse oximetry monitoring. NIBP monitoring applied. monitoring engineer on. Pulse ox on. NIBP on. 12:08 CT Stroke Brain w/o Contrast In Process Unspecified. EDMS 12:18 CT Head Angio In Process Unspecified. EDMS 12:18 CT Neck Angio In Process Unspecified. EDMS 12:56 No provider procedures requiring assistance completed. Inserted saline lock: 22 gauge ld1 in right antecubital area, using aseptic technique. Blood collected. 13:22 Brain Wo Cont In Process Unspecified. EDMS 14:13 XRAY Chest (1 view) In Process Unspecified. EDMS 14:46 Patient transferred, IV remains in place. ld1 Administered Medications: 12:12 CANCELLED (Duplicate Order): NS 0.9% IV 500 ml IV at bolus once conrado 14:14 Drug: Keppra IV 1000 mg Route: IV; Rate: per protocol; Site: right antecubital; ld1 14:14 Drug: NS 0.9% IV 1000 ml Route: IV; Rate: 125 ml/hr; Site: right antecubital; ld1 14:14 Drug: Rocephin IV 1 grams Route: IV; Rate: per protocol; Site: right antecubital; ld1 14:16 Drug: foLIC Acid IVPB 1 mg Route: IVPB; Site: right antecubital; ld1 14:16 Drug: Aspirin PO Chewable Tablet 81 mg Route: PO; ld1 14:16 Drug: Clopidogrel PO 75 mg Route: PO; ld1 14:30 Drug: Insulin Regular Human IVP 10 units {Co-Signature: hb (Erica Brar RN).} ld1 Route: IVP; Site: right antecubital; 14:30 Drug: Insulin Regular Human Sub-Q 10 units {Co-Signature: hb (Erica Brar RN).} ld1 Route: Sub-Q; Site: abdomen; 14:45 Drug: NS 0.9% IV 1000 ml Route: IV; Rate: 1 bolus; Site: right antecubital; ld1 Medication: 14:46 VIS not applicable for this client. ld1 Outcome: 12:06 ER care complete, transfer ordered by . conrado 14:46 Transferred by ground EMS to [facility]. ld1 14:46 Condition: stable 14:46 Instructed on the need for transfer. 14:47 Patient left the ED. ld1 NIH Stroke Scale - NIH Stroke Score Date: 03/11/2023 Time: 11:52 Total Score = 1 10. Dysarthria (speech clarity - read or repeat words) - 0(Normal) 11. Extinction and Inattention (visual/tactile/auditory/spatial/personal) - 0(No abnormality) 1a. Level of Consciousness (LOC) - 0(Alert) 1b. Level of Consciousness (LOC) (Month \\T\\ Age) - 0(Both) 1c. LOC Commands (Open \\T\\ Closes Eyes/Plant And Maintenance Technician) - 0(Both) 2. Best Gaze (Lateral Gaze Paresis) - 0(Normal) 3. Visual Field Loss - 0(No visual loss) 4. Facial Palsy - 1(Minor Paralysis) 5a. Left Arm: Motor (10-second hold) - 0(No drift) 5b. Right Arm: Motor (10-second hold) - 0(No drift) 6a. Left Leg: Motor (5-second hold - always test supine) - 0(No drift) 6b. Right Leg: Motor (5-second hold - always test supine) - 0(No drift) 7. Limb Ataxia (finger/nose \\T\\ heel/gaxiola - test with eyes open) - 0(Absent) 8. Sensory Loss (pinprick arms/legs/face) - 0(Normal) 9. Best Language: Aphasia (description/naming/reading) - 0(No aphasia) Initials: conrado Signatures: Dispatcher [employer] EDMaxwell Waters MD MD cha Blanchard, Shelby, RN RN ss Baxter, Heather, RN RN hb Sims, Lauren, RN RN ld1 Lulu Mejia mm9 Kendal Gleason Heather RN hb
--- NOTE | 2023-03-11 12:07 | EDPHYS ---
Physician Documentation [facility] Name: Génesis Manzano Age: 72 yrs Sex: Female : 1950 Arrival Date: 03/11/2023 Time: 11:40 Bed 4 Private MD: ED Physician Maxwell Mcbride HPI: 03/11 11:52 This 72 yrs old Black Female presents to ER via Unassigned with complaints of left face conrado weak, ams. 11:52 The patient's problem is reported as altered mental status, a facial droop, on left, conrado weakness, in the left side of face. Onset: The symptoms/episode began/occurred at an unknown time. was normal last night. Duration: This was a single incident. Context: the episode(s) was witnessed, by family, grandson. The symptoms are alleviated by nothing. The symptoms are aggravated by nothing. The patient presents with confusion, decreased mental status. Onset: The symptoms/episode began/occurred this morning. Possible causes: CVA or TIA, head injury, low blood sugar, seizure, sepsis. The patient presents with dizziness. Modifying factors: The symptoms are alleviated by nothing, the symptoms are aggravated by nothing. Severity of symptoms: At their worst the symptoms were mild in the emergency department the symptoms are unchanged. Historical: - Allergies: 11:54 No Known Allergies; ss - Home Meds: 11:58 amlodipine 10 mg tab once daily [Active]; aspirin 81 mg Oral tab 1 tab once daily hb [Active]; Entresto 24-26 mg oral tablet 2 times per day [Active]; Trijardy XR oral [Active]; Protonix Oral [Active]; - PMHx: 11:54 CVA; Deaf; Hyperlipidemia; Diabetes - IDDM; Hypertension; ss - Immunization history:: Adult Immunizations up to date. - Social history:: Smoking status: Patient denies any tobacco usage or history of. - Family history:: not pertinent. ROS: 11:52 Constitutional: Negative for fever, chills, and weight loss, Eyes: Negative for injury, conrado pain, redness, and discharge, ENT: Negative for injury, pain, and discharge, Neck: Negative for injury, pain, and swelling, Cardiovascular: Negative for chest pain, palpitations, and edema, Respiratory: Negative for shortness of breath, cough, wheezing, and pleuritic chest pain, Abdomen/GI: Negative for abdominal pain, nausea, vomiting, diarrhea, and constipation, Back: Negative for injury and pain, : Negative for injury, bleeding, discharge, and swelling, MS/Extremity: Negative for injury and deformity, Skin: Negative for injury, rash, and discoloration, Psych: Negative for depression, anxiety, suicide ideation, homicidal ideation, and hallucinations, Allergy/Immunology: Negative for hives, rash, and allergies, Endocrine: Negative for neck swelling, polydipsia, polyuria, polyphagia, and marked weight changes, Hematologic/Lymphatic: Negative for swollen nodes, abnormal bleeding, and unusual bruising. 11:52 Neuro: Positive for altered mental status, weakness, of the forehead, left cheek and left eye. Exam: 11:52 Constitutional: This is a well developed, well nourished patient who is awake, alert, conrado and in no acute distress. Head/Face: Normocephalic, atraumatic. Eyes: Pupils equal round and reactive to light, extra-ocular motions intact. Lids and lashes normal. Conjunctiva and sclera are non-icteric and not injected. Cornea within normal limits. Periorbital areas with no swelling, redness, or edema. ENT: Nares patent. No nasal discharge, no septal abnormalities noted. Tympanic membranes are normal and external auditory canals are clear. Oropharynx with no redness, swelling, or masses, exudates, or evidence of obstruction, uvula midline. Mucous membranes moist. Neck: Trachea midline, no thyromegaly or masses palpated, and no cervical lymphadenopathy. Supple, full range of motion without nuchal rigidity, or vertebral point tenderness. No Meningismus. Chest/axilla: Normal chest wall appearance and motion. Nontender with no deformity. No lesions are appreciated. Cardiovascular: Regular rate and rhythm with a normal S1 and S2. No gallops, murmurs, or rubs. Normal PMI, no JVD. No pulse deficits. Respiratory: Lungs have equal breath sounds bilaterally, clear to auscultation and percussion. No rales, rhonchi or wheezes noted. No increased work of breathing, no retractions or nasal flaring. Abdomen/GI: Soft, non-tender, with normal bowel sounds. No distension or tympany. No guarding or rebound. No evidence of tenderness throughout. Back: No spinal tenderness. No costovertebral tenderness. Full range of motion. Female : Normal external genitalia. Skin: Warm, dry with normal turgor. Normal color with no rashes, no lesions, and no evidence of cellulitis. MS/ Extremity: Pulses equal, no cyanosis. Neurovascular intact. Full, normal range of motion. Neuro: Awake and alert, GCS 15, oriented to person, place, time, and situation. Cranial nerves II-XII grossly intact. Motor strength 5/5 in all extremities. Sensory grossly intact. Cerebellar exam normal. Normal gait. Psych: Awake, alert, with orientation to person, place and time. Behavior, mood, and affect are within normal limits. 12:07 Radiologist reports: possible acute left BG [facility] 13:30 ECG was reviewed by the Attending Physician. [facility] Vital Signs: 11:41 BP 186 / 102; Pulse 99; Resp 17; Temp 99(O); Pulse Ox 100% on R/A; Pain 0/10; ss 13:00 BP 175 / 102; Pulse 100; Resp 18; Pulse Ox 100% on R/A; ld1 13:30 BP 180 / 119; Pulse 94; Resp 16; Pulse Ox 100% on R/A; ld1 14:00 BP 185 / 118; Pulse 98; Resp 20; Pulse Ox 100% on R/A; ld1 14:45 BP 174 / 96; Pulse 97; Resp 16; Pulse Ox 100% on R/A; ld1 11:41 Pain Scale: Adult ss NIH Stroke Scale Scores: 11:52 NIHSS Score: 1 conrado MDM: 11:41 Patient medically screened. conrado 11:59 Differential diagnosis: CVA, TIA, Dementia, paralysis, Alzheimer disease, metabolic conrado disorder. Differential Diagnosis: CVA, electrolyte abnormality, hypoglycemia, intracranial bleed, meningitis, pneumonia, volume depletion, cardiac arrhythmia, generalized weakness, head injury, near-syncope, syncope. Data reviewed: vital signs, nurses notes, lab test result(s), EKG, radiologic studies, CT scan, plain films. Consideration of Admission/Observation Patient was admitted/placed on observation. Escalation of care including admission/observation considered. I considered the following discharge prescriptions or medication management in the emergency department Medications were administered in the Emergency Department. See MAR. Care significantly affected by the following chronic conditions: Diabetes, Hypertension, hyperlipemia, deaf, aphasic. 03/11 11:50 Order name: Basic Metabolic Panel; Complete Time: 12:42 [facility] 03/11 11:50 Order name: LFT's; Complete Time: 12:42 [facility] 03/11 11:50 Order name: Magnesium; Complete Time: 12:42 [facility] 03/11 11:50 Order name: NT PRO-BNP; Complete Time: 12:42 [facility] 03/11 11:50 Order name: Troponin HS; Complete Time: 12:42 [facility] 03/11 11:50 Order name: CRP; Complete Time: 12:42 [facility] 03/11 11:50 Order name: Urinalysis w/ reflexes; Complete Time: 13:57 [facility] 03/11 12:47 Order name: CREATININE WHOLE BLOOD; Complete Time: 12:50 EDMS 03/11 11:50 Order name: XRAY Chest (1 view) [facility] 03/11 11:50 Order name: CT Stroke Brain w/o Contrast; Complete Time: 12:25 [facility] 03/11 11:50 Order name: CT Head Angio; Complete Time: 12:50 [facility] 03/11 11:50 Order name: CT Neck Angio; Complete Time: 12:42 [facility] 03/11 12:06 Order name: Brain Wo Cont EDAZ 03/11 11:50 Order name: EKG; Complete Time: 11:51 [facility] 03/11 11:50 Order name: Cardiac monitoring; Complete Time: 13:43 [facility] 03/11 11:50 Order name: EKG - Nurse/Tech; Complete Time: 13:43 [facility] 03/11 11:50 Order name: IV Saline Lock; Complete Time: 12:57 [facility] 03/11 11:50 Order name: Labs collected and sent; Complete Time: 12:57 [facility] 03/11 11:50 Order name: O2 Per Protocol; Complete Time: 11:50 [facility] 03/11 11:50 Order name: O2 Sat Monitoring; Complete Time: 11:50 [facility] EC:30 Rate is 89 beats/min. Rhythm is regular. QRS [place] is Normal. OK interval is normal. QRS conrado interval is normal. QT interval is normal. No Q waves. T waves are Normal. No ST changes noted. Clinical impression: Normal ECG and No evidence of ischemia. Interpreted by me. Reviewed by me. Administered Medications: 12:12 CANCELLED (Duplicate Order): NS 0.9% IV 500 ml IV at bolus once conrado 14:14 Drug: Keppra IV 1000 mg Route: IV; Rate: per protocol; Site: right antecubital; ld1 14:14 Drug: NS 0.9% IV 1000 ml Route: IV; Rate: 125 ml/hr; Site: right antecubital; ld1 14:14 Drug: Rocephin IV 1 grams Route: IV; Rate: per protocol; Site: right antecubital; ld1 14:16 Drug: foLIC Acid IVPB 1 mg Route: IVPB; Site: right antecubital; ld1 14:16 Drug: Aspirin PO Chewable Tablet 81 mg Route: PO; ld1 14:16 Drug: Clopidogrel PO 75 mg Route: PO; ld1 14:30 Drug: Insulin Regular Human IVP 10 units {Co-Signature: hb (Erica Brar RN).} ld1 Route: IVP; Site: right antecubital; 14:30 Drug: Insulin Regular Human Sub-Q 10 units {Co-Signature: hb (Erica Brar RN).} ld1 Route: Sub-Q; Site: abdomen; 14:45 Drug: NS 0.9% IV 1000 ml Route: IV; Rate: 1 bolus; Site: right antecubital; ld1 Disposition Summary: 03/11/23 12:06 Transfer Ordered Transfer Location: [facility] conrado Reason: Higher level of care conrado Condition: Fair conrado Problem: new conrado Symptoms: have improved conrado Accepting Physician: to [facility](03/11/23 14:47) ld1 Diagnosis - Cerebral infarction, unspecified - greater than 4.5 hours conrado - Altered mental status, unspecified conrado - Type 1 diabetes mellitus with hyperglycemia conrado - Other acute kidney failure conrado Forms: - Medication Reconciliation Form conrado - SBAR form conrado NIH Stroke Scale - NIH Stroke Score Date: 03/11/2023 Time: 11:52 Total Score = 1 10. Dysarthria (speech clarity - read or repeat words) - 0(Normal) 11. Extinction and Inattention (visual/tactile/auditory/spatial/personal) - 0(No abnormality) 1a. Level of Consciousness (LOC) - 0(Alert) 1b. Level of Consciousness (LOC) (Month \T\ Age) - 0(Both) 1c. LOC Commands (Open \T\ Closes Eyes/Geological Drafter) - 0(Both) 2. Best Gaze (Lateral Gaze Paresis) - 0(Normal) 3. Visual Field Loss - 0(No visual loss) 4. Facial Palsy - 1(Minor Paralysis) 5a. Left Arm: Motor (10-second hold) - 0(No drift) 5b. Right Arm: Motor (10-second hold) - 0(No drift) 6a. Left Leg: Motor (5-second hold - always test supine) - 0(No drift) 6b. Right Leg: Motor (5-second hold - always test supine) - 0(No drift) 7. Limb Ataxia (finger/nose \T\ heel/gaxiola - test with eyes open) - 0(Absent) 8. Sensory Loss (pinprick arms/legs/face) - 0(Normal) 9. Best Language: Aphasia (description/naming/reading) - 0(No aphasia) Initials: conrado Signatures: Dispatcher [employer] EDMS Maxwell Mcbride MD MD cha Blanchard, Shelby, RN RN Erica Brar RN RN Мария Rasheed RN RN ld Erica Brar RN Corrections: (The following items were deleted from the chart) 12:06 11:51 MR STROKE PROTOCOL+MRI.RAD.BRZ ordered. EDMS EDMS 12:12 12:12 NS 0.9% IV 500 ml IV at bolus once ordered. conrado conrado 13:05 12:06 to [facility] conrado conrado 14:47 13:05 to [facility] conrado ld1
--- NOTE | 2023-03-11 12:18 | RAD REPORT ---
EXAM DESCRIPTION: CT - Ct Stroke Brain Wo Cont - 03/11/2023 12:06 pm CLINICAL HISTORY: STROKE ALERT COMPARISON: Ct Stroke Brain Wo Cont dated 05/08/2018; HEAD BRAIN W O CONTRAST dated 04/18/2014 TECHNIQUE: All CT scans are performed using dose optimization technique as appropriate and may inclu de automated exposure control or mA/KV adjustment according to patient size. FINDINGS: No intracranial hemorrhage, hydrocephalus or extra-axial fluid collection.Remote right occ ipital lobe infarct that is small to moderate in size. Ill-defined areas hypoattenuation left basal g anglia. No hyperdense MCA identified. The paranasal sinuses and mastoids are clear. The calvarium is intact. IMPRESSION: Possible acute left basal ganglia lacunar infarct. MRI could confirm. Remote right occip ital lobe infarct. Conveyed to Dr. Mcbride by Dr. Miles at 1200 on 03/11/23
[2023-03-11 12:36] LABS: ALT/SGPT 23 U/L (13-56); AST/SGOT 11 U/L (15-37); Albumin 3.6 g/dL (3.4-5.0); Alkaline Phosphatase 83 U/L (45-117); BUN Blood Urea Nitrogen 25 mg/dL (7-18); Bicarbonate 27 mEq/L (21-32); Bilirubin Direct < 0.1 mg/dL (0-0.2); Bilirubin Indirect, Calculated ND mg/dL (0.2-0.8); Bilirubin Total 0.2 mg/dL (0.2-1.0); C-Reactive Protein 6.14 mg/L (<3.00); Glomerular Filtration Rate 40 ml/min (=/>90); Magnesium 2.5 mg/dL (1.6-2.4); NT PRO-BNP 122 pg/mL (<125); Potassium 4.3 mEq/L (3.5-5.1); Protein, Total 8.3 g/dL (6.4-8.2); Sodium Level 137 mEq/L (136-145); Troponin High Sensitivity 4.5 pg/mL (<58.9)
--- NOTE | 2023-03-11 12:36 | RAD REPORT ---
EXAM DESCRIPTION: CT - Neck Angio - 03/11/2023 12:16 pm CLINICAL HISTORY: tia COMPARISON: No comparisons TECHNIQUE: CT angiography of the neck vessels was performed with maximum intensity reformatted image s. CAROTID STENOSIS REFERENCE USING NASCET CRITERIA: Mild - <50% stenosis. Moderate - 50-69% stenosis. Severe - 70-94% stenosis. Near occlusion - 95-99% stenosis. Occluded - 100% stenosis. All CT scans are performed using dose optimization technique as appropriate and may include automated exposure control or mA/KV adjustment according to patient size. FINDINGS: A left aortic arch is identified with normal three vessel configuration of the great vesse ls. No significant flow abnormality is seen of the common carotid bilaterally. No significant stenosis is identified involving the cervical segments of both internal carotid arteri es. Moderate focal stenosis of the left vertebral artery at the level of the C5-6 disc space . IMPRESSION: The carotid systems are widely patent. Moderate focal stenosis of the left vertebral art nasra at the level of the C5-C6 disc space. The clinical significance is unclear. It could be an acute or chronic finding. A short segment vertebral artery dissection considered unlikely but difficult to entirely exclude. An MRA of the neck may be able to help evaluate.
[2023-03-11 12:38] LABS: Glucose Level 761 mg/dL (74-106)
--- NOTE | 2023-03-11 12:42 | RAD REPORT ---
EXAM DESCRIPTION: CT - Head angio - 03/11/2023 12:16 pm CLINICAL HISTORY: PAIN COMPARISON: Ct Stroke Brain Wo Cont dated 03/11/2023; Ct Stroke Brain Wo Cont dated 05/08/2018 TECHNIQUE: CT angiography of the head was performed with maximum intensity reformatted images. 3D ma ximum intensity pixel (MIP) reconstructions were created All CT scans are performed using dose optimization technique as appropriate and may include automated exposure control or mA/KV adjustment according to patient size. FINDINGS: Anterior circulation: The intracranial ICAs are heavily calcified. They are at least moderately narrowed at the cavernous p ortions. It is possible there may be severe stenoses. Both middle cerebral arteries are widely patent . The anterior cerebral arteries are patent. No aneurysm is identified. No arteriovenous malformatio n identified. Posterior circulation: Moderate focal stenoses of the left vertebral artery. The basilar artery is patent. Multifocal stenos es of the bilateral posterior cerebral arteries. In particular, the right posterior cerebral artery h as a multifocal high-grade stenoses and is probably occluded at the P2 segment. Venous contamination is noted. IMPRESSION: 1. Anterior circulation: Heavily calcified bilateral intracranial ICAs with at least mod erate if not severe stenoses at the cavernous carotids. Both middle cerebral arteries and anterior ce rebral arteries are patent, however. 2. Posterior circulation: Occluded right P2 segment posterior cerebral artery with multifocal stenose s involving the left HAIR SPECIALIST and left vertebral artery.
[2023-03-11 13:20] LABS: Specific Gravity > 1.030 (1.005-1.030); Urine Bilirubin NEGATIVE (Negative); Urine Blood Negative (Negative); Urine Clarity Clear (Clear); Urine Color Colorless (Yellow); Urine Glucose 4+ (Over) (Negative); Urine Protein NEGATIVE (Negative); Urine Urobilinogen Normal (Normal)
[2023-03-11] MEDS ORDERED: LEVETIRACETAM 500 MG/5 ML VIAL IV ONE (14:11)
[2023-03-11] MEDS ORDERED: ASPIRIN 81 MG CHEWABLE TABLET ONE (14:11)
[2023-03-11] MEDS ORDERED: CLOPIDOGREL 75 MG TABLET ONE (14:12)
[2023-03-11] MEDS ORDERED: CEFTRIAXONE 1000 MG/VIAL ONE (14:12)
[2023-03-11] MEDS ORDERED: INSULIN -REGULAR HUMAN 50 UNIT/0.5 ML ML ONE (14:12)
[2023-03-11] MEDS ORDERED: FOLIC ACID 5 MG/ML VIAL ONE (14:13)
[2023-03-11] MEDS ORDERED: NA CHLORIDE 0.9% 1,000 ML ONE ×2 (14:13→14:14)
[2023-03-11] MEDS ORDERED: NA CHLORIDE 0.9% 100 ML ONE (14:14)
--- NOTE | 2023-03-11 14:47 | RAD REPORT ---
EXAM DESCRIPTION: MRI - Brain Wo Cont - 03/11/2023 1:20 pm CLINICAL HISTORY: MENTAL STATUS CHANGE COMPARISON: Head CT and CT angiogram of the same date TECHNIQUE: Multiplanar multisequence MRI of the brain performed without IV contrast. FINDINGS: Motion artifact somewhat limits evaluation, despite attempts at repeat imaging. Focus of diffusion restriction involving the left globus pallidus and posterior limb of internal caps ule, with corresponding T2 and FLAIR hyperintensity and mild mass-effect. This corresponds to the CT abnormality. Areas of cystic encephalomalacia, along the parasagittal posterior right mid parieto-occ ipital region, the right frontal operculum, and the peripheral right cerebellar hemisphere. No evidence of acute intracranial hemorrhage or abnormal extra-axial fluid collections. Mild diffuse parenchymal volume loss. Ventricular caliber otherwise within normal for age. Midline st ructures are unremarkable. Scattered subcortical and deep white matter T2/FLAIR hyperintensities, nonspecific, but suggestive of chronic small vessel ischemic changes. No mass effect or midline shift. Major vascular flow voids are preserved. Mastoid air cells and paranasal sinuses are clear. IMPRESSION: Left basal ganglia subacute infarct, in the region of abnormal hypodensity seen on CT of earlier the same day. Sequelae of remote ischemia elsewhere as above.
[2023-03-11 14:53] VITALS: TEMP 99; O2SAT 100
[2023-03-11 14:58] VITALS: BP 174/96
--- NOTE | 2023-03-11 15:00 | RAD REPORT ---
EXAM DESCRIPTION: RADChest Single View03/11/2023 2:11 pm CLINICAL HISTORY: COUGH COMPARISON: Chest Single View dated 08/29/2022; Chest Single View dated 03/20/2019; Chest Single View d ated 09/13/2018; Chest Single View dated 05/08/2018 TECHNIQUE: Portable AP view of the chest. FINDINGS: The lungs are clear. Decreased inspiratory effort somewhat limits evaluation. No pneumotho rax or effusion. The cardiomediastinal contours are unremarkable. Tortuosity of the thoracic aorta ag ain seen. IMPRESSION: No acute cardiopulmonary process.
--- NOTE | 2023-03-14 18:07 | EKG ---
Test Date: 2023-03-11 Test Time: 13:27:43 Court Recorder: MARLENE MEASUREMENT RESULTS: Intervals: Rate: 89 TN: 192 QRSD: 94 QT: 364 QTc: 442 [place]: P: 44 TN: 192 QRS: 34 T: 31 INTERPRETIVE STATEMENTS: Sinus rhythm Normal ECG Compared to ECG 08/29/2022 16:02:11 Sinus tachycardia no longer present Atrial abnormality no longer present ST (T wave) deviation no longer present Possible ischemia no longer present Electronically Signed On 03-14-23 17:59:59 CDT by Rajendra Beckwith
== END 2023-03-11 14:47 | disposition short-term general hospital (02) ==
LOC: ER 11:40
DX: I63.9 Cerebral infarction, unspecified (principal); E10.65 Type 1 diabetes mellitus with hyperglycemia; N17.8 Other acute kidney failure; R29.701 NIHSS score 1; I10 Essential (primary) hypertension; Z79.82 Long term (current) use of aspirin; Z86.73 Personal history of transient ischemic attack (TIA), and cerebral infarction without residual deficits
CPT/HCPCS: 93005; 80048; 83735; 82565; 80076; 81003; 84484; 83880; 86140; 70496; 70498; 70450; 71045; 70551; 96375; 96372; 96374; 99285; Q9967; J1815; J1953; J7030 ×2; J0696

== ENCOUNTER 2024-09-29 13:22 | Emergency (ER) | payer OTHER ==
--- NOTE | 2024-09-29 14:44 | RAD REPORT ---
EXAMINATION: CT HEAD WITHOUT CONTRAST CT CERVICAL SPINE WITHOUT CONTRAST CLINICAL INDICATION: Female, 74 years old. PAIN TECHNIQUE: Axial CT images from the skull base to the vertex without intravenous contrast. Axial CT i mages through the cervical spine were obtained without intravenous contrast. Sagittal and coronal reformatted images were created from the data set. Coronal and sagittal reformatted images were creat ed from the data set. One or more of the following dose reduction techniques were used: Automated exposure control, adjustment of the mA and/or kV according to patient size, and/or iterative reconstr uction. Unless otherwise specified, incidental findings do not require dedicated imaging follow-up. [id number]. COMPARISON: 03/11/2023 FINDINGS: Head: INTRACRANIAL: No acute intracranial hemorrhage. No hydrocephalus. No mass effect or midline shift. Mi ld chronic small vessel ischemic changes.Moderate cerebral atrophy. Remote left basal ganglia and right occipital lobe infarct. VASCULATURE: No visualized abnormalities in the arteries or dural venous sinuses. SCALP/SKULL: No calvarial fracture identified. No acute soft tissue abnormality. SINUSES: Mucosal thickening in the left maxillary sinus. No significant mastoid fluid. Cervical spine: ALIGNMENT: Reversal of the normal cervical lordosis. BONE: No acute fracture. DEGENERATIVE: Multilevel cervical spondylosis with evidence of bilateral neural foraminal narrowing. No high grade central spinal stenosis. This is most pronounced bilaterally at C4-5. SOFT TISSUE: No significant abnormalities in the soft tissue of the neck. The visualized lung apices are clear. IMPRESSION: No acute intracranial abnormality. Remote infarcts. No acute fracture or traumatic malalignment of the cervical spine.
[2024-09-29 16:30] LABS: Specific Gravity > 1.030 (1.005-1.030); Sqamous Epithelial <5 /HPF (None Seen); Urine Bacteria <20 /HPF (<20); Urine Bilirubin NEGATIVE (Negative); Urine Blood Negative (Negative); Urine Clarity Turbid (Clear); Urine Color Light-Yellow (Yellow); Urine Culture Reflex Order REFLEXED; Urine Glucose 4+ (Over) (Negative); Urine Ketones 1+ (Negative); Urine Micro Reflex YN NO BILL MICROSCOPIC; Urine Mucus Slight /HPF (None Seen); Urine Nitrite NEGATIVE (Negative); Urine Protein NEGATIVE (Negative); Urine RBC 21-50 /HPF (None Seen); Urine Urobilinogen Normal (Normal); Urine pH 5.5 (5.0-7.0)
--- NOTE | 2024-09-29 17:37 | EDPHYS ---
Physician Documentation [facility] [place] Name: Génesis Manzano Age: 74 yrs Sex: Female : 1950 Arrival Date: 09/29/2024 Time: 13:22 Bed DIS4 Private MD: ERLIN Physician Maxwell Mcbride HPI: 09/29 14:15 This 74 yrs old Black Female presents to ER via Wheelchair with complaints of Fall cp Injury. 14:15 Details of fall: The patient fell from an upright position, while walking. Onset: The cp symptoms/episode began/occurred last night, after losing balance. 14:15 Associated injuries: The patient sustained injury to the head, pain, tenderness. cp 14:15 Daughter reports that patient has been unsteady when walking today since falling and cp hitting head last night. Historical: - Allergies: 13:54 No Known Allergies; iw - Home Meds: 13:54 amlodipine 10 mg tab once daily [Active]; aspirin 81 mg Oral tab 1 tab once daily iw [Active]; clonidine HCl 0.2 mg Oral tab 2 times per day [Active]; Entresto 24-26 mg Oral tablet 2 times per day [Active]; glipizide 10 mg Oral tab 1 tab 2 times per day [Active]; hydrochlorothiazide 25 mg Oral tab once daily [Active]; Levemir 100 unit/mL subcutaneous soln 40 unit twice a day [Active]; metformin 1 Oral tab 2 times per day [Active]; metoprolol tartrate 50 mg Oral tab 1 tab 2 times per day [Active]; potassium chloride 10 mEq Oral cpER 1 tab once daily [Active]; Protonix Oral [Active]; rosuvastatin 20 mg Oral tab 1 tab once daily [Active]; Trijardy XR oral [Active]; - PMHx: 13:54 CVA; Deaf; Diabetes - IDDM; Hyperlipidemia; Hypertension; iw - Immunization history:: Adult Immunizations up to date. - Infectious Disease History:: Denies. - Social history:: Smoking status: Patient denies any tobacco usage or history of. ROS: 14:20 Neuro: Positive for gait disturbance, headache, Negative for altered mental status, cp loss of consciousness, syncope, near syncope, weakness, 14:20 Cardiovascular: Negative for chest pain, edema, palpitations, cp 14:20 Respiratory: Negative for cough, shortness of breath, wheezing, 14:20 Abdomen/GI: Negative for abdominal pain, vomiting, diarrhea, constipation, 14:20 Back: Negative for pain at rest, pain with movement, 14:20 Eyes: Negative for injury, pain, redness, and discharge, cp 14:20 Constitutional: Negative for body aches, chills, fever, poor PO intake, 14:20 All other systems are negative, cp Exam: 14:25 Constitutional: The patient appears in no acute distress, alert, awake, cp non-diaphoretic, non-toxic, well developed, well nourished, 14:25 Head/face: Noted is tenderness, that is mild, of the right frontal area and right cp temporal area, 14:25 Eyes: Periorbital structures: appear normal, Pupils: equal, round, and reactive to light and accomodation, Conjunctiva: normal, no exudate, no injection, Lids and lashes: appear normal, bilaterally, 14:25 ENT: External ear(s): are unremarkable, Nose: is normal, Mouth: Lips: moist, Oral mucosa: moist, Posterior pharynx: Airway: no evidence of obstruction, patent, 14:25 Neck: C-spine: vertebral tenderness, is not appreciated, crepitus, is not appreciated, ROM/movement: pain, is not appreciated, limited range of motion, is not appreciated, 14:25 Chest/axilla: Inspection: normal, Palpation: is normal, no crepitus, no tenderness, 14:25 Cardiovascular: Rate: normal, 14:25 Respiratory: the patient does not display signs of respiratory distress, Respirations: normal, no use of accessory muscles, no retractions, labored breathing, is not present, Breath sounds: are clear throughout, no decreased breath sounds, no stridor, no wheezing, 14:25 Abdomen/GI: Inspection: abdomen appears normal, Palpation: abdomen is soft and non-tender, in all quadrants, 14:25 Back: vertebral tenderness, is not appreciated, 14:25 Neuro: Orientation: to person, place \T\ time. Mentation: is normal, Cerebellar function: Romberg testing is negative, Motor: moves all fours, strength is normal, Sensation: is normal, Vital Signs: 13:52 BP 171 / 109; Pulse 97; Resp 18; Temp 97.6; Pulse Ox 97% on R/A; Weight 69.4 kg; Height iw 5 ft. 4 in. ; 17:08 BP 179 / 101; Pulse 91; Resp 18 S; Pulse Ox 95% on R/A; kc6 13:52 Body Mass Index 26.26 (69.40 kg, 162.56 cm) iw MDM: 14:02 Medical Screening Exam initiated cp 17:36 Data reviewed: vital signs, nurses notes, lab test result(s), urinalysis, radiologic cp studies, CT scan. 17:36 Differential diagnosis: closed head injury, contusion, fracture, laceration, multiple cp trauma. I considered the following discharge prescriptions or medication management in the emergency department Medications were administered in the Emergency Department. See MAR. Care significantly affected by the following chronic conditions: Diabetes, Hypertension. Counseling: I had a detailed discussion with the patient and/or guardian regarding the historical points, exam findings, and any diagnostic results supporting the discharge/admit diagnosis, the presence of at least one elevated blood pressure reading (>120/80) during this emergency department visit, to return to the emergency department if symptoms worsen or persist or if there are any questions or concerns that arise at home. Response to treatment: the patient's symptoms have mildly improved after treatment, and as a result, I will discharge patient. Special discussion: Based on the patient's history, exam and DX evaluation, there is no indication for emergent intervention or inpatient TX. It is understood by the patient/guardian that if the SXs persist or worsen they need to return immediately for re-evaluation. 09/29 15:31 Order name: Urinalysis W/Microscopic; Complete Time: 17:34 cp 09/29 17:35 Interpretation: Normal except: [facility] Turbid; Urine SG > 1.030; UGLUC 4+ (Over); UKET 1+; cp UESTR 250; UWBC 10-20; URBC 21-50. 09/29 17:03 Order name: Urine Culture EDMO 09/29 14:09 Order name: CT Head C Spine: fell and hit head; Complete Time: 14:59 cp 09/29 14:59 [place] [facility] [place]: ambulate patient; Complete Time: 15:35 cp Administered Medications: 19:10 Drug: Acetaminophen PO 1000 mg PO once Route: PO; [facility] 19:31 Follow up: Response: No adverse reaction kc6 19:10 Drug: Nitrofurantoin PO 100 mg PO once; administer with food Route: PO; kc6 19:31 Follow up: Response: No adverse reaction kc6 Disposition: 09/30 19:30 Chart complete. cp Disposition Summary: 09/29/24 17:37 Discharge Ordered Notes: Location: Home cp Problem: new cp Symptoms: have improved cp Condition: Stable cp Diagnosis - UTI/ Urinary tract infection, site not specified cp - Contusion of unspecified part of head, initial encounter cp - Fall on same level, unspecified cp Followup: cp - With: Private Physician - When: 2 - 3 days - Reason: Recheck today's complaints Discharge Instructions: - Discharge Summary Sheet cp - Facial or Scalp Contusion cp - Head Injury, Adult cp - Urinary Tract Infection, Adult cp Forms: - Medication Reconciliation Form cp - Antibiotic Education cp - Prescription Opioid Use cp - Patient Portal Instructions cp - Leadership Thank You Letter cp Prescriptions: - Macrobid 100 mg Oral Capsule - take 1 capsule ORAL route every 12 hours for 7 days; 14 capsule; Refills: 0, cp Product Selection Permitted Signatures: Dispatcher [employer] Eve Restrepo, RN RN Maxwell Hodgson PA PA Mary Pettit RN RN kc6
--- NOTE | 2024-09-29 17:37 | ER ---
[facility]urse's Notes [facility] Name: G[facility]nesis Manzano Age: 74 yrs Sex: Female : 1950 Arrival Date: 09/29/2024 Time: 13:22 Bed DIS4 Private MD: Diagnosis: UTI/ Urinary tract infection, site not specified;Contusion of unspecified part of head, initial encounter;Fall on same level, unspecified Presentation: 09/29 13:52 Chief complaint: Patient's son or daughter states: she has been staying with me but iw recently went back to her house, she said she fell and hit her head on right side and her balance has been off, she fell some time last night, a while back she had a light stroke that affects her short term memory. Coronavirus screen: At this time, the client does not indicate any symptoms associated with coronavirus-19. Ebola Screen: No symptoms or risks identified at this time. Initial Sepsis Screen: Does the patient meet any 2 criteria? No. Patient's initial sepsis screen is negative. Does the patient have a suspected source of infection? No. Patient's initial sepsis screen is negative. Risk Assessment: Do you want to hurt yourself or someone else? Patient reports no desire to harm self or others. 13:52 Method Of Arrival: Wheelchair iw 13:52 Acuity: JOID 3 iw 13:52 Onset of symptoms was September 28, 2024. iw Historical: - Allergies: 13:54 No Known Allergies; iw - Home Meds: 13:54 amlodipine 10 mg tab once daily [Active]; aspirin 81 mg Oral tab 1 tab once daily iw [Active]; clonidine HCl 0.2 mg Oral tab 2 times per day [Active]; Entresto 24-26 mg Oral tablet 2 times per day [Active]; glipizide 10 mg Oral tab 1 tab 2 times per day [Active]; hydrochlorothiazide 25 mg Oral tab once daily [Active]; Levemir 100 unit/mL subcutaneous soln 40 unit twice a day [Active]; metformin 1 Oral tab 2 times per day [Active]; metoprolol tartrate 50 mg Oral tab 1 tab 2 times per day [Active]; potassium chloride 10 mEq Oral cpER 1 tab once daily [Active]; Protonix Oral [Active]; rosuvastatin 20 mg Oral tab 1 tab once daily [Active]; Trijardy XR oral [Active]; - PMHx: 13:54 CVA; Deaf; Diabetes - IDDM; Hyperlipidemia; Hypertension; iw - Immunization history:: Adult Immunizations up to date. - Infectious Disease History:: Denies. - Social history:: Smoking status: Patient denies any tobacco usage or history of. Screenin:23 [facility] ED Fall Risk Assessment (Adult) History of falling in the last 3 months, kc6 including since admission Yes- single mechanical fall (1 pt) Confusion or Disorientation No (0 pts) Intoxicated or Sedated No (0 pts) Impaired Gait No (0 pts) Mobility Assist Device Used No (0 pt) Altered Elimination No (0 pt) Score/Fall Risk Level 0 - 2 = Low Risk Oriented to surroundings, Maintained a safe environment, Educated pt \T\ family on fall prevention, incl call for assistance when getting out of bed. Abuse screen: Denies threats or abuse. Denies injuries from another. Nutritional screening: No deficits noted. Tuberculosis screening: No symptoms or risk factors identified. Assessment: 14:22 General: Appears in no apparent distress. uncomfortable, well groomed, well developed, kc6 Behavior is calm, cooperative, appropriate for age. Pain: Complains of pain in right temporal area and right roman catholic Pain does not radiate. Neuro: Level of Consciousness is awake, alert, obeys commands, Oriented to person, place, time, situation, Appropriate for age Electrolysis Investigator are equal bilaterally Moves all extremities. Full function Gait is unsteady, Speech is normal, Facial symmetry appears normal, Pupils are PERRLA, Intact Reports dizziness, headache in right parietal area. Cardiovascular: Capillary refill < 3 seconds. Respiratory: Airway is patent Trachea midline Respiratory effort is even, unlabored, Respiratory pattern is regular, symmetrical. GI: No signs and/or symptoms were reported involving the gastrointestinal system. : No signs and/or symptoms were reported regarding the genitourinary system. EENT: No signs and/or symptoms were reported regarding the EENT system. Derm: No signs and/or symptoms reported regarding the dermatologic system. Skin is intact, is healthy with good turgor, Skin is pink, warm \T\ dry. Musculoskeletal: No signs and/or symptoms reported regarding the musculoskeletal system. Circulation, motion, and sensation intact. Range of motion: intact in all extremities. 15:26 Reassessment: Patient appears in no apparent distress at this time. No changes from kc6 previously documented assessment. Patient and/or family updated on plan of care and expected duration. Pain level reassessed. Patient is alert, oriented x 3, equal unlabored respirations, skin warm/dry/pink. 16:21 Reassessment: Patient appears in no apparent distress at this time. No changes from kc6 previously documented assessment. Patient and/or family updated on plan of care and expected duration. Pain level reassessed. Patient is alert, oriented x 3, equal unlabored respirations, skin warm/dry/pink. 17:19 Reassessment: Patient appears in no apparent distress at this time. No changes from kc6 previously documented assessment. Patient and/or family updated on plan of care and expected duration. Pain level reassessed. Patient is alert, oriented x 3, equal unlabored respirations, skin warm/dry/pink. 18:19 Reassessment: Patient appears in no apparent distress at this time. No changes from kc6 previously documented assessment. Patient and/or family updated on plan of care and expected duration. Pain level reassessed. Patient is alert, oriented x 3, equal unlabored respirations, skin warm/dry/pink. Vital Signs: 13:52 BP 171 / 109; Pulse 97; Resp 18; Temp 97.6; Pulse Ox 97% on R/A; Weight 69.4 kg; Height iw 5 ft. 4 in. ; 17:08 BP 179 / 101; Pulse 91; Resp 18 S; Pulse Ox 95% on R/A; kc6 13:52 Body Mass Index 26.26 (69.40 kg, 162.56 cm) ED Course: 13:24 Patient arrived in ED. im 13:26 Maxwell Owens PA is PHCP. cp 13:26 Maxwell Mcbride MD is Attending Physician. cp 13:54 Triage completed. iw 13:56 Arm band placed on. iw 14:03 Mary Cotto, JOHANA is Primary Nurse. kc6 14:24 Patient has correct armband on for positive identification. Bed in low position. Call kc6 light in reach. Side rails up X2. Adult w/ patient. Pulse ox on. NIBP on. Door closed. Noise minimized. Lights dimmed. Warm blanket given. Pillow given. Verbal reassurance given. 14:24 Patient maintains SpO2 saturation greater than 95% on room air. kc6 14:33 CT Head C Spine: fell and hit head In Process Unspecified. EDMS 15:40 Assisted to bathroom. kc6 15:40 Urine collected: clean catch specimen, clear. kc6 19:15 No provider procedures requiring assistance completed. Patient did not have IV access kc6 during this emergency room visit. Administered Medications: 19:10 Drug: Acetaminophen PO 1000 mg PO once Route: PO; kc6 19:31 Follow up: Response: No adverse reaction kc6 19:10 Drug: Nitrofurantoin PO 100 mg PO once; administer with food Route: PO; kc6 19:31 Follow up: Response: No adverse reaction kc6 Medication: 19:15 VIS not applicable for this client. kc6 Outcome: 17:37 Discharge ordered by MD. cp 19:15 Discharged to home ambulatory, with family, kc6 19:15 Condition: good 19:15 Discharge instructions given to patient, family, Instructed on discharge instructions, follow up and referral plans. medication usage, Demonstrated understanding of instructions, follow-up care, medications, 19:32 Patient left the ED. kc6 Signatures: Dispatcher [employer] EDMS Eve Roman RN RN iw Maxwell Owens PA PA cp Campbell, Kaitlyn, RN RN [email or web address] Kendal Gleason Corrections: (The following items were deleted from the chart) 13:56 13:52 BP 148 / 124; Pulse 97bpm; Resp 18bpm; Pulse Ox 97% RA; Temp 97.6F; iw po
[2024-09-29] MEDS ORDERED: NITROFURAN MACRO 100 MG CAP PO ONE (18:35)
[2024-09-29] MEDS ORDERED: ACETAMINOPHEN 500 MG TAB ONE (18:35)
[2024-09-29 19:35] VITALS: TEMP 97.6
[2024-09-29 19:37] VITALS: BP 179/101; O2SAT 95
== END 2024-09-29 19:32 | disposition home or self-care (01) ==
LOC: ER 13:22
DX: S00.83XA Contusion of other part of head, initial encounter (principal); W18.30XA Fall on same level, unspecified, initial encounter; N39.0 Urinary tract infection, site not specified
CPT/HCPCS: 70450; 72125; 81001; 87077; 87086; 87088; 87186; 99284

== ENCOUNTER 2024-12-03 14:46 | Emergency (ER) | payer OTHER ==
[2024-12-03] MEDS ORDERED: ONDANSETRON 4 MG/2 ML VIAL ONE (20:43)
[2024-12-03] MEDS ORDERED: NA CHLORIDE 0.9% 500 ML ONE (20:43)
[2024-12-03] MEDS ORDERED: FAMOTIDINE 20 MG/2 ML VIAL IV ONE (20:43)
[2024-12-03 20:51] LABS: Absolute Lymphocytes (CBC) 1.7 K/uL (0.7-4.9); Absolute Monocytes 0.7 K/uL (0.1-1.3); Absolute Neutrophil 11.9 K/uL (1.8-8.0); Basophils % 0.2 % (0-1.3); Hematocrit 44.5 % (36.0-45.0); Hemoglobin 14.6 g/dL (12.0-15.0); MCH 28.3 pg (27.0-35.0); MCHC 32.8 g/dL (32.0-36.0); MCV 86.2 fL (80-100); MPV 8.2 fL (7.6-11.3); Neutrophils % 82.8 % (41.7-73.7); Platelets 195 thou/uL (152-406); RBC Red Blood Cell Count 5.16 M/uL (3.86-4.86); Red Cell Distribution Width 14.7 % (12.1-15.2)
[2024-12-03 21:08] LABS: Albumin 3.7 g/dL (3.4-5.0); Albumin/Globulin Ratio 0.7 (1.1-1.8); Anion Gap 25.3 mEq/L (5.0-15.0); Bilirubin Total 0.5 mg/dL (0.2-1.0); Globulin 5.6 g/dL (2.3-3.5); Potassium 4.3 mEq/L (3.5-5.1); Protein, Total 9.3 g/dL (6.4-8.2)
[2024-12-03 21:18] LABS: Sqamous Epithelial <5 /HPF (None Seen); Urine Bacteria None Seen /HPF (<20); Urine Bilirubin NEGATIVE (Negative); Urine Blood Negative (Negative); Urine Clarity Clear (Clear); Urine Color Light-Yellow (Yellow); Urine Crystals Unidentified Few /HPF (None Seen); Urine Culture Reflex Order NOT NEEDED; Urine Glucose 4+ (Over) (Negative); Urine Ketones 3+ (Negative); Urine Microscopic Reflex YN ORDER UMIC; Urine Mucus Slight /HPF (None Seen); Urine Nitrite NEGATIVE (Negative); Urine Protein 1+ (Negative); Urine RBC <5 /HPF (None Seen); Urine Urobilinogen Normal (Normal); Urine WBC <5 /HPF (<5); Urine Yeast (Budding) Trace /HPF (None Seen); Urine pH 5.5 (5.0-7.0)
--- NOTE | 2024-12-03 21:51 | RAD REPORT ---
EXAM: CT brain without contrast HISTORY: Headache COMPARISON: September 2024 TECHNIQUE: Multiple contiguous axial images were obtained and a CT of the brain without contrast.. Sagittal and coronal reconstruction performed. Automated exposure control, adjustment of the mA and/or kV according to patient size, and/or iterative reconstruction. Unless otherwise specified, incidental f indings do not require dedicated imaging follow-up FINDINGS: 4.2 cm bleed right cerebellum. Additional old right cerebellar and right cerebral infarctions are present. Old infarct left internal capsule. No hydrocephalus. No extra-axial fluid collection noted No fluid within the visualized sinuses or mastoids noted. IMPRESSION: 4.2 cm bleed right cerebellum probably a hemorrhagic infarction. Other considerations include hyperte nsive bleed and hemorrhagic metastasis. Maxwell Page of the emergency room notified 9:45 PM December 03, 2024
[2024-12-03] MEDS ORDERED: HYDRALAZINE HCL 20 MG/ML VIAL ONE (21:57)
[2024-12-03] MEDS ORDERED: LEVETIRACETAM 500 MG/5 ML VIAL IV ONE (21:57)
[2024-12-03] MEDS ORDERED: NA CHLORIDE 0.9% 250 ML ONE (21:58)
[2024-12-03] MEDS ORDERED: Nicardipine/NS 25 MG/250 ML KIT IV ONE (22:08)
--- NOTE | 2024-12-03 22:08 | RAD REPORT ---
EXAMINATION: CT ABDOMEN AND PELVIS WITH CONTRAST CLINICAL INDICATION: Abdominal pain TECHNIQUE: CT abdomen and pelvis was performed, after the administration of 100 cc Isovue-300.. Sagit mumtaz and coronal reconstructions were obtained. One or more of the following dose reduction techniques were used: Automated exposure control, adjustment of the mA and kV according to patient si ze, and iterative reconstruction. Unless otherwise specified, incidental findings do not require dedicated imaging follow-up. [id number]. Oral contrast was not given which limits evaluation of bowel and appendix. COMPARISON: .2019 FINDINGS: Thickening of the wall of the distal stomach. The liver, pancreas, adrenals and right kidney unremarkable Small left renal cyst. Previously described splenic lesions are not as well seen on this exam. Most likely they're either st able or diminished in size. Normal appendix. No evidence of diverticulitis. Large uterine fibroids some calcified without significant change. : IMPRESSION: Thickening of the wall of the distal stomach could be secondary to inflammation or neoplasm.
--- NOTE | 2024-12-03 22:46 | EDPHYS ---
Physician Documentation [facility] Name: Génesis Manzano Age: 74 yrs Sex: Female : 1950 Arrival Date: 12/03/2024 Time: 14:46 Bed 2 Private MD: ED Physician Mike Zamarripa HPI: 12/03 18:58 This 74 yrs old Black Female presents to ER via Wheelchair with complaints of Abdominal kb Pain, Vomiting, Weakness. 18:58 Pt is a 74 year old female who presents for abdominal pain, decreased appetite, nausea, kb vomiting, headache and weakness that started 3 days ago. Daughter states pt had a UTI when this happened last time. Denies fever. . Historical: - Allergies: 14:58 No Known Allergies; hb - PMHx: 14:58 Deaf; CVA; Diabetes - IDDM; Hyperlipidemia; Hypertension; hb - Immunization history:: Adult Immunizations up to date. - Infectious Disease History:: Denies. - Social history:: Smoking status: unknown. ROS: 18:58 Constitutional: As per HPI kb Exam: 18:59 Constitutional: This is a well developed, well nourished patient who is awake, alert, kb and in no acute distress. Head/Face: Normocephalic, atraumatic. ENT: Moist Mucous membranes Cardiovascular: Regular rate Respiratory: Respirations even and unlabored. No increased work of breathing. Talking in full sentences Abdomen/GI: Soft, non-tender. No distention Skin: Warm, dry with normal turgor. Normal color. 21:28 ECG was reviewed by the Attending Physician. cp Vital Signs: 14:57 BP 198 / 113; Pulse 108; Resp 16; Temp 98.2(O); Pulse Ox 100% on R/A; hb 19:36 BP 194 / 111; Pulse 108; Resp 18; Pulse Ox 99% ; al5 20:00 BP 205 / 115; Pulse 115; Resp 16; Pulse Ox 99% ; al5 20:30 BP 169 / 107; Pulse 109; Resp 16; Pulse Ox 97% ; al5 20:45 BP 163 / 93; Pulse 105; Resp 15; Pulse Ox 95% ; al5 21:00 BP 180 / 110; Pulse 105; Resp 15; Pulse Ox 97% ; al5 21:15 BP 178 / 98; Pulse 98; Resp 14; Pulse Ox 96% ; al5 22:16 BP 179 / 89; Pulse 103; Resp 15; Pulse Ox 97% on R/A; kd3 22:17 Weight 65 kg; Height 5 ft. 2 in. ; vk 22:30 BP 133 / 81; Pulse 105; Resp 18; Temp 98.2; Pulse Ox 95% ; Pain 0/10; bm8 23:35 BP 141 / 72; Pulse 103; Resp 17; Temp 98.2; Pulse Ox 95% ; Pain 0/10; bm8 22:17 Body Mass Index 26.21 (65.00 kg, 157.48 cm) vk 22:30 Pain Scale: Adult bm8 23:35 Pain Scale: Adult bm8 NIH Stroke Scale Scores: 22:28 NIHSS Score: 4 sp4 [place] Coma Score: 22:30 Eye Response: spontaneous(4). Motor Response: obeys commands(6). Verbal Response: bm8 oriented(5). Total: 15. MDM: 14:50 Medical Screening Exam initiated kb 19:00 Data reviewed: vital signs, nurses notes. Historians other than the Patient: kezia Daughter/Son: daughter. 19:29 Transition of care: After a detail discussion of the patient's case, care is kb transferred to Maxwell FINCH 12/03 15:05 Order name: CBC with Diff; Complete Time: 21:21 kb 12/03 15:05 Order name: CMP; Complete Time: 21:21 kb 12/03 21:23 Interpretation: Normal except: CO2 15; ANION GAP 25.3; GLUC 280; BUN 28; CRE 1.51; GFR cp 37. 05 15:05 Order name: Lipase; Complete Time: 21:21 kb 12/03 15:05 Order name: UA Rfx Shabbir Cult if indicated; Complete Time: 21:21 kb 12/03 15:05 Order name: CT Abd/Pelvis - IV Contrast Only; Complete Time: 22:25 kb 12/03 19:33 Order name: CT Head Brain wo Cont; Complete Time: 22:25 cp 12/03 15:05 Order name: IV Saline Lock; Complete Time: 20:39 kb 12/03 15:05 Order name: Labs collected and sent; Complete Time: 20:39 kb 12/03 18:58 Order name: Vital Signs; Complete Time: 20:39 kb 05/12 19:33 Order name: EKG - Nurse/Tech; Complete Time: 21:25 cp 12 22:04 Order name: Misc. Order: systolic pressure <140; Complete Time: 22:17 cp EC:28 Rate is 101 beats/min. Rhythm is regular. WI interval is normal. QRS interval is cp normal. QT interval is normal. Interpreted by me. Reviewed by me. Administered Medications: 21:11 Drug: NS 0.9% IV 500 ml 500 ml IV at 1 bolus once; to be given as a bolus over 30 al5 minutes Volume: 500 ml; Route: IV; Rate: 1 bolus; Site: right antecubital; 22:33 Follow up: Response: No adverse reaction; IV Status: Completed infusion bm8 21:11 Drug: Famotidine IVP 20 mg IVP once; dilute with 10 mL 0.9% NaCl; give over 2 minutes al5 Route: IVP; Site: right antecubital; 22:32 Follow up: Response: No adverse reaction bm8 21:12 Drug: Ondansetron IVP 4 mg IVP once; over 2 minutes Route: IVP; Site: right antecubital;al5 22:33 Follow up: Response: No adverse reaction bm8 22:03 CANCELLED (Physician Discretion): [id number] mg IVP once cp 22:06 Drug: Keppra IV 1000 mg IV at calculated rate once Route: IV; Rate: calculated rate; kd3 Site: right antecubital; 22:33 Follow up: Response: No adverse reaction; IV Status: Completed infusion bm8 22:15 Drug: niCARdipine IV 5 mg/hr IV at calculated rate See Administration Instructions; kd3 (Standard concentration 25 mg / 250 mL NS); Recommended max rate 15 mg/hr; Titrate 2.5 mg/hr as often as every 15 minutes to achieve goal (see titration policy); Goal parameter SBP less than 160 mmHg Route: IV; Rate: calculated rate; Site: left antecubital; 22:32 Follow up: Rate change 2.5 mg/hr; titrated to 5 mg bm8 12/04 00:48 Follow up: Response: No adverse reaction; IV Status: Infusion continued upon transfer bm8 Disposition: 19:54 Co-signature as Attending Physician, Mike Zamarripa MD I agree with the assessment sp4 and plan of care. I reviewed the patient's care provided by the Advanced Practice Provider and agree with the diagnosis and treatment plan. Disposition Summary: 12/03/24 22:46 Transfer Ordered Notes: Transfer Location: [facility] cp Reason: Higher level of care cp Condition: Stable cp Problem: new cp Symptoms: have improved cp Accepting Physician: DR Hall(12/04/24 00:48) bm8 Diagnosis - Nausea with vomiting, unspecified cp - Weakness cp - Abdominal pain, Generalized cp - Right Cerebellum Bleed cp Forms: - Medication Reconciliation Form cp - SBAR form cp NIH Stroke Scale - NIH Stroke Score Date: 12/03/2024 Time: 22:28 Total Score = 4 10. Dysarthria (speech clarity - read or repeat words) - 0(Normal) 11. Extinction and Inattention (visual/tactile/auditory/spatial/personal) - 0(No abnormality) 1a. Level of Consciousness (LOC) - 0(Alert) 1b. Level of Consciousness (LOC) (Month \T\ Age) - 2(Neither) 1c. LOC Commands (Open \T\ Closes Eyes/Stand Up Forklift Operator) - 0(Both) 2. Best Gaze (Lateral Gaze Paresis) - 0(Normal) 3. Visual Field Loss - 0(No visual loss) 4. Facial Palsy - 2(Partial paralysis) 5a. Left Arm: Motor (10-second hold) - 0(No drift) 5b. Right Arm: Motor (10-second hold) - 0(No drift) 6a. Left Leg: Motor (5-second hold - always test supine) - 0(No drift) 6b. Right Leg: Motor (5-second hold - always test supine) - 0(No drift) 7. Limb Ataxia (finger/nose \T\ heel/gaxiola - test with eyes open) - 0(Absent) 8. Sensory Loss (pinprick arms/legs/face) - 0(Normal) 9. Best Language: Aphasia (description/naming/reading) - 0(No aphasia) Initials: sp4 Signatures: Dispatcher [employer] Radha Holguin, STAKING ENGINEER-C STAKING ENGINEER-Ckb Maxwell Owens PA PA cp Baxter, Heather, RN RN Tereza Martinez RN RN kd3 Mike Zamarripa MD MD sp4 Samuel Chambers RN RN bm8 Brittany Johns, RN RN al5 Corrections: (The following items were deleted from the chart) 12/03 19:33 19:33 Head Brain Wo Cont+CT.RAD.BRZ ordered. EDMS EDMS 20:38 19:27 Gomez ordered. cp al5 22:03 21:47 hydrALAZINE IVP 10 mg IVP once ordered. cp cp 23: 22:46 doctor cp cp 23:13 23:11 DR Hall cp cp 12/04 00:48 12/03 23:13 DR Hall cp bm8
--- NOTE | 2024-12-03 22:46 | ER ---
Nurse's Notes [facility] Name: Génesis Manzano Age: 74 yrs Sex: Female : 1950 Arrival Date: 12/03/2024 Time: 14:46 Bed 2 Private MD: Diagnosis: Nausea with vomiting, unspecified;Weakness;Abdominal pain, Generalized;Right Cerebellum Bleed Presentation: 12/03 14:57 Chief complaint: Upper abdominal pain, generalized weakness, malaise, and headache x 3 hb days, vomiting today. Coronavirus screen: At this time, the client does not indicate any symptoms associated with coronavirus-19. Ebola Screen: No symptoms or risks identified at this time. Initial Sepsis Screen: Does the patient meet any 2 criteria? No. Patient's initial sepsis screen is negative. Does the patient have a suspected source of infection? No. Patient's initial sepsis screen is negative. Risk Assessment: Do you want to hurt yourself or someone else? Patient reports no desire to harm self or others. Onset of symptoms was December 01, 2024. 14:57 Method Of Arrival: Wheelchair hb 14:57 Acuity: JODI 3 hb Historical: - Allergies: 14:58 No Known Allergies; hb - PMHx: 14:58 Deaf; CVA; Diabetes - IDDM; Hyperlipidemia; Hypertension; hb - Immunization history:: Adult Immunizations up to date. - Infectious Disease History:: Denies. - Social history:: Smoking status: unknown. Screenin:15 [facility] ED Fall Risk Assessment (Adult) History of falling in the last 3 months, al5 including since admission No falls in past 3 months (0 pts) Confusion or Disorientation No (0 pts) Intoxicated or Sedated No (0 pts) Impaired Gait Yes (1 pt) Mobility Assist Device Used Yes (1 pt) Altered Elimination Yes (1 pt) Score/Fall Risk Level 3 or more points = High Risk Oriented to surroundings, Maintained a safe environment, Hourly rounding (assess needs \T\ fall precautionary measures) done. Abuse screen: Denies threats or abuse. Denies injuries from another. Nutritional screening: No deficits noted. Tuberculosis screening: No symptoms or risk factors identified. Assessment: 20:11 General: Appears in no apparent distress. well groomed, well developed, Behavior is al5 cooperative, lethargic. Pain: Complains of pain in abdomen. Neuro: Level of Consciousness is alert, obeys commands, lethargic, Oriented to person, place, time, situation, hard of hearing. Cardiovascular: Capillary refill < 3 seconds Patient's skin is warm and dry. Respiratory: Airway is patent Respiratory effort is even, unlabored, Respiratory pattern is regular, symmetrical. GI: Bowel sounds present X 4 quads. Abd is soft and non tender X 4 quads. Parent/caregiver reports the patient having nausea, vomiting, pain. : No signs and/or symptoms were reported regarding the genitourinary system. EENT: No signs and/or symptoms were reported regarding the EENT system. Derm: Skin is intact, is healthy with good turgor, Skin is pink, warm \T\ dry. normal. Musculoskeletal: Parent/caregiver report the patient having weakness in generalized. 21:40 Reassessment: Patient appears in no apparent distress at this time. No changes from al5 previously documented assessment. Patient and/or family updated on plan of care and expected duration. Pain level reassessed. Patient is alert, oriented x 3, equal unlabored respirations, skin warm/dry/pink. 22:30 Reassessment: Patient and/or family updated on plan of care and expected duration. Pain bm8 level reassessed. Patient is alert, oriented x 3, equal unlabored respirations, skin warm/dry/pink. pt states that stomach is feeling better. Patient states feeling better. 22:30 Neuro: Level of Consciousness is awake, alert, obeys commands, Oriented to person, bm8 place, time, situation, Appropriate for age. 23:35 Reassessment: Patient appears in no apparent distress at this time. No changes from bm8 previously documented assessment. Patient and/or family updated on plan of care and expected duration. Pain level reassessed. Patient is alert, oriented x 3, equal unlabored respirations, skin warm/dry/pink. report given to JOHANA Gaitan \T\ [facility] Patient denies pain at this time. Vital Signs: 14:57 BP 198 / 113; Pulse 108; Resp 16; Temp 98.2(O); Pulse Ox 100% on R/A; hb 19:36 BP 194 / 111; Pulse 108; Resp 18; Pulse Ox 99% ; al5 20:00 BP 205 / 115; Pulse 115; Resp 16; Pulse Ox 99% ; al5 20:30 BP 169 / 107; Pulse 109; Resp 16; Pulse Ox 97% ; al5 20:45 BP 163 / 93; Pulse 105; Resp 15; Pulse Ox 95% ; al5 21:00 BP 180 / 110; Pulse 105; Resp 15; Pulse Ox 97% ; al5 21:15 BP 178 / 98; Pulse 98; Resp 14; Pulse Ox 96% ; al5 22:16 BP 179 / 89; Pulse 103; Resp 15; Pulse Ox 97% on R/A; kd3 22:17 Weight 65 kg; Height 5 ft. 2 in. ; vk 22:30 BP 133 / 81; Pulse 105; Resp 18; Temp 98.2; Pulse Ox 95% ; Pain 0/10; bm8 23:35 BP 141 / 72; Pulse 103; Resp 17; Temp 98.2; Pulse Ox 95% ; Pain 0/10; bm8 22:17 Body Mass Index 26.21 (65.00 kg, 157.48 cm) vk 22:30 Pain Scale: Adult bm8 23:35 Pain Scale: Adult bm8 [place] Coma Score: 22:30 Eye Response: spontaneous(4). Motor Response: obeys commands(6). Verbal Response: bm8 oriented(5). Total: 15. NIH Stroke Scale Scores: 22:28 NIHSS Score: 4 sp4 ED Course: 14:50 Patient arrived in ED. al6 14:50 Radha Devries FNP-C is PHCP. kb 14:50 Kaitlin Bangura MD is Attending Physician. kb 14:58 Triage completed. hb 14:58 Arm band placed on. hb 17:57 Radiology exam delayed due to lab results not completed at this time. (BUN/Creatinine) nj IV insertion attempt and/or patient not having appropriate IV at this time. 18:26 Radiology exam delayed due to lab results not completed at this time. IV insertion nj attempt and/or patient not having appropriate IV at this time. 19:17 Radiology exam delayed due to lab results not completed at this time. (BUN/Creatinine) nj IV insertion attempt and/or patient not having appropriate IV at this time. 19:29 PHCP role handed off by Radha Devries FNP-C cp 19:29 Maxwell Owens PA is PHCP. cp 19:30 Brittany Johns, RN is Primary Nurse. al5 19:37 No provider procedures requiring assistance completed. Missed attempt(s): 24 gauge in al5 right antecubital area. Bleeding controlled, band aid applied, catheter tip intact. 19:54 Radiology exam delayed due to lab results not completed at this time. (BUN/Creatinine) nj IV insertion attempt and/or patient not having appropriate IV at this time. 19:54 Missed attempt(s): 24 gauge in right wrist. notified charge nurse to attempt IV al5 access.. Bleeding controlled, band aid applied, catheter tip intact. 20:15 Patient has correct armband on for positive identification. Bed in low position. Call al5 light in reach. Side rails up X2. Provided Education on: plan of care. 20:30 Inserted saline lock: 22 gauge in right antecubital area, using aseptic technique. vc1 Blood collected. Flushed with 10 mL NS. 21:43 CT Head Brain wo Cont In Process Unspecified. EDMS 21:48 Mike Zamarripa MD is Attending Physician. cp 21:57 CT Abd/Pelvis - IV Contrast Only In Process Unspecified. EDMS 22:16 initiated transfer with [facility] spoke with sundar. vk 22:30 Inserted saline lock: 18 gauge in left antecubital area, using aseptic technique. bm8 Flushed with 10 mL NS. Patient maintains SpO2 saturation greater than 95% on room air. 12/04 00:02 patient was accepted to [facility] to Dr. WILDE \T\2247 to [address] [id number] admin approval bao Sandoval \T\2248 report # [phone] transport approved with [employer]. 00:47 Patient transferred, IV remains in place. bm8 Administered Medications: 12/03 21:11 Drug: NS 0.9% IV 500 ml 500 ml IV at 1 bolus once; to be given as a bolus over 30 al5 minutes Volume: 500 ml; Route: IV; Rate: 1 bolus; Site: right antecubital; 22:33 Follow up: Response: No adverse reaction; IV Status: Completed infusion bm8 21:11 Drug: Famotidine IVP 20 mg IVP once; dilute with 10 mL 0.9% NaCl; give over 2 minutes al5 Route: IVP; Site: right antecubital; 22:32 Follow up: Response: No adverse reaction bm8 21:12 Drug: Ondansetron IVP 4 mg IVP once; over 2 minutes Route: IVP; Site: right antecubital;al5 22:33 Follow up: Response: No adverse reaction bm8 22:03 CANCELLED (Physician Discretion): [id number] mg IVP once cp 22:06 Drug: Keppra IV 1000 mg IV at calculated rate once Route: IV; Rate: calculated rate; kd3 Site: right antecubital; 22:33 Follow up: Response: No adverse reaction; IV Status: Completed infusion bm8 22:15 Drug: niCARdipine IV 5 mg/hr IV at calculated rate See Administration Instructions; kd3 (Standard concentration 25 mg / 250 mL NS); Recommended max rate 15 mg/hr; Titrate 2.5 mg/hr as often as every 15 minutes to achieve goal (see titration policy); Goal parameter SBP less than 160 mmHg Route: IV; Rate: calculated rate; Site: left antecubital; 22:32 Follow up: Rate change 2.5 mg/hr; titrated to 5 mg bm8 12/04 00:48 Follow up: Response: No adverse reaction; IV Status: Infusion continued upon transfer bm8 Medication: 12/03 20:15 VIS not applicable for this client. al5 Intake: Outcome: 22:46 ER care complete, transfer ordered by MD. pino 12/04 00:47 Transferred by ground EMS to [facility], Transfer form completed. bm8 X-rays sent w/ patient. Condition: stable Instructed on the need for transfer, Demonstrated understanding of instructions, follow-up care, medications, 00:48 Patient left the ED. bm8 NIH Stroke Scale - NIH Stroke Score Date: 12/03/2024 Time: 22:28 Total Score = 4 10. Dysarthria (speech clarity - read or repeat words) - 0(Normal) 11. Extinction and Inattention (visual/tactile/auditory/spatial/personal) - 0(No abnormality) 1a. Level of Consciousness (LOC) - 0(Alert) 1b. Level of Consciousness (LOC) (Month \T\ Age) - 2(Neither) 1c. LOC Commands (Open \T\ Closes Eyes/Commercial Artist) - 0(Both) 2. Best Gaze (Lateral Gaze Paresis) - 0(Normal) 3. Visual Field Loss - 0(No visual loss) 4. Facial Palsy - 2(Partial paralysis) 5a. Left Arm: Motor (10-second hold) - 0(No drift) 5b. Right Arm: Motor (10-second hold) - 0(No drift) 6a. Left Leg: Motor (5-second hold - always test supine) - 0(No drift) 6b. Right Leg: Motor (5-second hold - always test supine) - 0(No drift) 7. Limb Ataxia (finger/nose \T\ heel/gaxiola - test with eyes open) - 0(Absent) 8. Sensory Loss (pinprick arms/legs/face) - 0(Normal) 9. Best Language: Aphasia (description/naming/reading) - 0(No aphasia) Initials: sp4 Signatures: Dispatcher [employer] EDMS Radha Devries, WAREHOUSE RECEIVING SUPERVISOR-C WAREHOUSE RECEIVING SUPERVISOR-Ckb Maxwell Owens PA PA cp Baxter, Heather, RN RN Obed Edward Kyli RN RN kd3 Aruna Yeh RN RN vc1 Elizabeth Domínguez Brad RN RN bm8 Brittany Johns RN RN al5 Yumiko Matson al6 Corrections: (The following items were deleted from the chart) 12/03 22:32 22:15 Rate change 2.5 mg/hr kd3 bm8
[2024-12-04 00:52] VITALS: TEMP 98.2
[2024-12-04 01:02] VITALS: O2SAT 95
[2024-12-04 01:03] VITALS: BP 141/72
--- NOTE | 2024-12-05 12:23 | EKG ---
Test Date: 2024-12-03 Test Time: 21:20:12 Forestry Support Specialist: CHERYL MEASUREMENT RESULTS: Intervals: Rate: 101 NH: 170 QRSD: 96 QT: 344 QTc: 446 [place]: P: 65 NH: 170 QRS: 59 T: 27 INTERPRETIVE STATEMENTS: Sinus tachycardia Nonspecific T wave abnormality Abnormal ECG Compared to ECG 03/11/2023 13:27:43 T-wave abnormality now present Sinus rhythm no longer present Electronically Signed On 12-05-24 12:21:00 CDT by Orlando Mims
== END 2024-12-04 00:48 | disposition short-term general hospital (02) ==
LOC: ER 14:46
DX: I61.4 Nontraumatic intracerebral hemorrhage in cerebellum (principal); R29.704 NIHSS score 4; R53.1 Weakness; R10.84 Generalized abdominal pain; I10 Essential (primary) hypertension; E11.9 Type 2 diabetes mellitus without complications; Z86.73 Personal history of transient ischemic attack (TIA), and cerebral infarction without residual deficits
CPT/HCPCS: 93005; 85025; 81001; 36415; 83690; 80053; 70450; 74177; 99285; Q9967; J1953; J2405; J7050; J7040; J0360